=== PATIENT | female | born 1955 | race Hispanic/Latino ===

== ENCOUNTER 2017-03-16 | Observation (INO) | payer MEDICARE, OTHER | END 2017-03-16 19:35 | disposition home or self-care (01) | PROVIDERS: ADMIT Internal Medicine Pulmonary Disease | CPT/HCPCS: 80053; 81001; 82948; 85025; 87086; 96361; 96365; 96367; 96372; 96375; 96376; 97163; 97530; G0378; G8978; G8979; J0696; J1170; J1642; J1650; J2543; J7040 ==

== ENCOUNTER 2017-05-11 13:11 | Inpatient (IN) | payer MEDICARE, OTHER ==
[2017-05-11 13:12] VITALS: BMI 38.1
--- NOTE | 2017-05-11 13:34 | C.PDOC ---
History Of Present Illness 62 year old female, with past medical history of Reflex sympathetic dystrophy syndrome, is brought to the ED via EMS for evaluation of generalized body pain after she sustained a fall earlier today. Patient notes she has a home health aid who normally accompanies her throughout the day. Today, patient suffered a fall while she was left unattended. The health aid returned and noticed patient did not seem well and called EMS for evaluation. Patient reports she is experiencing pain "all over" and mostly in her left leg, but also notes this pain is chronic. Patient also reports redness to her right ankle which began yesterday. Patient's most recent hospital admission was in March 2017, for osteomyelitis to her right second toe. Patient states she has been eating and drinking normally. She denies head injury/LOC, shortness of breath, dizziness or lightheadedness. Additional history is limited because patient is a poor historian. Time Seen by Provider: 05/11/17 13:16 Chief Complaint (Nursing): Pain, Chronic History Per: Patient, EMS, Other (home health aid ) History/Exam Limitations: other (poor historian ) Onset/Duration Of Symptoms: Hrs Current Symptoms Are (Timing): Still Present Additional History Per: Patient Past Medical History Reviewed: Historical Data, Nursing Documentation, Vital Signs Vital Signs: Last Vital Signs Temp 98.2 F 05/11/17 16:04 Pulse 91 H 05/11/17 16:04 Resp 20 05/11/17 16:04 BP 131/84 05/11/17 16:04 Pulse Ox 100 05/11/17 16:04 - Medical History PMH: Anxiety, Arthritis, Asthma, Back Problems, Bronchitis, CAD, CHF, COPD, Depression, Diabetes, Gall Bladder Disease (Gallstone), GERD, Hiatal Hernia, HTN , Hypercholesterolemia, Hypothyroidism, Mitral Valve Prolapse, Peripheral Edema , Pulmonary Embolism Denies: Chronic Kidney Disease Surgical History: No Surg Hx - [facility] Procedures FLUOROSCOPY OF SUP VENA CAVA USING L OSM CONTRAST, GUIDANCE (10/13/15) INCIS W REM OF FORIEGN BODY OR DEV FROM SKIN & SUBCUT TISSUE (10/22/14) INFLUENZA VACCINATION (09/19/14) INSERTION OF INFUSION DEV INTO SUP VENA CAVA, PERC APPROACH (10/13/15) INSERTION OF TOTALLY IMPLANTABLE VASC ACCESS DEVIC (10/22/14) INSERTION OF VAD INTO CHEST SUBCU/FASCIA, OPEN APPROACH (10/13/15) NEBULIZER THERAPY (11/05/13) NON-INVASIVE MECHANICAL VENTILATION (06/04/12) OCCUPATIONAL THERAPY (09/19/14) OTH & OPEN REP OTH HERNIA OF ANTER ABD WALL W GRF OR PROSTH (05/28/13) PHYSICAL THERAPY NEC (09/19/14) REMOVAL OF VAD FROM TRUNK SUBCU/FASCIA, OPEN APPROACH (10/13/15) REPAIR CHEST SKIN, EXTERNAL APPROACH (10/13/15) THORAX SFT TISS XRAY NEC (03/19/13) Family History: States: Unknown Family Hx - Social History Hx Tobacco Use: No Hx Alcohol Use: No Hx Substance Use: No - Immunization History Hx Tetanus Toxoid Vaccination: No Hx Influenza Vaccination: No Hx Pneumococcal Vaccination: No Review Of Systems Respiratory: Negative for: Shortness of Breath Musculoskeletal: Positive for: Leg Pain (left), Other (generalized body pain ) Skin: Positive for: Other (redness around right ankle ) Neurological: Negative for: Dizziness, Other (head injury/LOC, lightheadedness ) Physical Exam - Physical Exam Appears: Non-toxic, No Acute Distress, Other (restless ) Skin: Warm, Dry, Other (circumferential erythema to right ankle. dusky- appearance and erythema to right 2nd toe) Head: Atraumatic, Normacephalic Eye(s): bilateral: Normal Inspection Oral Mucosa: Dry Neck: Supple Chest: Symmetrical, No Deformity, No Tenderness Cardiovascular: Rhythm Regular, No Murmur Respiratory: Normal Breath Sounds, No Rales, No Rhonchi, No Wheezing Extremity: Normal ROM, No Tenderness, Capillary Refill (less than 2 seconds ), No Deformity, No Swelling Pulses: Left Dorsalis Pedis: Normal, Right Dorsalis Pedis: Normal Neurological/Psych: Oriented x3, Normal Speech, Normal Cognition, Normal Motor, Normal Sensation Gait: Unable To Assess ED Course And Treatment - Laboratory Results Result Diagrams: 05/11/17 13:52 05/11/17 13:52 Lab Interpretation: Abnormal (WBC elevated 13.6 with left shift, BUN 12 , Cr0.6 , Ca 11, K+ 3.3) ECG: Interpreted By Or ECG Rhythm: Sinus Rhythm (with LVH) ECG Interpretation: No Acute Changes O2 Sat by Pulse Oximetry: 98 (on RA) Pulse Ox Interpretation: Normal Progress Note: labs, CXR and EKG ordered and reviewed. Patient received Ativan IVP, Dilaudid IVP and IV Fluids. Kdur given for mild hypokalemia. Patient did not provide urine specimen while in ED. Reevaluation Time: 15:04 Reassessment Condition: Improved (Patient comfortable and sleeping quietly.) - Physician Consult Information Time Consulting Physician Contacted: 15:04 Physician Contacted: Artis Weldon Outcome Of Conversation: Patient is well known to him. He will admit for pain management and evaluation of cellulitis of leg and ischemia of the toe. Disposition - Disposition Disposition: HOSPITALIZED Disposition Time: 15:05 Condition: IMPROVED - POA Present On Arrival: None - Clinical Impression Clinical Impression: Intractable pain, RSD (reflex sympathetic dystrophy), Chronic pain, Cellulitis of right lower leg - Scribe Statement The provider has reviewed the documentation as recorded by the Scribe (Mariluz Bill) Provider Attestation: All medical record entries made by the Scribe were at my direction and personally dictated by me. I have reviewed the chart and agree that the record accurately reflects my personal performance of the history, physical exam, medical decision making, and the department course for this patient. I have also personally directed, reviewed, and agree with the discharge instructions and disposition.
--- NOTE | 2017-05-11 13:40 | C.PDOC ---
Time Seen by Provider: 05/11/17 13:16 Chief Complaint (Nursing): Chest Pain Past Medical History - Medical History PMH: Anxiety, Arthritis, Asthma, Back Problems, Bronchitis, CAD, CHF, COPD, Depression, Diabetes, Gall Bladder Disease (Gallstone), GERD, Hiatal Hernia, HTN , Hypercholesterolemia, Hypothyroidism, Mitral Valve Prolapse, Peripheral Edema , Pulmonary Embolism Denies: Chronic Kidney Disease - [facility] Procedures FLUOROSCOPY OF SUP VENA CAVA USING L OSM CONTRAST, GUIDANCE (10/13/15) INCIS W REM OF FORIEGN BODY OR DEV FROM SKIN & SUBCUT TISSUE (10/22/14) INFLUENZA VACCINATION (09/19/14) INSERTION OF INFUSION DEV INTO SUP VENA CAVA, PERC APPROACH (10/13/15) INSERTION OF TOTALLY IMPLANTABLE VASC ACCESS DEVIC (10/22/14) INSERTION OF VAD INTO CHEST SUBCU/FASCIA, OPEN APPROACH (10/13/15) NEBULIZER THERAPY (11/05/13) NON-INVASIVE MECHANICAL VENTILATION (06/04/12) OCCUPATIONAL THERAPY (09/19/14) OTH & OPEN REP OTH HERNIA OF ANTER ABD WALL W GRF OR PROSTH (05/28/13) PHYSICAL THERAPY NEC (09/19/14) REMOVAL OF VAD FROM TRUNK SUBCU/FASCIA, OPEN APPROACH (10/13/15) REPAIR CHEST SKIN, EXTERNAL APPROACH (10/13/15) THORAX SFT TISS XRAY NEC (03/19/13) Family History: States: Unknown Family Hx - Social History Hx Tobacco Use: No Hx Alcohol Use: No Hx Substance Use: No - Immunization History Hx Tetanus Toxoid Vaccination: No Hx Influenza Vaccination: No Hx Pneumococcal Vaccination: No Disposition - Disposition
[2017-05-11] MEDS ORDERED: Sodium Chloride 0.9% 1,000 ML IV ONE (13:44)
[2017-05-11 14:03] LABS: BASO % 0.2 % (0.0-2.0); HEMATOCRIT 34.7 % (34.0-47.0); LYMPH % 7.1 % (20.0-40.0); MEAN CELL VOLUME 72.2 fL (81.0-99.0); MEAN CORPUSCULAR HGB CONC 33.2 g/dL (33.0-37.0); MEAN PLATELET VOLUME 8.6 fL (7.2-11.7); MONO # 0.7 K/uL (0.0-0.8); MONO % 4.9 % (0.0-10.0); PLATELET COUNT 275 K/uL (130-400); RED CELL DISTRIBUTION WIDTH 17.2 % (11.5-14.5); WHITE BLOOD COUNT 13.6 K/uL (4.8-10.8)
[2017-05-11 14:11] LABS: CHLORIDE 97 mmol/L (98-107); POTASSIUM 3.3 mmol/L (3.6-5.2); SODIUM 138 mmol/L (132-148)
[2017-05-11 14:13] LABS: BILIRUBIN,TOTAL 0.5 mg/dL (0.2-1.3); GFR AFRICAN-AMERICAN > 60
[2017-05-11 14:14] LABS: ALB/GLOB RATIO 0.9 (1.0-2.1); ALKALINE PHOSPHATASE 124 U/L (38-126); ALT/SGPT 41 U/L (9-52); AST/SGOT 58 U/L (14-36); BLOOD UREA NITROGEN 12 mg/dL (7-17); CARBON DIOXIDE 26 mmol/L (22-30); GLUCOSE,RANDOM 120 mg/dL (65-105); TOTAL PROTEIN 8.9 g/dL (6.3-8.3)
[2017-05-11 14:30] LABS: NEUTROPHIL 88 % (50-75); TOTAL CELLS COUNTED 100
[2017-05-11] MEDS ORDERED: Potassium Chloride 20 mEq ER Tab PO STA (16:33)
[2017-05-11] MEDS ORDERED: Potassium Chloride 20 mEq ER Tab PO ONE (16:36)
[2017-05-11] MEDS: oxyCODONE 30 mg Immediate Release Tab PO PRN (22:24)
[2017-05-11] MEDS: (Novolin R) Insulin Human Regular 100 units/ml vial SC SCH (22:27)
[2017-05-12] MEDS: Levothyroxine 100 MCG TAB PO SCH (06:12)
[2017-05-12] MEDS: oxyCODONE 30 mg Immediate Release Tab PO PRN ×4 (06:13→19:05)
[2017-05-12] MEDS ORDERED: Tiotropium 18 mcg Cap For Inhalation INH SCH (08:00)
[2017-05-12] MEDS: (Novolin R) Insulin Human Regular 100 units/ml vial SC SCH ×4 (08:13→21:59)
[2017-05-12] MEDS: Enoxaparin 40 mg Syringe SC SCH (09:37)
[2017-05-12] MEDS: Piperacill/Tazo 3.375gm in Dex 3.375 GM/50 ML BAG IVPB SCH ×3 (09:46→21:30)
--- NOTE | 2017-05-12 15:33 | CARD ---
APPROVED REPORT EKG Measurement Heart [id number] NH [id number] [id number] <Conclusion> Normal sinus rhythm Minimal voltage criteria for LVH, may be normal variant Borderline ECG
--- NOTE | 2017-05-12 15:59 | RAD ---
PROCEDURE: Left Foot Radiographs. HISTORY: r/o soft tissue emphysema COMPARISON: None. FINDINGS: BONES: There is a fracture of the distal metaphysis of the 5th metatarsal bone probably reflecting a chronic free healed fracture. Diffuse osteopenia suggests osteoporosis limiting the evaluation the cortex however. An acute fracture is not completely excluded and further clinical correlation is advised. No destructive bony lesion is appreciated grossly. JOINTS: Degenerative cortical sclerosis and joint space narrowing seen throughout the forefoot midfoot and hindfoot joints compatible osteoarthritis on a moderate basis. Severe osteoarthritis is appreciate the subtalar joint with marked pes planus appreciated. SOFT TISSUES: No definite retained radiodense foreign body or emphysema soft tissue changes are identified. OTHER FINDINGS: None. IMPRESSION: Pes planus apparent as well as diffuse degenerative joint disease throughout the left foot. A probable chronic fracture at the distal segment 5th metatarsal bone though due to osteopenia throughout the low left foot is difficult to confirm this is chronic and not acute. Clinically correlate further.
--- NOTE | 2017-05-12 18:24 | CP.PCM.PN ---
Subjective - Date & Time of Evaluation Date of Evaluation: 05/12/17 Time of Evaluation: 10:15 - Subjective Subjective: Dr. Weldon note: Patient seen and examined in room. She is complaing of pain, redness and swelling in both her legs but espeically the right leg. She is worried she has cellulitis but says it used to be "worse in the past". She denies any fever, chills, nausea, vomiting, diarrhea, purluent discharge. She has a history of complex regional pain syndrome, DM, hyperlipidemia, HTN, COPD, depression. Objective - Vital Signs/Intake and Output Vital Signs (last 24 hours): Temp Pulse Resp BP Pulse Ox 98.2 F 78 20 101/66 97 05/12/17 16:00 05/12/17 16:00 05/12/17 16:00 05/12/17 16:00 05/12/17 16:00 Intake and Output: 05/12/17 05/12/17 06:59 18:59 Intake Total 250 Balance 250 - Medications Medications: Current Medications Celecoxib (Celebrex) 200 mg PO BID PRN PRN Reason: Pain, moderate (4-7) Last Admin: 05/12/17 09:36 Dose: 200 mg Docusate Sodium (Colace) 100 mg PO DAILY [facility] Last Admin: 05/12/17 09:36 Dose: 100 mg Enoxaparin Sodium (Lovenox) 40 mg SC DAILY [facility] Last Admin: 05/12/17 09:37 Dose: 40 mg Famotidine (Pepcid) 20 mg PO BID [facility] Last Admin: 05/12/17 17:34 Dose: 20 mg Fluoxetine HCl (Prozac) 20 mg PO BID [facility] Last Admin: 05/12/17 17:35 Dose: 20 mg Fluticasone Propionate (Flonase) 1 spr JOSE RQ12 [facility] Piperacillin Sod/Tazobactam Sod (Zosyn 3.375 Gm Iv Premix) 3.375 gm in 50 mls @ 100 mls/hr IVPB Q6H [facility] Last Admin: 05/12/17 14:34 Dose: 100 mls/hr Insulin Human Regular (Novolin R) 0 unit SC ACHS [facility] PRN Reason: Protocol Last Admin: 05/12/17 16:30 Dose: Not Given Isosorbide Mononitrate (Imdur) 60 mg PO DAILY [facility] Last Admin: 05/12/17 09:36 Dose: 60 mg Levothyroxine Sodium (Synthroid) 100 mcg PO DAILY@0630 [facility] Last Admin: 05/12/17 06:12 Dose: 100 mcg Lorazepam (Ativan) 2 mg PO Q8H PRN PRN Reason: Anxiety Last Admin: 05/12/17 08:30 Dose: 2 mg Metformin HCl (Glucophage) 500 mg PO BIDCC [facility] Last Admin: 05/12/17 17:33 Dose: 500 mg Oxycodone HCl (Oxycodone Immediate Release Tab) 30 mg PO Q4H PRN PRN Reason: Pain, moderate (4-7) Last Admin: 05/12/17 14:13 Dose: 30 mg Pregabalin (Lyrica) 150 mg PO Q8H [facility] Last Admin: 05/12/17 13:07 Dose: 150 mg Rosuvastatin Calcium (Crestor) 10 mg PO HS [facility] Last Admin: 05/11/17 22:26 Dose: 10 mg Tiotropium [place] (Spiriva) 18 mcg INH RQ24 [facility] - Labs Labs: 05/11/17 13:52 05/11/17 13:52 - Constitutional Appears: Non-toxic, No Acute Distress - Eye Exam Eye Exam: Normal appearance. absent: Scleral icterus Pupil Exam: NORMAL ACCOMODATION - Respiratory Exam Respiratory Exam: Clear to Ausculation Bilateral. absent: Rales, Rhonchi, Wheezes - Cardiovascular Exam Cardiovascular Exam: REGULAR RHYTHM, RRR, +S1, +S2. absent: Gallop, Rubs - GI/Abdominal Exam GI & Abdominal Exam: Soft, Normal Bowel Sounds. absent: Tenderness - Extremities Exam Additional comments: redness and thickness of the skin, - Psychiatric Exam Psychiatric exam: Normal Affect, Normal Mood - Skin Additional comments: redness, some increase warmth, ulcers on the toes. Assessment and Plan (1) Cellulitis of right lower leg Assessment & Plan: started Zosyn and also consulted Podiatry, Dr. Rios. Status: Acute (2) Complex regional pain syndrome I Assessment & Plan: continue celebrex 200mg bid as needed, Oxycodone 30mg q4h as needed. Status: Chronic (3) Diabetes Assessment & Plan: accu checks, sliding scale, hypoglycemia protocol, home Metformin 500mg bid Status: Chronic (4) Hyperlipidemia Assessment & Plan: Crestor Status: Chronic (5) COPD (chronic obstructive pulmonary disease) Assessment & Plan: Spirvia 18mcg daily, duonebs q6h prn Status: Chronic (6) Hypothyroidism Assessment & Plan: HOme Synthroid 100mcg Status: Chronic (7) Depression Assessment & Plan: continue home Prozac 10mg Status: Chronic (8) HTN (hypertension) Assessment & Plan: home Imdur 60mg daily Status: Chronic (9) Prophylactic measure Status: Acute
[2017-05-12] MEDS: Fluticasone Nasal 50 mcg/Spray NAS SCH (20:11)
[2017-05-13] MEDS: oxyCODONE 30 mg Immediate Release Tab PO PRN ×4 (00:30→14:25)
[2017-05-13] MEDS: Piperacill/Tazo 3.375gm in Dex 3.375 GM/50 ML BAG IVPB SCH ×3 (04:10→14:36)
[2017-05-13] MEDS: Levothyroxine 100 MCG TAB PO SCH (05:50)
[2017-05-13 07:25] LABS: BASO % 0.7 % (0.0-2.0); EOS # 0.2 K/uL (0.0-0.7); HEMATOCRIT 30.1 % (34.0-47.0); LYMPH % 28.1 % (20.0-40.0); MEAN CELL VOLUME 73.3 fL (81.0-99.0); MEAN CORPUSCULAR HEMOGLOBIN 24.1 pg (27.0-31.0); MEAN CORPUSCULAR HGB CONC 32.9 g/dL (33.0-37.0); MEAN PLATELET VOLUME 8.7 fL (7.2-11.7); MONO # 0.8 K/uL (0.0-0.8); MONO % 10.6 % (0.0-10.0); RED CELL DISTRIBUTION WIDTH 17.8 % (11.5-14.5); WHITE BLOOD COUNT 7.1 K/uL (4.8-10.8)
[2017-05-13 07:34] LABS: CHLORIDE 101 mmol/L (98-107)
[2017-05-13 07:35] LABS: POTASSIUM 3.5 mmol/L (3.6-5.2); SODIUM 137 mmol/L (132-148)
[2017-05-13 07:37] VITALS: BP 100/71; PULSE 73; RESP 18; TEMP 97.6; O2SAT 99
[2017-05-13 07:37] LABS: GFR AFRICAN-AMERICAN > 60
[2017-05-13 07:38] LABS: ALKALINE PHOSPHATASE 79 U/L (38-126); ALT/SGPT 41 U/L (9-52); AST/SGOT 27 U/L (14-36); BILIRUBIN,TOTAL 0.4 mg/dL (0.2-1.3); BLOOD UREA NITROGEN 17 mg/dL (7-17); CARBON DIOXIDE 25 mmol/L (22-30); GLUCOSE,RANDOM 93 mg/dL (65-105); PHOSPHOROUS 3.2 mg/dL (2.5-4.5)
[2017-05-13 07:39] LABS: CALCIUM 9.7 mg/dl (8.6-10.4); MAGNESIUM 1.8 mg/dL (1.6-2.3)
--- NOTE | 2017-05-13 07:51 | CP.PCM.PN ---
Subjective - Date & Time of Evaluation Date of Evaluation: 05/13/17 Time of Evaluation: 07:46 - Subjective Subjective: PGY-[address] Weldon's service: Pt seen and examined at bedside. Nursing reports no acute events overnight. Patients states pain in leg is well controlled. She states she sees Dr. Rios as outpatient, and his office is right by her house. She reports wearing special braces/orthotics for last several years. She denies fever, chills, abd pain, N/V/D/C, or purulent/bloody discharge from the wound. Pt stable for discharge. Will follow up with Dr. Rios in his clinic. Objective - Vital Signs/Intake and Output Vital Signs (last 24 hours): Temp Pulse Resp BP Pulse Ox 97.6 F 73 18 100/71 99 05/13/17 07:36 05/13/17 07:36 05/13/17 07:36 05/13/17 07:36 05/13/17 07:36 Intake and Output: 05/13/17 05/13/17 06:59 18:59 Intake Total 450 Balance 450 - Medications Medications: Current Medications Celecoxib (Celebrex) 200 mg PO BID PRN PRN Reason: Pain, moderate (4-7) Last Admin: 05/12/17 21:29 Dose: 200 mg Docusate Sodium (Colace) 100 mg PO DAILY [facility] Last Admin: 05/12/17 09:36 Dose: 100 mg Enoxaparin Sodium (Lovenox) 40 mg SC DAILY [facility] Last Admin: 05/12/17 09:37 Dose: 40 mg Famotidine (Pepcid) 20 mg PO BID [facility] Last Admin: 05/12/17 17:34 Dose: 20 mg Fluoxetine HCl (Prozac) 20 mg PO BID [facility] Last Admin: 05/12/17 17:35 Dose: 20 mg Fluticasone Propionate (Flonase) 1 spr JOSE RQ12 [facility] Last Admin: 05/12/17 20:11 Dose: 1 appl Piperacillin Sod/Tazobactam Sod (Zosyn 3.375 Gm Iv Premix) 3.375 gm in 50 mls @ 100 mls/hr IVPB Q6H [facility] Last Admin: 05/13/17 04:10 Dose: 100 mls/hr Insulin Human Regular (Novolin R) 0 unit SC ACHS [facility] PRN Reason: Protocol Last Admin: 05/12/17 21:59 Dose: Not Given Isosorbide Mononitrate (Imdur) 60 mg PO DAILY [facility] Last Admin: 05/12/17 09:36 Dose: 60 mg Levothyroxine Sodium (Synthroid) 100 mcg PO DAILY@0630 [facility] Last Admin: 05/13/17 05:50 Dose: 100 mcg Lorazepam (Ativan) 2 mg PO Q8H PRN PRN Reason: Anxiety Last Admin: 05/12/17 08:30 Dose: 2 mg Metformin HCl (Glucophage) 500 mg PO BIDCC [facility] Last Admin: 05/12/17 17:33 Dose: 500 mg Oxycodone HCl (Oxycodone Immediate Release Tab) 30 mg PO Q4H PRN PRN Reason: Pain, moderate (4-7) Last Admin: 05/13/17 05:50 Dose: 30 mg Pregabalin (Lyrica) 150 mg PO Q8H [facility] Last Admin: 05/13/17 04:10 Dose: 150 mg Rosuvastatin Calcium (Crestor) 10 mg PO HS [facility] Last Admin: 05/12/17 21:37 Dose: 10 mg Tiotropium [place] (Spiriva) 18 mcg INH RQ24 [facility] - Labs Labs: 05/13/17 07:04 05/13/17 07:04 - Constitutional Appears: Non-toxic, No Acute Distress - Head Exam Head Exam: ATRAUMATIC, NORMOCEPHALIC - Eye Exam Eye Exam: EOMI, Normal appearance - ENT Exam ENT Exam: Mucous Membranes Moist - Respiratory Exam Respiratory Exam: Clear to Ausculation Bilateral, NORMAL BREATHING PATTERN. absent: Rales, Rhonchi, Wheezes - Cardiovascular Exam Cardiovascular Exam: REGULAR RHYTHM, RRR, +S1, +S2 - GI/Abdominal Exam GI & Abdominal Exam: Soft. absent: Tenderness Additional comments: Large body habitus noted - Extremities Exam Additional comments: Erythema of skin in right lower extremity DP/PT intact but diminished Colder extremity on left - Back Exam Back Exam: absent: CVA tenderness (L), CVA tenderness (R) - Neurological Exam Neurological Exam: Alert, Awake, Oriented x3 - Psychiatric Exam Psychiatric exam: Normal Affect, Normal Mood - Skin Skin Exam: Normal Color, Warm Assessment and Plan - Assessment and Plan (Free Text) Plan: Disposition: Pt for discharge. Will be sent home with antibiotic, Doxycycline. Will follow up with Dr. Rios, electronics mechanic as outpatient. (1) Cellulitis of right lower leg Assessment & Plan: continued Zosyn and also consulted Podiatry, Dr. Rios. Status: Acute (2) Complex regional pain syndrome I Assessment & Plan: continue celebrex 200mg bid as needed, Oxycodone 30mg q4h as needed. Status: Chronic (3) Diabetes Assessment & Plan: accu checks, sliding scale, hypoglycemia protocol, home Metformin 500mg bid Status: Chronic (4) Hyperlipidemia Assessment & Plan: Crestor Status: Chronic (5) COPD (chronic obstructive pulmonary disease) Assessment & Plan: Spirvia 18mcg daily, duonebs q6h prn Status: Chronic (6) Hypothyroidism Assessment & Plan: Home Synthroid 100mcg Status: Chronic (7) Depression Assessment & Plan: continue home Prozac 10mg Status: Chronic (8) HTN (hypertension) Assessment & Plan: home Imdur 60mg daily Status: Chronic (9) Prophylactic measure Status: Acute Shahid Layne PGY-2 All medical management per Dr Weldon.
[2017-05-13] MEDS: (Novolin R) Insulin Human Regular 100 units/ml vial SC SCH ×2 (08:13→12:10)
[2017-05-13] MEDS: Fluticasone Nasal 50 mcg/Spray NAS SCH (08:19)
[2017-05-13] MEDS ORDERED: Potassium Chloride 20 mEq ER Tab PO SCH (09:45)
[2017-05-13] MEDS: Enoxaparin 40 mg Syringe SC SCH (09:50)
--- NOTE | 2017-05-13 10:05 | CP.PCM.CON ---
History of Present Illness - History of Present Illness History of Present Illness: 62 year old female well know to podiatry service and attending Dr. Rios, seen at bedside with attending concerning right leg redness and 2nd digit redness. Pt has medical history of Reflex sympathetic dystrophy syndrome. Pt says she was admitted for generalized body pain after she sustained a yesterday, while she was left unattended. Patient reports she is experiencing pain "all over" and mostly in her left leg, but also notes this pain is chronic. Pt does not recall which side she landed on during incident. She reports no feeling of feverishness, chills, nausea, vomiting, diarrhea. Pt has no other pedal complaints. Past Patient History - Infectious Disease Hx of Infectious Diseases: None - Tetanus Immunizations Tetanus Immunization: Unknown - Past Medical History & Family History Past Medical History?: Yes - Past Social History Smoking Status: Never Smoked - CARDIAC Hx Congestive Heart Failure: Yes Hx Hypercholesterolemia: Yes Hx Hypertension: Yes Hx Mitral Valve Prolapse: Yes Hx Peripheral Edema: Yes - PULMONARY Hx Respiratory Disorders: Yes Hx Asthma: Yes Hx Bronchitis: Yes Hx Chronic Obstructive Pulmonary Disease (COPD): Yes Hx Pulmonary Embolism: Yes - NEUROLOGICAL Hx Neurological Disorder: No Other/Comment: Reflux Sympathetic Dystrophy - HEENT Hx HEENT Problems: Yes Hx Cataracts: Yes - RENAL Hx Chronic Kidney Disease: No Hx Dialysis: No - ENDOCRINE/METABOLIC Hx Endocrine Disorders: Yes Hx Hypothyroidism: Yes - HEMATOLOGICAL/ONCOLOGICAL Hx Blood Disorders: Yes Hx Blood Transfusions: Yes - INTEGUMENTARY Hx Dermatological Problems: Yes Hx Cellulitis: Yes Other/Comment: redness on right lower leg - MUSCULOSKELETAL/RHEUMATOLOGICAL Hx Musculoskeletal Disorders: Yes Hx Falls: Yes Hx Unsteady Gait: Yes - GASTROINTESTINAL Hx Gastrointestinal Disorders: Yes Hx Gall Bladder Disease: Yes (Gallstone) - GENITOURINARY/GYNECOLOGICAL Hx Genitourinary Disorders: No - PSYCHIATRIC Hx Substance Use: No - SURGICAL HISTORY Hx Surgeries: Yes Hx Cardiac Catheterization: Yes (X6) Hx Eye Surgery: Yes (CATARACT SX BOTH W/LENS) Hx Vascular Access Device: Yes (Port A Cath right side of chest) Other/Comment: Hiatus Hernia repair, DIMPLE, Buniectomy R foot, operation L foot ( type unknown). - ANESTHESIA Hx Anesthesia: Yes Hx Anesthesia Reactions: No Hx Malignant Hyperthermia: No Has any member of the family had a problem w/ anesthesia?: No Meds Home Medications: Home Medication List Medication Instructions Recorded Confirmed Type Doxycycline Hyclate 100 mg PO BID #20 capsule 05/13/17 Rx Allergies/Adverse Reactions: Allergies Allergy/AdvReac Type Severity Reaction Status Date / Time Sulfa (Sulfonamide Allergy Intermediate RASH Verified 05/11/17 13:31 Antibiotics) - Medications Medications: Current Medications Celecoxib (Celebrex) 200 mg PO BID PRN PRN Reason: Pain, moderate (4-7) Last Admin: 05/13/17 08:19 Dose: 200 mg Docusate Sodium (Colace) 100 mg PO DAILY [facility] Last Admin: 05/13/17 09:50 Dose: 100 mg Enoxaparin Sodium (Lovenox) 40 mg SC DAILY [facility] Last Admin: 05/13/17 09:50 Dose: 40 mg Famotidine (Pepcid) 20 mg PO BID [facility] Last Admin: 05/13/17 09:50 Dose: 20 mg Fluoxetine HCl (Prozac) 20 mg PO BID [facility] Last Admin: 05/13/17 09:51 Dose: 20 mg Fluticasone Propionate (Flonase) 1 spr JOSE RQ12 [facility] Last Admin: 05/13/17 08:19 Dose: 1 appl Piperacillin Sod/Tazobactam Sod (Zosyn 3.375 Gm Iv Premix) 3.375 gm in 50 mls @ 100 mls/hr IVPB Q6H [facility] Last Admin: 05/13/17 09:57 Dose: 100 mls/hr Insulin Human Regular (Novolin R) 0 unit SC ACHS [facility] PRN Reason: Protocol Last Admin: 05/13/17 08:13 Dose: Not Given Isosorbide Mononitrate (Imdur) 60 mg PO DAILY [facility] Last Admin: 05/13/17 09:50 Dose: 60 mg Levothyroxine Sodium (Synthroid) 100 mcg PO DAILY@0630 [facility] Last Admin: 05/13/17 05:50 Dose: 100 mcg Lorazepam (Ativan) 2 mg PO Q8H PRN PRN Reason: Anxiety Last Admin: 05/13/17 08:19 Dose: 2 mg [facility] Last Admin: 05/13/17 08:19 Dose: 500 mg Oxycodone HCl (Oxycodone Immediate Release Tab) 30 mg PO Q4H PRN PRN Reason: Pain, moderate (4-7) Last Admin: 05/13/17 09:58 Dose: 30 mg Potassium Chloride (K-Dur 20 Meq Er Tab) 40 meq PO ONCE [facility] Pregabalin (Lyrica) 150 mg PO Q8H [facility] Last Admin: 05/13/17 04:10 Dose: 150 mg Rosuvastatin Calcium (Crestor) 10 mg PO HS [facility] Last Admin: 05/12/17 21:37 Dose: 10 mg Tiotropium [place] (Spiriva) 18 mcg INH RQ24 [facility] Last Admin: 05/13/17 09:04 Dose: Not Given Physical Exam - Constitutional Appears: Well, Non-toxic, No Acute Distress, Older Than Stated Age - Extremities Exam Additional comments: Lower Extremity focused. VASC: DP pulses graded 1/4, PT pulses non palpable bilaterally. CRF to level of digits is <3 seconds. Temperature runs warm to cool , proximal to distal within normal limits. Right side minor pitting edema compared to contra lateral limb. Diffuse tortuous varicosities noted bilaterally in lower legs. DERM: Right med leg circumferential erythematous, blanchable patch noted. This site and adjacent skin is absent portal of entry or excoriations. Right 2nd digit mild edematous with non-blanchable erythema of low intensity. 2nd digit nail border shows pre-ulcerative lesion, with scabbing skin. Left foot shows medial forefoot low intensity, localized echhymosis l NERUO: Protective sensation grossly diminished. ORTHO: Pedal muscle strenght in medial and lateral muscle groups graded 4/5, 5/ 5 in anterior and posterior pedal muscle groups. Absent medial arch noted to left foot with shey prominence in navicular mid-foot region. Left 3rd digit noted hammer toe contracture. - Neurological Exam Neurological exam: Alert, Oriented x3 Results - Vital Signs Recent Vital Signs: Last Vital Signs Temp 97.6 F 05/13/17 07:36 Pulse 73 05/13/17 07:36 Resp 18 05/13/17 07:36 BP 100/71 05/13/17 07:36 Pulse Ox 99 05/13/17 07:36 - Labs Result Diagrams: 05/13/17 07:04 05/13/17 07:04 Labs: Laboratory Results - last 24 hr 05/12/17 05/12/17 05/12/17 10:57 16:10 17:04 WBC RBC Hgb Hct MCV MCH MCHC RDW Plt Count MPV Neut % (Auto) Lymph % (Auto) [place] % (Auto) Eos % (Auto) Baso % (Auto) Neut # Lymph # [place] # Eos # Baso # ESR 92 H Sodium Potassium Chloride Carbon Dioxide Anion Gap BUN Creatinine Est GFR ( Amer) Est GFR (Non-Af Amer) POC Glucose (mg/dL) 130 H 107 Random Glucose Calcium Phosphorus Magnesium Total Bilirubin AST ALT Alkaline Phosphatase Total Protein Albumin Globulin Albumin/Globulin Ratio 05/12/17 05/13/17 05/13/17 21:21 02:06 07:04 WBC 7.1 RBC 4.11 Hgb 9.9 L Hct 30.1 L MCV 73.3 L MCH 24.1 L MCHC 32.9 L RDW 17.8 H Plt Count 257 MPV 8.7 Neut % (Auto) 57.6 Lymph % (Auto) 28.1 [place] % (Auto) 10.6 H Eos % (Auto) 3.0 Baso % (Auto) 0.7 Neut # 4.1 Lymph # 2.0 [place] # 0.8 Eos # 0.2 Baso # 0.0 ESR Sodium Potassium Chloride Carbon Dioxide Anion Gap BUN Creatinine Est GFR ( Amer) Est GFR (Non-Af Amer) POC Glucose (mg/dL) 105 129 H Random Glucose Calcium Phosphorus Magnesium Total Bilirubin AST ALT Alkaline Phosphatase Total Protein Albumin Globulin Albumin/Globulin Ratio 05/13/17 05/13/17 07:04 07:10 WBC RBC Hgb Hct MCV MCH MCHC RDW Plt Count MPV Neut % (Auto) Lymph % (Auto) [place] % (Auto) Eos % (Auto) Baso % (Auto) Neut # Lymph # [place] # Eos # Baso # ESR Sodium 137 Potassium 3.5 L Chloride 101 Carbon Dioxide 25 Anion Gap 15 BUN 17 Creatinine 0.8 Est GFR ( Amer) > 60 Est GFR (Non-Af Amer) > 60 POC Glucose (mg/dL) 124 H Random Glucose 93 Calcium 9.7 Phosphorus 3.2 Magnesium 1.8 Total Bilirubin 0.4 AST 27 ALT 41 Alkaline Phosphatase 79 Total Protein 7.0 Albumin 3.5 Globulin 3.5 Albumin/Globulin Ratio 1.0 Assessment & Plan - Assessment and Plan (Free Text) Assessment: 62 year odl female with right foot and leg cellulitis. Plan: Pt evaluated and treated. Chart, labs, and vitals, reviewed. Radiographs reviewed. Discussed in detail with attending Dr. Rios. Continue IV abx. Recommending outpatient oral abx. Pt has history of chronic recurring digital cellulits and OM. Pt is stable from podiatric standpoint for discharge. Follow-up with Dr. Rios in office on outpatient basis. - Date & Time Date: 05/13/17 Time: 09:30
[2017-05-13] MEDS ORDERED: Potassium Chloride 20 mEq ER Tab PO ONE (11:30)
== END 2017-05-13 17:03 | disposition home or self-care (01) | DRG 603 ==
LOC: C.ER 13:11 → C.9E 15:07 → C.3T 15:53
PROVIDERS: ADMIT Internal Medicine Pulmonary Disease; ATTEND Internal Medicine Pulmonary Disease
DX: L03.115 Cellulitis of right lower limb (principal); I11.0 Hypertensive heart disease with heart failure; I50.9 Heart failure, unspecified; G90.50 Complex regional pain syndrome I, unspecified; F32.9 Major depressive disorder, single episode, unspecified; E03.9 Hypothyroidism, unspecified; E11.9 Type 2 diabetes mellitus without complications; E78.5 Hyperlipidemia, unspecified; I25.10 Atherosclerotic heart disease of native coronary artery without angina pectoris; F41.9 Anxiety disorder, unspecified; J44.9 Chronic obstructive pulmonary disease, unspecified; K21.9 Gastro-esophageal reflux disease without esophagitis; Z86.711 Personal history of pulmonary embolism; Z79.4 Long term (current) use of insulin

== ENCOUNTER 2017-07-15 17:10 | Observation (INO) | payer MEDICARE, OTHER ==
[2017-07-15 17:10] VITALS: BMI 40.6
--- NOTE | 2017-07-15 17:34 | C.PDOC ---
History Of Present Illness 62 y/o female presents to ED for potential podiatry surgery by Dr. Rios. Pt states she has been falling frequently, and has unstable gait. Pt complaints of chronic body pain, shortness of breath, and dyspnea on exertion. Records reviewed, shows patient is taking 210mg of oxycodone a day. Denies any other associated symptoms at this time. Time Seen by Provider: 07/15/17 17:30 Chief Complaint (Nursing): Chest Pain History Per: Patient History/Exam Limitations: no limitations Onset/Duration Of Symptoms: Days Current Symptoms Are (Timing): Still Present Quality: "Pain" Past Medical History Reviewed: Historical Data, Nursing Documentation, Vital Signs Vital Signs: Last Vital Signs Temp 98.0 F 07/15/17 17:23 Pulse 62 07/15/17 17:23 Resp 22 07/15/17 17:23 BP 91/58 L 07/15/17 17:23 Pulse Ox 96 07/15/17 18:40 - Medical History PMH: Anxiety, Arthritis, Asthma, Back Problems, Bronchitis, CAD, CHF, COPD, Depression, Diabetes, Gall Bladder Disease (Gallstone), GERD, Hiatal Hernia, HTN , Hypercholesterolemia, Hypothyroidism, Mitral Valve Prolapse, Peripheral Edema , Pulmonary Embolism Denies: Chronic Kidney Disease - [facility] Procedures FLUOROSCOPY OF SUP VENA CAVA USING L OSM CONTRAST, GUIDANCE (10/13/15) INCIS W REM OF FORIEGN BODY OR DEV FROM SKIN & SUBCUT TISSUE (10/22/14) INFLUENZA VACCINATION (09/19/14) INSERTION OF INFUSION DEV INTO SUP VENA CAVA, PERC APPROACH (10/13/15) INSERTION OF TOTALLY IMPLANTABLE VASC ACCESS DEVIC (10/22/14) INSERTION OF VAD INTO CHEST SUBCU/FASCIA, OPEN APPROACH (10/13/15) NEBULIZER THERAPY (11/05/13) NON-INVASIVE MECHANICAL VENTILATION (06/04/12) OCCUPATIONAL THERAPY (09/19/14) OTH & OPEN REP OTH HERNIA OF ANTER ABD WALL W GRF OR PROSTH (05/28/13) PHYSICAL THERAPY NEC (09/19/14) REMOVAL OF VAD FROM TRUNK SUBCU/FASCIA, OPEN APPROACH (10/13/15) REPAIR CHEST SKIN, EXTERNAL APPROACH (10/13/15) THORAX SFT TISS XRAY NEC (03/19/13) Family History: States: Unknown Family Hx - Social History Hx Tobacco Use: No Hx Alcohol Use: No Hx Substance Use: No - Immunization History Hx Tetanus Toxoid Vaccination: No Hx Influenza Vaccination: No Hx Pneumococcal Vaccination: No Review Of Systems Except As Marked, All Systems Reviewed And Found Negative. Constitutional: Positive for: Other (chronic body pain). Negative for: Fever, Chills Respiratory: Positive for: Shortness of Breath, SOB with Excertion. Negative for: Cough, Sputum Musculoskeletal: Positive for: Foot Pain (left) Neurological: Negative for: Weakness, Numbness Physical Exam - Physical Exam Appears: Non-toxic, No Acute Distress (smiling), Other (obese elderly female) Skin: Normal Color, Warm, Dry Head: Atraumatic, Normacephalic Eye(s): bilateral: Abnormal Pupil (pinpoint) Oral Mucosa: Moist Cardiovascular: Rhythm Regular, No Murmur Respiratory: Normal Breath Sounds, No Rales, No Rhonchi, No Wheezing Gastrointestinal/Abdominal: Soft, No Tenderness Extremity: Normal ROM, Other (left foot cast) Neurological/Psych: Oriented x3, Normal Speech ED Course And Treatment - Laboratory Results Result Diagrams: 07/15/17 18:06 07/15/17 18:06 Lab Interpretation: Abnormal (baseline microcytic anemia) ECG: Interpreted By Wi ECG Rhythm: Sinus Rhythm ECG Interpretation: Normal Rate From EC O2 Sat by Pulse Oximetry: 96 Pulse Ox Interpretation: Normal - Radiology CXR: Interpreted by Wi CXR Interpretation: Yes: No Acute Disease (PAT CXR PA/Lat taken earlier today) Reevaluation Time: 18:27 Reassessment Condition: Improved Medical Decision Making Medical Decision Making: Chronic Pain: Many prior evals for pain issues, now on an incredibly high level of oxycodone 210 mg/day. Pt without apparent pain, even lazily banging the affected L lower leg/foot on the bed rail without pain, arguing against significant regional pain syndrome. Pt ROS+ falls and unstable gait may be related to high dose narcotics regimen, particularly considering pt's advanced age (appearance) and obesity. 1800: Called to d/w Dr. Brittany Willoughby- [facility]- pending call-back from covering physician Microcytic anemia: Pt with Cor Pulmonale and Emphysema/COPD usually polycythemia, but pt appears to have iron deficiency anemia. Pt non-compliant with Fe Supplements "I take it when I feel tired and short of breath" with poor insight. Most recent colonoscopy/GI workup unavailable, but follow-up with Dr Landers pending. Consider re-starting iron supplements, repeat GI workup, and/or transfusions for symptomatic anemia with Cor Pulmonale L foot pain: discussed with Dr. Rios No active osteomyelitis now Unclear what sigificant pain issues of L foot Planning L metatarsal head surgery next week for pain relief No hardware implant due to underlying issues. Disposition - Disposition Disposition Time: 19:00 Condition: GOOD Forms: [employer] ([place]an) - Clinical Impression Clinical Impression: Chest discomfort, Shortness of breath, Chronic pain disorder - Scribe Statement The provider has reviewed the documentation as recorded by the Scribe Barbara Bill All medical record entries made by the Scribe were at my direction and personally dictated by me. I have reviewed the chart and agree that the record accurately reflects my personal performance of the history, physical exam, medical decision making, and the department course for this patient. I have also personally directed, reviewed, and agree with the discharge instructions and disposition. Physician Patient Turnover Patient Signed Over To: Bonnie Knowles Handoff Comments: follow-up workup and dispo appropriately.
[2017-07-15 18:15] LABS: BASO % 0.4 % (0.0-2.0); EOS # 0.1 K/uL (0.0-0.7); EOS % 1.6 % (0.0-4.0); HEMATOCRIT 30.9 % (34.0-47.0); LYMPH # 2.3 K/uL (1.0-4.3); LYMPH % 28.3 % (20.0-40.0); MEAN CELL VOLUME 73.5 fL (81.0-99.0); MEAN CORPUSCULAR HEMOGLOBIN 23.7 pg (27.0-31.0); MEAN CORPUSCULAR HGB CONC 32.3 g/dL (33.0-37.0); MONO # 0.6 K/uL (0.0-0.8); MONO % 7.2 % (0.0-10.0); NRBC % 0.1 % (0.0-2.0); RED CELL DISTRIBUTION WIDTH 17.2 % (11.5-14.5); WHITE BLOOD COUNT 8.2 K/uL (4.8-10.8)
[2017-07-15 18:31] LABS: ALB/GLOB RATIO 1.2 (1.0-2.1); ALKALINE PHOSPHATASE 113 U/L (38-126); ALT/SGPT 37 U/L (9-52); AST/SGOT 26 U/L (14-36); BILIRUBIN,TOTAL 0.4 mg/dL (0.2-1.3); BLOOD UREA NITROGEN 12 mg/dL (7-17); CALCIUM 9.6 mg/dl (8.6-10.4); CARBON DIOXIDE 31 mmol/L (22-30); CHLORIDE 100 mmol/L (98-107); GFR AFRICAN-AMERICAN > 60; GLUCOSE,RANDOM 101 mg/dL (65-105); POTASSIUM 4.2 mmol/L (3.6-5.2); SODIUM 139 mmol/L (132-148); TOTAL PROTEIN 7.1 g/dL (6.3-8.3)
[2017-07-16 01:25] VITALS: RESP 20
[2017-07-16] MEDS ORDERED: Levothyroxine 100 MCG TAB PO SCH (06:30)
[2017-07-16] MEDS: Albuterol-Ipratrop 3 mg / 0.5 (3 ml) UD INH SCH ×2 (07:42→12:05)
[2017-07-16] MEDS ORDERED: Tiotropium 18 mcg Cap For Inhalation IH SCH (08:00)
[2017-07-16 08:21] LABS: RBC URINE 1 /hpf (0-3); URINE BACTERIA RARE (<OCC); URINE BILIRUBIN NEGATIVE (NEGATIVE); URINE BLOOD NEGATIVE (NEGATIVE); URINE COLOR Yellow (YELLOW); URINE GLUCOSE (UA) NORMAL (Normal); URINE KETONE NEGATIVE (NEGATIVE); URINE LEUKOCYTE ESTERASE TRACE Leu/uL (Negative); URINE PROTEIN NEGATIVE (NEGATIVE); URINE UROBILINOGEN NORMAL mg/dL (0.2-1.0); WBC URINE 20 /hpf (0-5)
[2017-07-16 08:23] VITALS: BP 144/82; PULSE 75; TEMP 98.3; O2SAT 95
--- NOTE | 2017-07-16 09:34 | CP.PCM.CON ---
History of Present Illness - History of Present Illness History of Present Illness: patient seen/examined. full consult to follow. Patient has a hsitory of mitral valve disease, HTN, "CHF" admitted for chest pain. was scheduled for outpateint testing prior to L foot surgery. cardiac enzymes negative. no current chest pain or dyspnea. will recommend discharge to home today. 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 Past Patient History - Infectious Disease Hx of Infectious Diseases: None - Tetanus Immunizations Tetanus Immunization: Unknown - Past Medical History & Family History Past Medical History?: Yes - Past Social History Smoking Status: Never Smoked - CARDIAC Hx Congestive Heart Failure: Yes Hx Hypercholesterolemia: Yes Hx Hypertension: Yes Hx Mitral Valve Prolapse: Yes Hx Peripheral Edema: Yes - PULMONARY Hx Asthma: Yes Hx Bronchitis: Yes Hx Chronic Obstructive Pulmonary Disease (COPD): Yes Hx Pulmonary Embolism: Yes - NEUROLOGICAL Hx Neurological Disorder: Yes Other/Comment: Reflux Sympathetic Dystrophy - HEENT Hx HEENT Problems: Yes Hx Cataracts: Yes - RENAL Hx Chronic Kidney Disease: No - ENDOCRINE/METABOLIC Hx Hypothyroidism: Yes - HEMATOLOGICAL/ONCOLOGICAL Hx Blood Disorders: Yes Hx Blood Transfusions: Yes - INTEGUMENTARY Hx Dermatological Problems: Yes Hx Cellulitis: Yes - MUSCULOSKELETAL/RHEUMATOLOGICAL Hx Falls: No - GASTROINTESTINAL Hx Gall Bladder Disease: Yes (Gallstone) - GENITOURINARY/GYNECOLOGICAL Hx Genitourinary Disorders: No - PSYCHIATRIC Hx Anxiety: Yes Hx Depression: Yes Hx Substance Use: No - SURGICAL HISTORY Hx Surgeries: Yes Hx Cardiac Catheterization: Yes (X6) Hx Eye Surgery: Yes (CATARACT SX BOTH W/LENS) Hx Vascular Access Device: Yes (Port A Cath) Other/Comment: [place]atus Hernia repair, DIMPLE, Buniectomy R foot, operation L foot ( type unknown). - ANESTHESIA Hx Anesthesia: Yes Hx Anesthesia Reactions: No Hx Malignant Hyperthermia: No Meds Allergies/Adverse Reactions: Allergies Allergy/AdvReac Type Severity Reaction Status Date / Time Sulfa (Sulfonamide Allergy Intermediate RASH Verified 06/16/17 13:55 Antibiotics) - Medications Medications: Current Medications Albuterol/Ipratropium (Duoneb 3 Mg/0.5 Mg (3 Ml) Ud) 3 ml INH RQ4 [facility] Last Admin: 07/16/17 07:42 Dose: Not Given Celecoxib (Celebrex) 200 mg PO BID [facility] Docusate Sodium (Colace) 100 mg PO DAILY [facility] Enoxaparin Sodium (Lovenox) 40 mg SC DAILY [facility] Famotidine (Pepcid) 20 mg PO BID [facility] Fluoxetine HCl (Prozac) 20 mg PO BID [facility] Fluticasone Propionate (Flonase) 1 spr JOSE BID [facility] Isosorbide Mononitrate (Imdur) 60 mg PO DAILY [facility] Levothyroxine Sodium (Synthroid) 100 mcg PO DAILY@0630 [facility] Last Admin: 07/16/17 07:03 Dose: 100 mcg Lorazepam (Ativan) 2 mg PO TID [facility] Metformin HCl (Glucophage) 500 mg PO BID [facility] Pneumococcal Polyvalent Vaccine (Pneumovax 23 Vaccine) 0.5 ml IM .ONCE ONE Stop: 07/17/17 10:01 Pregabalin (Lyrica) 150 mg PO Q8H [facility] Last Admin: 07/16/17 06:58 Dose: 150 mg Rosuvastatin [place] (Crestor) 10 mg PO HS [facility] Last Admin: 07/15/17 22:10 Dose: Not Given Tiotropium [place] (Spiriva) 18 mcg IH RQD [facility] Results - Vital Signs Recent Vital Signs: Last Vital Signs Temp 98.3 F 07/16/17 08:21 Pulse 75 07/16/17 08:21 Resp 20 07/16/17 08:21 BP 144/82 07/16/17 08:21 Pulse Ox 95 07/16/17 08:21 - Labs Result Diagrams: 07/15/17 18:06 07/15/17 18:06 Labs: Laboratory Results - last 24 hr 07/15/17 07/15/17 07/15/17 18:06 18:06 18:06 WBC 8.2 RBC 4.21 Hgb 10.0 L Hct 30.9 L MCV 73.5 L MCH 23.7 L MCHC 32.3 L RDW 17.2 H Plt Count 298 MPV 8.0 Neut % (Auto) 62.5 Lymph % (Auto) 28.3 [place] % (Auto) 7.2 Eos % (Auto) 1.6 Baso % (Auto) 0.4 Neut # 5.1 Lymph # 2.3 [place] # 0.6 Eos # 0.1 Baso # 0.0 D-Dimer, Quantitative 326 H Sodium 139 Potassium 4.2 Chloride 100 Carbon Dioxide 31 H Anion Gap 12 BUN 12 Creatinine 0.6 L Est GFR ( Amer) > 60 Est GFR (Non-Af Amer) > 60 POC Glucose (mg/dL) Random Glucose 101 Calcium 9.6 Total Bilirubin 0.4 AST 26 ALT 37 Alkaline Phosphatase 113 Total Creatine Kinase CK-MB (Mass) Troponin I < 0.0120 NT-Pro-B Natriuret Pep 102 Total Protein 7.1 Albumin 3.9 Globulin 3.3 Albumin/Globulin Ratio 1.2 Urine Color Urine Clarity Urine pH Ur Specific [place] Urine Protein Urine Glucose (UA) Urine Ketones Urine Blood Urine Nitrate Urine Bilirubin Urine Urobilinogen Ur Leukocyte Esterase Urine WBC (Auto) Urine RBC (Auto) Ur Squamous Epith Cells Urine Bacteria Urine Opiates Screen Urine Methadone Screen Ur Barbiturates Screen Ur Phencyclidine Scrn Ur Amphetamines Screen U Benzodiazepines Scrn U Oth Cocaine Metabols U Cannabinoids Screen 07/15/17 07/16/17 07/16/17 21:38 05:08 06:03 WBC RBC Hgb Hct MCV MCH MCHC RDW Plt Count MPV Neut % (Auto) Lymph % (Auto) [place] % (Auto) Eos % (Auto) Baso % (Auto) Neut # Lymph # [place] # Eos # Baso # D-Dimer, Quantitative Sodium Potassium Chloride Carbon Dioxide Anion Gap BUN Creatinine Est GFR ( Amer) Est GFR (Non-Af Amer) POC Glucose (mg/dL) 145 H 85 Random Glucose Calcium Total Bilirubin AST ALT Alkaline Phosphatase Total Creatine Kinase 42 CK-MB (Mass) 0.68 Troponin I < 0.0120 NT-Pro-B Natriuret Pep Total Protein Albumin Globulin Albumin/Globulin Ratio Urine Color Urine Clarity Urine pH Ur Specific [place] Urine Protein Urine Glucose (UA) Urine Ketones Urine Blood Urine Nitrate Urine Bilirubin Urine Urobilinogen Ur Leukocyte Esterase Urine WBC (Auto) Urine RBC (Auto) Ur Squamous Epith Cells Urine Bacteria Urine Opiates Screen Urine Methadone Screen Ur Barbiturates Screen Ur Phencyclidine Scrn Ur Amphetamines Screen U Benzodiazepines Scrn U Oth Cocaine Metabols U Cannabinoids Screen 07/16/17 07/16/17 07:54 07:54 WBC RBC Hgb Hct MCV MCH MCHC RDW Plt Count MPV Neut % (Auto) Lymph % (Auto) [place] % (Auto) Eos % (Auto) Baso % (Auto) Neut # Lymph # [place] # Eos # Baso # D-Dimer, Quantitative Sodium Potassium Chloride Carbon Dioxide Anion Gap BUN Creatinine Est GFR ( Amer) Est GFR (Non-Af Amer) POC Glucose (mg/dL) Random Glucose Calcium Total Bilirubin AST ALT Alkaline Phosphatase Total Creatine Kinase CK-MB (Mass) Troponin I NT-Pro-B Natriuret Pep Total Protein Albumin Globulin Albumin/Globulin Ratio Urine Color Yellow Urine Clarity Clear Urine pH 8.0 Ur Specific [place] 1.016 Urine Protein Negative Urine Glucose (UA) Normal Urine Ketones Negative Urine Blood Negative Urine Nitrate Negative Urine Bilirubin Negative Urine Urobilinogen Normal Ur Leukocyte Esterase Trace Urine WBC (Auto) 20 H Urine RBC (Auto) 1 Ur Squamous Epith Cells 1 Urine Bacteria Rare Urine Opiates Screen Positive H Urine Methadone Screen Negative Ur Barbiturates Screen Negative Ur Phencyclidine Scrn Negative Ur Amphetamines Screen Negative U Benzodiazepines Scrn Negative U Oth Cocaine Metabols Negative U Cannabinoids Screen Negative
--- NOTE | 2017-07-16 09:34 | CP.PCM.CON ---
Past Patient History - Infectious Disease Hx of Infectious Diseases: None - Tetanus Immunizations Tetanus Immunization: Unknown - Past Medical History & Family History Past Medical History?: Yes - Past Social History Smoking Status: Never Smoked - CARDIAC Hx Congestive Heart Failure: Yes Hx Hypercholesterolemia: Yes Hx Hypertension: Yes Hx Mitral Valve Prolapse: Yes Hx Peripheral Edema: Yes - PULMONARY Hx Asthma: Yes Hx Bronchitis: Yes Hx Chronic Obstructive Pulmonary Disease (COPD): Yes Hx Pulmonary Embolism: Yes - NEUROLOGICAL Hx Neurological Disorder: Yes Other/Comment: Reflux Sympathetic Dystrophy - HEENT Hx HEENT Problems: Yes Hx Cataracts: Yes - RENAL Hx Chronic Kidney Disease: No - ENDOCRINE/METABOLIC Hx Hypothyroidism: Yes - HEMATOLOGICAL/ONCOLOGICAL Hx Blood Disorders: Yes Hx Blood Transfusions: Yes - INTEGUMENTARY Hx Dermatological Problems: Yes Hx Cellulitis: Yes - MUSCULOSKELETAL/RHEUMATOLOGICAL Hx Falls: No - GASTROINTESTINAL Hx Gall Bladder Disease: Yes (Gallstone) - GENITOURINARY/GYNECOLOGICAL Hx Genitourinary Disorders: No - PSYCHIATRIC Hx Anxiety: Yes Hx Depression: Yes Hx Substance Use: No - SURGICAL HISTORY Hx Surgeries: Yes Hx Cardiac Catheterization: Yes (X6) Hx Eye Surgery: Yes (CATARACT SX BOTH W/LENS) Hx Vascular Access Device: Yes (Port A Cath) Other/Comment: Hiatus Hernia repair, DIMPLE, Buniectomy R foot, operation L foot ( type unknown). - ANESTHESIA Hx Anesthesia: Yes Hx Anesthesia Reactions: No Hx Malignant Hyperthermia: No Meds Allergies/Adverse Reactions: Allergies Allergy/AdvReac Type Severity Reaction Status Date / Time Sulfa (Sulfonamide Allergy Intermediate RASH Verified 06/16/17 13:55 Antibiotics) - Medications Medications: Current Medications Albuterol/Ipratropium (Duoneb 3 Mg/0.5 Mg (3 Ml) Ud) 3 ml INH RQ4 [facility] Last Admin: 07/16/17 07:42 Dose: Not Given Celecoxib (Celebrex) 200 mg PO BID [facility] Docusate Sodium (Colace) 100 mg PO DAILY [facility] Enoxaparin Sodium (Lovenox) 40 mg SC DAILY [facility] Famotidine (Pepcid) 20 mg PO BID [facility] Fluoxetine HCl (Prozac) 20 mg PO BID [facility] Fluticasone Propionate (Flonase) 1 spr JOSE BID [facility] Isosorbide Mononitrate (Imdur) 60 mg PO DAILY [facility] Levothyroxine Sodium (Synthroid) 100 mcg PO DAILY@0630 [facility] Last Admin: 07/16/17 07:03 Dose: 100 mcg Lorazepam (Ativan) 2 mg PO TID [facility] Metformin HCl (Glucophage) 500 mg PO BID [facility] Pneumococcal Polyvalent Vaccine (Pneumovax 23 Vaccine) 0.5 ml IM .ONCE ONE Stop: 07/17/17 10:01 Pregabalin (Lyrica) 150 mg PO Q8H [facility] Last Admin: 07/16/17 06:58 Dose: 150 mg Rosuvastatin Calcium (Crestor) 10 mg PO HS [facility] Last Admin: 07/15/17 22:10 Dose: Not Given Tiotropium [place] (Spiriva) 18 mcg IH RQD [facility] Results - Vital Signs Recent Vital Signs: Last Vital Signs Temp 98.3 F 07/16/17 08:21 Pulse 75 07/16/17 08:21 Resp 20 07/16/17 08:21 BP 144/82 07/16/17 08:21 Pulse Ox 95 07/16/17 08:21 - Labs Result Diagrams: 07/15/17 18:06 07/15/17 18:06 Labs: Laboratory Results - last 24 hr 07/15/17 07/15/17 07/15/17 18:06 18:06 18:06 WBC 8.2 RBC 4.21 Hgb 10.0 L Hct 30.9 L MCV 73.5 L MCH 23.7 L MCHC 32.3 L RDW 17.2 H Plt Count 298 MPV 8.0 Neut % (Auto) 62.5 Lymph % (Auto) 28.3 [place] % (Auto) 7.2 Eos % (Auto) 1.6 Baso % (Auto) 0.4 Neut # 5.1 Lymph # 2.3 [place] # 0.6 Eos # 0.1 Baso # 0.0 D-Dimer, Quantitative 326 H Sodium 139 Potassium 4.2 Chloride 100 Carbon Dioxide 31 H Anion Gap 12 BUN 12 Creatinine 0.6 L Est GFR ( Amer) > 60 Est GFR (Non-Af Amer) > 60 POC Glucose (mg/dL) Random Glucose 101 Calcium 9.6 Total Bilirubin 0.4 AST 26 ALT 37 Alkaline Phosphatase 113 Total Creatine Kinase CK-MB (Mass) Troponin I < 0.0120 NT-Pro-B Natriuret Pep 102 Total Protein 7.1 Albumin 3.9 Globulin 3.3 Albumin/Globulin Ratio 1.2 Urine Color Urine Clarity Urine pH Ur Specific [place] Urine Protein Urine Glucose (UA) Urine Ketones Urine Blood Urine Nitrate Urine Bilirubin Urine Urobilinogen Ur Leukocyte Esterase Urine WBC (Auto) Urine RBC (Auto) Ur Squamous Epith Cells Urine Bacteria Urine Opiates Screen Urine Methadone Screen Ur Barbiturates Screen Ur Phencyclidine Scrn Ur Amphetamines Screen U Benzodiazepines Scrn U Oth Cocaine Metabols U Cannabinoids Screen 07/15/17 07/16/17 07/16/17 21:38 05:08 06:03 WBC RBC Hgb Hct MCV MCH MCHC RDW Plt Count MPV Neut % (Auto) Lymph % (Auto) [place] % (Auto) Eos % (Auto) Baso % (Auto) Neut # Lymph # [place] # Eos # Baso # D-Dimer, Quantitative Sodium Potassium Chloride Carbon Dioxide Anion Gap BUN Creatinine Est GFR ( Amer) Est GFR (Non-Af Amer) POC Glucose (mg/dL) 145 H 85 Random Glucose Calcium Total Bilirubin AST ALT Alkaline Phosphatase Total Creatine Kinase 42 CK-MB (Mass) 0.68 Troponin I < 0.0120 NT-Pro-B Natriuret Pep Total Protein Albumin Globulin Albumin/Globulin Ratio Urine Color Urine Clarity Urine pH Ur Specific [place] Urine Protein Urine Glucose (UA) Urine Ketones Urine Blood Urine Nitrate Urine Bilirubin Urine Urobilinogen Ur Leukocyte Esterase Urine WBC (Auto) Urine RBC (Auto) Ur Squamous Epith Cells Urine Bacteria Urine Opiates Screen Urine Methadone Screen Ur Barbiturates Screen Ur Phencyclidine Scrn Ur Amphetamines Screen U Benzodiazepines Scrn U Oth Cocaine Metabols U Cannabinoids Screen 07/16/17 07/16/17 07:54 07:54 WBC RBC Hgb Hct MCV MCH MCHC RDW Plt Count MPV Neut % (Auto) Lymph % (Auto) [place] % (Auto) Eos % (Auto) Baso % (Auto) Neut # Lymph # [place] # Eos # Baso # D-Dimer, Quantitative Sodium Potassium Chloride Carbon Dioxide Anion Gap BUN Creatinine Est GFR ( Amer) Est GFR (Non-Af Amer) POC Glucose (mg/dL) Random Glucose Calcium Total Bilirubin AST ALT Alkaline Phosphatase Total Creatine Kinase CK-MB (Mass) Troponin I NT-Pro-B Natriuret Pep Total Protein Albumin Globulin Albumin/Globulin Ratio Urine Color Yellow Urine Clarity Clear Urine pH 8.0 Ur Specific [place] 1.016 Urine Protein Negative Urine Glucose (UA) Normal Urine Ketones Negative Urine Blood Negative Urine Nitrate Negative Urine Bilirubin Negative Urine Urobilinogen Normal Ur Leukocyte Esterase Trace Urine WBC (Auto) 20 H Urine RBC (Auto) 1 Ur Squamous Epith Cells 1 Urine Bacteria Rare Urine Opiates Screen Positive H Urine Methadone Screen Negative Ur Barbiturates Screen Negative Ur Phencyclidine Scrn Negative Ur Amphetamines Screen Negative U Benzodiazepines Scrn Negative U Oth Cocaine Metabols Negative U Cannabinoids Screen Negative
[2017-07-16] MEDS ORDERED: Enoxaparin 40 mg Syringe SC SCH (10:00)
[2017-07-16] MEDS ORDERED: Fluticasone Nasal 50 mcg/Spray NAS SCH (10:00)
--- NOTE | 2017-07-16 10:34 | CP.PCM.PN ---
Subjective - Date & Time of Evaluation Date of Evaluation: 07/16/17 Time of Evaluation: 10:33 - Subjective Subjective: alert, awake, no distress. Objective - Vital Signs/Intake and Output Vital Signs (last 24 hours): Temp Pulse Resp BP Pulse Ox 98.3 F 75 20 144/82 95 07/16/17 08:21 07/16/17 08:21 07/16/17 08:21 07/16/17 08:21 07/16/17 08:21 Intake and Output: 07/16/17 07/16/17 06:59 18:59 Intake Total 120 Balance 120 - Medications Medications: Current Medications Albuterol/Ipratropium (Duoneb 3 Mg/0.5 Mg (3 Ml) Ud) 3 ml INH RQ4 [facility] Last Admin: 07/16/17 07:42 Dose: Not Given Celecoxib (Celebrex) 200 mg PO BID [facility] Last Admin: 07/16/17 10:30 Dose: 200 mg Docusate Sodium (Colace) 100 mg PO DAILY [facility] Last Admin: 07/16/17 10:18 Dose: 100 mg Enoxaparin Sodium (Lovenox) 40 mg SC DAILY [facility] Last Admin: 07/16/17 10:19 Dose: 40 mg Famotidine (Pepcid) 20 mg PO BID [facility] Last Admin: 07/16/17 10:20 Dose: 20 mg Fluoxetine HCl (Prozac) 20 mg PO BID [facility] Last Admin: 07/16/17 10:29 Dose: 20 mg Fluticasone Propionate (Flonase) 1 spr JOSE BID [facility] Heparin Sodium (Porcine) (Heparin Lock Flush) 300 units IVF ONCE ONE Stop: 07/16/17 10:32 Isosorbide Mononitrate (Imdur) 60 mg PO DAILY [facility] Last Admin: 07/16/17 10:22 Dose: 60 mg Levothyroxine Sodium (Synthroid) 100 mcg PO DAILY@0630 [facility] Last Admin: 07/16/17 07:03 Dose: 100 mcg Lorazepam (Ativan) 2 mg PO TID [facility] Last Admin: 07/16/17 10:23 Dose: 2 mg Metformin HCl (Glucophage) 500 mg PO BID [facility] Last Admin: 07/16/17 10:21 Dose: 500 mg Pneumococcal Polyvalent Vaccine (Pneumovax 23 Vaccine) 0.5 ml IM .ONCE ONE Stop: 07/17/17 10:01 Pregabalin (Lyrica) 150 mg PO Q8H [facility] Last Admin: 07/16/17 06:58 Dose: 150 mg Rosuvastatin Calcium (Crestor) 10 mg PO HS [facility] Last Admin: 07/15/17 22:10 Dose: Not Given Tiotropium [place] (Spiriva) 18 mcg IH RQD [facility] - Labs Labs: 07/15/17 18:06 07/15/17 18:06 Assessment and Plan - Assessment and Plan (Free Text) Assessment: Patient is seen and examined. Alert and orientedx3, denies sob or chest pains. D /W DR Weldon , plan to send home today and follow up with podiatry as advised.
[2017-07-16] MEDS ORDERED: Pneumococcal 23-Valent Vaccine IM ONE ×2 (10:41→12:15)
[2017-07-16] MEDS ORDERED: Influenza Vaccine 60 mcg/0.5 mL SYR (4YR UP) IM ONE (12:15)
[2017-07-17] MEDS ORDERED: Tiotropium 18 mcg Cap For Inhalation IH SCH (08:00)
[2017-07-17] MEDS ORDERED: Pneumococcal 23-Valent Vaccine IM ONE (10:00)
[2017-07-17] MEDS ORDERED: Influenza Vaccine 60 mcg/0.5 mL SYR (4YR UP) IM ONE (10:00)
--- NOTE | 2017-07-18 07:45 | HP ---
SUBJECTIVE: The patient is a 62-year-old female admitted to the hospital complaining of chest pain but negative sleep apnea and COPD. PHYSICAL EXAMINATION GENERAL: Patient is awake, alert, oriented. VITAL SIGNS: Temperature 98, pulse 90. HEENT: Within normal limits. NECK: Supple. CHEST: Symmetrical HEART: Regular. ABDOMEN: Soft EXTREMITIES: No edema. IMPRESSION: Chest pain. The patient gets bedrest, supportive care, and cardiac enzymes. Artis Weldon MD
== END 2017-07-16 15:37 | disposition home or self-care (01) ==
LOC: C.ER 17:10 → C.9E 19:42 → C.6T 20:42
PROVIDERS: ADMIT Internal Medicine Pulmonary Disease; ATTEND Internal Medicine Pulmonary Disease
DX: R07.9 Chest pain, unspecified (principal); F41.9 Anxiety disorder, unspecified; I25.10 Atherosclerotic heart disease of native coronary artery without angina pectoris; E11.9 Type 2 diabetes mellitus without complications; J44.9 Chronic obstructive pulmonary disease, unspecified; E03.9 Hypothyroidism, unspecified; E78.00 Pure hypercholesterolemia, unspecified
CPT/HCPCS: 36415; 80053; 81001; 82948; 83880; 84484; 85025; 85378; 90674; 90732; 99285; G0008; G0009; G0378; G0480; J1642; J1650

== ENCOUNTER 2017-07-20 09:36 | Inpatient (IN) | payer MEDICARE, OTHER ==
[2017-07-20 09:37] VITALS: BMI 40.6
--- NOTE | 2017-07-20 11:05 | C.PDOC ---
History Of Present Illness 62 y/o female with PMHx of COPD, CHF and DM brought to ED by [facility] for increased pain to left foot secondary to multiple falls. Patient state she has a schedule foot surgery tomorrow with Dr. Rios and came for evaluation of left foot. At ED patient complaints of spine pain secondary to falling. No other complaints at this time. Time Seen by Provider: 07/20/17 10:53 Chief Complaint (Nursing): Lower Extremity Problem/Injury History Per: Patient History/Exam Limitations: no limitations Onset/Duration Of Symptoms: Days Past Medical History Reviewed: Historical Data, Nursing Documentation, Vital Signs Vital Signs: Last Vital Signs Temp 98.4 F 07/20/17 09:56 Pulse 69 07/20/17 09:56 Resp 18 07/20/17 09:56 BP 107/71 07/20/17 09:56 Pulse Ox 100 07/20/17 09:56 - Medical History PMH: Anxiety, Arthritis, Asthma, Back Problems, Bronchitis, CAD, CHF, COPD, Depression, Diabetes, Fractures (DISPLACED METATRASAL FRACTURE 2ND LEFT), Gall Bladder Disease (Gallstone), GERD, Hiatal Hernia, HTN, Hypercholesterolemia, Hypothyroidism, Mitral Valve Prolapse, Peripheral Edema, Pulmonary Embolism Surgical History: No Surg Hx - [facility] Procedures FLUOROSCOPY OF SUP VENA CAVA USING L OSM CONTRAST, GUIDANCE (10/13/15) INCIS W REM OF FORIEGN BODY OR DEV FROM SKIN & SUBCUT TISSUE (10/22/14) INFLUENZA VACCINATION (09/19/14) INSERTION OF INFUSION DEV INTO SUP VENA CAVA, PERC APPROACH (10/13/15) INSERTION OF TOTALLY IMPLANTABLE VASC ACCESS DEVIC (10/22/14) INSERTION OF VAD INTO CHEST SUBCU/FASCIA, OPEN APPROACH (10/13/15) NEBULIZER THERAPY (11/05/13) NON-INVASIVE MECHANICAL VENTILATION (06/04/12) OCCUPATIONAL THERAPY (09/19/14) OTH & OPEN REP OTH HERNIA OF ANTER ABD WALL W GRF OR PROSTH (05/28/13) PHYSICAL THERAPY NEC (09/19/14) REMOVAL OF VAD FROM TRUNK SUBCU/FASCIA, OPEN APPROACH (10/13/15) REPAIR CHEST SKIN, EXTERNAL APPROACH (10/13/15) THORAX SFT TISS XRAY NEC (03/19/13) Family History: States: No Known Family Hx - Social History Hx Tobacco Use: No Hx Alcohol Use: No Hx Substance Use: No - Immunization History Hx Tetanus Toxoid Vaccination: No Hx Influenza Vaccination: Yes Hx Pneumococcal Vaccination: Yes Review Of Systems Constitutional: Negative for: Fever, Chills Gastrointestinal: Negative for: Nausea, Vomiting Musculoskeletal: Positive for: Foot Pain Skin: Negative for: Rash Neurological: Negative for: Weakness, Numbness Physical Exam - Physical Exam Appears: Non-toxic, No Acute Distress Skin: Normal Color, Warm, Dry, No Rash Head: Atraumatic, Normacephalic Oral Mucosa: Moist Throat: Normal, No Erythema, No Exudate Chest: Symmetrical Cardiovascular: Rhythm Regular Respiratory: Normal Breath Sounds, No Rales, No Rhonchi, No Wheezing Gastrointestinal/Abdominal: Soft, No Tenderness, No Guarding, No Rebound Back: Other (Right lumbar tender to palpation ) Extremity: Tenderness (to left lower extremity ), Other (decreased sensation bilateral to lower extremities secondary to neuropathy ) Pulses: Left Dorsalis Pedis: Normal, Right Dorsalis Pedis: Normal Neurological/Psych: Oriented x3, No Normal Sensation ED Course And Treatment O2 Sat by Pulse Oximetry: 100 (RA) Medical Decision Making Medical Decision Making: Plan: Toradol ordered, CXR, Left foot Xray, Blood work Disposition - Disposition - Scribe Statement The provider has reviewed the documentation as recorded by the Ancelmoibanup Boland All medical record entries made by the Ancelmoibanup were at my direction and personally dictated by me. I have reviewed the chart and agree that the record accurately reflects my personal performance of the history, physical exam, medical decision making, and the department course for this patient. I have also personally directed, reviewed, and agree with the discharge instructions and disposition.
[2017-07-20] MEDS ORDERED: Oxycodone/Acetaminophen 5/325 mg Tab PO STA (11:25)
[2017-07-20] MEDS ORDERED: Oxycodone/Acetaminophen 5/325 mg Tab ONE (11:32)
[2017-07-20 11:33] LABS: BASO % 0.6 % (0.0-2.0); EOS # 0.2 K/uL (0.0-0.7); EOS % 2.3 % (0.0-4.0); HEMATOCRIT 29.8 % (34.0-47.0); LYMPH % 27.3 % (20.0-40.0); MEAN CELL VOLUME 73.7 fL (81.0-99.0); MEAN CORPUSCULAR HEMOGLOBIN 23.8 pg (27.0-31.0); MEAN CORPUSCULAR HGB CONC 32.3 g/dL (33.0-37.0); MEAN PLATELET VOLUME 8.2 fL (7.2-11.7); MONO # 0.6 K/uL (0.0-0.8); RED CELL DISTRIBUTION WIDTH 17.1 % (11.5-14.5); WHITE BLOOD COUNT 7.3 K/uL (4.8-10.8)
[2017-07-20 11:36] LABS: INR 1.1
--- NOTE | 2017-07-20 11:50 | RAD ---
HISTORY: pain COMPARISON: Chest x-ray performed 07/15/17 TECHNIQUE: Chest, one view. FINDINGS: Examination limited by habitus. Right-sided central venous catheter extends to the distal SVC. LUNGS: Mild bibasilar atelectasis. Please note that chest x-ray has limited sensitivity for the detection of pulmonary masses. PLEURA: No significant pleural effusion identified. No definite pneumothorax . CARDIOVASCULAR: Cardiomegaly. Ectatic aorta. OSSEOUS STRUCTURES: Degenerative changes. Chronic appearing deformities involving bilateral shoulders. VISUALIZED UPPER ABDOMEN: Unremarkable. OTHER FINDINGS: None. IMPRESSION: Right-sided central venous catheter extends to the distal SVC. Cardiomegaly. Ectatic aorta. Mild bibasilar atelectasis.
--- NOTE | 2017-07-20 13:34 | RAD ---
PROCEDURE: Left Foot Radiographs. HISTORY: trauma COMPARISON: None. FINDINGS: BONES: There is a subacute healing fracture in the distal 2nd metatarsal with exuberant callus formation. There is an age indeterminate deformity in the distal 5th metatarsal. There is diffuse bone demineralization. There is a prominent plantar calcaneal spur. JOINTS: Normal. SOFT TISSUES: Normal. OTHER FINDINGS: None. IMPRESSION: 1. Subacute healing fracture in the distal 2nd metatarsal. 2. Age-indeterminate fracture deformity in the distal 5th metatarsal.
[2017-07-20 13:52] LABS: ALB/GLOB RATIO 0.9 (1.0-2.1); ALKALINE PHOSPHATASE 104 U/L (38-126); ALT/SGPT 39 U/L (9-52); AST/SGOT 24 U/L (14-36); BILIRUBIN,TOTAL 0.3 mg/dL (0.2-1.3); BLOOD UREA NITROGEN 12 mg/dL (7-17); CALCIUM 9.6 mg/dl (8.6-10.4); CARBON DIOXIDE 28 mmol/L (22-30); CHLORIDE 105 mmol/L (98-107); GFR AFRICAN-AMERICAN > 60; GLUCOSE,RANDOM 103 mg/dL (65-105); POTASSIUM 4.3 mmol/L (3.6-5.2); SODIUM 138 mmol/L (132-148); TOTAL PROTEIN 8.3 g/dL (6.3-8.3)
--- NOTE | 2017-07-20 14:32 | CP.PCM.CON ---
History of Present Illness - History of Present Illness History of Present Illness: Podiatry Consult note for Dr. Rios 62 year old female with PMHx including RSD, DM well know to podiatry service and attending Dr. Rios, was seen in the ED for left foot pain. She fell and had a fracture of her left 2nd metatarsal a month ago and is supposed to have surgery tomorrow. She admits that she has been falling a lot in her house because she has new floors and they are slippery when they are wet. Denies any n/v/f/c/sob/cp. Past Patient History - Infectious Disease Hx of Infectious Diseases: None - Tetanus Immunizations Tetanus Immunization: Unknown - Past Medical History & Family History Past Medical History?: Yes - Past Social History Smoking Status: Never Smoked - CARDIAC Hx Congestive Heart Failure: Yes Hx Hypercholesterolemia: Yes Hx Hypertension: Yes Hx Mitral Valve Prolapse: Yes Hx Peripheral Edema: Yes - PULMONARY Hx Asthma: Yes Hx Bronchitis: Yes Hx Chronic Obstructive Pulmonary Disease (COPD): Yes Hx Pulmonary Embolism: Yes - NEUROLOGICAL Hx Neurological Disorder: Yes Other/Comment: Reflux Sympathetic Dystrophy - HEENT Hx HEENT Problems: Yes Hx Cataracts: Yes - RENAL Hx Chronic Kidney Disease: No - ENDOCRINE/METABOLIC Hx Hypothyroidism: Yes - HEMATOLOGICAL/ONCOLOGICAL Hx Blood Disorders: Yes Hx Blood Transfusions: Yes Hx Blood Transfusion Reaction: No - INTEGUMENTARY Hx Dermatological Problems: Yes Hx Cellulitis: Yes - MUSCULOSKELETAL/RHEUMATOLOGICAL Hx Arthritis: Yes Hx Fractures: Yes (DISPLACED METATRASAL FRACTURE 2ND LEFT) - GASTROINTESTINAL Hx Gall Bladder Disease: Yes (Gallstone) - GENITOURINARY/GYNECOLOGICAL Hx Genitourinary Disorders: No - PSYCHIATRIC Hx Anxiety: Yes Hx Depression: Yes Hx Substance Use: No - SURGICAL HISTORY Hx Surgeries: Yes Hx Cardiac Catheterization: Yes (X6) Hx Eye Surgery: Yes (CATARACT SX BOTH W/LENS) Hx Herniorrhaphy: Yes (Umbilical Hernia repair) Hx Hysterectomy: Yes Hx Musculoskeletal Surgery: Yes (rt. fot surgery) Hx Vascular Access Device: Yes (Port A Cath) Other/Comment: Hiatus Hernia repair, DIMPLE, Buniectomy R foot, operation L foot ( type unknown). - ANESTHESIA Hx Anesthesia: Yes Hx Anesthesia Reactions: No Hx Malignant Hyperthermia: No Meds Allergies/Adverse Reactions: Allergies Allergy/AdvReac Type Severity Reaction Status Date / Time Sulfa (Sulfonamide Allergy Intermediate RASH Verified 12/13/17 09:55 Antibiotics) Physical Exam - Constitutional Appears: Well, Non-toxic, No Acute Distress - Extremities Exam Additional comments: Left Lower Extremity focused exam: VASC: DP pulses graded 2/4, PT pulses non-palpable on the left CRF to level of digits is <3 seconds. Temperature runs warm to warm from proximal to distal within normal limits. Diffuse tortuous varicosities noted in lower legs. DERM: No open lesions noted. No erythema, no edema noted NERUO: Protective sensation grossly diminished. ORTHO: Tenderness on palpation to left foot diffusely - Neurological Exam Neurological exam: Alert, Oriented x3 - Psychiatric Exam Psychiatric exam: Normal Affect, Normal Mood Results - Vital Signs Recent Vital Signs: Last Vital Signs Temp 98.4 F 07/20/17 09:56 Pulse 69 07/20/17 09:56 Resp 18 07/20/17 09:56 BP 107/71 07/20/17 09:56 Pulse Ox 100 07/20/17 11:08 - Labs Result Diagrams: 07/20/17 11:27 07/20/17 11:27 Labs: Laboratory Results - last 24 hr 07/20/17 07/20/17 07/20/17 11:27 11:27 11:27 WBC 7.3 RBC 4.05 Hgb 9.6 L Hct 29.8 L MCV 73.7 L MCH 23.8 L MCHC 32.3 L RDW 17.1 H Plt Count 270 MPV 8.2 Neut % (Auto) 61.8 Lymph % (Auto) 27.3 [place] % (Auto) 8.0 Eos % (Auto) 2.3 Baso % (Auto) 0.6 Neut # 4.5 Lymph # 2.0 [place] # 0.6 Eos # 0.2 Baso # 0.0 PT 12.2 INR 1.1 Sodium 138 Potassium 4.3 Chloride 105 Carbon Dioxide 28 Anion Gap 10 BUN 12 Creatinine 0.6 L Est GFR ( Amer) > 60 Est GFR (Non-Af Amer) > 60 Random Glucose 103 Calcium 9.6 Total Bilirubin 0.3 AST 24 ALT 39 Alkaline Phosphatase 104 Total Protein 8.3 Albumin 3.9 Globulin 4.3 H Albumin/Globulin Ratio 0.9 L Assessment & Plan - Assessment and Plan (Free Text) Assessment: 62 year old female with left 2nd metatarsal fracture-healing Plan: patient examined and evaluated discussed in detail with attending, Dr. Rios radiographs reviewed- subacute healing fracture in the distal 2nd metatarsal, age-indeterminate fracture deformity in the distal 5th metatarsal patient to go to OR later this weekend pending cardiac and medical optimization Lower extremity arterial duplex ordered b/l podiatry will cont to follow patient in house
--- NOTE | 2017-07-20 14:47 | RAD ---
HISTORY: cough COMPARISON: Comparison made with chest radiograph dated 07/20/2017 FINDINGS: Right IJ MediPort with tip in the SVC unchanged. Tubing is seen overlying the right medial landon thorax questionably related to oxygen mask. LUNGS: Low lung volumes with crowded bronchovascular markings and suspected minor bibasilar atelectasis. There is a curvilinear radiopaque density left lung base that may represent linear type atelectasis. PLEURA: No significant pleural effusion identified, no pneumothorax apparent. CARDIOVASCULAR: Cardiomegaly. OSSEOUS STRUCTURES: Re- demonstrated is chronic on deformity of the left humeral head glenohumeral and acromioclavicular joints with secondary DJD. Findings may represent sequela of old trauma. Moderate degenerative osteoarthritis right shoulder girdle. VISUALIZED UPPER ABDOMEN: Normal. OTHER FINDINGS: None. IMPRESSION: Low lung volumes with crowded bronchovascular markings and suspected minor bibasilar atelectasis. There is a curvilinear radiopaque density left lung base that may represent linear type atelectasis. Cardiomegaly.
--- NOTE | 2017-07-20 15:25 | CP.PCM.PN ---
Subjective - Date & Time of Evaluation Date of Evaluation: 07/20/17 Time of Evaluation: 15:19 - Subjective Subjective: PGY-[address] Weldon's Service: Patient is a 62 year old female, with PMHx of Complex regional pain syndrome, Type two DM, hyperlipidemia, COPD, hypothyroidism, depression , and HTN, who presents to [facility] ED for increased pain in left foot secondary to multiple falls. Patient states she initially fell at [facility] "over the summer" and has recurrent mechanical falls since. She states latest was last night, when she slipped on her newly installed hardwood floors and "fell into her couch and rolling over her foot." Patient states the floors are slippery and the landlord refuses to put in rugs. She denies hitting her head, or losing consciousness, and remembers the whole incident. Patient reports she was previously scheduled to have surgery with Dr. Rios on 07/21/17 at [facility] and already had pre-op workup. She denies chest pain, palpitations, SOB, abdominal pain, N/V/D/C. PMD: Dr. Weldon Cardio: Dr. Zacarias Lira Allergies: Sulfur PMHx: COPD, DM, HTN, Hiatal hernia, Mitral valve prolapse (after Rheumatic fever at 9 y.o.), and Regional Complex Pain Syndrome type I PSHx: Portacath replacement (2014), Bilateral cataracts (2009), GI surgery (2002 ), Right food neuroma removal (20 years ago) FamHx: Mother (TX at 30; still alive at 80 y.o.). Father (Lung CA; passed at 70 y.o.) Social: Denies smoking, alcohol, drugs. Lives with and daughter ( diagnosed with epilepsy). Son with Down syndrome at 35 y.o. Objective - Vital Signs/Intake and Output Vital Signs (last 24 hours): Temp Pulse Resp BP Pulse Ox 98.4 F 69 18 107/71 100 07/20/17 09:56 07/20/17 09:56 07/20/17 09:56 07/20/17 09:56 07/20/17 11:08 - Labs Labs: 07/20/17 11:27 07/20/17 11:27 PT 12.2 SECONDS (9.7-12.2) 07/20/17 11:27 INR 1.1 07/20/17 11:27 - Constitutional Appears: Non-toxic, No Acute Distress - Head Exam Head Exam: ATRAUMATIC, NORMOCEPHALIC - Eye Exam Eye Exam: EOMI, Normal appearance. absent: Scleral icterus Pupil Exam: PERRL - ENT Exam ENT Exam: Mucous Membranes Moist - Neck Exam Neck Exam: Full ROM - Respiratory Exam Respiratory Exam: Clear to Ausculation Bilateral, NORMAL BREATHING PATTERN. absent: Wheezes - Cardiovascular Exam Cardiovascular Exam: REGULAR RHYTHM, +S1, +S2, Murmur (holosystolic) - GI/Abdominal Exam GI & Abdominal Exam: Soft, Normal Bowel Sounds. absent: Tenderness - Extremities Exam Extremities Exam: Tenderness (2nd metatarsal left foot). absent: Normal Inspection, Pedal Edema Additional comments: Pt in surgical shoe; extremity warm to touch, palpable pulses - Back Exam Back Exam: absent: CVA tenderness (L), CVA tenderness (R) - Neurological Exam Neurological Exam: Alert, Awake, Oriented x3 - Psychiatric Exam Psychiatric exam: Normal Affect, Normal Mood - Skin Skin Exam: Normal Color, Warm Assessment and Plan - Assessment and Plan (Free Text) Plan: Left foot fracture Admit to med/surg Patient sees Dr. Rios as outpatient History of mechanical fall onto foot "over the summer" Xray (left foot) (07/20/17): subacute healing fracture in distal 2nd metatarsal. Age indeterminate fracture deformity in distal 5th metatarsal (see full report) Dr. Rios, podiatry consult, - metatarsal repair postponed until 07/22/17 pending cardiac clearance - f/u arterial dopplers Due to pts cardiac history will request cardiac clearance prior to surgery Dr. Viera, cardiology - f/u ECHO Pre-op workup CXR (07/20/17): Low lung volumes w crowded bronchvascular markings and minor bibasilar atelectasis. Curvilinear radiopaque density in left lung base that may represent linear atelectasis (see full report) EKG: (07/15/17): NSR at 64 bpm, No ST/T wave changes, Minimal votage criteria for LVH - may be normal variant - f/u repeat - f/u PT/INR, PTT - f/u ECHO requested by Dr. Viera Complex regional pain syndrome I Per [facility]: Continue pts home regimen: Oxycontin 40mg PO Q8H, Oxycodone 15 mg q4h PRN Colace 100mg PO BID Diabetes Mellitus, Type Two accu checks MISS hypoglycemia protocol continue home Metformin 500mg bid f/u A1c, lipid panel DM neuropathy Continue home Lyrica 75mg PO BID Hyperlipidemia Crestor 10mg PO HS - f/u lipid panel COPD (chronic obstructive pulmonary disease) Duonebs q6h prn Patient was on home spiriva but no longer takes Hypothyroidism Pt states taking 100mcg daily of synthroid but [facility]/Dr. Weldon do not have records of prescribing it - f/u TSH/ Free T4 HTN (hypertension) Well controlled continue home Imdur 60mg daily Depression Continue home Prozac 20mg PO Daily Hx of MVP Rheumatic Fever as child f/u ECHO Prophylaxis Pepcid 20mg PO BID Heparin 5000u Q8H SCDs C/I due to LE injury Heart healthy diet Disposition: Pt for podiatry surgery pending cardiac clearance Shahid Layne PGY-2 Discussed case with attending Dr. Weldon
[2017-07-20] MEDS ORDERED: Dextrose 50% SYRINGE Inj (50 ml) IV PRN (15:38)
[2017-07-20] MEDS ORDERED: Glucagon Recombinant 1 mg Inj IM PRN (15:38)
[2017-07-20] MEDS ORDERED: Albuterol-Ipratrop 3 mg / 0.5 (3 ml) UD INH PRN (16:27)
[2017-07-20] MEDS: oxyCODONE 10 mg Immediate Release Tab PO PRN (19:29)
[2017-07-20] MEDS: oxyCODONE 40 mg ER Tab (oxyCONTIN) PO PRN (22:08)
[2017-07-20] MEDS: (Novolin R) Insulin Human Regular 100 units/ml vial SC SCH (22:09)
[2017-07-21] MEDS: oxyCODONE 10 mg Immediate Release Tab PO PRN ×3 (00:14→09:53)
[2017-07-21] MEDS: oxyCODONE 40 mg ER Tab (oxyCONTIN) PO PRN ×3 (06:25→23:00)
[2017-07-21 07:41] LABS: INR 0.9
[2017-07-21 07:53] LABS: BASO # 0.1 K/uL (0.0-0.2); LYMPH % 30.9 % (20.0-40.0)
[2017-07-21 08:07] LABS: ALB/GLOB RATIO 1.2 (1.0-2.1); ALKALINE PHOSPHATASE 101 U/L (38-126); ALT/SGPT 36 U/L (9-52); AST/SGOT 29 U/L (14-36); BILIRUBIN,TOTAL 0.3 mg/dL (0.2-1.3); BLOOD UREA NITROGEN 12 mg/dL (7-17); CALCIUM 9.4 mg/dl (8.6-10.4); CARBON DIOXIDE 29 mmol/L (22-30); CHLORIDE 105 mmol/L (98-107); CHOLESTEROL 191 mg/dL (0-199); GFR AFRICAN-AMERICAN > 60; GLUCOSE,RANDOM 82 mg/dL (65-105); MAGNESIUM 1.7 mg/dL (1.6-2.3); PHOSPHOROUS 3.1 mg/dL (2.5-4.5); POTASSIUM 4.1 mmol/L (3.6-5.2); SODIUM 141 mmol/L (132-148); TOTAL PROTEIN 7.3 g/dL (6.3-8.3)
[2017-07-21] MEDS: (Novolin R) Insulin Human Regular 100 units/ml vial SC SCH ×4 (08:13→22:16)
[2017-07-21 09:11] LABS: BASO % 0.7 % (0.0-2.0); EOS # 0.3 K/uL (0.0-0.7); EOS % 2.1 % (0.0-4.0); LYMPH # 3.9 K/uL (1.0-4.3); MEAN CORPUSCULAR HGB CONC 31.1 g/dL (33.0-37.0); MEAN PLATELET VOLUME 9.1 fL (7.2-11.7); MONO % 7.9 % (0.0-10.0); RED CELL DISTRIBUTION WIDTH 17.4 % (11.5-14.5)
[2017-07-21 09:12] LABS: WHITE BLOOD COUNT 12.6 K/uL (4.8-10.8)
--- NOTE | 2017-07-21 09:29 | HP ---
HISTORY OF PRESENT ILLNESS: Admitted to the hospital with chief complaint of metatarsal fracture, non-healing; COPD; neuropathy. Patient came to the hospital for admission. PHYSICAL EXAMINATION: GENERAL: The patient is awake, alert, oriented. VITAL SIGNS: Temperature is 98, pulse is 92, blood pressure of 130/80. HEENT: Within normal limits. NECK: Supple. CHEST: Symmetrical. HEART: Regular. ABDOMEN: Soft. EXTREMITIES: Left foot bandage. IMPRESSION: Patient with metatarsal fracture, non-healing, chronic obstructive pulmonary disease, sleep apnea, . The patient needs bedrest, Cardiology evaluation. Continue home medication. Artis Weldon MD
--- NOTE | 2017-07-21 09:43 | CP.PCM.PN ---
Subjective - Date & Time of Evaluation Date of Evaluation: 07/21/17 Time of Evaluation: 09:43 - Subjective Subjective: Podiatry Progress note for Dr. Rios 62 year old female was seen at bedside with attending Dr. Rios regarding left 2nd metatarsal fracture. She is AAOx3, NAD. Currently denies any pain to her left foot. Denies any n/v/f/c/sob/cp. Objective - Vital Signs/Intake and Output Vital Signs (last 24 hours): Temp Pulse Resp BP Pulse Ox 98.2 F 72 20 132/77 99 07/21/17 07:20 07/21/17 07:20 07/21/17 07:20 07/21/17 07:20 07/21/17 07:20 Intake and Output: 07/21/17 07/21/17 06:59 18:59 Intake Total 118 Balance 118 - Medications Medications: Current Medications Albuterol/Ipratropium (Duoneb 3 Mg/0.5 Mg (3 Ml) Ud) 3 ml INH RQ6 PRN PRN Reason: Shortness of Breath Cyclobenzaprine HCl (Flexeril) 5 mg PO TID [facility] Last Admin: 07/20/17 22:51 Dose: 5 mg Dextrose (Dextrose 50% Inj) 0 ml IV STAT PRN; Protocol PRN Reason: Hypoglycemia Protocol Dextrose (Glutose 15) 0 gm PO ONCE PRN; Protocol PRN Reason: Hypoglycemia Protocol Docusate Sodium (Colace) 100 mg PO BID [facility] Last Admin: 07/20/17 19:05 Dose: 100 mg Famotidine (Pepcid) 20 mg PO BID [facility] Last Admin: 07/20/17 19:06 Dose: 20 mg Fluoxetine HCl (Prozac) 20 mg PO HS [facility] Last Admin: 07/20/17 22:52 Dose: 20 mg Glucagon (Glucagen Diagnostic Kit) 0 mg IM STAT PRN; Protocol PRN Reason: Hypoglycemia Protocol Heparin Sodium (Porcine) (Heparin) 5,000 units SC Q8 [facility] Last Admin: 07/21/17 06:25 Dose: 5,000 units Dextrose (Dextrose 5% In Water 1000 Ml) 1,000 mls @ 0 mls/hr IV .Q0M PRN; Protocol; Per Protocol PRN Reason: Hypoglycemia Protocol Insulin Human Regular (Novolin R) 0 unit SC ACHS [facility] PRN Reason: Protocol Last Admin: 07/21/17 08:13 Dose: Not Given Isosorbide Mononitrate (Imdur) 60 mg PO DAILY [facility] Lorazepam (Ativan) 2 mg PO TID [facility] Last Admin: 07/20/17 22:51 Dose: 2 mg Oxycodone HCl (Oxycontin Extended Release Tab) 40 mg PO Q8H PRN PRN Reason: Pain, severe (8-10) Last Admin: 07/21/17 06:25 Dose: 40 mg Oxycodone HCl (Oxycodone Immediate Release Tab) 10 mg PO Q4H PRN PRN Reason: Pain, moderate (4-7) Last Admin: 07/21/17 04:29 Dose: 10 mg Pregabalin (Lyrica) 75 mg PO BID [facility] Last Admin: 07/20/17 19:06 Dose: 75 mg Rosuvastatin Calcium (Crestor) 10 mg PO HS [facility] Last Admin: 07/20/17 22:08 Dose: 10 mg - Labs Labs: 07/21/17 07:20 07/21/17 07:20 PT 10.4 SECONDS (9.7-12.2) 07/21/17 07:20 INR 0.9 07/21/17 07:20 APTT 19 SECONDS (21-34) L 07/21/17 07:20 - Constitutional Appears: Non-toxic, No Acute Distress - Extremities Exam Additional comments: Left Lower Extremity focused exam: VASC: DP pulses graded 2/4, PT pulses non-palpable on the left CRF to level of digits is <3 seconds. Temperature runs warm to warm from proximal to distal within normal limits. Diffuse tortuous varicosities noted in lower legs. DERM: No open lesions noted. No erythema, no edema noted NERUO: Protective sensation grossly diminished. ORTHO: Tenderness on palpation to left foot diffusely, pes planus deformity noted - Neurological Exam Neurological Exam: Alert, Awake, Oriented x3 - Psychiatric Exam Psychiatric exam: Normal Affect, Normal Mood Assessment and Plan - Assessment and Plan (Free Text) Assessment: 62 year old female with left 2nd metatarsal fracture-healing Plan: patient examined and evaluated with attending, Dr. Rios chart, labs, vitals reviewed radiographs reviewed- subacute healing fracture in the distal 2nd metatarsal, age-indeterminate fracture deformity in the distal 5th metatarsal patient to go to OR tomorrow pending cardiac and medical optimization Lower extremity arterial duplex ordered b/l podiatry will cont to follow patient in house
--- NOTE | 2017-07-21 12:57 | CP.PCM.CON ---
History of Present Illness - History of Present Illness History of Present Illness: I was asked to evalaute patient by Dr Weldon. Patient is a 62 year old female with PMH HTN, hyperhcolesterolemia, diastolc dysfunction who presents for metatarsal surgery. The patient sustained a foot injury and was noted to have a fracture. She requires usrgery with general anesthesia. She denies chest pain or dyspnea. Review of Systems - Constitutional Constitutional: absent: As Per HPI, Anorexia, Chills, Daytime Sleepiness, Excessive Sweating, Fatigue, Fever, Frequent Falls, Headache, Increased Appetite , Lethargy, Malaise, Night Sweats, Snoring, Sleep Apnea, Weight Gain, Weight Loss, Weakness, Other - EENT Eyes: absent: As Per HPI, Blind Spots, Blurred Vision, Change in Vision, Decreased Night Vision, Diplopia, Discharge, Dry Eye, Exophthalmos, Floaters, Irritation, Itchy Eyes, Loss of Peripheral Vision, Pain, Photophobia, Requires Corrective Lenses, Sees Flashes, Spots in Vision, Tunnel Vision, Other Visual Disturbances, Loss of Vision, Other Ears: absent: As Per HPI, Decreased Hearing, Ear Discharge, Ear Pain, Tinnitus, Abnormal Hearing, Disequilibrium, Dizziness, Other Nose/Mouth/Throat: absent: As Per HPI, Epistaxis, Nasal Congestion, Nasal Discharge, Nasal Obstruction, Nasal Trauma, Nose Pain, Post Nasal Drip, Sinus Pain, Sinus Pressure, Bleeding Gums, Change in Voice, Dental Pain, Dry Mouth, Dysphagia, Halitosis, Hoarsness, Lip Swelling, Mouth Lesions, Mouth Pain, Odynophagia, Sore Throat, Throat Swelling, Tongue Swelling, Facial Pain, Neck Pain, Neck Mass, Other - Breasts Breasts: absent: As Per HPI, Change in Shape, Mass, Pain, Nipple Discharge, Nipple Inversion, Skin Changes, Swelling, Other - Cardiovascular Cardiovascular: absent: As Per HPI, Acrocyanosis, Chest Pain, Chest Pain at Rest , Chest Pain with Activity, Claudication, Diaphoresis, Dyspnea, Dyspnea on Exertion, Edema, Irregular Heart Rhythm, Pain Radiating to Arm/Neck/Jaw, Leg Edema, Leg Ulcers, Lightheadedness, Orthopnea, Palpitations, Paroxysmal Nocturnal Dyspnea, Pedal Edema, Radiating Pain, Rapid Heart Rate, Slow Heart Rate, Syncope, Other - Respiratory Respiratory: absent: As Per HPI, Cough, Dyspnea, Hemoptysis, Dyspnea on Exertion , Wheezing, Snoring, Stridor, Pain on Inspiration, Chest Congestion, Excessive Mucous Production, Change in Mucous Color, Pain with Coughing, Other - Gastrointestinal Gastrointestinal: absent: As Per HPI, Abdominal Pain, Belching, Bloating, Change in Bowel Habits, Change in Stool Character, Coffee Ground Emesis, Constipation, Cramping, Diarrhea, Dyspepsia, Dysphagia, Early Satiety, Excessive Flatus, Fecal Incontinence, Heartburn, Hematemesis, Hematochezia, Loose Stools, Melena, Nausea, Odynophagia, Temesmus, Vomiting, Other - Musculoskeletal Musculoskeletal: Radiating Pain into Limb - Integumentary Integumentary: absent: As Per HPI, Acne, Alopecia, Bleeding Lesions, Change in Hair, Change in Nails, Change in Pigmentation, Changing Lesions, Dry Skin, Erythema, Furuncle, Hirsutism, Lesions, New Lesions, Non-Healing Lesions, Photosensitivity, Pruritus, Rash, Skin Pain, Skin Ulcer, Sores, Striae, Swelling , Unusual Bruising, Wounds, Jaundice, Other - Neurological Neurological: absent: As Per HPI, Abnormal Gait, Abnormal Hearing, Abnormal Movements, Abnormal Speech, Behavioral Changes, Burning Sensations, Confusion, Convulsions, Disequilibrium, Dizziness, Numbness, Focal Weakness, Frequent Falls , Headaches, Lack of Coordination, Loss of Vision, Memory Loss, Paresthesias, Radicular Pain, Restless Legs, Sensory Deficit, Syncope, Tingling, Tremor, Vertigo, Weakness, Other Visual Disturbances, Other - Psychiatric Psychiatric: absent: As Per HPI, Abnormal Sleep Pattern, Anhedonia, Anxiety, Auditory Hallucinations, Behavioral Changes, Change in Appetite, Change in Libido, Confusion, Depression, Difficulty Concentrating, Hallucinations, Homicidal Ideation, Hopelessness, Irritability, Memory Loss, Mood Swings, Panic Attacks, Paranoia, Suicidal Ideation, Visual Hallucinations, Tactile Hallucinations, Other - Endocrine Endocrine: absent: As Per HPI, Change in Body Appearance, Change in Libido, Cold Intolorance, Deepening of Voice, Excessive Sweating, Fatigue, Flushing, Heat Intolorance, Increase in Ring/Shoe/Hat Size, Palpitations, Polydipsia, Polyphagia, Polyuria, Other - Hematologic/Lymphatic Hematologic: absent: As Per HPI, Easy Bleeding, Easy Bruising, Lymphadenopathy, Other Past Patient History - Infectious Disease Hx of Infectious Diseases: None - Tetanus Immunizations Tetanus Immunization: Unknown - Past Medical History & Family History Past Medical History?: Yes - Past Social History Smoking Status: Never Smoked - CARDIAC Hx Congestive Heart Failure: Yes Hx Hypercholesterolemia: Yes Hx Hypertension: Yes Hx Mitral Valve Prolapse: Yes Hx Peripheral Edema: Yes - PULMONARY Hx Asthma: Yes Hx Bronchitis: Yes Hx Chronic Obstructive Pulmonary Disease (COPD): Yes Hx Pulmonary Embolism: Yes - NEUROLOGICAL Hx Neurological Disorder: Yes Other/Comment: Reflux Sympathetic Dystrophy - HEENT Hx HEENT Problems: Yes Hx Cataracts: Yes - RENAL Hx Chronic Kidney Disease: No - ENDOCRINE/METABOLIC Hx Hypothyroidism: Yes - HEMATOLOGICAL/ONCOLOGICAL Hx Blood Disorders: Yes Hx Blood Transfusions: Yes Hx Blood Transfusion Reaction: No - INTEGUMENTARY Hx Dermatological Problems: Yes Hx Cellulitis: Yes - MUSCULOSKELETAL/RHEUMATOLOGICAL Hx Arthritis: Yes Hx Fractures: Yes (DISPLACED METATRASAL FRACTURE 2ND LEFT) - GASTROINTESTINAL Hx Gall Bladder Disease: Yes (Gallstone) - GENITOURINARY/GYNECOLOGICAL Hx Genitourinary Disorders: No - PSYCHIATRIC Hx Anxiety: Yes Hx Depression: Yes Hx Substance Use: No - SURGICAL HISTORY Hx Surgeries: Yes Hx Cardiac Catheterization: Yes (X6) Hx Eye Surgery: Yes (CATARACT SX BOTH W/LENS) Hx Herniorrhaphy: Yes (Umbilical Hernia repair) Hx Hysterectomy: Yes Hx Musculoskeletal Surgery: Yes (rt. fot surgery) Hx Vascular Access Device: Yes (Port A Cath) Other/Comment: Hiatus Hernia repair, DIMPLE, Buniectomy R foot, operation L foot ( type unknown). - ANESTHESIA Hx Anesthesia: Yes Hx Anesthesia Reactions: No Hx Malignant Hyperthermia: No Meds Allergies/Adverse Reactions: Allergies Allergy/AdvReac Type Severity Reaction Status Date / Time Sulfa (Sulfonamide Allergy Intermediate RASH Verified 07/20/17 09:55 Antibiotics) - Medications Medications: Current Medications Albuterol/Ipratropium (Duoneb 3 Mg/0.5 Mg (3 Ml) Ud) 3 ml INH RQ6 PRN PRN Reason: Shortness of Breath Cyclobenzaprine HCl (Flexeril) 5 mg PO TID [facility] Last Admin: 07/21/17 11:20 Dose: 5 mg Dextrose (Dextrose 50% Inj) 0 ml IV STAT PRN; Protocol PRN Reason: Hypoglycemia Protocol Dextrose (Glutose 15) 0 gm PO ONCE PRN; Protocol PRN Reason: Hypoglycemia Protocol Docusate Sodium (Colace) 100 mg PO BID [facility] Last Admin: 07/21/17 09:47 Dose: 100 mg Famotidine (Pepcid) 20 mg PO BID [facility] Last Admin: 07/21/17 09:47 Dose: 20 mg Fluoxetine HCl (Prozac) 20 mg PO HS [facility] Last Admin: 07/20/17 22:52 Dose: 20 mg Glucagon (Glucagen Diagnostic Kit) 0 mg IM STAT PRN; Protocol PRN Reason: Hypoglycemia Protocol Heparin Sodium (Porcine) (Heparin) 5,000 units SC Q8 [facility] Last Admin: 07/21/17 06:25 Dose: 5,000 units Dextrose (Dextrose 5% In Water 1000 Ml) 1,000 mls @ 0 mls/hr IV .Q0M PRN; Protocol; Per Protocol PRN Reason: Hypoglycemia Protocol Insulin Human Regular (Novolin R) 0 unit SC ACHS [facility] PRN Reason: Protocol Last Admin: 07/21/17 12:07 Dose: Not Given Isosorbide Mononitrate (Imdur) 60 mg PO DAILY [facility] Last Admin: 07/21/17 09:47 Dose: 60 mg Lorazepam (Ativan) 2 mg PO TID [facility] Last Admin: 07/21/17 11:20 Dose: 2 mg Oxycodone HCl (Oxycontin Extended Release Tab) 40 mg PO Q8H PRN PRN Reason: Pain, severe (8-10) Last Admin: 07/21/17 06:25 Dose: 40 mg Oxycodone HCl (Oxycodone Immediate Release Tab) 10 mg PO Q4H PRN PRN Reason: Pain, moderate (4-7) Last Admin: 07/21/17 09:53 Dose: 10 mg Pregabalin (Lyrica) 75 mg PO BID [facility] Last Admin: 07/21/17 09:47 Dose: 75 mg Rosuvastatin Calcium (Crestor) 10 mg PO HS [facility] Last Admin: 07/20/17 22:08 Dose: 10 mg Physical Exam - Constitutional Appears: Non-toxic - Head Exam Head Exam: NORMAL INSPECTION - Eye Exam Eye Exam: Normal appearance - ENT Exam ENT Exam: Mucous Membranes Moist - Neck Exam Neck exam: Positive for: Full Rom - Respiratory Exam Respiratory Exam: NORMAL BREATHING PATTERN - Cardiovascular Exam Cardiovascular Exam: REGULAR RHYTHM - GI/Abdominal Exam GI & Abdominal Exam: Normal Bowel Sounds - Rectal Exam Rectal Exam: Deferred - Extremities Exam Extremities exam: Negative for: pedal edema - Back Exam Back exam: NORMAL INSPECTION - Neurological Exam Neurological exam: Alert, Oriented x3 - Psychiatric Exam Psychiatric exam: Normal Affect - Skin Skin Exam: Normal Color Results - Vital Signs Recent Vital Signs: Last Vital Signs Temp 98.2 F 07/21/17 07:20 Pulse 81 07/21/17 11:19 Resp 20 07/21/17 07:20 BP 137/72 07/21/17 11:19 Pulse Ox 99 07/21/17 07:20 - Labs Result Diagrams: 07/21/17 07:20 07/21/17 07:20 Labs: Laboratory Results - last 24 hr 07/20/17 07/20/17 07/20/17 11:27 16:43 22:03 WBC RBC Hgb Hct MCV MCH MCHC RDW Plt Count MPV Neut % (Auto) Lymph % (Auto) Marin % (Auto) Eos % (Auto) Baso % (Auto) Neut # Lymph # Marin # Eos # Baso # PT INR APTT Sodium 138 Potassium 4.3 Chloride 105 Carbon Dioxide 28 Anion Gap 10 BUN 12 Creatinine 0.6 L Est GFR ( Amer) > 60 Est GFR (Non-Af Amer) > 60 POC Glucose (mg/dL) 103 139 H Random Glucose 103 Hemoglobin A1c Calcium 9.6 Phosphorus Magnesium Total Bilirubin 0.3 AST 24 ALT 39 Alkaline Phosphatase 104 Total Protein 8.3 Albumin 3.9 Globulin 4.3 H Albumin/Globulin Ratio 0.9 L Triglycerides Cholesterol LDL Cholesterol Direct HDL Cholesterol 07/21/17 07/21/17 07/21/17 06:21 07:20 07:20 WBC 12.6 H D RBC 4.47 Hgb 10.3 L Hct 33.0 L MCV 74.0 L MCH 23.0 L MCHC 31.1 L RDW 17.4 H Plt Count 288 MPV 9.1 Neut % (Auto) 58.4 Lymph % (Auto) 30.9 Marin % (Auto) 7.9 Eos % (Auto) 2.1 Baso % (Auto) 0.7 Neut # 7.4 H Lymph # 3.9 Marin # 1.0 H Eos # 0.3 Baso # 0.1 PT INR APTT Sodium 141 Potassium 4.1 Chloride 105 Carbon Dioxide 29 Anion Gap 11 BUN 12 Creatinine 0.7 Est GFR ( Amer) > 60 Est GFR (Non-Af Amer) > 60 POC Glucose (mg/dL) 84 Random Glucose 82 Hemoglobin A1c Calcium 9.4 Phosphorus 3.1 Magnesium 1.7 Total Bilirubin 0.3 AST 29 ALT 36 Alkaline Phosphatase 101 Total Protein 7.3 Albumin 4.0 Globulin 3.3 Albumin/Globulin Ratio 1.2 Triglycerides 112 Cholesterol 191 LDL Cholesterol Direct 110 HDL Cholesterol 54 07/21/17 07/21/17 07/21/17 07:20 07:20 11:28 WBC RBC Hgb Hct MCV MCH MCHC RDW Plt Count MPV Neut % (Auto) Lymph % (Auto) Marin % (Auto) Eos % (Auto) Baso % (Auto) Neut # Lymph # Marin # Eos # Baso # PT 10.4 INR 0.9 APTT 19 L Sodium Potassium Chloride Carbon Dioxide Anion Gap BUN Creatinine Est GFR ( Amer) Est GFR (Non-Af Amer) POC Glucose (mg/dL) 124 H Random Glucose Hemoglobin A1c 6.0 Calcium Phosphorus Magnesium Total Bilirubin AST ALT Alkaline Phosphatase Total Protein Albumin Globulin Albumin/Globulin Ratio Triglycerides Cholesterol LDL Cholesterol Direct HDL Cholesterol - EKG Data EKG Interpreted by: Myself EKG shows normal: Sinus rhythm Assessment & Plan (1) Fracture of second metatarsal bone of left foot Assessment and Plan: I reviewed the echocardiogram. Left ventricular function is normal. There are no regional wall mtion abnormalities. diastolic dysfunction is noted. I discussed medical therapy. There is no cardiovascular contraindication to the planned surgery. Status: Acute (2) CAD (coronary artery disease) Assessment and Plan: no current symptoms Status: Chronic Priority: Medium (3) Diabetes Status: Chronic (4) HTN (hypertension) Status: Chronic
--- NOTE | 2017-07-21 13:30 | CP.PCM.PN ---
Subjective - Date & Time of Evaluation Date of Evaluation: 07/21/17 Time of Evaluation: 11:00 - Subjective Subjective: Medicine Progress Note Patient seen and examined. Patient complains of pain in her left foot that is intermittent. She is scheduled to go to the OR with Dr Rios tomorrow afternoon. Patient went for ECHO today, will follow up report. Patient currently denies fever, chills, nausea, vomiting, chest pain, shortness of breath. Objective - Vital Signs/Intake and Output Vital Signs (last 24 hours): Temp Pulse Resp BP Pulse Ox 98.2 F 81 20 137/72 99 07/21/17 07:20 07/21/17 11:19 07/21/17 07:20 07/21/17 11:19 07/21/17 07:20 Intake and Output: 07/21/17 07/21/17 06:59 18:59 Intake Total 118 Balance 118 - Medications Medications: Current Medications Albuterol/Ipratropium (Duoneb 3 Mg/0.5 Mg (3 Ml) Ud) 3 ml INH RQ6 PRN PRN Reason: Shortness of Breath Cyclobenzaprine HCl (Flexeril) 5 mg PO TID [facility] Last Admin: 07/21/17 11:20 Dose: 5 mg Dextrose (Dextrose 50% Inj) 0 ml IV STAT PRN; Protocol PRN Reason: Hypoglycemia Protocol Dextrose (Glutose 15) 0 gm PO ONCE PRN; Protocol PRN Reason: Hypoglycemia Protocol Docusate Sodium (Colace) 100 mg PO BID [facility] Last Admin: 07/21/17 09:47 Dose: 100 mg Famotidine (Pepcid) 20 mg PO BID [facility] Last Admin: 07/21/17 09:47 Dose: 20 mg Fluoxetine HCl (Prozac) 20 mg PO HS [facility] Last Admin: 07/20/17 22:52 Dose: 20 mg Glucagon (Glucagen Diagnostic Kit) 0 mg IM STAT PRN; Protocol PRN Reason: Hypoglycemia Protocol Heparin Sodium (Porcine) (Heparin) 5,000 units SC Q8 [facility] Last Admin: 07/21/17 06:25 Dose: 5,000 units Dextrose (Dextrose 5% In Water 1000 Ml) 1,000 mls @ 0 mls/hr IV .Q0M PRN; Protocol; Per Protocol PRN Reason: Hypoglycemia Protocol Insulin Human Regular (Novolin R) 0 unit SC ACHS [facility] PRN Reason: Protocol Last Admin: 07/21/17 12:07 Dose: Not Given Isosorbide Mononitrate (Imdur) 60 mg PO DAILY [facility] Last Admin: 07/21/17 09:47 Dose: 60 mg Lorazepam (Ativan) 2 mg PO TID [facility] Last Admin: 07/21/17 11:20 Dose: 2 mg Oxycodone HCl (Oxycontin Extended Release Tab) 40 mg PO Q8H PRN PRN Reason: Pain, severe (8-10) Last Admin: 07/21/17 06:25 Dose: 40 mg Oxycodone HCl (Oxycodone Immediate Release Tab) 10 mg PO Q4H PRN PRN Reason: Pain, moderate (4-7) Last Admin: 07/21/17 09:53 Dose: 10 mg Pregabalin (Lyrica) 75 mg PO BID [facility] Last Admin: 07/21/17 09:47 Dose: 75 mg Rosuvastatin Calcium (Crestor) 10 mg PO HS [facility] Last Admin: 07/20/17 22:08 Dose: 10 mg - Labs Labs: 07/21/17 07:20 07/21/17 07:20 PT 10.4 SECONDS (9.7-12.2) 07/21/17 07:20 INR 0.9 07/21/17 07:20 APTT 19 SECONDS (21-34) L 07/21/17 07:20 - Constitutional Appears: Non-toxic, No Acute Distress - Head Exam Head Exam: ATRAUMATIC, NORMOCEPHALIC - Eye Exam Eye Exam: EOMI, Normal appearance. absent: Scleral icterus Pupil Exam: PERRL - ENT Exam ENT Exam: Mucous Membranes Moist - Neck Exam Neck Exam: Full ROM - Respiratory Exam Respiratory Exam: Clear to Ausculation Bilateral, NORMAL BREATHING PATTERN. absent: Wheezes - Cardiovascular Exam Cardiovascular Exam: REGULAR RHYTHM, +S1, +S2, Murmur (holosystolic) - GI/Abdominal Exam GI & Abdominal Exam: Soft, Normal Bowel Sounds. absent: Tenderness - Extremities Exam Extremities Exam: Tenderness (2nd metatarsal left foot). absent: Normal Inspection, Pedal Edema Additional comments: Pt in surgical shoe; extremity warm to touch, palpable pulses - Back Exam Back Exam: absent: CVA tenderness (L), CVA tenderness (R) - Neurological Exam Neurological Exam: Alert, Awake, Oriented x3 - Psychiatric Exam Psychiatric exam: Normal Affect, Normal Mood - Skin Skin Exam: Normal Color, Warm Assessment and Plan - Assessment and Plan (Free Text) Assessment: Left foot fracture Patient's blood work, EKG, Chest Xray and EKG were reviewed. According to Revised Cardiac Risk Index, the patient has a low risk (Class II) of cardiac event during this non-cardiac procedure. The risks and benefits of procedure should be discussed with the patient by the surgeon and anesthesiologist prior to operation. Patient sees Dr. Rios as outpatient- consult placed, help appreciated. Operation scheduled for 07/22/17. f/u arterial dopplers Pre-op workup: Xray (left foot) (07/20/17): subacute healing fracture in distal 2nd metatarsal. Age indeterminate fracture deformity in distal 5th metatarsal (see full report) CXR (07/20/17)- Low lung volumes w crowded bronchvascular markings and minor bibasilar atelectasis. Curvilinear radiopaque density in left lung base that may represent linear atelectasis (see full report) EKG: (07/15/17)- NSR at 64 bpm, No ST/T wave changes, Minimal votage criteria for LVH - may be normal variant ECHO (07/21/17)- normal LV EF with diastolic dysfunction (f/u official report) Diastolic CHF ECHO shows normal LV EF with diastolic dysfunction per unofficial read Resource Analyst Dr Viera evaluated patient and cleared patient for surgery from cardiac standpoint- help appreciated Complex regional pain syndrome I Per [facility]: Continue pts home regimen Oxycontin 40mg PO Q8H Oxycodone 15 mg q4h PRN Colace 100mg PO BID Controlled Diabetes Mellitus, Type II Accu checks MISS hypoglycemia protocol continue home Metformin 500mg bid HgA1C 6.0, well controlled diabetes, no change in medications DM neuropathy Continue home Lyrica 75mg PO BID Hyperlipidemia Crestor 10mg PO HS LDL 110 HDL 54 Cholesterol 191 Triglycerides 112 COPD (chronic obstructive pulmonary disease) Controlled Duonebs q6h prn SOB Patient was on home spiriva but no longer takes it Hypothyroidism Pt states taking Synthroid 100mcg daily of synthroid but [facility]/Dr. Weldon do not have records of prescribing it f/u TSH/ Free T4 HTN (hypertension) Well controlled Continue home Imdur 60mg daily Depression Continue home Prozac 20mg PO Daily Hx of MVP Rheumatic Fever as child Will f/u official ECHO report Prophylaxis Pepcid 20mg PO BID Heparin 5000u Q8H (hold until after surgery, resume on 07/23) SCDs C/I due to LE injury Heart healthy diet Management per Dr Weldon
[2017-07-21] MEDS: oxyCODONE 5 mg Immediate Release Tab PO PRN (17:09)
[2017-07-22] MEDS: oxyCODONE 5 mg Immediate Release Tab PO PRN ×3 (05:57→20:58)
[2017-07-22 06:27] LABS: BASO # 0.1 K/uL (0.0-0.2); BASO % 0.7 % (0.0-2.0); EOS # 0.1 K/uL (0.0-0.7); EOS % 1.7 % (0.0-4.0); HEMATOCRIT 32.9 % (34.0-47.0); LYMPH # 3.1 K/uL (1.0-4.3); LYMPH % 37.9 % (20.0-40.0); MEAN CELL VOLUME 73.5 fL (81.0-99.0); MEAN CORPUSCULAR HEMOGLOBIN 23.3 pg (27.0-31.0); MEAN CORPUSCULAR HGB CONC 31.7 g/dL (33.0-37.0); MEAN PLATELET VOLUME 8.3 fL (7.2-11.7); MONO # 0.7 K/uL (0.0-0.8); MONO % 8.1 % (0.0-10.0); NRBC % 0.1 % (0.0-2.0); WHITE BLOOD COUNT 8.3 K/uL (4.8-10.8)
[2017-07-22 07:33] LABS: ALB/GLOB RATIO 1.2 (1.0-2.1); ALKALINE PHOSPHATASE 103 U/L (38-126); ALT/SGPT 47 U/L (9-52); AST/SGOT 20 U/L (14-36); BILIRUBIN,TOTAL 0.4 mg/dL (0.2-1.3); BLOOD UREA NITROGEN 12 mg/dL (7-17); CALCIUM 9.3 mg/dl (8.6-10.4); CARBON DIOXIDE 29 mmol/L (22-30); CHLORIDE 102 mmol/L (98-107); CHOLESTEROL 184 mg/dL (0-199); GFR AFRICAN-AMERICAN > 60; GLUCOSE,RANDOM 94 mg/dL (65-105); MAGNESIUM 1.6 mg/dL (1.6-2.3); POTASSIUM 3.8 mmol/L (3.6-5.2); SODIUM 138 mmol/L (132-148); TOTAL PROTEIN 7.2 g/dL (6.3-8.3)
[2017-07-22] MEDS: (Novolin R) Insulin Human Regular 100 units/ml vial SC SCH ×4 (08:05→21:51)
[2017-07-22] MEDS: oxyCODONE 40 mg ER Tab (oxyCONTIN) PO PRN ×2 (09:38→23:03)
--- NOTE | 2017-07-22 10:02 | CP.PCM.PN ---
Subjective - Date & Time of Evaluation Date of Evaluation: 07/22/17 Time of Evaluation: 08:00 - Subjective Subjective: Medicine Progress Note Patient seen and examined. Patient is complaining of pain in her left leg and low back. Patient ate breakfast this morning and is aware that she should remain NPO until her procedure this afternoon. Denies fever, chills, nausea, vomiting, diarrhea, abdominal pain, and headache. Objective - Vital Signs/Intake and Output Vital Signs (last 24 hours): Temp Pulse Resp BP Pulse Ox 98.5 F 76 20 114/66 97 07/22/17 07:25 07/22/17 07:25 07/22/17 07:25 07/22/17 07:25 07/22/17 07:25 Intake and Output: 07/22/17 07/22/17 06:59 18:59 Intake Total 560 Balance 560 - Medications Medications: Current Medications Albuterol/Ipratropium (Duoneb 3 Mg/0.5 Mg (3 Ml) Ud) 3 ml INH RQ6 PRN PRN Reason: Shortness of Breath Cyclobenzaprine HCl (Flexeril) 5 mg PO TID [facility] Last Admin: 07/22/17 09:31 Dose: 5 mg Dextrose (Dextrose 50% Inj) 0 ml IV STAT PRN; Protocol PRN Reason: Hypoglycemia Protocol Dextrose (Glutose 15) 0 gm PO ONCE PRN; Protocol PRN Reason: Hypoglycemia Protocol Docusate Sodium (Colace) 100 mg PO BID [facility] Last Admin: 07/22/17 09:29 Dose: 100 mg Famotidine (Pepcid) 20 mg PO BID [facility] Last Admin: 07/22/17 09:30 Dose: 20 mg Fluoxetine HCl (Prozac) 20 mg PO HS [facility] Last Admin: 07/21/17 21:51 Dose: 20 mg Glucagon (Glucagen Diagnostic Kit) 0 mg IM STAT PRN; Protocol PRN Reason: Hypoglycemia Protocol Heparin Sodium (Porcine) (Heparin) 5,000 units SC Q8 [facility] Last Admin: 07/21/17 06:25 Dose: 5,000 units Dextrose (Dextrose 5% In Water 1000 Ml) 1,000 mls @ 0 mls/hr IV .Q0M PRN; Protocol; Per Protocol PRN Reason: Hypoglycemia Protocol Insulin Human Regular (Novolin R) 0 unit SC ACHS [facility] PRN Reason: Protocol Last Admin: 07/22/17 08:05 Dose: Not Given Isosorbide Mononitrate (Imdur) 60 mg PO DAILY [facility] Last Admin: 07/22/17 09:29 Dose: 60 mg Lorazepam (Ativan) 2 mg PO TID [facility] Last Admin: 07/22/17 09:30 Dose: 2 mg Oxycodone HCl (Oxycontin Extended Release Tab) 40 mg PO Q8H PRN PRN Reason: Pain, severe (8-10) Last Admin: 07/22/17 09:38 Dose: 40 mg Oxycodone HCl (Oxycodone Immediate Release Tab) 15 mg PO Q4H PRN PRN Reason: Pain, moderate (4-7) Last Admin: 07/22/17 05:57 Dose: 15 mg Pregabalin (Lyrica) 150 mg PO QID [facility] Last Admin: 07/22/17 09:29 Dose: 150 mg Rosuvastatin Calcium (Crestor) 10 mg PO HS [facility] Last Admin: 07/21/17 21:49 Dose: 10 mg Spironolactone (Aldactone) 25 mg PO DAILY [facility] Last Admin: 07/22/17 09:30 Dose: 25 mg - Labs Labs: 07/22/17 06:19 07/22/17 06:19 PT 10.4 SECONDS (9.7-12.2) 07/21/17 07:20 INR 0.9 07/21/17 07:20 APTT 19 SECONDS (21-34) L 07/21/17 07:20 - Additional Findings Additional findings: - Constitutional Appears: Non-toxic, No Acute Distress - Head Exam Head Exam: ATRAUMATIC, NORMOCEPHALIC - Eye Exam Eye Exam: EOMI, Normal appearance. absent: Scleral icterus Pupil Exam: PERRL - ENT Exam ENT Exam: Mucous Membranes Moist - Neck Exam Neck Exam: Full ROM - Respiratory Exam Respiratory Exam: Clear to Ausculation Bilateral, NORMAL BREATHING PATTERN. absent: Wheezes - Cardiovascular Exam Cardiovascular Exam: REGULAR RHYTHM, +S1, +S2, Murmur (holosystolic) - GI/Abdominal Exam GI & Abdominal Exam: Soft, Normal Bowel Sounds. absent: Tenderness - Extremities Exam Extremities Exam: Tenderness (2nd metatarsal left foot). absent: Normal Inspection, Pedal Edema Additional comments: surgical shoe on, extremity warm to touch, palpable pulses - Back Exam Back Exam: absent: CVA tenderness (L), CVA tenderness (R) - Neurological Exam Neurological Exam: Alert, Awake, Oriented x3 - Psychiatric Exam Psychiatric exam: Normal Affect, Normal Mood - Skin Skin Exam: Normal Color, Warm Assessment and Plan - Assessment and Plan (Free Text) Assessment: Left foot fracture 07/22: Patient scheduled for OR today with Dr Rios Patient's blood work, EKG, Chest Xray and EKG were reviewed. According to Revised Cardiac Risk Index, the patient has a low risk (Class II) of cardiac event during this non-cardiac procedure. The risks and benefits of procedure should be discussed with the patient by the surgeon and anesthesiologist prior to operation. Patient sees Dr. Rios as outpatient- consult placed, help appreciated. f/u arterial dopplers Pre-op workup: Xray (left foot) (07/20/17): subacute healing fracture in distal 2nd metatarsal. Age indeterminate fracture deformity in distal 5th metatarsal (see full report) CXR (07/20/17)- Low lung volumes w crowded bronchvascular markings and minor bibasilar atelectasis. Curvilinear radiopaque density in left lung base that may represent linear atelectasis (see full report) EKG: (07/15/17)- NSR at 64 bpm, No ST/T wave changes, Minimal votage criteria for LVH - may be normal variant ECHO (07/21/17)- normal LV EF with diastolic dysfunction (f/u official report) Diastolic CHF ECHO shows normal LV EF with diastolic dysfunction per unofficial read Senior Tax Accountant Dr Viera evaluated patient and cleared patient for surgery from cardiac standpoint- help appreciated Complex regional pain syndrome I Per [facility]: Continue pts home regimen. MERCHANDISING COORDINATOR checked by pharmacist and medications confirmed. Oxycontin 40mg PO Q8H Oxycodone 15 mg q4h PRN Colace 100mg PO BID Controlled Diabetes Mellitus, Type II Accu checks MISS hypoglycemia protocol continue home Metformin 500mg bid HgA1C 6.0, well controlled diabetes, no change in medications DM neuropathy Continue home Lyrica 75mg PO BID Hyperlipidemia Crestor 10mg PO HS LDL 110 HDL 54 Cholesterol 191 Triglycerides 112 COPD (chronic obstructive pulmonary disease) Controlled Duonebs q6h prn SOB Patient was on home spiriva but no longer takes it Hypothyroidism Pt states taking Synthroid 100mcg daily of synthroid but [facility]/Dr. Weldon do not have records of prescribing it f/u TSH/ Free T4 HTN (hypertension) Well controlled Continue home Imdur 60mg daily Depression Continue home Prozac 20mg PO Daily Hx of MVP Rheumatic Fever as child Will f/u official ECHO report Prophylaxis Pepcid 20mg PO BID Heparin 5000u Q8H (hold until after surgery, resume on 07/23) SCDs C/I due to LE injury Heart healthy diet Management per Dr Weldon
--- NOTE | 2017-07-22 10:18 | VASCLAB ---
STUDY DESCRIPTION: HISTORY: Leg pain PRIORS: None. TECHNIQUE: Pulse volume recording waveforms and segmental pressures of bilateral lower extremities at multiple levels were obtained. Ankle Brachial Indices (ABIs) were calculated. Report prepared by EJ Gamble, RVT RIGHT LOWER EXTREMITY: * Brachial artery: Pressure - 119 mmHg. * High thigh: Pressure - mmHg: Ratio - : PVR waveform - Pulsatile * Low thigh: Pressure - mmHg: Ratio - PVR waveform: Pulsatile * Calf: Pressure - mmHg: Ratio - PVR waveform: Pulsatile * Posterior tibial Artery: Pressure - 180 mmHg: Ratio - 1.21 PVR waveform: Pulsatile * Dorsalis pedis Artery: Pressure - 175 mmHg: Ratio - 1.17 PVR waveform: Pulsatile * Great toe: Pressure - mmHg: Ratio - PVR waveform: Ankle brachial index (MEGAN): 1.21 LEFT LOWER EXTREMITY: * Brachial artery: Pressure - 149 mmHg. * High thigh: Pressure - mmHg: Ratio - : PVR waveform - Pulsatile * Low thigh: Pressure - mmHg: Ratio - PVR waveform: Pulsatile * Calf: Pressure - mmHg: Ratio - PVR waveform: Pulsatile * Posterior tibial Artery: Pressure - 178 mmHg: Ratio - 1.19 PVR waveform: Pulsatile * Dorsalis pedis Artery: Pressure - 164 mmHg: Ratio - 1.10 PVR waveform: Pulsatile * Great toe: Pressure - mmHg: Ratio - PVR waveform: Ankle brachial index (MEGAN): 1.19 OTHER FINDINGS: Right: Left: IMPRESSION: Right: There was no evidence of hemodynamically significant arterial insufficiency in the right lower extremity. Left: There was no evidence of hemodynamically significant arterial insufficiency in the left lower extremity.
--- NOTE | 2017-07-22 14:05 | CP.PCM.PN ---
Subjective - Date & Time of Evaluation Date of Evaluation: 07/22/17 Time of Evaluation: 14:03 - Subjective Subjective: Podiatry Progress note for Dr. Rios 62 year old female was seen at bedside resting comfortably for left foot pain. She is aware she is going to the OR this afternoon. NPO status confirmed. Denies any n/v/f/c/sob/cp. Objective - Vital Signs/Intake and Output Vital Signs (last 24 hours): Temp Pulse Resp BP Pulse Ox 98.5 F 76 20 114/66 97 07/22/17 07:25 07/22/17 07:25 07/22/17 07:25 07/22/17 07:25 07/22/17 07:25 Intake and Output: 07/22/17 07/22/17 06:59 18:59 Intake Total 560 Balance 560 - Medications Medications: Current Medications Albuterol/Ipratropium (Duoneb 3 Mg/0.5 Mg (3 Ml) Ud) 3 ml INH RQ6 PRN PRN Reason: Shortness of Breath Cyclobenzaprine HCl (Flexeril) 5 mg PO TID [facility] Last Admin: 07/22/17 13:43 Dose: Not Given Dextrose (Dextrose 50% Inj) 0 ml IV STAT PRN; Protocol PRN Reason: Hypoglycemia Protocol Dextrose (Glutose 15) 0 gm PO ONCE PRN; Protocol PRN Reason: Hypoglycemia Protocol Docusate Sodium (Colace) 100 mg PO BID [facility] Last Admin: 07/22/17 09:29 Dose: 100 mg Famotidine (Pepcid) 20 mg PO BID [facility] Last Admin: 07/22/17 09:30 Dose: 20 mg Fluoxetine HCl (Prozac) 20 mg PO HS [facility] Last Admin: 07/21/17 21:51 Dose: 20 mg Glucagon (Glucagen Diagnostic Kit) 0 mg IM STAT PRN; Protocol PRN Reason: Hypoglycemia Protocol Heparin Sodium (Porcine) (Heparin) 5,000 units SC Q8 [facility] Last Admin: 07/21/17 06:25 Dose: 5,000 units Dextrose (Dextrose 5% In Water 1000 Ml) 1,000 mls @ 0 mls/hr IV .Q0M PRN; Protocol; Per Protocol PRN Reason: Hypoglycemia Protocol Insulin Human Regular (Novolin R) 0 unit SC ACHS [facility] PRN Reason: Protocol Last Admin: 07/22/17 11:11 Dose: Not Given Isosorbide Mononitrate (Imdur) 60 mg PO DAILY [facility] Last Admin: 07/22/17 09:29 Dose: 60 mg Lorazepam (Ativan) 2 mg PO TID [facility] Last Admin: 07/22/17 13:43 Dose: Not Given Oxycodone HCl (Oxycontin Extended Release Tab) 40 mg PO Q8H PRN PRN Reason: Pain, severe (8-10) Last Admin: 07/22/17 09:38 Dose: 40 mg Oxycodone HCl (Oxycodone Immediate Release Tab) 15 mg PO Q4H PRN PRN Reason: Pain, moderate (4-7) Last Admin: 07/22/17 11:08 Dose: 15 mg Pregabalin (Lyrica) 150 mg PO QID [facility] Last Admin: 07/22/17 13:44 Dose: 150 mg Rosuvastatin Calcium (Crestor) 10 mg PO HS [facility] Last Admin: 07/21/17 21:49 Dose: 10 mg Spironolactone (Aldactone) 25 mg PO DAILY [facility] Last Admin: 07/22/17 09:30 Dose: 25 mg - Labs Labs: 07/22/17 06:19 07/22/17 06:19 PT 10.4 SECONDS (9.7-12.2) 07/21/17 07:20 INR 0.9 07/21/17 07:20 APTT 19 SECONDS (21-34) L 07/21/17 07:20 - Constitutional Appears: Well, Non-toxic, No Acute Distress - Extremities Exam Additional comments: Left Lower Extremity focused exam: VASC: DP pulses graded 2/4, PT pulses non-palpable on the left CRF to level of digits is <3 seconds. Temperature runs warm to warm from proximal to distal within normal limits. Diffuse tortuous varicosities noted in lower legs. DERM: No open lesions noted. No erythema, no edema noted NERUO: Protective sensation grossly diminished. ORTHO: Tenderness on palpation to left foot diffusely, pes planus deformity noted - Neurological Exam Neurological Exam: Alert, Awake, Oriented x3 - Psychiatric Exam Psychiatric exam: Normal Affect, Normal Mood Assessment and Plan - Assessment and Plan (Free Text) Assessment: 62 year old female with left 2nd metatarsal fracture Plan: Pt was seen and examined Discussed with attending, Dr. Rios Pt NPO status was confirmed All Pre-op testing and clearance was in the chart Pt has exhausted all conservative treatment at this time and is opting for surgical intervention Pt was explained procedure and post-operative course All pt's questions were answered to satisfaction No guarantees were made Pt understands all risks, benefits and complications of procedure Pt will follow-up with Dr. Rios
[2017-07-22] MEDS ORDERED: Etomidate 20 mg/10ml Inj IV ONE (15:43)
[2017-07-22] MEDS ORDERED: Midazolam 2 MG/2 ML VIAL ONE (15:43)
[2017-07-22] MEDS ORDERED: Propofol 10 mg/ml Inj (20 ML) ONE (15:44)
[2017-07-22] MEDS ORDERED: Phenylephrine 10 mg/ml Inj ONE (16:03)
[2017-07-22] MEDS ORDERED: Lidocaine 2% Inj (20ml) ONE (16:08)
[2017-07-22] MEDS ORDERED: Bupivacaine HCl 0.5% PF (10 ml) Inj ONE ×2 (16:08)
[2017-07-22] MEDS ORDERED: ceFAZolin IV 1 gm in Dextrose 1 GM/50 ML BAG IVPB ONE ×2 (16:09→17:09)
[2017-07-22] MEDS ORDERED: Bupivacaine HCl 0.25% PF (10 ml) Inj ONE ×2 (16:22→17:42)
[2017-07-22] MEDS ORDERED: Lidocaine 1% Inj (20ml) ONE ×2 (16:22→17:39)
[2017-07-22] MEDS ORDERED: HYDROmorphone 0.5 mg/0.5 ml ISec IVP PRN (18:52)
--- NOTE | 2017-07-22 18:52 | PCM.SURG1 ---
Surgeon's Initial Post Op Note - Surgeon's Notes Surgeon: Dr. Teo Rios DPM Paper Baling Machine Operator: Dr. Laurie Green DPM PGY-2, Dr. Miguel Perkins DPM PGY-1 Type of Anesthesia: General LMA, Local Anesthesia Administered By: Dr. Feng Pre-Operative Diagnosis: Left foot severe uncontrolled pain with displaced fracture, chronic metatarsalgia and. Right foot 2nd digit hammertoe Operative Findings: see dicatations. injectables: 30 cc of 1:1 1% lidocaine plain and .25% marcaine plain, intraop injection 10 cc of 1:1 1% lidocaine plain and .25% marcaine plain, Willow 2 amp to L foot. materials: 3-0 vicryl, 4-0 vicryl, 3-0 nylon Post-Operative Diagnosis: same Operation Performed: metatarsal head resection 2, 3, 4, 5 of left foot. 2nd digit PIPJ arthorplasty of right foot Specimen/Specimens Removed: L metatarsal heads 2-5 and R bone Estimated Blood Loss: EBL {In ML}: 10 Blood Products Given: N/A Drains Used: No Drains Post-Op Condition: Good Date of Surgery/Procedure: 07/22/17 Time of Surgery/Procedure: 04:00
--- NOTE | 2017-07-22 19:10 | CARD ---
APPROVED REPORT EXAM: Two-dimensional and M-mode echocardiogram with Doppler and color Doppler. Other Information Quality : GoodRhythm : INDICATION Dyspnea Pre-Op Chest Pain Mitral Valve Prolapse COPD RISK FACTORS Hypertension Diabetes 2D DIMENSIONS IVSd1.1 (0.7-1.1cm)LVDd3.7 (3.9-5.9cm) PWd1.1 (0.7-1.1cm)LVDs2.2 (2.5-4.0cm) FS (%) 40.7 %LVEF (%)72.2 (>50%) M-Mode DIMENSIONS Left Atrium (MM)3.12 (2.5-4.0cm)Aortic Root3.67 (2.2-3.7cm) Aortic Cusp Exc.2.19 (1.5-2.0cm) Mitral Valve MV E Yhmaqspt16.0cm/sMV A Wuwxofpo289.4cm/sE/A ratio0.8 TDI E/Lateral E'0.0E/Medial E'0.0 <Conclusion> poor window. la,lv & ra rv size appears normal. normal lv wall motion,thickness & systolic function with lvef of 65-70%. sclerotic trileaflet aortic valve. mac. tv & pv appears normal. trace mr,pi. lv diastolic dysfunction grade one. no pericardial effusion. normal size ivc & aortic root.
[2017-07-23] MEDS: oxyCODONE 5 mg Immediate Release Tab PO PRN ×5 (01:00→22:00)
[2017-07-23 06:29] LABS: BASO % 0.5 % (0.0-2.0); EOS # 0.1 K/uL (0.0-0.7); EOS % 1.3 % (0.0-4.0); HEMATOCRIT 29.9 % (34.0-47.0); LYMPH # 2.8 K/uL (1.0-4.3); LYMPH % 28.7 % (20.0-40.0); MEAN CELL VOLUME 73.4 fL (81.0-99.0); MEAN CORPUSCULAR HEMOGLOBIN 24.1 pg (27.0-31.0); MEAN CORPUSCULAR HGB CONC 32.8 g/dL (33.0-37.0); MEAN PLATELET VOLUME 8.5 fL (7.2-11.7); MONO # 0.9 K/uL (0.0-0.8); MONO % 8.9 % (0.0-10.0); RED CELL DISTRIBUTION WIDTH 17.1 % (11.5-14.5); WHITE BLOOD COUNT 9.6 K/uL (4.8-10.8)
[2017-07-23 06:47] LABS: ALB/GLOB RATIO 1.3 (1.0-2.1); ALKALINE PHOSPHATASE 95 U/L (38-126); ALT/SGPT 35 U/L (9-52); AST/SGOT 18 U/L (14-36); BILIRUBIN,TOTAL 0.4 mg/dL (0.2-1.3); BLOOD UREA NITROGEN 12 mg/dL (7-17); CALCIUM 9.1 mg/dl (8.6-10.4); CARBON DIOXIDE 31 mmol/L (22-30); CHLORIDE 103 mmol/L (98-107); CHOLESTEROL 173 mg/dL (0-199); GFR AFRICAN-AMERICAN > 60; GLUCOSE,RANDOM 94 mg/dL (65-105); MAGNESIUM 1.6 mg/dL (1.6-2.3); PHOSPHOROUS 3.3 mg/dL (2.5-4.5); POTASSIUM 3.8 mmol/L (3.6-5.2); SODIUM 140 mmol/L (132-148); TOTAL PROTEIN 6.7 g/dL (6.3-8.3)
[2017-07-23] MEDS: (Novolin R) Insulin Human Regular 100 units/ml vial SC SCH ×4 (08:05→22:00)
--- NOTE | 2017-07-23 08:25 | CP.PCM.PN ---
Subjective - Date & Time of Evaluation Date of Evaluation: 07/23/17 Time of Evaluation: 08:25 - Subjective Subjective: Progress Note for Dr. Rios 62 y.o female seen at bedside with attending Dr. Rios 1 day s/p left metatarsal head resection 2, 3, 4, 5 and R 2nd digit PIPJ arthorplasty. Patient is seen resting comfortably in bed, NAD, and AA0x3. Patient reports that she is in pain but is better today compared to yesterday. She denies nausea, fever, shortness of breathe, chest pains, chills, vomiting or diarrhea. Objective - Vital Signs/Intake and Output Vital Signs (last 24 hours): Temp Pulse Resp BP Pulse Ox 98.0 F 79 20 143/77 99 07/22/17 23:55 07/22/17 23:55 07/22/17 23:55 07/22/17 23:55 07/22/17 23:55 Intake and Output: 07/23/17 07/23/17 06:59 18:59 Intake Total 320 Balance 320 - Medications Medications: Current Medications Albuterol/Ipratropium (Duoneb 3 Mg/0.5 Mg (3 Ml) Ud) 3 ml INH RQ6 PRN PRN Reason: Shortness of Breath Last Admin: 07/23/17 07:47 Dose: 3 ml Cyclobenzaprine HCl (Flexeril) 5 mg PO TID [facility] Last Admin: 07/22/17 20:13 Dose: Not Given Dextrose (Dextrose 50% Inj) 0 ml IV STAT PRN; Protocol PRN Reason: Hypoglycemia Protocol Dextrose (Glutose 15) 0 gm PO ONCE PRN; Protocol PRN Reason: Hypoglycemia Protocol Docusate Sodium (Colace) 100 mg PO BID [facility] Last Admin: 07/22/17 20:13 Dose: Not Given Famotidine (Pepcid) 20 mg PO BID [facility] Last Admin: 07/22/17 21:00 Dose: 20 mg Fluoxetine HCl (Prozac) 20 mg PO HS [facility] Last Admin: 07/22/17 23:10 Dose: 20 mg Glucagon (Glucagen Diagnostic Kit) 0 mg IM STAT PRN; Protocol PRN Reason: Hypoglycemia Protocol Heparin Sodium (Porcine) (Heparin) 5,000 units SC Q8 [facility] Last Admin: 07/21/17 06:25 Dose: 5,000 units Dextrose (Dextrose 5% In Water 1000 Ml) 1,000 mls @ 0 mls/hr IV .Q0M PRN; Protocol; Per Protocol PRN Reason: Hypoglycemia Protocol Insulin Human Regular (Novolin R) 0 unit SC ACHS [facility] PRN Reason: Protocol Last Admin: 07/23/17 08:05 Dose: Not Given Isosorbide Mononitrate (Imdur) 60 mg PO DAILY [facility] Last Admin: 07/22/17 09:29 Dose: 60 mg Lorazepam (Ativan) 2 mg PO TID [facility] Last Admin: 07/22/17 20:13 Dose: Not Given Oxycodone HCl (Oxycontin Extended Release Tab) 40 mg PO Q8H PRN PRN Reason: Pain, severe (8-10) Last Admin: 07/22/17 23:03 Dose: 40 mg Oxycodone HCl (Oxycodone Immediate Release Tab) 15 mg PO Q4H PRN PRN Reason: Pain, moderate (4-7) Last Admin: 07/23/17 08:04 Dose: 15 mg Pregabalin (Lyrica) 150 mg PO QID [facility] Last Admin: 07/22/17 21:00 Dose: 150 mg Rosuvastatin Calcium (Crestor) 10 mg PO HS [facility] Last Admin: 07/22/17 21:00 Dose: 10 mg Spironolactone (Aldactone) 25 mg PO DAILY [facility] Last Admin: 07/22/17 09:30 Dose: 25 mg - Labs Labs: 07/23/17 06:21 07/23/17 06:21 PT 10.4 SECONDS (9.7-12.2) 07/21/17 07:20 INR 0.9 07/21/17 07:20 APTT 19 SECONDS (21-34) L 07/21/17 07:20 - Constitutional Appears: Well, Non-toxic, No Acute Distress - Extremities Exam Additional comments: Right dressing c/d/i with no strikethrough noted Left LE focused examination: Vasc: DP and PT 2/4 pulses, CFT < 3 seconds x 5 digits, non pitting localized edema to the foot, temperature gradient warm to warm Ortho: pain with palpation to the L foot Neuro: gross and protective sensation diminished Derm: surgical incisions with suture intact and well-coapted, generalized erythema noted, no cellulitis, no streaking, no drainage, no purulence, no odor , no clinical signs of infection - Neurological Exam Neurological Exam: Alert, Awake, Oriented x3 - Psychiatric Exam Psychiatric exam: Normal Affect, Normal Mood Assessment and Plan - Assessment and Plan (Free Text) Assessment: 62 y.o female 1 day s/p left metatarsal head resection 2, 3, 4, 5 and R 2nd digit PIPJ arthorplasty. Plan: Patient examined and evaluated with attending Dr. Rios Charts, labs, vitals examined (WBC=9.6, afebrile) X-rays reviewed- post operative x-rays WNL Right foot dressing kept c/d/i Left foot cleansed incision sites with betadine, dressed with xeroform, dsd, abd , kerlix, and coban Dressings to be kept intact until Tuesday Patient to be NWB bilaterally SCDs ordered- to be worn at all times while in bed Given patient's history, recommends subacute Ordered postop shoes bilaterally Will speak to patient about subacute. Will continue to follow while in house
--- NOTE | 2017-07-23 08:39 | RAD ---
Bilateral feet 6 views History: Bilateral foot surgery. Comparison: X-ray dated 07/20/2017 Findings: Left foot: Status post resection of the 2nd through 5th metatarsal shafts from the level of the midshaft to the distal shafts. Prominent overlying soft tissue swelling. Prominent degenerative changes at the 1st MTP joint space with hallux valgus deformity as well as some mild bony fragmentation at the medial inferior base of the 1st proximal phalanx. Overlying soft tissue swelling and edema with bandaging. Pes planus deformity. Prominent plantar calcaneal spurring. Small bony/ossific density seen within the volar soft tissues at the level of the surgical site. Right foot: Degenerative changes at the 1st MTP joint space with some subchondral sclerosis. Suggestion of prior bunionectomy at the 1st metatarsal head medially. Overlying bandage somewhat obscures osseous detail. Plantar calcaneal spurring. Impression: Postsurgical and degenerative changes as described above.
[2017-07-23] MEDS: oxyCODONE 40 mg ER Tab (oxyCONTIN) PO PRN ×2 (09:50→20:00)
[2017-07-24] MEDS: oxyCODONE 5 mg Immediate Release Tab PO PRN ×3 (05:05→17:19)
[2017-07-24] MEDS: (Novolin R) Insulin Human Regular 100 units/ml vial SC SCH ×4 (06:30→22:03)
[2017-07-24] MEDS: oxyCODONE 40 mg ER Tab (oxyCONTIN) PO PRN ×2 (09:04→21:44)
--- NOTE | 2017-07-24 11:04 | CP.PCM.PN ---
Subjective - Date & Time of Evaluation Date of Evaluation: 07/24/17 Time of Evaluation: 10:00 - Subjective Subjective: Progress Note for Dr. Rios 62 y.o female seen at bedside 2 day s/p left metatarsal head resection 2, 3, 4, 5 and R 2nd digit PIPJ arthroplasty. Patient is seen resting comfortably in bed , NAD, and AA0x3. Patient denies overnight acute events. She denies nausea, fever, shortness of breathe, chest pains, chills, vomiting or diarrhea. Objective - Vital Signs/Intake and Output Vital Signs (last 24 hours): Temp Pulse Resp BP Pulse Ox 98.3 F 79 18 123/85 98 07/24/17 08:14 07/24/17 08:14 07/24/17 08:14 07/24/17 08:14 07/24/17 08:14 Intake and Output: 07/24/17 07/24/17 06:59 18:59 Intake Total 430 Output Total 400 Balance 30 - Medications Medications: Current Medications Albuterol/Ipratropium (Duoneb 3 Mg/0.5 Mg (3 Ml) Ud) 3 ml INH RQ6 PRN PRN Reason: Shortness of Breath Last Admin: 07/23/17 07:47 Dose: 3 ml Cyclobenzaprine HCl (Flexeril) 5 mg PO TID [facility] Last Admin: 07/24/17 10:12 Dose: 5 mg Dextrose (Dextrose 50% Inj) 0 ml IV STAT PRN; Protocol PRN Reason: Hypoglycemia Protocol Dextrose (Glutose 15) 0 gm PO ONCE PRN; Protocol PRN Reason: Hypoglycemia Protocol Docusate Sodium (Colace) 100 mg PO BID [facility] Last Admin: 07/24/17 09:32 Dose: 100 mg Famotidine (Pepcid) 20 mg PO BID [facility] Last Admin: 07/24/17 09:31 Dose: 20 mg Fluoxetine HCl (Prozac) 20 mg PO HS [facility] Last Admin: 07/23/17 22:00 Dose: 20 mg Glucagon (Glucagen Diagnostic Kit) 0 mg IM STAT PRN; Protocol PRN Reason: Hypoglycemia Protocol Heparin Sodium (Porcine) (Heparin) 5,000 units SC Q8 [facility] Last Admin: 07/21/17 06:25 Dose: 5,000 units Insulin Human Regular (Novolin R) 0 unit SC ACHS [facility] PRN Reason: Protocol Last Admin: 07/24/17 06:30 Dose: Not Given Isosorbide Mononitrate (Imdur) 60 mg PO DAILY [facility] Last Admin: 07/24/17 09:32 Dose: 60 mg Lorazepam (Ativan) 2 mg PO TID [facility] Last Admin: 07/24/17 09:32 Dose: 2 mg Oxycodone HCl (Oxycontin Extended Release Tab) 40 mg PO Q8H PRN PRN Reason: Pain, severe (8-10) Last Admin: 07/24/17 09:04 Dose: 40 mg Oxycodone HCl (Oxycodone Immediate Release Tab) 15 mg PO Q4H PRN PRN Reason: Pain, moderate (4-7) Last Admin: 07/24/17 05:05 Dose: 15 mg Pregabalin (Lyrica) 150 mg PO QID [facility] Last Admin: 07/24/17 09:32 Dose: 150 mg Rosuvastatin Calcium (Crestor) 10 mg PO HS [facility] Last Admin: 07/23/17 21:59 Dose: 10 mg Spironolactone (Aldactone) 25 mg PO DAILY [facility] Last Admin: 07/24/17 09:32 Dose: 25 mg - Labs Labs: 07/23/17 06:21 07/23/17 06:21 PT 10.4 SECONDS (9.7-12.2) 07/21/17 07:20 INR 0.9 07/21/17 07:20 APTT 19 SECONDS (21-34) L 07/21/17 07:20 - Constitutional Appears: Well, Non-toxic, No Acute Distress - Extremities Exam Additional comments: Dressing is c/d/i with no strikethrough noted to LE - Neurological Exam Neurological Exam: Alert, Awake, Oriented x3 - Psychiatric Exam Psychiatric exam: Normal Affect, Normal Mood Assessment and Plan - Assessment and Plan (Free Text) Assessment: 62 y.o female 2 day s/p left metatarsal head resection 2, 3, 4, 5 and R 2nd digit PIPJ arthroplasty. Plan: Patient examined and evaluated with attending Dr. Rios Charts, labs, vitals examined (WBC=9.6 on 07/23/17, afebrile) X-rays reviewed- post operative x-rays WNL Dressing c/d/i. Keep intact. Will change dressings Justice Patient to be NWB bilaterally SCDs ordered- to be worn at all times while in bed Given patient's history, recommends subacute Ordered postop shoes bilaterally Will continue to follow while in house
[2017-07-25] MEDS: oxyCODONE 5 mg Immediate Release Tab PO PRN ×3 (00:24→09:11)
--- NOTE | 2017-07-25 04:23 | OP ---
PROCEDURE DATE: 07/22/2017 SURGEON: Teo Rios DPM INSURANCE LEGAL ASSISTANT: Laurie Green DPM, PGY2,Miguelhai Perkins DPM, PGY1. ANESTHESIOLOGIST: Dr. Feng. ANESTHESIA: IV sedation with local. PREOPERATIVE DIAGNOSES: 1. Left foot severe uncontrolled pain with displaced fractures. 2. Left foot chronic metatarsalgia. 3. Right foot second digit hammertoe deformity with ulcer of the distal tuft. POSTOPERATIVE DIAGNOSES: 1. Left foot severe uncontrolled pain with displaced fractures. 2. Left foot chronic metatarsalgia. 3. Right foot second digit hammertoe deformity with ulcer of the distal tuft. NAME OF PROCEDURES: 1. Panmetatarsal head resection, metatarsal heads 2,3, 4 and 5. 2. Injection of RHEO. 3. Right foot second digit PIP joint arthroplasty. INDICATIONS: The patient is a 62-year-old female with the above mentioned diagnoses. The patient has exhausted all conservative treatment at this time and now required surgical intervention. The patient signed the consent after careful explanation of risks, benefits, complications and alternatives for surgical procedure. No guarantees were given nor implied. PREPARATION: The patient was brought into the operating room and placed on the operating room table in a supine position. A well-padded pneumatic ankle tourniquet was applied to the patient's right and left ankle in a supramalleolar position. A time-out was performed for correct identification of patient and procedure. The patient received a total of 30 mL of 1:1 mixture of 1% lidocaine plain and 0.25% Marcaine plain in a local block fashion to the right and left foot. Once local anesthesia was achieved, the right foot and left foot were then prepped and draped in the usual sterile manner. The left foot was then exsanguinated, and the pneumatic ankle tourniquet was inflated to 250 mmHg and the procedure began. DESCRIPTION OF PROCEDURES: PROCEDURE #1: Attention was directed to the patient's left foot in which with the use of an #15 blade, a linear incision was made just lateral to the second metatarsal head straight down to the bone. Next, utilizing a #15 blade, a Mora elevator and a Westmorland elevator, all periosteal tissue was carefully retracted off the second metatarsal head. At this time, utilizing a sagittal saw, the second metatarsal head was resected. All devitalized tissue and bone were then passed from the operative site and sent for pathology. The surgical site was then irrigated with copious amounts of normal sterile saline. All bony prominences were then smoothed down with a bone rasp. Next, a linear incision was made slightly lateral to the third metatarsal head using #15 blade straight down to bone. Care was taken to avoid any neurovascular structure. Next, utilizing a Westmorland elevator, a 15 blade and a Mora elevator, all periosteal tissue was carefully retracted off of the metatarsal head. Next, utilizing a sagittal saw, the third metatarsal head was resected. All devitalized tissue and bone was then passed from the operative site and sent for pathology. The surgical site was then irrigated with copious amounts of normal sterile saline, and utilizing a bone rasp, all bony prominences were smoothed down. Next, attention was directed to the fourth metatarsal head via the same incision. Utilizing a #15 blade, Mora elevator and a Westmorland elevator, all periosteal tissues were carefully resected off the fourth metatarsal head. At this time, utilizing a sagittal saw, the fourth metatarsal head was resected. All devitalized tissue and bone were then passed from the operative site and sent for pathology. The surgical site was then irrigated with copious amounts of normal sterile saline. All bony prominences were then smoothed down with a rasp. Attention was then directed to the fifth metatarsal where a linear incision was made over the fifth metatarsal head with a #15 blade down to bone. Care was taken to avoid any neurovascular structures. Next, utilizing a #15 blade, a Mora elevator and a Westmorland elevator, all periosteal tissues were carefully retracted off the fifth metatarsal head. At this time, using a sagittal saw, the fifth metatarsal head was resected. All devitalized tissue and bone was then passed from the operative site and sent for pathology. The surgical site was then irrigated with copious amounts of normal sterile saline. All bony prominences were then smoothed down with a bone rasp, but at this time proper alignment was noted. The periosteal and capsular tissue was reapproximated with #3-0 Vicryl. The subcutaneous was then reapproximated with #4-0 Vicryl. Next, utilizing #3-0 nylon, the skin was reapproximated with simple suture pattern technique. PROCEDURE #2: Attention was then directed to the left foot, specifically the areas over the second and fifth metatarsal where the previous distal fractures were noted. Two ampules of Regen Clarisa RHEO was injected into the site. At this time, 10 mL of a mixture of 1% lidocaine and 0.25% Marcaine was given in a local block fashion to the left foot. The tourniquet was deflated at the end of the procedure. The surgical site was then dressed with Xeroform, 4x4s, Luzmaria, Kerlix, and Coban. PROCEDURE #3: The right foot was then exsanguinated, and the pneumatic ankle tourniquet was inflated to 250 mmHg and the procedure began.Attention was then directed to the second digit of the patient's right foot, which was noted to be contracted with an open ulceration noted to the distal tuft. An approximately 3 cm linear longitudinal incision was made on the dorsal aspect of the proximal interphalangeal joint of the second digit. Sharp dissection was judiciously carried down to the deep tissue being careful to identify and retract all vital neurovascular structures. All bleeders were cauterized and ligated as necessary. At this time, a transverse tenotomy and capsulotomy was performed to the proximal interphalangeal joint, and the head of the proximal phalanx was freed of its capsular and ligamentous attachments. Next, utilizing a sagittal bone saw, the head of the proximal phalanx was resected and passed from the operative site. The surgical site was then irrigated with copious amounts of normal sterile saline. The tendon was then re-approximated with #4-0 Vicryl, and the skin was approximated with #3-0 nylon. The surgical site was then dressed with Xeroform, Betadine, 4 x 4s, Kerlix, and wrapped with Juan. The tourniquet was deflated at the end of the procedure. POSTOPERATIVE CONDITION: The patient tolerated the procedures and anesthesia well and was escorted from operating room to the recovery room with vital signs stable and neurovascular status intact to the right and left foot. The patient is to remain non-weightbearing to both feet. Podiatry will continue to follow up the patient while in-house, and the patient will follow up with Dr. Rios upon discharge. Laurie Green DPM Teo Rios DPM [facility] # [id number] [facility]ITALNikolas
[2017-07-25] MEDS: oxyCODONE 40 mg ER Tab (oxyCONTIN) PO PRN ×2 (05:30→15:08)
[2017-07-25 08:09] VITALS: RESP 18
[2017-07-25] MEDS: (Novolin R) Insulin Human Regular 100 units/ml vial SC SCH ×2 (08:14→11:29)
[2017-07-25] MEDS ORDERED: POLYETHYLENE GLYCOL 3350 17 GM/Dose PACKET PO PRN (09:22)
[2017-07-25] MEDS ORDERED: Bisacodyl 5mg EC Tab PO ONE (09:22)
--- NOTE | 2017-07-25 09:29 | CP.PCM.PN ---
Subjective - Date & Time of Evaluation Date of Evaluation: 07/25/17 Time of Evaluation: 09:28 - Subjective Subjective: Podiatry Progress Note for Dr. Rios 62 year old female seen at bedside with attending Dr. Rios 3 day s/p left metatarsal head resection 2, 3, 4, 5 and right 2nd digit PIPJ arthorplasty. Patient is seen resting comfortably in bed, NAD, and AA0x3. Patient denies any n /v/f/c/sob/cp. Objective - Vital Signs/Intake and Output Vital Signs (last 24 hours): Temp Pulse Resp BP Pulse Ox 98.1 F 76 18 113/71 98 07/25/17 07:40 07/25/17 07:40 07/25/17 07:40 07/25/17 07:40 07/25/17 07:40 Intake and Output: 07/25/17 07/25/17 06:59 18:59 Intake Total 10 Balance 10 - Medications Medications: Current Medications Albuterol/Ipratropium (Duoneb 3 Mg/0.5 Mg (3 Ml) Ud) 3 ml INH RQ6 PRN PRN Reason: Shortness of Breath Last Admin: 07/23/17 07:47 Dose: 3 ml Bisacodyl (Dulcolax) 5 mg PO ONCE ONE Stop: 07/25/17 09:23 Cyclobenzaprine HCl (Flexeril) 5 mg PO TID [facility] Last Admin: 07/25/17 09:18 Dose: 5 mg Dextrose (Dextrose 50% Inj) 0 ml IV STAT PRN; Protocol PRN Reason: Hypoglycemia Protocol Dextrose (Glutose 15) 0 gm PO ONCE PRN; Protocol PRN Reason: Hypoglycemia Protocol Docusate Sodium (Colace) 100 mg PO BID [facility] Last Admin: 07/25/17 09:07 Dose: 100 mg Famotidine (Pepcid) 20 mg PO BID [facility] Last Admin: 07/25/17 09:08 Dose: 20 mg Fluoxetine HCl (Prozac) 20 mg PO HS [facility] Last Admin: 07/24/17 21:44 Dose: 20 mg Glucagon (Glucagen Diagnostic Kit) 0 mg IM STAT PRN; Protocol PRN Reason: Hypoglycemia Protocol Heparin Sodium (Porcine) (Heparin) 5,000 units SC Q8 [facility] Last Admin: 07/25/17 05:28 Dose: 5,000 units Insulin Human Regular (Novolin R) 0 unit SC ACHS [facility] PRN Reason: Protocol Last Admin: 07/25/17 08:14 Dose: Not Given Isosorbide Mononitrate (Imdur) 60 mg PO DAILY [facility] Last Admin: 07/25/17 09:08 Dose: 60 mg Lorazepam (Ativan) 2 mg PO TID [facility] Last Admin: 07/25/17 09:08 Dose: 2 mg Oxycodone HCl (Oxycontin Extended Release Tab) 40 mg PO Q8H PRN PRN Reason: Pain, severe (8-10) Last Admin: 07/25/17 05:30 Dose: 40 mg Oxycodone HCl (Oxycodone Immediate Release Tab) 15 mg PO Q4H PRN PRN Reason: Pain, moderate (4-7) Last Admin: 07/25/17 09:11 Dose: 15 mg Polyethylene Glycol (Miralax) 17 gm PO BID PRN PRN Reason: Constipation Pregabalin (Lyrica) 150 mg PO QID [facility] Last Admin: 07/25/17 09:09 Dose: 150 mg Rosuvastatin Calcium (Crestor) 10 mg PO HS [facility] Last Admin: 07/24/17 21:44 Dose: 10 mg Spironolactone (Aldactone) 25 mg PO DAILY [facility] Last Admin: 07/25/17 09:08 Dose: 25 mg - Labs Labs: 07/23/17 06:21 07/23/17 06:21 PT 10.4 SECONDS (9.7-12.2) 07/21/17 07:20 INR 0.9 07/21/17 07:20 APTT 19 SECONDS (21-34) L 07/21/17 07:20 - Constitutional Appears: Well, Non-toxic, No Acute Distress - Extremities Exam Additional comments: Lower extremity focused exam: Right dressing c/d/i with no strikethrough noted Left Vasc: DP and PT pulses palpable 2/4, CFT < 3 seconds x 5 digits, non pitting localized edema to the foot, temperature gradient warm to warm Ortho: pain with palpation to the L foot Neuro: gross and protective sensation diminished Derm: surgical incisions with suture intact and well-coapted, generalized erythema noted, no cellulitis, no streaking, no drainage, no purulence, no odor , no clinical signs of infection - Neurological Exam Neurological Exam: Alert, Awake, Oriented x3 - Psychiatric Exam Psychiatric exam: Normal Affect, Normal Mood Assessment and Plan - Assessment and Plan (Free Text) Assessment: 62 year old female 3 day s/p left metatarsal head resection 2, 3, 4, 5 and R 2nd digit PIPJ arthorplasty. Plan: Patient examined and evaluated with attending Dr. Rios Charts, labs, vitals examined;afebrile X-rays reviewed- post operative x-rays WNL Right foot cleaned with betadine, dressed with xeroform, dsd Left foot cleansed incision sites with betadine, dressed with xeroform, dsd, abd , kerlix, and coban Patient to be WBAT Patient to cont to wear post op shoes Patient to be c/d to [facility] Patient will follow up with Dr. Rios upon d/c
--- NOTE | 2017-07-25 09:38 | CP.PCM.PN ---
Subjective - Date & Time of Evaluation Date of Evaluation: 07/25/17 Time of Evaluation: 08:00 - Subjective Subjective: Medicine Progress Note Patient seen and examined. Patient is complaining of pain in her left leg and low back. Patient ate breakfast this morning. She states she feels constipated and would like MIralax as this help her at home. Denies fever, chills, nausea, vomiting, diarrhea, abdominal pain, and headache. She stated she was willing to go to rehab if ok with Dr. Rios. Objective - Vital Signs/Intake and Output Vital Signs (last 24 hours): Temp Pulse Resp BP Pulse Ox 98.1 F 76 18 113/71 98 07/25/17 07:40 07/25/17 07:40 07/25/17 07:40 07/25/17 07:40 07/25/17 07:40 Intake and Output: 07/25/17 07/25/17 06:59 18:59 Intake Total 10 Balance 10 - Medications Medications: Current Medications Albuterol/Ipratropium (Duoneb 3 Mg/0.5 Mg (3 Ml) Ud) 3 ml INH RQ6 PRN PRN Reason: Shortness of Breath Last Admin: 07/23/17 07:47 Dose: 3 ml Cyclobenzaprine HCl (Flexeril) 5 mg PO TID [facility] Last Admin: 07/25/17 09:18 Dose: 5 mg Dextrose (Dextrose 50% Inj) 0 ml IV STAT PRN; Protocol PRN Reason: Hypoglycemia Protocol Dextrose (Glutose 15) 0 gm PO ONCE PRN; Protocol PRN Reason: Hypoglycemia Protocol Docusate Sodium (Colace) 100 mg PO BID [facility] Last Admin: 07/25/17 09:07 Dose: 100 mg Famotidine (Pepcid) 20 mg PO BID [facility] Last Admin: 07/25/17 09:08 Dose: 20 mg Fluoxetine HCl (Prozac) 20 mg PO HS [facility] Last Admin: 07/24/17 21:44 Dose: 20 mg Glucagon (Glucagen Diagnostic Kit) 0 mg IM STAT PRN; Protocol PRN Reason: Hypoglycemia Protocol Heparin Sodium (Porcine) (Heparin) 5,000 units SC Q8 [facility] Last Admin: 07/25/17 05:28 Dose: 5,000 units Insulin Human Regular (Novolin R) 0 unit SC ACHS ZAY PRN Reason: Protocol Last Admin: 07/25/17 08:14 Dose: Not Given Isosorbide Mononitrate (Imdur) 60 mg PO DAILY [facility] Last Admin: 07/25/17 09:08 Dose: 60 mg Lorazepam (Ativan) 2 mg PO TID [facility] Last Admin: 07/25/17 09:08 Dose: 2 mg Oxycodone HCl (Oxycontin Extended Release Tab) 40 mg PO Q8H PRN PRN Reason: Pain, severe (8-10) Last Admin: 07/25/17 05:30 Dose: 40 mg Oxycodone HCl (Oxycodone Immediate Release Tab) 15 mg PO Q4H PRN PRN Reason: Pain, moderate (4-7) Last Admin: 07/25/17 09:11 Dose: 15 mg Polyethylene Glycol (Miralax) 17 gm PO BID PRN PRN Reason: Constipation Pregabalin (Lyrica) 150 mg PO QID [facility] Last Admin: 07/25/17 09:09 Dose: 150 mg Rosuvastatin Calcium (Crestor) [address] [facility] Last Admin: 07/24/17 21:44 Dose: 10 mg Spironolactone (Aldactone) 25 mg PO DAILY [facility] Last Admin: 07/25/17 09:08 Dose: 25 mg - Labs Labs: 07/23/17 06:21 07/23/17 06:21 PT 10.4 SECONDS (9.7-12.2) 07/21/17 07:20 INR 0.9 07/21/17 07:20 APTT 19 SECONDS (21-34) L 07/21/17 07:20 - Constitutional Appears: Non-toxic, No Acute Distress, Chronically Ill - Head Exam Head Exam: ATRAUMATIC, NORMAL INSPECTION - Eye Exam Eye Exam: EOMI - ENT Exam ENT Exam: Mucous Membranes Moist - Respiratory Exam Respiratory Exam: NORMAL BREATHING PATTERN - Cardiovascular Exam Cardiovascular Exam: REGULAR RHYTHM, +S1, +S2 - GI/Abdominal Exam GI & Abdominal Exam: Soft, Normal Bowel Sounds. absent: Distended, Firm, Guarding, Tenderness - Extremities Exam Extremities Exam: absent: Calf Tenderness Additional comments: surgical shoe on, extremity warm to touch, palpable pulses - Neurological Exam Neurological Exam: Alert, Awake - Psychiatric Exam Psychiatric exam: Normal Affect, Normal Mood - Skin Skin Exam: Intact, Normal Color, Warm Assessment and Plan - Assessment and Plan (Free Text) Assessment: Left foot fracture 07/22 s/p metatarsal head resection done by DR. Rios For rehab today if ok per podiatry - patient agreeing Patient sees Dr. Rios as outpatient arterial dopplers - no evidence of disease Pre-op workup: Xray (left foot) (07/20/17): subacute healing fracture in distal 2nd metatarsal. Age indeterminate fracture deformity in distal 5th metatarsal (see full report) CXR (07/20/17)- Low lung volumes w crowded bronchvascular markings and minor bibasilar atelectasis. Curvilinear radiopaque density in left lung base that may represent linear atelectasis (see full report) EKG: (07/15/17)- NSR at 64 bpm, No ST/T wave changes, Minimal votage criteria for LVH - may be normal variant ECHO (07/21/17)- normal LV EF with diastolic dysfunction (f/u official report) Diastolic CHF ECHO shows normal LV EF with diastolic dysfunction per unofficial read Dr Viera - cardio clearance for surgery, ok to precede Complex regional pain syndrome I Per [facility]: Continue pts home regimen. ACTING INSTRUCTOR checked by pharmacist and medications confirmed. Oxycontin 40mg PO Q8H Oxycodone 15 mg q4h PRN Colace 100mg PO BID Controlled Diabetes Mellitus, Type II Accu checks MISS hypoglycemia protocol continue home Metformin 500mg bid HgA1C 6.0, well controlled diabetes, no change in medications DM neuropathy Continue home Lyrica 75mg PO BID Hyperlipidemia Crestor 10mg PO HS LDL 110 HDL 54 Cholesterol 191 Triglycerides 112 COPD (chronic obstructive pulmonary disease) Controlled Duonebs q6h prn SOB Patient was on home spiriva but no longer takes it On home O2 per patient at 4L Hypothyroidism Pt states taking Synthroid 100mcg daily of synthroid but [facility]/Dr. Weldon do not have records of prescribing it f/u TSH/ Free T4 HTN (hypertension) Well controlled Continue home Imdur 60mg daily Depression Continue home Prozac 20mg PO Daily Constipation Colace 100mg PO BID Miralax BID Ducolax x 1 dose Hx of MVP Rheumatic Fever as child Prophylaxis Pepcid 20mg PO BID Heparin 5000u Q8H - was held for surgery SCDs C/I due to LE injury Heart healthy diet Management per Dr Weldon
[2017-07-25 12:05] LABS: BASO # 0.1 K/uL (0.0-0.2); BASO % 0.8 % (0.0-2.0); EOS # 0.2 K/uL (0.0-0.7); EOS % 2.2 % (0.0-4.0); HEMATOCRIT 29.7 % (34.0-47.0); LYMPH # 2.7 K/uL (1.0-4.3); LYMPH % 35.4 % (20.0-40.0); MEAN CELL VOLUME 73.6 fL (81.0-99.0); MEAN CORPUSCULAR HGB CONC 32.6 g/dL (33.0-37.0); MEAN PLATELET VOLUME 9.1 fL (7.2-11.7); MONO # 0.8 K/uL (0.0-0.8); WHITE BLOOD COUNT 7.5 K/uL (4.8-10.8)
[2017-07-25 12:36] LABS: ALB/GLOB RATIO 1.3 (1.0-2.1); ALKALINE PHOSPHATASE 92 U/L (38-126); ALT/SGPT 30 U/L (9-52); AST/SGOT 28 U/L (14-36); BILIRUBIN,TOTAL 0.3 mg/dL (0.2-1.3); BLOOD UREA NITROGEN 14 mg/dL (7-17); CALCIUM 9.7 mg/dl (8.6-10.4); CARBON DIOXIDE 31 mmol/L (22-30); CHLORIDE 101 mmol/L (98-107); GFR AFRICAN-AMERICAN > 60; GLUCOSE,RANDOM 108 mg/dL (65-105); MAGNESIUM 1.6 mg/dL (1.6-2.3); PHOSPHOROUS 3.4 mg/dL (2.5-4.5); POTASSIUM 3.8 mmol/L (3.6-5.2); SODIUM 138 mmol/L (132-148); TOTAL PROTEIN 6.8 g/dL (6.3-8.3)
[2017-07-25 12:41] LABS: THYROID STIMULATING HORMONE 4.04 mIU/L (0.46-4.68)
--- NOTE | 2017-07-25 12:54 | PCM.HF ---
Heart Failure Core Measure - Heart Failure Ejection Fraction: 40 % or Greater CRISTO Inhibitor Prescribed: No Contraindication/Reason for not providing: EF > 40 Beta-Raquel Prescribed: None Contraindication/Reason for not providing: EF > 40 Angiotensin II Receptor Raquel Prescribed: No Contraindication/Reason for not providing: EF > 40 AnticoagulationTherapy for Atrial Fibrillation/Atrialflutter: No Contraindication/Reason for not providing: NO AFIB Aldosterone Antagonist Prescribed: No Contraindication/Reason for not providing: EF > 40 Hydralazine Nitrate Prescribed: No Contraindication/Reason for not providing: EF > 40 Implantable Cardioverter Defibrillator Therapy: No Contraindication/Reason for not providing: EF > 40 Cardiac Resynchronization Therapy Prescribed: No Contraindication/Reason for not providing: EF > 40 - Follow up [place] be [place] [place] Up Date (must be within 7 days from discharge): 07/27/17 Follow Up Time: 09:00
[2017-07-25 16:19] VITALS: BP 106/70; PULSE 94; TEMP 98.2; O2SAT 95
== END 2017-07-25 16:43 | DRG 504 ==
LOC: C.ER 09:36 → C.9E 14:01 → C.6T 18:18
PROVIDERS: ADMIT Internal Medicine Pulmonary Disease; ATTEND Internal Medicine Pulmonary Disease
PROC: 0QBP0ZZ Excision of Left Metatarsal, Open Approach (ICD-10-PCS; principal; 2017-07-22 15:00)
PROC: 0SRP0JZ Replacement of Right Toe Phalangeal Joint with Synthetic Substitute, Open Approach (ICD-10-PCS; 2017-07-22 15:00)
DX: M84.475G Pathological fracture, left foot, subsequent encounter for fracture with delayed healing (principal); Z68.42 Body mass index [BMI] 45.0-49.9, adult; E11.40 Type 2 diabetes mellitus with diabetic neuropathy, unspecified; E11.621 Type 2 diabetes mellitus with foot ulcer; Z99.81 Dependence on supplemental oxygen; L97.519 Non-pressure chronic ulcer of other part of right foot with unspecified severity; M20.41 Other hammer toe(s) (acquired), right foot; M77.40 Metatarsalgia, unspecified foot; Z91.81 History of falling; Z86.711 Personal history of pulmonary embolism; Z79.4 Long term (current) use of insulin; R29.6 Repeated falls; J44.9 Chronic obstructive pulmonary disease, unspecified; I34.1 Nonrheumatic mitral (valve) prolapse; I25.10 Atherosclerotic heart disease of native coronary artery without angina pectoris; G47.30 Sleep apnea, unspecified; F32.9 Major depressive disorder, single episode, unspecified; E78.5 Hyperlipidemia, unspecified; E03.9 Hypothyroidism, unspecified; K59.00 Constipation, unspecified

== ENCOUNTER 2017-09-13 11:33 | Emergency (ER) | payer MEDICARE, OTHER ==
[2017-09-13 11:33] VITALS: BMI 40.6
[2017-09-13 11:38] VITALS: RESP 16; TEMP 98.8
--- NOTE | 2017-09-13 11:50 | C.PDOC ---
History Of Present Illness 62 year old female w/PMHx of COPD, CHF, DM BIBA request pain medication. Pt reports, ran out of medication- Lyrica, Oxycodone " cant leave without my medication." Pt admits, chronic lower back and B/L legs pain. Pt had recent surgery by Dr. Rios on 07/25/17 s/p left metatarsal head resection 2, 3, 4, 5 and right 2nd digit PIPJ arthorplasty. Otherwise, pt denies fever, chills, recent trauma or injury, CP, SOB, dyspnea, diaphoresis, palpitation, denies wounds redness, denies new weakness, sensory or vascular deficits to B/L LEs. Ambulatory in ED, not SOB noted. [facility] review, multiple rx on monthly basis for Lyrica, Roxicodone, Oxycodone, Lorazepam. Last one was given on 09/04/17. Time Seen by Provider: 09/13/17 11:41 Chief Complaint (Nursing): Lower Extremity Problem/Injury History Per: Patient History/Exam Limitations: no limitations Onset/Duration Of Symptoms: Days Current Symptoms Are (Timing): Still Present Additional History Per: Patient Past Medical History Reviewed: Historical Data, Nursing Documentation, Vital Signs Vital Signs: Last Vital Signs Temp 98.8 F 09/13/17 11:35 Pulse 70 09/13/17 13:06 Resp 16 09/13/17 13:06 BP 146/75 09/13/17 13:06 Pulse Ox 100 09/13/17 13:57 - Medical History PMH: Anxiety, Arthritis, Asthma, Back Problems, Bronchitis, CAD, CHF, COPD, Depression, Diabetes, Fractures (DISPLACED METATRASAL FRACTURE 2ND LEFT), Gall Bladder Disease (Gallstone), GERD, Hiatal Hernia, HTN, Hypercholesterolemia, Hypothyroidism, Mitral Valve Prolapse, Peripheral Edema, Pulmonary Embolism Denies: Chronic Kidney Disease Surgical History: No Surg Hx - [facility] Procedures EXCISION OF LEFT METATARSAL, OPEN APPROACH (07/20/17) FLUOROSCOPY OF SUP VENA CAVA USING L OSM CONTRAST, GUIDANCE (10/13/15) INCIS W REM OF FORIEGN BODY OR DEV FROM SKIN & SUBCUT TISSUE (10/22/14) INFLUENZA VACCINATION (09/19/14) INSERTION OF INFUSION DEV INTO SUP VENA CAVA, PERC APPROACH (10/13/15) INSERTION OF TOTALLY IMPLANTABLE VASC ACCESS DEVIC (10/22/14) INSERTION OF VAD INTO CHEST SUBCU/FASCIA, OPEN APPROACH (10/13/15) NEBULIZER THERAPY (11/05/13) NON-INVASIVE MECHANICAL VENTILATION (06/04/12) OCCUPATIONAL THERAPY (09/19/14) OTH & OPEN REP OTH HERNIA OF ANTER ABD WALL W GRF OR PROSTH (05/28/13) PHYSICAL THERAPY NEC (09/19/14) REMOVAL OF VAD FROM TRUNK SUBCU/FASCIA, OPEN APPROACH (10/13/15) REPAIR CHEST SKIN, EXTERNAL APPROACH (10/13/15) REPLACE OF R TOE PHALANX JT WITH SYNTH SUB, OPEN APPROACH (07/20/17) THORAX SFT TISS XRAY NEC (03/19/13) Family History: States: Unknown Family Hx - Social History Hx Tobacco Use: No Hx Alcohol Use: No Hx Substance Use: No - Immunization History Hx Tetanus Toxoid Vaccination: No Hx Influenza Vaccination: Yes Hx Pneumococcal Vaccination: Yes Review Of Systems Constitutional: Negative for: Fever, Chills Cardiovascular: Negative for: Chest Pain, Palpitations Respiratory: Negative for: Shortness of Breath Musculoskeletal: Positive for: Back Pain (lower), Leg Pain (bilateral ) Neurological: Negative for: Weakness, Numbness Physical Exam - Physical Exam Appears: Well, Non-toxic, No Acute Distress Skin: Normal Color, Warm, Dry, No Rash Head: Normacephalic Eye(s): bilateral: PERRL Nose: No Discharge Oral Mucosa: Moist, No Drooling Neck: Trachea Midline, Supple Cardiovascular: Rhythm Regular Respiratory: No Decreased Breath Sounds, No Accessory Muscle Use, No Stridor, No Wheezing Gastrointestinal/Abdominal: Soft, No Tenderness Extremity: Normal ROM, No Swelling ED Course And Treatment O2 Sat by Pulse Oximetry: 100 (on RA) Pulse Ox Interpretation: Normal Progress Note: Lyrica PO and Oxycontin PO administered. On re-evaluation, pt is afebrile, hemodynamicaly stable. Non-toxic. Ambulatory in ED, no dyspnea on ambulation noted. PulsEOx 100% RA. Lungs: CTA B/L, BS equal B/L>. CVS: (+) S1S2, reg. Neuorlogicaly intact. [facility] review, pt on multiple substances. Pt advised and ref. to f/u with PMD, PM in 2-3 days for further eval and meds refill. return if any new changes. Disposition Counseled Patient/Family Regarding: Diagnosis, Need For Followup, Rx Given - Disposition Referrals: [facility] [Outside] [facility] [Provider Group] [facility] [Provider Group] Disposition: HOME/ ROUTINE Disposition Time: 12:56 Condition: STABLE Additional Instructions: FOLLOW UP WITH PMD AND PAIN MANAGEMENT IN 2-3 DAYS FOR RE-EVALUATION. RETURN TO ED IF ANY WORSENING OR NEW CHANGES. Prescriptions: Pregabalin [Lyrica] 150 mg PO Q6 #20 capsule Instructions: Chronic Back Pain (ED) Forms: [facility] (Mauritian) - Clinical Impression Clinical Impression: Chronic pain, Back pain - PA / PHOTOENGRAVING RETOUCHER / Resident Statement MD/DO has reviewed & agrees with the documentation as recorded. - Scribe Statement The provider has reviewed the documentation as recorded by the Scribe (Mariluz Bill) All medical record entries made by the Scribe were at my direction and personally dictated by me. I have reviewed the chart and agree that the record accurately reflects my personal performance of the history, physical exam, medical decision making, and the department course for this patient. I have also personally directed, reviewed, and agree with the discharge instructions and disposition.
[2017-09-13] MEDS ORDERED: oxyCODONE 10 mg ER Tab (oxyCONTIN) PO STA (12:44)
[2017-09-13] MEDS ORDERED: oxyCODONE 10 mg ER Tab (oxyCONTIN) PO ONE (12:50)
[2017-09-13 13:06] VITALS: BP 146/75; PULSE 70
[2017-09-13 13:07] VITALS: O2SAT 100
== END 2017-09-13 13:39 | disposition home or self-care (01) ==
LOC: C.ER 11:33
DX: G89.29 Other chronic pain (principal); M54.9 Dorsalgia, unspecified

== ENCOUNTER 2018-02-07 18:20 | Emergency (ER) | payer MEDICARE, OTHER ==
[2018-02-07 18:21] VITALS: BMI 40.6
--- NOTE | 2018-02-07 20:21 | C.PDOC ---
History Of Present Illness 62 year old female, who is wheelchair bound due to bilateral hip problems, presents to the ED for evaluation after she sustained an injury to her toes earlier today. Patient was being wheeled over a set of stairs when she accidentally struck her toes against the steps. Patient states her soaker is Dr. Rios. She denies any other injuries or extremity numbness/weakness at this time. Time Seen by Provider: 02/07/18 19:03 Chief Complaint (Nursing): Lower Extremity Problem/Injury History Per: Patient History/Exam Limitations: no limitations Onset/Duration Of Symptoms: Hrs Current Symptoms Are (Timing): Still Present Additional History Per: Patient - Ankle/Foot Description Of Injury: Struck Against Object Past Medical History Reviewed: Historical Data, Nursing Documentation, Vital Signs Vital Signs: Last Vital Signs Temp 98 F 02/07/18 22:04 Pulse 61 02/07/18 22:04 Resp 18 02/07/18 22:04 BP 120/70 02/07/18 22:04 Pulse Ox 99 02/07/18 22:04 - Medical History PMH: Anxiety, Arthritis, Asthma, Back Problems, Bronchitis, CAD, CHF, COPD, Depression, Diabetes, Fractures (DISPLACED METATarSAL FRACTURE 2ND LEFT), Gall Bladder Disease (Gallstone), GERD, Hiatal Hernia, HTN, Hypercholesterolemia, Hypothyroidism, Mitral Valve Prolapse, Peripheral Edema, Pulmonary Embolism Denies: Chronic Kidney Disease Surgical History: No Surg Hx - [facility] Procedures EXCISION OF LEFT METATARSAL, OPEN APPROACH (07/20/17) FLUOROSCOPY OF SUP VENA CAVA USING L OSM CONTRAST, GUIDANCE (10/13/15) INCIS W REM OF FORIEGN BODY OR DEV FROM SKIN & SUBCUT TISSUE (10/22/14) INFLUENZA VACCINATION (09/19/14) INSERTION OF INFUSION DEV INTO SUP VENA CAVA, PERC APPROACH (10/13/15) INSERTION OF TOTALLY IMPLANTABLE VASC ACCESS DEVIC (10/22/14) INSERTION OF VAD INTO CHEST SUBCU/FASCIA, OPEN APPROACH (10/13/15) NEBULIZER THERAPY (11/05/13) NON-INVASIVE MECHANICAL VENTILATION (06/04/12) OCCUPATIONAL THERAPY (09/19/14) OTH & OPEN REP OTH HERNIA OF ANTER ABD WALL W GRF OR PROSTH (05/28/13) PHYSICAL THERAPY NEC (09/19/14) REMOVAL OF VAD FROM TRUNK SUBCU/FASCIA, OPEN APPROACH (10/13/15) REPAIR CHEST SKIN, EXTERNAL APPROACH (10/13/15) REPLACE OF R TOE PHALANX JT WITH SYNTH SUB, OPEN APPROACH (07/20/17) THORAX SFT TISS XRAY NEC (03/19/13) Family History: States: Unknown Family Hx - Social History Hx Tobacco Use: No Hx Alcohol Use: No Hx Substance Use: No - Immunization History Hx Tetanus Toxoid Vaccination: No Hx Influenza Vaccination: Yes Hx Pneumococcal Vaccination: Yes Review Of Systems Musculoskeletal: Positive for: Other (toe pain ) Neurological: Negative for: Weakness, Numbness Physical Exam - Physical Exam Appears: Non-toxic, No Acute Distress Skin: Normal Color, Warm, Dry, No Ecchymosis Head: Atraumatic, Normacephalic Eye(s): bilateral: Normal Inspection Neck: Supple Chest: Symmetrical, No Deformity Extremity: Normal ROM, No Tenderness, Capillary Refill (less than 2 seconds ), No Deformity, No Swelling, Other (feet dressed by Dr. Rios. no obvious injuries noted to toes ) Pulses: Left Dorsalis Pedis: Normal, Right Dorsalis Pedis: Normal Neurological/Psych: Oriented x3, Normal Speech, Normal Cognition, Normal Sensation ED Course And Treatment O2 Sat by Pulse Oximetry: 97 (on RA) Pulse Ox Interpretation: Normal - Other Rad b/l foot xray X-Ray: Interpreted by Me Interpretation: No acute fractures seen Progress Note: Foot XR ordered and reviewed. On re-examination, patient is resting comfortably, showing no signs of distress and is stable for discharge. Patient will be discharged and is advised to f/u with her PMD and Dr. Rios within 1-2 days for further evaluation and/or return ot the ED if symptoms persist or worsen. Disposition - Disposition Disposition: HOME/ ROUTINE Disposition Time: 20:32 Condition: STABLE Additional Instructions: Follow up with your PMD and Broaching Machine Set Up Operator within 1-2 days. Return to ED if feel worse. Instructions: Contusion (DC) Forms: [facility] (Filipino) - Clinical Impression Clinical Impression: Foot contusion - PA / SENIOR BUDGET ANALYST / Resident Statement MD/DO has reviewed & agrees with the documentation as recorded. - Scribe Statement The provider has reviewed the documentation as recorded by the Scribe (Mariluz Bill) All medical record entries made by the Scribe were at my direction and personally dictated by me. I have reviewed the chart and agree that the record accurately reflects my personal performance of the history, physical exam, medical decision making, and the department course for this patient. I have also personally directed, reviewed, and agree with the discharge instructions and disposition.
[2018-02-07 22:04] VITALS: BP 120/70; PULSE 61; RESP 18; TEMP 98
[2018-02-07 22:50] VITALS: O2SAT 97
--- NOTE | 2018-02-08 09:13 | RAD ---
PROCEDURE: Bilateral Feet Radiographs. HISTORY: injury COMPARISON: Bilateral foot radiographs dated 09/01/2017. . FINDINGS: BONES: Right Foot: No acute fracture. Hallux valgus deformity. Left Foot: No acute fracture. Hallux valgus deformity. 2nd-5th mid/distal metatarsal resections. Pes planus. JOINTS: Right Foot: Diffuse joint space narrowing, worst at the 1st metatarsophalangeal joint. Left Foot: Diffuse joint space narrowing, worst 1st metatarsophalangeal joint. SOFT TISSUES: Right Foot: Normal. Left Foot: Forefoot soft tissue swelling. OTHER FINDINGS: Bilateral heel spurs. IMPRESSION: Postsurgical and degenerative changes as described above.
== END 2018-02-07 23:05 | disposition home or self-care (01) ==
LOC: C.ER 18:20
DX: S90.30XA Contusion of unspecified foot, initial encounter (principal); W22.8XXA Striking against or struck by other objects, initial encounter; Z99.3 Dependence on wheelchair
CPT/HCPCS: 73630; 96372; 99284; J1885

== ENCOUNTER 2018-02-16 14:12 | Observation (INO) | payer MEDICARE, OTHER ==
[2018-02-16 14:13] VITALS: BMI 40.6
[2018-02-16] MEDS ORDERED: Aspirin 325 mg EC Tablets PO STA (14:53)
[2018-02-16 15:40] LABS: BASO # 0.1 K/uL (0.0-0.2); BASO % 0.7 % (0.0-2.0); EOS # 0.1 K/uL (0.0-0.7); EOS % 1.2 % (0.0-4.0); HEMOGLOBIN 11.1 g/dL (11.0-16.0); MEAN CORPUSCULAR HEMOGLOBIN 25.9 pg (27.0-31.0); MEAN CORPUSCULAR HGB CONC 33.4 g/dL (33.0-37.0); MEAN PLATELET VOLUME 8.7 fL (7.2-11.7); MONO # 0.5 K/uL (0.0-0.8); NEUT % 69.1 % (50.0-75.0); RBC 4.31 Mil/uL (3.80-5.20); RED CELL DISTRIBUTION WIDTH 17.6 % (11.5-14.5); WHITE BLOOD COUNT 8.7 K/uL (4.8-10.8)
[2018-02-16 15:47] LABS: MEAN CELL VOLUME 77.4 fL (81.0-99.0)
[2018-02-16 15:51] LABS: ALB/GLOB RATIO 1.2 (1.0-2.1); ALBUMIN 3.9 g/dL (3.5-5.0); ALT/SGPT 24 U/L (9-52); AST/SGOT 22 U/L (14-36); BLOOD UREA NITROGEN 9 mg/dL (7-17); GFR AFRICAN-AMERICAN > 60; GFR NON-AFRICAN AMERICAN > 60; LIPASE 77 U/L (23-300)
[2018-02-16 16:02] LABS: B-TYPE NATRIURETIC PEPTIDE 86.3 pg/mL (0-900)
[2018-02-16 16:03] LABS: INR 1.1; PROTHROMBIN TIME 11.6 SECONDS (9.7-12.2)
--- NOTE | 2018-02-16 16:26 | RAD ---
Date of service: 02/16/2018 PROCEDURE: CHEST RADIOGRAPH, 1 VIEW HISTORY: chest pain COMPARISON: Chest x-ray with left rib series 12/27/2017 FINDINGS: LUNGS: Techniques are different impeding optimal evaluation. Nevertheless there is asymmetrical opacity bandlike and triangular like at the right lung base subsegmental atelectasis with or without infiltrate is compatible with this. This finding is not appreciated such on the prior study. Current inspiration is less. PLEURA: No pneumothorax or pleural fluid seen. CARDIOVASCULAR: Cardiomegaly-similar. Mild central pulmonary venous congestion suspect probably accentuated due to technique and large body habitus. Right [employer] subclavian central line tip superior vena cava-similar in appearance OSSEOUS STRUCTURES: The previously referenced probable nondisplaced anterior left 7th rib fracture is not visually included on this exam to reassess for comparison. More over the large body habitus impedes optimal evaluation. Deformity/advanced arthrosis left shoulder lesser degrees of arthrosis right shoulder. VISUALIZED UPPER ABDOMEN: Normal. OTHER FINDINGS: None. IMPRESSION: Right basal subsegmental atelectasis. Concomitant small patchy infiltrates here not excluded. Clinical correlation and follow-up recommended. Mild cardiomegaly and mild pulmonary venous congestion- the latter increased since the prior exam
[2018-02-16] MEDS ORDERED: Iodixanol 320 MG/ML 100 ML BOTTLE IV ONE (17:00)
--- NOTE | 2018-02-16 17:48 | CT ---
Date of service: 02/16/2018 PROCEDURE: CT Chest with contrast (Pulmonary Angiogram) HISTORY: Chest pain, SOB, r/o PE COMPARISON: None available. TECHNIQUE: Axial computed tomography images were obtained of the chest in the pulmonary arterial phase of enhancement. Coronal and sagittal reformatted images were created and reviewed. Intravenous contrast dose: 100 mL Visipaque 320 Radiation dose: Total exam DLP = 440.3 mGy-cm. This CT exam was performed using one or more of the following dose reduction techniques: Automated exposure control, adjustment of the mA and/or kV according to patient size, and/or use of iterative reconstruction technique. FINDINGS: PULMONARY ARTERIES: Unremarkable. No pulmonary embolism. AORTA: No acute findings. No thoracic aortic aneurysm. LUNGS: Bilateral lower lobe atelectasis/scarring. No nodule, mass or pulmonary consolidation. PLEURAL SPACES: Unremarkable. No effusion or pneumothorax. HEART: Cardiomegaly. No significant pericardial effusion. LYMPH NODES: No lymphadenopathy. BONES, CHEST WALL: Unremarkable. No fracture or destructive lesion OTHER FINDINGS: Right chest wall internal jugular access chest port. IMPRESSION: Unremarkable CT pulmonary angiogram. No pulmonary embolus. Bilateral lower lobe atelectasis/scarring.
--- NOTE | 2018-02-16 17:59 | C.PDOC ---
Time Seen by Provider: 02/16/18 14:34 Chief Complaint (Nursing): Chest Pain History Per: Patient, EMS Onset/Duration Of Symptoms: Days (few), Intermittent Episodes Current Symptoms Are (Timing): Still Present Severity: Moderate Quality: Pressure Associated Symptoms: Nausea, Dyspnea Modifying Factors: Other Indicated Below Alleviating Factors: None Additional History Per: Prior Records Past Medical History Reviewed: Historical Data, Nursing Documentation, Vital Signs Vital Signs: Last Vital Signs Temp 98.6 F 02/16/18 14:23 Pulse 63 02/16/18 20:23 Resp 18 02/16/18 20:23 BP 114/70 02/16/18 20:23 Pulse Ox 99 02/16/18 20:23 - Medical History PMH: Anxiety, Arthritis, Asthma, Back Problems, Bronchitis, CAD, CHF, COPD, Depression, Diabetes, Fractures (DISPLACED METATarSAL FRACTURE 2ND LEFT), Gall Bladder Disease (Gallstone), GERD, Hiatal Hernia, HTN, Hypercholesterolemia, Hypothyroidism, Mitral Valve Prolapse, Peripheral Edema, Pulmonary Embolism - [facility] Procedures EXCISION OF LEFT METATARSAL, OPEN APPROACH (07/20/17) FLUOROSCOPY OF SUP VENA CAVA USING L OSM CONTRAST, GUIDANCE (10/13/15) INCIS W REM OF FORIEGN BODY OR DEV FROM SKIN & SUBCUT TISSUE (10/22/14) INFLUENZA VACCINATION (09/19/14) INSERTION OF INFUSION DEV INTO SUP VENA CAVA, PERC APPROACH (10/13/15) INSERTION OF TOTALLY IMPLANTABLE VASC ACCESS DEVIC (10/22/14) INSERTION OF VAD INTO CHEST SUBCU/FASCIA, OPEN APPROACH (10/13/15) NEBULIZER THERAPY (11/05/13) NON-INVASIVE MECHANICAL VENTILATION (06/04/12) OCCUPATIONAL THERAPY (09/19/14) OTH & OPEN REP OTH HERNIA OF ANTER ABD WALL W GRF OR PROSTH (05/28/13) PHYSICAL THERAPY NEC (09/19/14) REMOVAL OF VAD FROM TRUNK SUBCU/FASCIA, OPEN APPROACH (10/13/15) REPAIR CHEST SKIN, EXTERNAL APPROACH (10/13/15) REPLACE OF R TOE PHALANX JT WITH SYNTH SUB, OPEN APPROACH (07/20/17) THORAX SFT TISS XRAY NEC (03/19/13) Family History: States: Unknown Family Hx - Social History Hx Tobacco Use: No Hx Alcohol Use: No Hx Substance Use: No - Immunization History Hx Tetanus Toxoid Vaccination: No Hx Influenza Vaccination: Yes Hx Pneumococcal Vaccination: Yes Review Of Systems Except As Marked, All Systems Reviewed And Found Negative. Constitutional: Negative for: Fever Cardiovascular: Positive for: Chest Pain, Light Headedness Respiratory: Positive for: Shortness of Breath. Negative for: Cough, Hemoptysis Gastrointestinal: Positive for: Nausea. Negative for: Vomiting, Diarrhea Genitourinary: Negative for: Dysuria Musculoskeletal: Positive for: Back Pain, Leg Pain. Negative for: Neck Pain Skin: Negative for: Rash Neurological: Negative for: Weakness, Numbness Physical Exam - Physical Exam Appears: No Acute Distress, Chronically Ill Skin: Normal Color, Warm, Dry Head: Atraumatic, Normacephalic Eye(s): bilateral: PERRL, EOMI Neck: Normal ROM, Supple Chest: No Tenderness, Other (Port in right chest) Cardiovascular: Rhythm Regular (bradycardia) Respiratory: Normal Breath Sounds, No Accessory Muscle Use Gastrointestinal/Abdominal: Soft, No Tenderness Extremity: Normal ROM ED Course And Treatment - Laboratory Results Result Diagrams: 02/16/18 15:36 02/16/18 15:36 ECG: Interpreted By Me, Viewed By Me ECG Rhythm: Sinus Bradycardia, Nonspecific Changes ECG Interpretation: Abnormal Rate From EC O2 Sat by Pulse Oximetry: 94 Pulse Ox Interpretation: Other Interpretation Of Abnormal: borderline - CT Scan/US CTA of chest Other Rad Studies (CT/US): Read By Radiologist, Radiology Report Reviewed CT/US Interpretation: IMPRESSION: Unremarkable CT pulmonary angiogram. No pulmonary embolus. Bilateral lower lobe atelectasis/scarring. Progress - Interventions Interventions:: Observation, Oxygen - Medications Administered Oral: Aspirin - Data Reviewed Data Reviewed: Lab, Diagnostic imaging, EKG, Old records - Continuity of Care Discussed patient case with:: Patient, ED Nurse, PMD Disposition Discussed With : Artis Weldon Comment: He accepted pt on his service. Doctor Will See Patient In The: Hospital Counseled Patient/Family Regarding: Studies Performed, Diagnosis - Disposition Disposition: HOSPITALIZED Disposition Time: 20:28 Condition: FAIR - Clinical Impression Clinical Impression: Chest pain, Sinus bradycardia
[2018-02-16] MEDS ORDERED: oxyCODONE 40 mg ER Tab (oxyCONTIN) PO STA (18:07)
[2018-02-16] MEDS ORDERED: oxyCODONE 40 mg ER Tab (oxyCONTIN) PO ONE (18:24)
[2018-02-16 22:10] VITALS: RESP 20
[2018-02-16] MEDS ORDERED: Albuterol-Ipratrop 3 mg / 0.5 (3 ml) UD INH PRN (22:54)
[2018-02-16] MEDS: Enoxaparin 40 mg Syringe SC SCH (23:23)
[2018-02-16] MEDS: Pantoprazole 40 mg EC Tab PO SCH (23:26)
[2018-02-17] MEDS: oxyCODONE 5 mg Immediate Release Tab PO PRN ×3 (00:44→10:48)
[2018-02-17 07:19] LABS: CK-MB 0.56 ng/mL (0.0-3.38)
--- NOTE | 2018-02-17 07:21 | CP.PCM.PN ---
Subjective - Date & Time of Evaluation Date of Evaluation: 02/17/18 Time of Evaluation: 07:21 - Subjective Subjective: Internal Medicine Progress Note - Dr Weldno Service Patient seen and examined at bedside. Per nursing no acute events overnight. Patient was admitted with chest pain, found to have sinus bradycardia. States that chest pain has improved. Offers no complaints at this time. Denies headaches, dizziness, cp, palpitations, sob, abdominal pain, urinary symptoms, changes in bowel habits. Objective - Vital Signs/Intake and Output Vital Signs (last 24 hours): Temp Pulse Resp BP Pulse Ox 98 F 51 L 20 140/68 98 02/16/18 23:10 02/16/18 23:10 02/16/18 23:10 02/16/18 23:23 02/16/18 23:10 Intake and Output: 02/17/18 02/17/18 06:59 18:59 Intake Total 150 Balance 150 - Medications Medications: Current Medications Albuterol/Ipratropium (Duoneb 3 Mg/0.5 Mg (3 Ml) Ud) 3 ml INH RQ6 PRN PRN Reason: Shortness of Breath Docusate Sodium (Colace) 100 mg PO BID [facility] Last Admin: 02/16/18 23:22 Dose: 100 mg Enoxaparin Sodium (Lovenox) 40 mg SC DAILY [facility] Last Admin: 02/16/18 23:23 Dose: 40 mg Estrogens Conjugated (Premarin) 0.625 mg PO DAILY [facility] Furosemide (Lasix) 20 mg PO BID [facility] Last Admin: 02/16/18 23:23 Dose: 20 mg Lorazepam (Ativan) 2 mg PO Q8H PRN PRN Reason: anxiety Last Admin: 02/17/18 03:44 Dose: 2 mg Metformin HCl (Glucophage) 500 mg PO DAILY [facility] Oxycodone HCl (Oxycontin Extended Release Tab) 40 mg PO TID [facility] Oxycodone HCl (Oxycodone Immediate Release Tab) 15 mg PO Q4H PRN PRN Reason: Pain, moderate (4-7) Last Admin: 02/17/18 04:30 Dose: 15 mg Pantoprazole Sodium (Protonix Ec Tab) 40 mg PO BID [facility] Last Admin: 02/16/18 23:26 Dose: 40 mg Pregabalin (Lyrica) 150 mg PO BID [facility] Spironolactone (Aldactone) 25 mg PO DAILY [facility] - Labs Labs: 02/16/18 15:36 02/16/18 15:36 PT 11.6 SECONDS (9.7-12.2) 02/16/18 15:36 INR 1.1 02/16/18 15:36 APTT 61 SECONDS (21-34) H 02/16/18 15:36 - Constitutional Appears: Non-toxic, No Acute Distress - Head Exam Head Exam: ATRAUMATIC, NORMAL INSPECTION, NORMOCEPHALIC - Eye Exam Eye Exam: EOMI, Normal appearance Pupil Exam: NORMAL ACCOMODATION - ENT Exam ENT Exam: Mucous Membranes Moist - Neck Exam Neck Exam: Full ROM - Respiratory Exam Respiratory Exam: Clear to Ausculation Bilateral, NORMAL BREATHING PATTERN - Cardiovascular Exam Cardiovascular Exam: REGULAR RHYTHM, +S1, +S2 - GI/Abdominal Exam GI & Abdominal Exam: Soft, Normal Bowel Sounds. absent: Guarding, Rigid, Tenderness - Extremities Exam Extremities Exam: Normal Inspection - Back Exam Back Exam: NORMAL INSPECTION - Neurological Exam Neurological Exam: Alert, Awake, Oriented x3 - Psychiatric Exam Psychiatric exam: Normal Affect, Normal Mood - Skin Skin Exam: Dry, Normal Color, Warm Assessment and Plan - Assessment and Plan (Free Text) Assessment: A/P: Patient is a 62 year old female with past medical history of COPD, DM, Hypothyroidism, Diastolic CHF, mitral valve prolapse presented to the ED for chest pain. Chest Pain r/o ACS -Stable, afebrile -Monitor on telemetry -EKG showed sinus bradycardia, 48 bpm -Troponins negative x 3 -Echo ordered, f/u preliminary read -Last echo 07/2017 showed LVEF 65-70% with diastolic dysfunction Diastolic Congestive Heart Failure/History of MVP -CXR showed right basal subsegmental atelectasis, mild cardiomegaly, mild pulmonary venous congestion (see full report) -Echo ordered, f/u preliminary read -Continue Lasix 20mg PO BID, Aldactone 25mg PO daily -Daily weights, strict IOs -Patient had rheumatic fever as a child Elevated D Dimer -D dimer on admission 277 -CTA was negative for pulmonary embolism History of Diabetes Mellitus/Peripheral Neuropathy -Continue Metoformin 500mg PO daily -Accuchecks ACHS -Continue Lyrica History of COPD -Well controlled -Duonebs Q6H prn shortness of breath History of Hypothyroidism -Patient not on thyroid medication -F/U TSH and Free T4 levels Complex Regional Pain Syndrome I -Continue Oxycontin 40mg PO Q8H -Continue oxycodone 15mg PO Q4H Constipation -Continue Colace 100mg PO BID GI/DVT ppx: -Protonix 40mg PO BID -Lovenox 40mg SC daily DISPO: Patient is medically cleared for discharge home after echocardiogram. Will follow up official echocardiogram report outpatient. Patient to follow up with Dr Weldon and senior biostatistician within 1 week. If having any worsening symptoms , return to nearest ED. Plan discussed with Dr Shiraz Rendon DO PGY-2
[2018-02-17 07:31] VITALS: TEMP 98.1
[2018-02-17] MEDS: Enoxaparin 40 mg Syringe SC SCH (09:20)
[2018-02-17] MEDS: Pantoprazole 40 mg EC Tab PO SCH (09:21)
[2018-02-17] MEDS: oxyCODONE 40 mg ER Tab (oxyCONTIN) PO SCH ×2 (09:22→14:05)
--- NOTE | 2018-02-17 11:43 | CARD ---
APPROVED REPORT Date of service: 02/16/2018 EKG Measurement Heart [id number] <Conclusion> Sinus bradycardia Moderate voltage criteria for LVH, may be normal variant Borderline ECG
[2018-02-17 12:02] LABS: ALB/GLOB RATIO 1.2 (1.0-2.1); ALBUMIN 3.7 g/dL (3.5-5.0); ALT/SGPT 33 U/L (9-52); AST/SGOT 30 U/L (14-36); BLOOD UREA NITROGEN 11 mg/dL (7-17); GFR AFRICAN-AMERICAN > 60; GFR NON-AFRICAN AMERICAN > 60
[2018-02-17 16:06] VITALS: BP 150/87; PULSE 75; O2SAT 97
== END 2018-02-17 16:10 | disposition home or self-care (01) ==
LOC: C.ER 14:12 → C.9E 20:28 → C.6T 21:09
PROVIDERS: ADMIT Internal Medicine Pulmonary Disease; ATTEND Internal Medicine Pulmonary Disease
DX: R00.1 Bradycardia, unspecified (principal); I11.0 Hypertensive heart disease with heart failure; I50.30 Unspecified diastolic (congestive) heart failure; J44.9 Chronic obstructive pulmonary disease, unspecified; I34.1 Nonrheumatic mitral (valve) prolapse; E11.42 Type 2 diabetes mellitus with diabetic polyneuropathy; E03.9 Hypothyroidism, unspecified; G90.50 Complex regional pain syndrome I, unspecified; K59.00 Constipation, unspecified
CPT/HCPCS: 36415; 71045; 71275; 80053; 82948; 83690; 83735; 83880; 84100; 84443; 84484; 85025; 85378; 85610; 85730; 93005; 93306; 99285; G0378; J1642; J1650; Q9967

== ENCOUNTER 2018-03-08 14:55 | Inpatient (IN) | payer MEDICARE, OTHER ==
[2018-03-08 14:55] VITALS: BMI 40.6
[2018-03-08 15:17] VITALS: RESP 20
[2018-03-08 16:02] LABS: EOS # 0.1 K/uL (0.0-0.7); EOS % 0.9 % (0.0-4.0); HEMOGLOBIN 11.4 g/dL (11.0-16.0); LYMPH # 2.5 K/uL (1.0-4.3); MEAN CELL VOLUME 77.5 fL (81.0-99.0); MONO # 0.7 K/uL (0.0-0.8); NRBC % 0.1 % (0.0-2.0)
[2018-03-08 16:07] LABS: BASO # 0.1 K/uL (0.0-0.2); BASO % 0.6 % (0.0-2.0); LYMPH % 28.2 % (20.0-40.0); MEAN CORPUSCULAR HEMOGLOBIN 25.9 pg (27.0-31.0); MEAN CORPUSCULAR HGB CONC 33.4 g/dL (33.0-37.0); MEAN PLATELET VOLUME 8.5 fL (7.2-11.7); MONO % 7.9 % (0.0-10.0); NEUT # 5.5 K/uL (1.8-7.0); NEUT % 62.4 % (50.0-75.0); RBC 4.42 Mil/uL (3.80-5.20); RED CELL DISTRIBUTION WIDTH 16.4 % (11.5-14.5); WHITE BLOOD COUNT 8.8 K/uL (4.8-10.8)
[2018-03-08 16:11] LABS: INR 1.1; PROTHROMBIN TIME 12.2 SECONDS (9.7-12.2)
--- NOTE | 2018-03-08 16:17 | C.PDOC ---
History Of Present Illness Patient BIBA for evaluation of B/L foot pain R>L. Patient states she has h/o chronic B/L foot pain, is supposed to have surgery on her feet by Dr. Simi Rios tomorrow. Patient was supposed to have preop studies done today, but states she tripped over her O2 wire and fell, hitting her right foot on the floor. She denies head injury, LOC, chest pain, SOB, abdominal pain, nausea/vomiting. PMD Dr. Weldon Podiatry Dr. Simi Rios - [facility] Time Seen by Provider: 03/08/18 15:10 Chief Complaint (Nursing): Trauma History Per: Patient, EMS History/Exam Limitations: no limitations Onset/Duration Of Symptoms: Other (chronic B/L foot pain worse today after fall) Injury Occurred (Timing): Just Before Arrival Severity: Moderate Past Medical History Reviewed: Historical Data, Nursing Documentation, Vital Signs Vital Signs: Last Vital Signs Temp 98.1 F 03/10/18 07:58 Pulse 69 03/10/18 07:58 Resp 20 03/10/18 07:58 BP 151/71 H 03/10/18 10:05 Pulse Ox 96 03/10/18 07:58 - Medical History PMH: Anxiety, Arthritis, Asthma, Back Problems, Bronchitis, CAD, CHF, COPD, Depression, Diabetes, Fractures (DISPLACED METATarSAL FRACTURE 2ND LEFT), Gall Bladder Disease (Gallstone), GERD, Hiatal Hernia, HTN, Hypercholesterolemia, Hypothyroidism, Mitral Valve Prolapse, Peripheral Edema, Pulmonary Embolism - [facility] Procedures EXCISION OF LEFT METATARSAL, OPEN APPROACH (07/20/17) FLUOROSCOPY OF SUP VENA CAVA USING L OSM CONTRAST, GUIDANCE (10/13/15) INCIS W REM OF FORIEGN BODY OR DEV FROM SKIN & SUBCUT TISSUE (10/22/14) INFLUENZA VACCINATION (09/19/14) INSERTION OF INFUSION DEV INTO SUP VENA CAVA, PERC APPROACH (10/13/15) INSERTION OF TOTALLY IMPLANTABLE VASC ACCESS DEVIC (10/22/14) INSERTION OF VAD INTO CHEST SUBCU/FASCIA, OPEN APPROACH (10/13/15) NEBULIZER THERAPY (11/05/13) NON-INVASIVE MECHANICAL VENTILATION (06/04/12) OCCUPATIONAL THERAPY (09/19/14) OTH & OPEN REP OTH HERNIA OF ANTER ABD WALL W GRF OR PROSTH (05/28/13) PHYSICAL THERAPY NEC (09/19/14) REMOVAL OF VAD FROM TRUNK SUBCU/FASCIA, OPEN APPROACH (10/13/15) REPAIR CHEST SKIN, EXTERNAL APPROACH (10/13/15) REPLACE OF R TOE PHALANX JT WITH SYNTH SUB, OPEN APPROACH (07/20/17) THORAX SFT TISS XRAY NEC (03/19/13) Family History: States: No Known Family Hx - Social History Hx Tobacco Use: No Hx Alcohol Use: No Hx Substance Use: No - Immunization History Hx Tetanus Toxoid Vaccination: No Hx Influenza Vaccination: Yes Hx Pneumococcal Vaccination: Yes Review Of Systems Constitutional: Negative for: Fever, Chills Cardiovascular: Negative for: Chest Pain, Palpitations Respiratory: Negative for: Cough, Shortness of Breath Gastrointestinal: Negative for: Nausea, Vomiting, Abdominal Pain Musculoskeletal: Positive for: Foot Pain (B/L foot pain R>L) Neurological: Negative for: Weakness, Numbness, Headache, Dizziness Physical Exam - Physical Exam Appears: Well, Non-toxic, No Acute Distress, In Acute Distress Skin: Normal Color, Warm, Dry, No Rash Oral Mucosa: Moist Cardiovascular: Rhythm Regular (bradycardic ) Respiratory: Normal Breath Sounds, No Rales, No Rhonchi, No Wheezing Gastrointestinal/Abdominal: Normal Exam, Bowel Sounds, Soft, No Tenderness Extremity: Tenderness (right foot TTP at second digit, no deformities, no erythema or swelling , left foot chronic deformity without swelling/erythema), Capillary Refill (< 2 sec all digits ) Pulses: Left Dorsalis Pedis: Normal, Right Dorsalis Pedis: Normal Neurological/Psych: Oriented x3, Normal Sensation ED Course And Treatment - Laboratory Results Result Diagrams: 03/10/18 07:09 03/10/18 07:09 ECG: Interpreted By Me, Viewed By Me (Sinus bradycardia 50 bpm, left axis deviation, no acute ST/T wave changes) ECG Interpretation: Abnormal O2 Sat by Pulse Oximetry: 98 (RA) Pulse Ox Interpretation: Normal - Other Rad FOOT XRAYS B/L X-Ray: Viewed By Me, Read By Radiologist (Accession No. : [id number]) Interpretation: Accession No. : [id number]. Patient Name / ID : YOLANDA FONTENOT / [id number]. Exam Date : 03/08/2018 16:04:17 ( Approved ). Study Comment : Sex / Age : F / 62Y. Creator : Nella Perkins RT. Dictator : Andrés Douglas MD. Cp Bleacher Operator : Certified Public Accountant : Andrés Douglas MD. Approver2 : Report Date : 03/08/2018 16:35:11. My Comment : . Date of service: 03/08/2018. PROCEDURE: Bilateral Feet Radiographs. HISTORY: b/l foot pain, preio. COMPARISON: None. FINDINGS: BONES: Right Foot: No fracture. Plantar calcaneal spur. Left Foot: Osteotomy distal aspect 2nd through 5th metatarsal go. No acute fracture. Severe pes planus. Plantar calcaneal spur. No osseous erosion or periosteal reaction appreciated. . JOINTS : Right Foot: Normal. No osteoarthritis. Left Foot: There is deformity of the midfoot at the talocalcaneal and talonavicular articulations. SOFT TISSUES: Right Foot: Normal. Left Foot: Normal. OTHER FINDINGS: None. IMPRESSION: Multiple osteotomies 2nd through 5th left metatarsals. Severe pes planus of the left foot. Midfoot deformity at talocalcaneal and talonavicular articulations. Rule out neuropathic arthritis of left foot. CXR X-Ray: Viewed By Me, Read By Radiologist Interpretation: Accession No. : [id number]. Patient Name / ID : YOLANDA FONTENOT / [id number]. Exam Date : 03/08/2018 16:04:02 ( Approved ). Study Comment : Sex / Age : F / 62Y. Creator : Nella Perkins. Dictator : Andrés Douglas MD. Cp Bleacher Operator : Certified Public Accountant : Andrés Douglas MD. Approver2 : Report Date : 03/08/2018 16:35:11. My Comment : . Date of service: 03/08/2018. PROCEDURE: CHEST RADIOGRAPH, 1 VIEW. HISTORY: preop. COMPARISON: None available. FINDINGS: LUNGS: New right basilar opacity. Rule out pneumonia. This may be technical due to breast shadow. Nevertheless, followup is advised. No other abnormal opacity. PLEURA: No pneumothorax or pleural fluid seen. CARDIOVASCULAR: Normal heart size. Right central venous infusion port. OSSEOUS STRUCTURES: No significant abnormalities. VISUALIZED UPPER ABDOMEN: Normal. OTHER FINDINGS: None. IMPRESSION: New right basilar pulmonary opacity. Rule out pneumonia. Follow-up advised. Progress Note: Blood work, CXR, EKG, Xrays of foot ordered and reviewed. Patient given IV toradol for pain. Patient continued to c/o foot pain - PO Percocet given, however patient refused Percocet. CXR read (+) for possible right sided infiltrate as per radiology, however patient has no cough, fever, white count. Discussed patient with podiatry resident, they will see patient on consult for Dr. Rios, for OR tomorrow. - Physician Consult Information Physician Contacted: Artis Weldon Outcome Of Conversation: Discussed patient with PMD, agrees with admission for B /L chronic foot pain R>L, for OR in the AM, recurrent falls. Disposition - Disposition Disposition: HOSPITALIZED Disposition Time: 17:13 Condition: STABLE - Clinical Impression Clinical Impression: Chronic foot pain, Recurrent falls, Preop examination
[2018-03-08] MEDS ORDERED: Oxycodone/Acetaminophen 5/325 mg Tab PO STA (16:48)
--- NOTE | 2018-03-08 16:54 | RAD ---
Date of service: 03/08/2018 PROCEDURE: Bilateral Feet Radiographs. HISTORY: b/l foot pain, preio COMPARISON: None. FINDINGS: BONES: Right Foot: No fracture. Plantar calcaneal spur. Left Foot: Osteotomy distal aspect 2nd through 5th metatarsal go. No acute fracture. Severe pes planus. Plantar calcaneal spur. No osseous erosion or periosteal reaction appreciated. . JOINTS: Right Foot: Normal. No osteoarthritis. Left Foot: There is deformity of the midfoot at the talocalcaneal and talonavicular articulations. SOFT TISSUES: Right Foot: Normal. Left Foot: Normal. OTHER FINDINGS: None. IMPRESSION: Multiple osteotomies 2nd through 5th left metatarsals. Severe pes planus of the left foot. Midfoot deformity at talocalcaneal and talonavicular articulations. Rule out neuropathic arthritis of left foot.
[2018-03-08] MEDS ORDERED: Oxycodone/Acetaminophen 5/325 mg Tab ONE (16:55)
--- NOTE | 2018-03-08 16:55 | RAD ---
Date of service: 03/08/2018 PROCEDURE: CHEST RADIOGRAPH, 1 VIEW HISTORY: preop COMPARISON: None available. FINDINGS: LUNGS: New right basilar opacity. Rule out pneumonia. This may be technical due to breast shadow. Nevertheless, followup is advised. No other abnormal opacity. PLEURA: No pneumothorax or pleural fluid seen. CARDIOVASCULAR: Normal heart size. Right central venous infusion port. OSSEOUS STRUCTURES: No significant abnormalities. VISUALIZED UPPER ABDOMEN: Normal. OTHER FINDINGS: None. IMPRESSION: New right basilar pulmonary opacity. Rule out pneumonia. Follow-up advised.
[2018-03-08 16:59] LABS: ALB/GLOB RATIO 1.2 (1.0-2.1); BLOOD UREA NITROGEN 13 mg/dL (7-17); CALCIUM 10.3 mg/dl (8.6-10.4); GFR AFRICAN-AMERICAN > 60; GFR NON-AFRICAN AMERICAN > 60
[2018-03-08 17:00] LABS: ALT/SGPT 26 U/L (9-52); AST/SGOT 20 U/L (14-36)
[2018-03-08] MEDS ORDERED: Albuterol-Ipratrop 3 mg / 0.5 (3 ml) UD INH PRN (22:19)
[2018-03-08] MEDS ORDERED: POTASSIUM CHLORIDE 40 MEQ PO SCH (22:30)
[2018-03-08] MEDS: oxyCODONE 5 mg Immediate Release Tab PO PRN (22:54)
[2018-03-09] MEDS: oxyCODONE 40 mg ER Tab (oxyCONTIN) PO PRN ×2 (02:06→10:16)
[2018-03-09] MEDS: oxyCODONE 5 mg Immediate Release Tab PO PRN ×4 (05:21→20:35)
--- NOTE | 2018-03-09 07:26 | CP.PCM.PN ---
Subjective - Date & Time of Evaluation Date of Evaluation: 03/09/18 Time of Evaluation: 07:00 - Subjective Subjective: CC: foot pain HPI: Patient is a 62 year old F with PMHx of diastolic CHF, reflex sympathetic dystrophy, DMII, bradycardia, rheumatic fever, MVP, hypothyroidism, asthma, HLD , charcot foot, abdominal hernia who presented for bilateral foot pain. Patient was dropped out of a wheelchair 9 months ago and had many broken bones in her left foot. Patient has been following up with Dr. Rios for surgical intervention. Today patient is still in a lot of pain. Patient denies any chest pain, shortness of breath, abdominal pain, nausea, vomiting, constipation, or diarrhea. PMHx: diastolic CHF, reflex sympathetic dystrophy, DMII, bradycardia, rheumatic fever, MVP, hypothyroidism, asthma, HLD, charcot foot, abdominal hernia Psurg: r bunionectomy 1990, r foot neuroma removal 1994, b/l foot surgery 2016, hiatal hernia surgery 2001, hysterectomy 2002 Social: denies alcohol, drugs, tobacco use Famhx: mom: heart dx, stents; maternal aunts: stents; maternal grandfather: [place] at 52 Dad: Lung cancer at 71 Objective - Vital Signs/Intake and Output Vital Signs (last 24 hours): Temp Pulse Resp BP Pulse Ox 98.4 F 61 20 144/83 99 03/08/18 23:32 03/08/18 23:32 03/08/18 23:32 03/08/18 23:32 03/08/18 23:32 Intake and Output: 03/09/18 03/09/18 06:59 18:59 Intake Total 440 Balance 440 - Medications Medications: Current Medications Albuterol/Ipratropium (Duoneb 3 Mg/0.5 Mg (3 Ml) Ud) 3 ml INH RQ6 PRN PRN Reason: Shortness of Breath Docusate Sodium (Colace) 100 mg PO BID [facility] Estrogens Conjugated (Premarin) 0.625 mg PO DAILY [facility] Fluoxetine HCl (Prozac) 20 mg PO Q8H [facility] Last Admin: 03/09/18 05:39 Dose: 20 mg Furosemide (Lasix) 20 mg PO BID [facility] Home Med (Patient's Own Medication) 1 tab PO BID [facility] Home Med (Patient's Own Medication) 1 tab PO TID [facility] Lorazepam (Ativan) 2 mg PO Q8H PRN PRN Reason: anxiety Last Admin: 03/09/18 02:06 Dose: 2 mg Metformin HCl (Glucophage) 500 mg PO DAILY [facility] Oxycodone HCl (Oxycodone Immediate Release Tab) 15 mg PO Q4H PRN PRN Reason: Pain, moderate (4-7) Last Admin: 03/09/18 05:21 Dose: 15 mg Oxycodone HCl (Oxycontin Extended Release Tab) 40 mg PO Q8H PRN PRN Reason: Pain, severe (8-10) Last Admin: 03/09/18 02:06 Dose: 40 mg Pantoprazole Sodium (Protonix Ec Tab) 40 mg PO BID [facility] Potassium Chloride (K-Dur 20 Meq Er Tab) 20 meq PO DAILY [facility] Pregabalin (Lyrica) 150 mg PO BID [facility] Spironolactone (Aldactone) 25 mg PO DAILY [facility] - Labs Labs: 03/08/18 15:57 03/08/18 15:57 PT 12.2 SECONDS (9.7-12.2) 03/08/18 15:57 INR 1.1 03/08/18 15:57 APTT 59 SECONDS (21-34) H 03/08/18 15:57 - Constitutional Appears: Non-toxic, No Acute Distress - Head Exam Head Exam: ATRAUMATIC, NORMAL INSPECTION, NORMOCEPHALIC - Eye Exam Eye Exam: EOMI, Normal appearance - ENT Exam ENT Exam: Mucous Membranes Moist - Respiratory Exam Respiratory Exam: Clear to Ausculation Bilateral, NORMAL BREATHING PATTERN. absent: Rales, Rhonchi, Wheezes, Respiratory Distress, Stridor - Cardiovascular Exam Cardiovascular Exam: REGULAR RHYTHM, RRR, +S1, +S2 - GI/Abdominal Exam GI & Abdominal Exam: Soft, Normal Bowel Sounds. absent: Tenderness - Extremities Exam Extremities Exam: Full ROM, Normal Inspection. absent: Pedal Edema, Tenderness - Back Exam Back Exam: NORMAL INSPECTION - Neurological Exam Neurological Exam: Alert, Awake, Oriented x3 - Psychiatric Exam Psychiatric exam: Normal Affect, Normal Mood - Skin Skin Exam: Intact, Normal Color, Warm Assessment and Plan - Assessment and Plan (Free Text) Assessment: Pulmonary Venous Congestion Cxray (03/08/18): new right basilar pulmonary opacity, r/o pneumonia Cxray (03/09/18): mild cardiomegaly and pulmonary venous congestion, right basilar atelectasis f/u mycoplasma, strep pneumo, legionella Lower Extremity Pain Foot xray: multiple osteotomies 2nd through 5th left metatarsals. Severe pes planus of the left foot. Midfoot deformity at talocalcaneal and talonavicular articulations. LE u/s: no evidence of hemodynamically significant arterial insufficiency in the left lower lobe Dr. Rios on consult, help appreciated possible surgery on 03/11/[address] Viera consulted for cardiac clearance prior to surgery Lasix 20mg po BID Aldactone 25mg po daily Kdur 20meq po daily Reflex Sympathetic Dystrophy Oxycodone 15mg q4h Oxycontin 40mg po q8h Lyrica 300mg po HS Lyrica 150mg po at 6am and 12pm Tizanidine 4mg TID Docusate 100mg po BID Amitiza 24mcg po BID Depression Prozac 20mg po q8h Ativan 2mg po q8h prn HLD f/u lipid panel f/u HgA1c Hypothyroidism patient says she is on Synthroid, but not seen on medication list from pharmacy will call pharmacy to follow up f/u TSH, free T4 Prophylaxis Protonix 40mg po BID SCDs Plan as per Dr. Bobby
[2018-03-09] MEDS: TIZANIDINE 4MG PO SCH ×4 (08:43→18:36)
--- NOTE | 2018-03-09 09:59 | CP.PCM.CON ---
History of Present Illness - History of Present Illness History of Present Illness: Podiatry Consult Note - Dr. Rios 62 y/o female with PMHx of NIDDM, HTN, HLD and mitral valve prolapse seen at bedside with attending Dr. Rios for bilateral diffuse LE pain and right 2nd digit pain secondary to fall. Pt is well known to Dr. Rios's service and was sent for pre-operative clearance prior to possible surgical intervention for hammertoes and bunion deformities of bilateral feet. Pt states she has chronic ongoing pain and discomfort to both legs and feet. States she has pain whenever she walks. Says the pain is the worst in her toes as they curve downwards. States she was being transported yesterday on the way to her pre-op clearance appointment and the transporters dropped her, causing her right foot 2nd toe to dislocate and hurt more. Denies any other new pedal complaints. Denies F/C/N/V/ CP/SOB PSHx: cardiac cath, hiatal hernia repair, right foot surgery, eye surgery All: sulfa SocHx: denies EtOH, cigarette or drug use Review of Systems - Review of Systems All systems: reviewed and no additional remarkable complaints except (per HPI) Past Patient History - Infectious Disease Hx of Infectious Diseases: None - Tetanus Immunizations Tetanus Immunization: Unknown - Past Medical History & Family History Past Medical History?: Yes - Past Social History Smoking Status: Never Smoked - CARDIAC Hx Congestive Heart Failure: Yes Hx Hypercholesterolemia: Yes Hx Hypertension: Yes Hx Mitral Valve Prolapse: Yes Hx Peripheral Edema: Yes - PULMONARY Hx Asthma: Yes Hx Bronchitis: Yes Hx Chronic Obstructive Pulmonary Disease (COPD): Yes Hx Pulmonary Embolism: Yes - NEUROLOGICAL Hx Neurological Disorder: Yes Other/Comment: Reflex Sympathetic Dystrophy - HEENT Hx HEENT Problems: Yes Hx Cataracts: Yes - RENAL Hx Chronic Kidney Disease: No - ENDOCRINE/METABOLIC Hx Hypothyroidism: Yes - HEMATOLOGICAL/ONCOLOGICAL Hx Blood Disorders: Yes Hx Blood Transfusions: Yes - INTEGUMENTARY Hx Dermatological Problems: Yes Hx Cellulitis: Yes - MUSCULOSKELETAL/RHEUMATOLOGICAL Hx Falls: Yes - GASTROINTESTINAL Hx Gall Bladder Disease: Yes (Gallstone) - GENITOURINARY/GYNECOLOGICAL Hx Genitourinary Disorders: No - PSYCHIATRIC Hx Substance Use: No - SURGICAL HISTORY Hx Surgeries: Yes Hx Cardiac Catheterization: Yes (X6) Hx Eye Surgery: Yes (CATARACT SX BOTH W/LENS) Hx Vascular Access Device: Yes (Port A Cath) Other/Comment: Hiatus Hernia repair, DIMPLE, Buniectomy R foot, operation L foot ( type unknown). - ANESTHESIA Hx Anesthesia: Yes Hx Anesthesia Reactions: No Hx Malignant Hyperthermia: No Meds Home Medications: Home Medication List Medication Instructions Recorded Confirmed Type Levothyroxine [Synthroid] 100 mcg PO DAILY@0630 tab 03/10/18 Rx Allergies/Adverse Reactions: Allergies Allergy/AdvReac Type Severity Reaction Status Date / Time Sulfa (Sulfonamide Allergy Intermediate ANAPHYLAXIS Verified 03/08/18 15:17 Antibiotics) - Medications Medications: Current Medications Albuterol/Ipratropium (Duoneb 3 Mg/0.5 Mg (3 Ml) Ud) 3 ml INH RQ6 PRN PRN Reason: Shortness of Breath Docusate Sodium (Colace) 100 mg PO BID [facility] Estrogens Conjugated (Premarin) 0.625 mg PO DAILY [facility] Fluoxetine HCl (Prozac) 20 mg PO Q8H [facility] Last Admin: 03/09/18 05:39 Dose: 20 mg Furosemide (Lasix) 20 mg PO BID [facility] Home Med (Patient's Own Medication) 1 tab PO BID [facility] Home Med (Patient's Own Medication) 1 tab PO TID [facility] Last Admin: 03/09/18 09:27 Dose: Not Given Lorazepam (Ativan) 2 mg PO Q8H PRN PRN Reason: anxiety Last Admin: 03/09/18 02:06 Dose: 2 mg Metformin HCl (Glucophage) 500 mg PO DAILY [facility] Oxycodone HCl (Oxycodone Immediate Release Tab) 15 mg PO Q4H PRN PRN Reason: Pain, moderate (4-7) Last Admin: 03/09/18 09:24 Dose: 15 mg Oxycodone HCl (Oxycontin Extended Release Tab) 40 mg PO Q8H PRN PRN Reason: Pain, severe (8-10) Last Admin: 03/09/18 02:06 Dose: 40 mg Pantoprazole Sodium (Protonix Ec Tab) 40 mg PO BID [facility] Potassium Chloride (K-Dur 20 Meq Er Tab) 20 meq PO DAILY [facility] Pregabalin (Lyrica) 150 mg PO BID [facility] Spironolactone (Aldactone) 25 mg PO DAILY [facility] Physical Exam - Constitutional Appears: Well, Non-toxic, No Acute Distress - Extremities Exam Additional comments: Lower extremity focused exam: Vasc: DP/PT pulses palpable 1/4. Temperature gradient warm to cool. CFT < 3 sec to all digits Neuro: Hyperesthesia and allodynia noted to bilateral LE distal to level of ankle Derm: No open lesions, no erythema, no interdigital maceration, no ecchymosis Ortho: Diffuse pain noted to bilateral LE, increased at level of dorsum of feet and digits. Increased tenderness noted to right foot 2nd digit with dorsal dislocation noted at right 2nd MPJ. Hallux abductovalgus deformity noted B/L. Flexible hammertoe deformity noted to bilateral 2nd and 3rd digits Results - Vital Signs Recent Vital Signs: Last Vital Signs Temp 98.7 F 03/09/18 07:34 Pulse 60 03/09/18 07:34 Resp 20 03/09/18 07:34 BP 148/92 H 03/09/18 07:34 Pulse Ox 99 03/09/18 07:34 - Labs Result Diagrams: 03/10/18 07:09 03/10/18 07:09 Labs: Laboratory Results - last 24 hr 03/08/18 03/08/18 03/08/18 15:57 15:57 15:57 WBC 8.8 RBC 4.42 Hgb 11.4 Hct 34.2 MCV 77.5 L MCH 25.9 L MCHC 33.4 RDW 16.4 H Plt Count 297 MPV 8.5 Neut % (Auto) 62.4 Lymph % (Auto) 28.2 [place] % (Auto) 7.9 Eos % (Auto) 0.9 Baso % (Auto) 0.6 Neut # (Auto) 5.5 Lymph # (Auto) 2.5 [place] # (Auto) 0.7 Eos # (Auto) 0.1 Baso # (Auto) 0.1 PT 12.2 INR 1.1 APTT 59 H Sodium 141 Potassium 3.9 Chloride 102 Carbon Dioxide 30 Anion Gap 13 BUN 13 Creatinine 0.6 L Est GFR ( Amer) > 60 Est GFR (Non-Af Amer) > 60 POC Glucose (mg/dL) Random Glucose 106 H Calcium 10.3 Total Bilirubin 0.4 AST 20 ALT 26 Alkaline Phosphatase 101 Total Protein 7.3 Albumin 4.0 Globulin 3.3 Albumin/Globulin Ratio 1.2 Blood Type Antibody Screen 03/08/18 03/08/18 03/09/18 15:57 21:22 07:07 WBC RBC Hgb Hct MCV MCH MCHC RDW Plt Count MPV Neut % (Auto) Lymph % (Auto) [place] % (Auto) Eos % (Auto) Baso % (Auto) Neut # (Auto) Lymph # (Auto) [place] # (Auto) Eos # (Auto) Baso # (Auto) PT INR APTT Sodium Potassium Chloride Carbon Dioxide Anion Gap BUN Creatinine Est GFR ( Amer) Est GFR (Non-Af Amer) POC Glucose (mg/dL) 104 89 Random Glucose Calcium Total Bilirubin AST ALT Alkaline Phosphatase Total Protein Albumin Globulin Albumin/Globulin Ratio Blood Type O POSITIVE Antibody Screen Negative Assessment & Plan - Assessment and Plan (Free Text) Assessment: 62 y/o female with 1) bilateral 2nd and 3rd digit hammertoe deformities with dorsally dislocated 2nd MPJ and 2) bilateral painful hallux valgus deformity Plan: Pt seen and evaluated with attending Dr. Rios X-rays negative for any acute fractures or dislocations EKG,CXR, pre-operative bloodwork in chart Rx arterial duplex to assess blood flow prior to surgical intervention Medical and cardiac clearance requested and appreciated at this time Pt to go to surgery for bilateral bunion and hammertoe repair as outpatient Compression dressings applied to bilateral LE Pt stable for discharge from podiatry standpoint, will be seen as outpatient in same day surgery, likely Tuesday 03/13
[2018-03-09] MEDS ORDERED: Home Med 1 UNIT (Lubiprostone [Amitiza] 24 MCG) PO SCH (10:00)
[2018-03-09] MEDS ORDERED: TIZANIDINE HCL PO SCH (10:00)
[2018-03-09] MEDS: Pantoprazole 40 mg EC Tab PO SCH ×2 (10:17→18:31)
[2018-03-09] MEDS: Potassium Chloride 20 mEq ER Tab PO SCH (10:33)
[2018-03-09] MEDS: AMITIZA 24 MG PO SCH ×2 (10:33→18:36)
[2018-03-09 11:12] LABS: BASO # 0.1 K/uL (0.0-0.2); BASO % 0.7 % (0.0-2.0); EOS # 0.1 K/uL (0.0-0.7); EOS % 0.7 % (0.0-4.0); HEMOGLOBIN 11.8 g/dL (11.0-16.0); LYMPH # 2.2 K/uL (1.0-4.3); LYMPH % 20.5 % (20.0-40.0); MEAN CELL VOLUME 78.4 fL (81.0-99.0); MEAN CORPUSCULAR HGB CONC 33.1 g/dL (33.0-37.0); MEAN PLATELET VOLUME 9.1 fL (7.2-11.7); MONO # 0.6 K/uL (0.0-0.8); MONO % 5.7 % (0.0-10.0); NEUT # 7.9 K/uL (1.8-7.0); NEUT % 72.4 % (50.0-75.0); NRBC % 0.1 % (0.0-2.0); RBC 4.53 Mil/uL (3.80-5.20); RED CELL DISTRIBUTION WIDTH 16.4 % (11.5-14.5); WHITE BLOOD COUNT 10.9 K/uL (4.8-10.8)
--- NOTE | 2018-03-09 11:43 | RAD ---
HISTORY: COMPARISON: 03/08/2018. TECHNIQUE: Chest PA and lateral FINDINGS: LINES AND TUBES: The right subclavian line terminates in the SVC. LUNG AND PLEURA: The lungs are well inflated. There is mild right basilar atelectasis. There is mild pulmonary venous congestion. No pleural effusion or pneumothorax. HEART AND MEDIASTINUM: There is mild cardiomegaly. The hilar and mediastinal contours are within normal limits. SKELETAL STRUCTURES: The bony structures are within normal limits for the patient's age. VISUALIZED UPPER ABDOMEN: Normal. OTHER FINDINGS: None. IMPRESSION: Mild cardiomegaly and pulmonary venous congestion. Right basilar atelectasis.
[2018-03-09 11:52] LABS: ALB/GLOB RATIO 1.3 (1.0-2.1); ALBUMIN 4.2 g/dL (3.5-5.0); ALT/SGPT 25 U/L (9-52); AST/SGOT 28 U/L (14-36); BLOOD UREA NITROGEN 13 mg/dL (7-17); CALCIUM 10.4 mg/dl (8.6-10.4); GFR AFRICAN-AMERICAN > 60; GFR NON-AFRICAN AMERICAN > 60
--- NOTE | 2018-03-09 13:44 | VASCLAB ---
Date of service: 03/09/2018 STUDY DESCRIPTION: HISTORY: Pain in limb PRIORS: 07/22/2017, normal. TECHNIQUE: Pulse volume recording waveforms and segmental pressures of bilateral lower extremities at multiple levels were obtained. Ankle Brachial Indices (ABIs) were calculated. Report prepared by Carlos Enrique Villanueva, EJ, RVT RIGHT LOWER EXTREMITY: * Brachial artery: Pressure - 107 mmHg. * Low thigh: Pressure - mmHg: Ratio - PVR waveform: Pulsatile * Calf: Pressure - mmHg: Ratio - PVR waveform: Pulsatile * Posterior tibial Artery: Pressure - 139 mmHg: Ratio - 1.24 PVR waveform: Pulsatile * Dorsalis pedis Artery: Pressure - 142 mmHg: Ratio - 1.27 PVR waveform: Pulsatile Ankle brachial index (MEGAN): 1.27 LEFT LOWER EXTREMITY: * Brachial artery: Pressure - 112 mmHg. * Low thigh: Pressure - mmHg: Ratio - PVR waveform: Pulsatile * Calf: Pressure - mmHg: Ratio - PVR waveform: Pulsatile * Posterior tibial Artery: Pressure - 152 mmHg: Ratio - 1.36 PVR waveform: Pulsatile * Dorsalis pedis Artery: Pressure - 143 mmHg: Ratio - 1.28 PVR waveform: Pulsatile Ankle brachial index (MEGAN): 1.36 OTHER FINDINGS: IMPRESSION: Right: There was no evidence of hemodynamically significant arterial insufficiency in the right lower extremity. Left: There was no evidence of hemodynamically significant arterial insufficiency in the left lower extremity.
--- NOTE | 2018-03-09 20:06 | CP.PCM.CON ---
History of Present Illness - History of Present Illness History of Present Illness: I was asked to see patient by Dr Weldon. Patient is a 62 year old female with PMH HTN, hyperchoelsterolemia who presents with erin and lex. She will require surgery. She denies chest pain or dyspnea. She denies palpitations. Review of Systems - Constitutional Constitutional: absent: As Per HPI, Anorexia, Chills, Daytime Sleepiness, Excessive Sweating, Fatigue, Fever, Frequent Falls, Headache, Increased Appetite , Lethargy, Malaise, Night Sweats, Snoring, Sleep Apnea, Weight Gain, Weight Loss, Weakness, Other - EENT Eyes: absent: As Per HPI, Blind Spots, Blurred Vision, Change in Vision, Decreased Night Vision, Diplopia, Discharge, Dry Eye, Exophthalmos, Floaters, Irritation, Itchy Eyes, Loss of Peripheral Vision, Pain, Photophobia, Requires Corrective Lenses, Sees Flashes, Spots in Vision, Tunnel Vision, Other Visual Disturbances, Loss of Vision, Other Ears: absent: As Per HPI, Decreased Hearing, Ear Discharge, Ear Pain, Tinnitus, Abnormal Hearing, Disequilibrium, Dizziness, Other Nose/Mouth/Throat: absent: As Per HPI, Epistaxis, Nasal Congestion, Nasal Discharge, Nasal Obstruction, Nasal Trauma, Nose Pain, Post Nasal Drip, Sinus Pain, Sinus Pressure, Bleeding Gums, Change in Voice, Dental Pain, Dry Mouth, Dysphagia, Halitosis, Hoarsness, Lip Swelling, Mouth Lesions, Mouth Pain, Odynophagia, Sore Throat, Throat Swelling, Tongue Swelling, Facial Pain, Neck Pain, Neck Mass, Other - Cardiovascular Cardiovascular: absent: As Per HPI, Acrocyanosis, Chest Pain, Chest Pain at Rest , Chest Pain with Activity, Claudication, Diaphoresis, Dyspnea, Dyspnea on Exertion, Edema, Irregular Heart Rhythm, Pain Radiating to Arm/Neck/Jaw, Leg Edema, Leg Ulcers, Lightheadedness, Orthopnea, Palpitations, Paroxysmal Nocturnal Dyspnea, Pedal Edema, Radiating Pain, Rapid Heart Rate, Slow Heart Rate, Syncope, Other - Respiratory Respiratory: absent: As Per HPI, Cough, Dyspnea, Hemoptysis, Dyspnea on Exertion , Wheezing, Snoring, Stridor, Pain on Inspiration, Chest Congestion, Excessive Mucous Production, Change in Mucous Color, Pain with Coughing, Other - Gastrointestinal Gastrointestinal: absent: As Per HPI, Abdominal Pain, Belching, Bloating, Change in Bowel Habits, Change in Stool Character, Coffee Ground Emesis, Constipation, Cramping, Diarrhea, Dyspepsia, Dysphagia, Early Satiety, Excessive Flatus, Fecal Incontinence, Heartburn, Hematemesis, Hematochezia, Loose Stools, Melena, Nausea, Odynophagia, Temesmus, Vomiting, Other - Genitourinary Genitourinary: absent: As Per HPI, Change in Urinary Stream, Difficulty Urinating, Dysuria, Flank Pain, Hematuria, Pyuria, Nocturia, Urinary Incontinence, Urinary Frequency, Urinary Hesitance, Urinary Urgency, Voiding Freq/Small Amts, Freq UTI, Hx Renal/Bladder Calculi, Hx /Renal Surgery, Bladder Distension, Other - Musculoskeletal Musculoskeletal: absent: As Per HPI, Abnormal Gait, Arthralgias, Atrophy, Back Pain, Deformity, Joint Swelling, Limited Range of Motion, Loss of Height, Muscle Cramps, Muscle Weakness, Myalgias, Neck Pain, Numbness, Radiating Pain into Limb, Stiffness, Tingling, Other - Integumentary Integumentary: absent: As Per HPI, Acne, Alopecia, Bleeding Lesions, Change in Hair, Change in Nails, Change in Pigmentation, Changing Lesions, Dry Skin, Erythema, Furuncle, Hirsutism, Lesions, New Lesions, Non-Healing Lesions, Photosensitivity, Pruritus, Rash, Skin Pain, Skin Ulcer, Sores, Striae, Swelling , Unusual Bruising, Wounds, Jaundice, Other - Neurological Neurological: absent: As Per HPI, Abnormal Gait, Abnormal Hearing, Abnormal Movements, Abnormal Speech, Behavioral Changes, Burning Sensations, Confusion, Convulsions, Disequilibrium, Dizziness, Numbness, Focal Weakness, Frequent Falls , Headaches, Lack of Coordination, Loss of Vision, Memory Loss, Paresthesias, Radicular Pain, Restless Legs, Sensory Deficit, Syncope, Tingling, Tremor, Vertigo, Weakness, Other Visual Disturbances, Other - Psychiatric Psychiatric: absent: As Per HPI, Abnormal Sleep Pattern, Anhedonia, Anxiety, Auditory Hallucinations, Behavioral Changes, Change in Appetite, Change in Libido, Confusion, Depression, Difficulty Concentrating, Hallucinations, Homicidal Ideation, Hopelessness, Irritability, Memory Loss, Mood Swings, Panic Attacks, Paranoia, Suicidal Ideation, Visual Hallucinations, Tactile Hallucinations, Other - Endocrine Endocrine: absent: As Per HPI, Change in Body Appearance, Change in Libido, Cold Intolorance, Deepening of Voice, Excessive Sweating, Fatigue, Flushing, Heat Intolorance, Increase in Ring/Shoe/Hat Size, Palpitations, Polydipsia, Polyphagia, Polyuria, Other - Hematologic/Lymphatic Hematologic: absent: As Per HPI, Easy Bleeding, Easy Bruising, Lymphadenopathy, Other Past Patient History - Infectious Disease Hx of Infectious Diseases: None - Tetanus Immunizations Tetanus Immunization: Unknown - Past Medical History & Family History Past Medical History?: Yes - Past Social History Smoking Status: Never Smoked - CARDIAC Hx Congestive Heart Failure: Yes Hx Hypercholesterolemia: Yes Hx Hypertension: Yes - PULMONARY Hx Chronic Obstructive Pulmonary Disease (COPD): Yes - NEUROLOGICAL Hx Neurological Disorder: Yes Other/Comment: Reflex Sympathetic Dystrophy - HEENT Hx HEENT Problems: Yes Hx Cataracts: Yes - RENAL Hx Chronic Kidney Disease: No - ENDOCRINE/METABOLIC Hx Hypothyroidism: Yes - HEMATOLOGICAL/ONCOLOGICAL Hx Blood Disorders: Yes Hx Blood Transfusions: Yes - INTEGUMENTARY Hx Dermatological Problems: Yes Hx Cellulitis: Yes - MUSCULOSKELETAL/RHEUMATOLOGICAL Hx Falls: Yes - GASTROINTESTINAL Hx Gall Bladder Disease: Yes (Gallstone) - GENITOURINARY/GYNECOLOGICAL Hx Genitourinary Disorders: No - PSYCHIATRIC Hx Substance Use: No - SURGICAL HISTORY Hx Surgeries: Yes Hx Cardiac Catheterization: Yes (X6) Hx Eye Surgery: Yes (CATARACT SX BOTH W/LENS) Hx Vascular Access Device: Yes (Port A Cath) Other/Comment: Hiatus Hernia repair, DIMPLE, Buniectomy R foot, operation L foot ( type unknown). - ANESTHESIA Hx Anesthesia: Yes Hx Anesthesia Reactions: No Hx Malignant Hyperthermia: No Meds Allergies/Adverse Reactions: Allergies Allergy/AdvReac Type Severity Reaction Status Date / Time Sulfa (Sulfonamide Allergy Intermediate ANAPHYLAXIS Verified 03/08/18 15:17 Antibiotics) - Medications Medications: Current Medications Albuterol/Ipratropium (Duoneb 3 Mg/0.5 Mg (3 Ml) Ud) 3 ml INH RQ6 PRN PRN Reason: Shortness of Breath Docusate Sodium (Colace) 100 mg PO BID [facility] Last Admin: 03/09/18 18:30 Dose: 100 mg Estrogens Conjugated (Premarin) 0.625 mg PO DAILY [facility] Last Admin: 03/09/18 10:32 Dose: 0.625 mg Fluoxetine HCl (Prozac) 20 mg PO Q8H [facility] Last Admin: 03/09/18 13:32 Dose: 20 mg Furosemide (Lasix) 20 mg PO BID [facility] Last Admin: 03/09/18 18:31 Dose: 20 mg Heparin Sodium (Porcine) (Heparin) 5,000 units SC Q12 [facility] Home Med (Patient's Own Medication) 1 tab PO BID [facility] Last Admin: 03/09/18 18:36 Dose: 1 tab Home Med (Patient's Own Medication) 1 tab PO TID [facility] Last Admin: 03/09/18 18:36 Dose: 1 tab Lorazepam (Ativan) 2 mg PO Q8H PRN PRN Reason: anxiety Last Admin: 03/09/18 02:06 Dose: 2 mg Metformin HCl (Glucophage) 500 mg PO DAILY [facility] Oxycodone HCl (Oxycodone Immediate Release Tab) 15 mg PO Q4H PRN PRN Reason: Pain, moderate (4-7) Last Admin: 03/09/18 16:13 Dose: 15 mg Oxycodone HCl (Oxycontin Extended Release Tab) 40 mg PO Q8H PRN PRN Reason: Pain, severe (8-10) Last Admin: 03/09/18 10:16 Dose: 40 mg Pantoprazole Sodium (Protonix Ec Tab) 40 mg PO BID [facility] Last Admin: 03/09/18 18:31 Dose: 40 mg Potassium Chloride (K-Dur 20 Meq Er Tab) 20 meq PO DAILY [facility] Last Admin: 03/09/18 10:33 Dose: 20 meq Pregabalin (Lyrica) 300 mg PO [facility] Pregabalin (Lyrica) 150 mg PO BID [facility] Last Admin: 03/09/18 18:35 Dose: 150 mg Spironolactone (Aldactone) 25 mg PO DAILY [facility] Last Admin: 03/09/18 10:32 Dose: 25 mg Physical Exam - Constitutional Appears: Non-toxic - Head Exam Head Exam: NORMAL INSPECTION - Eye Exam Eye Exam: Normal appearance - ENT Exam ENT Exam: Mucous Membranes Moist - Neck Exam Neck exam: Positive for: Full Rom - Respiratory Exam Respiratory Exam: Decreased Breath Sounds - Cardiovascular Exam Cardiovascular Exam: REGULAR RHYTHM - GI/Abdominal Exam GI & Abdominal Exam: Normal Bowel Sounds - Rectal Exam Rectal Exam: Deferred - Extremities Exam Additional comments: bilateral feet deformites - Back Exam Back exam: NORMAL INSPECTION - Neurological Exam Neurological exam: Alert, Oriented x3 - Psychiatric Exam Psychiatric exam: Normal Affect - Skin Skin Exam: Normal Color Results - Vital Signs Recent Vital Signs: Last Vital Signs Temp 98.8 F 03/09/18 16:56 Pulse 70 03/09/18 16:56 Resp 20 03/09/18 16:56 BP 108/65 03/09/18 18:31 Pulse Ox 99 03/09/18 16:56 - Labs Result Diagrams: 03/09/18 10:58 03/09/18 10:58 Labs: Laboratory Results - last 24 hr 03/08/18 03/09/18 03/09/18 21:22 07:07 10:58 WBC 10.9 H RBC 4.53 Hgb 11.8 Hct 35.6 MCV 78.4 L MCH 26.0 L MCHC 33.1 RDW 16.4 H Plt Count 319 MPV 9.1 Neut % (Auto) 72.4 Lymph % (Auto) 20.5 [place] % (Auto) 5.7 Eos % (Auto) 0.7 Baso % (Auto) 0.7 Neut # (Auto) 7.9 H Lymph # (Auto) 2.2 [place] # (Auto) 0.6 Eos # (Auto) 0.1 Baso # (Auto) 0.1 Sodium Potassium Chloride Carbon Dioxide Anion Gap BUN Creatinine Est GFR ( Amer) Est GFR (Non-Af Amer) POC Glucose (mg/dL) 104 89 Random Glucose Calcium Phosphorus Magnesium Total Bilirubin AST ALT Alkaline Phosphatase Total Protein Albumin Globulin Albumin/Globulin Ratio 03/09/18 03/09/18 03/09/18 10:58 11:51 16:30 WBC RBC Hgb Hct MCV MCH MCHC RDW Plt Count MPV Neut % (Auto) Lymph % (Auto) [place] % (Auto) Eos % (Auto) Baso % (Auto) Neut # (Auto) Lymph # (Auto) [place] # (Auto) Eos # (Auto) Baso # (Auto) Sodium 141 Potassium 4.0 Chloride 100 Carbon Dioxide 28 Anion Gap 17 BUN 13 Creatinine 0.6 L Est GFR ( Amer) > 60 Est GFR (Non-Af Amer) > 60 POC Glucose (mg/dL) 105 118 H Random Glucose 143 H Calcium 10.4 Phosphorus 3.0 Magnesium 1.9 Total Bilirubin 0.3 AST 28 ALT 25 Alkaline Phosphatase 107 Total Protein 7.4 Albumin 4.2 Globulin 3.2 Albumin/Globulin Ratio 1.3 - EKG Data EKG Interpreted by: Myself EKG shows normal: Sinus rhythm Assessment & Plan (1) Hyperlipidemia Assessment and Plan: statin therapy Status: Chronic (2) Hypertension Assessment and Plan: will control blood pressure. there is no cardiovascular contrainidcation to the surgery. left ventricular function is nromal/ Status: Chronic Priority: Medium
[2018-03-09 22:02] LABS: LEGIONELLA AG URINE NEGATIVE (NEGATIVE)
[2018-03-10] MEDS: oxyCODONE 40 mg ER Tab (oxyCONTIN) PO PRN ×2 (01:35→11:47)
[2018-03-10] MEDS: oxyCODONE 5 mg Immediate Release Tab PO PRN ×2 (04:06→10:07)
[2018-03-10 07:25] LABS: BASO # 0.1 K/uL (0.0-0.2); BASO % 0.6 % (0.0-2.0); EOS # 0.1 K/uL (0.0-0.7); HEMOGLOBIN 11.1 g/dL (11.0-16.0); LYMPH # 2.7 K/uL (1.0-4.3); LYMPH % 29.5 % (20.0-40.0); MEAN CELL VOLUME 77.9 fL (81.0-99.0); MEAN CORPUSCULAR HEMOGLOBIN 25.9 pg (27.0-31.0); MEAN CORPUSCULAR HGB CONC 33.3 g/dL (33.0-37.0); MEAN PLATELET VOLUME 8.8 fL (7.2-11.7); MONO # 0.8 K/uL (0.0-0.8); MONO % 8.3 % (0.0-10.0); NEUT # 5.6 K/uL (1.8-7.0); NEUT % 60.6 % (50.0-75.0); NRBC % 0.1 % (0.0-2.0); RBC 4.29 Mil/uL (3.80-5.20); RED CELL DISTRIBUTION WIDTH 16.5 % (11.5-14.5); WHITE BLOOD COUNT 9.3 K/uL (4.8-10.8)
[2018-03-10 07:36] LABS: ALB/GLOB RATIO 1.3 (1.0-2.1); ALT/SGPT 23 U/L (9-52); AST/SGOT 18 U/L (14-36); BLOOD UREA NITROGEN 13 mg/dL (7-17); CALCIUM 10.5 mg/dl (8.6-10.4); GFR AFRICAN-AMERICAN > 60; GFR NON-AFRICAN AMERICAN > 60; HDL CHOLESTEROL 56 mg/dL (30-70)
[2018-03-10 07:50] LABS: LDL CHOLESTEROL 199 mg/dL (0-129)
[2018-03-10 08:03] VITALS: PULSE 69; TEMP 98.1
--- NOTE | 2018-03-10 09:12 | CP.PCM.PN ---
Subjective - Date & Time of Evaluation Date of Evaluation: 03/10/18 Time of Evaluation: 07:00 - Subjective Subjective: PGY2 Progress Note for Dr. Bobby Patient seen and examined at bedside. Patient says she is feeling a little better than yesterday. Patient denies any chest pain, shortness of breath, abdominal pain, nausea, vomiting, constipation, or diarrhea. Objective - Vital Signs/Intake and Output Vital Signs (last 24 hours): Temp Pulse Resp BP Pulse Ox 98.1 F 69 20 155/71 H 96 03/10/18 07:58 03/10/18 07:58 03/10/18 07:58 03/10/18 07:58 03/10/18 07:58 Intake and Output: 03/10/18 03/10/18 06:59 18:59 Intake Total 700 Balance 700 - Medications Medications: Current Medications Albuterol/Ipratropium (Duoneb 3 Mg/0.5 Mg (3 Ml) Ud) 3 ml INH RQ6 PRN PRN Reason: Shortness of Breath Docusate Sodium (Colace) 100 mg PO BID [facility] Last Admin: 03/09/18 18:30 Dose: 100 mg Estrogens Conjugated (Premarin) 0.625 mg PO DAILY [facility] Last Admin: 03/09/18 10:32 Dose: 0.625 mg Fluoxetine HCl (Prozac) 20 mg PO Q8H [facility] Last Admin: 03/10/18 06:29 Dose: 20 mg Furosemide (Lasix) 20 mg PO BID [facility] Last Admin: 03/09/18 18:31 Dose: 20 mg Heparin Sodium (Porcine) (Heparin) 5,000 units SC Q12 [facility] Last Admin: 03/09/18 22:22 Dose: 5,000 units Home Med (Patient's Own Medication) 1 tab PO BID [facility] Last Admin: 03/09/18 18:36 Dose: 1 tab Home Med (Patient's Own Medication) 1 tab PO TID [facility] Last Admin: 03/09/18 18:36 Dose: 1 tab Lorazepam (Ativan) 2 mg PO Q8H PRN PRN Reason: anxiety Last Admin: 03/10/18 00:10 Dose: 2 mg Metformin HCl (Glucophage) 500 mg PO DAILY [facility] Oxycodone HCl (Oxycodone Immediate Release Tab) 15 mg PO Q4H PRN PRN Reason: Pain, moderate (4-7) Last Admin: 03/10/18 04:06 Dose: 15 mg Oxycodone HCl (Oxycontin Extended Release Tab) 40 mg PO Q8H PRN PRN Reason: Pain, severe (8-10) Last Admin: 03/10/18 01:35 Dose: 40 mg Pantoprazole Sodium (Protonix Ec Tab) 40 mg PO BID [facility] Last Admin: 03/09/18 18:31 Dose: 40 mg Potassium Chloride (K-Dur 20 Meq Er Tab) 20 meq PO DAILY [facility] Last Admin: 03/09/18 10:33 Dose: 20 meq Pregabalin (Lyrica) 300 mg PO HS [facility] Last Admin: 03/09/18 22:20 Dose: 300 mg Pregabalin (Lyrica) 150 mg PO BID [facility] Last Admin: 03/09/18 18:35 Dose: 150 mg Spironolactone (Aldactone) 25 mg PO DAILY [facility] Last Admin: 03/09/18 10:32 Dose: 25 mg - Labs Labs: 03/10/18 07:09 03/10/18 07:09 PT 12.2 SECONDS (9.7-12.2) 03/08/18 15:57 INR 1.1 03/08/18 15:57 APTT 59 SECONDS (21-34) H 03/08/18 15:57 - Constitutional Appears: Non-toxic, No Acute Distress - Head Exam Head Exam: ATRAUMATIC, NORMAL INSPECTION, NORMOCEPHALIC - Eye Exam Eye Exam: EOMI, Normal appearance - ENT Exam ENT Exam: Mucous Membranes Moist - Respiratory Exam Respiratory Exam: Clear to Ausculation Bilateral, NORMAL BREATHING PATTERN - Cardiovascular Exam Cardiovascular Exam: REGULAR RHYTHM, RRR, +S1, +S2, Murmur - GI/Abdominal Exam GI & Abdominal Exam: Soft, Normal Bowel Sounds. absent: Tenderness Additional comments: abdominal hernia - Extremities Exam Extremities Exam: Tenderness. absent: Pedal Edema Additional comments: hammertoe deformity, L foot charcot foot, b/l foot tenderness - Back Exam Back Exam: NORMAL INSPECTION - Neurological Exam Neurological Exam: Alert, Awake, Oriented x3 - Psychiatric Exam Psychiatric exam: Normal Affect, Normal Mood - Skin Skin Exam: Intact, Normal Color, Warm Assessment and Plan - Assessment and Plan (Free Text) Assessment: Pulmonary Venous Congestion Cxray (03/08/18): new right basilar pulmonary opacity, r/o pneumonia Cxray (03/09/18): mild cardiomegaly and pulmonary venous congestion, right basilar atelectasis f/u mycoplasma, strep pneumo legionella: negative Bunion, Hammertoes, Dislocated 2nd MPJ Foot xray: multiple osteotomies 2nd through 5th left metatarsals. Severe pes planus of the left foot. Midfoot deformity at talocalcaneal and talonavicular articulations. LE u/s: no evidence of hemodynamically significant arterial insufficiency in the left lower lobe Dr. Rios on consult, help appreciated possible surgery on 03/11/[address] Viera consulted for cardiac clearance prior to surgery- no cardiovascular contraindication to surgery Lasix 20mg po BID Aldactone 25mg po daily Kdur 20meq po daily Reflex Sympathetic Dystrophy Oxycodone 15mg q4h Oxycontin 40mg po q8h Lyrica 300mg po HS Lyrica 150mg po at 6am and 12pm Tizanidine 4mg TID Docusate 100mg po BID Amitiza 24mcg po BID Depression Prozac 20mg po q8h Ativan 2mg po q8h prn HLD Crestor 10mg po HS Triglycerides 215 Cholesterol 308 LDL 199 HDL 56 Diabetes Mellitus II HgA1C: 10.5 metformin held due to possible surgery home medication Byetta 10mcg BID NF accuchecks ISS- low Hypothyroidism as per patient's pharmacy: Synthroid 100mcg daily TSH: .78 Free T4: 1.09 Prophylaxis Protonix 40mg po BID SCDs PT/OT patient to go to [facility] upon discharge
[2018-03-10] MEDS: AMITIZA 24 MG PO SCH (10:05)
[2018-03-10] MEDS: Potassium Chloride 20 mEq ER Tab PO SCH (10:06)
[2018-03-10] MEDS: Pantoprazole 40 mg EC Tab PO SCH (10:06)
[2018-03-10 10:12] VITALS: BP 151/71
[2018-03-10] MEDS ORDERED: Patient's Own Medication - Tablet/Capusle PO SCH (10:35)
[2018-03-10] MEDS: TIZANIDINE 4MG PO SCH (10:40)
[2018-03-10 10:44] LABS: N MENINGITIS ACY/W135 NEGATIVE (NEGATIVE); N MENINGITIS B/ECOLI K1 NEGATIVE (NEGATIVE); STREP PNEUMONIAE NEGATIVE (NEGATIVE); STREPTOCOCCUS B NEGATIVE (NEGATIVE)
[2018-03-10] MEDS ORDERED: (Novolin R) Insulin Human Regular 100 units/ml vial SC SCH (11:30)
[2018-03-10 14:26] LABS: INR 1.1; PROTHROMBIN TIME 11.8 SECONDS (9.7-12.2)
--- NOTE | 2018-03-10 15:48 | CP.PCM.DIS ---
Provider - Provider Date of Admission: 03/08/18 17:13 Attending physician: Artis Weldon MD Primary care physician: "Patient is a 62 year old F with PMHx of diastolic CHF, reflex sympathetic dystrophy, DMII, bradycardia, rheumatic fever, MVP, hypothyroidism, asthma, HLD , charcot foot, abdominal hernia who presented for bilateral foot pain. Patient was dropped out of a wheelchair 9 months ago and had many broken bones in her left foot. Patient has been following up with Dr. Rios for surgical intervention. Today patient is still in a lot of pain. Patient denies any chest pain, shortness of breath, abdominal pain, nausea, vomiting, constipation, or diarrhea." Patient had a foot xray which showed multiple osteotomies 2nd through 5th left metatarsals. Severe pes planus of the left foot. Midfoot deformity at talocalcaneal and talonavicular articulations. LE u/s showed no evidence of hemodynamically significant arterial insufficiency in the left lower lobe. For patient's diastolic CHF patient was continued on Lasix 20mg po BID, Aldactone 25mg po daily, Kdur 20meq po daily. Dr. Viera was consulted for cardiac clearance prior to surgery- no cardiovascular contraindication to surgery. Cxray was done which showed new right basilar pulmonary opacity, r/o pneumonia. Follow up chest rozina showed mild cardiomegaly and pulmonary venous congestion, right basilar atelectasis. For patient's RSD patient was continued on home medications Oxycodone 15mg q4h, Oxycontin 40mg po q8h, Lyrica 300mg po HS, Lyrica 150mg po at 6am and 12pm, Tizanidine 4mg TID, Docusate 100mg po BID, and Amitiza 24mcg po BID. For patient's depression patient was continued on Prozac 20mg po q8h and Ativan 2mg po q8h prn. Patient was placed on Crestor 10mg po HS for HLD. Lipid panel was: Triglycerides 215, Cholesterol 308, LDL 199, HDL 56. Patient's diabetes was managed with insulin sliding scale. HgA1c was 10.5. Patient's hypothyroidism was managed with home medication Synthroid 100mcg. TSH : .78 Free T4: 1.09 Patient was stable and determined to have the foot surgery done as an outpatient. Upon discharge pain was well managed. Consults: Dr. Rios (podiatry) Time Spent in preparation of Discharge (in minutes): 45 Hospital Course - Lab Results Lab Results: Most Recent Lab Values WBC 9.3 K/uL (4.8-10.8) 03/10/18 07:09 RBC 4.29 Mil/uL (3.80-5.20) 03/10/18 07:09 Hgb 11.1 g/dL (11.0-16.0) 03/10/18 07:09 Hct 33.4 % (34.0-47.0) L 03/10/18 07:09 MCV 77.9 fL (81.0-99.0) L 03/10/18 07:09 MCH 25.9 pg (27.0-31.0) L 03/10/18 07:09 MCHC 33.3 g/dL (33.0-37.0) 03/10/18 07:09 RDW 16.5 % (11.5-14.5) H 03/10/18 07:09 Plt Count 287 K/uL (130-400) 03/10/18 07:09 MPV 8.8 fL (7.2-11.7) 03/10/18 07:09 Neut % (Auto) 60.6 % (50.0-75.0) 03/10/18 07:09 Lymph % (Auto) 29.5 % (20.0-40.0) 03/10/18 07:09 Twiggs % (Auto) 8.3 % (0.0-10.0) 03/10/18 07:09 Eos % (Auto) 1.0 % (0.0-4.0) 03/10/18 07:09 Baso % (Auto) 0.6 % (0.0-2.0) 03/10/18 07:09 Neut # (Auto) 5.6 K/uL (1.8-7.0) 03/10/18 07:09 Lymph # (Auto) 2.7 K/uL (1.0-4.3) 03/10/18 07:09 Twiggs # (Auto) 0.8 K/uL (0.0-0.8) 03/10/18 07:09 Eos # (Auto) 0.1 K/uL (0.0-0.7) 03/10/18 07:09 Baso # (Auto) 0.1 K/uL (0.0-0.2) 03/10/18 07:09 PT 11.8 SECONDS (9.7-12.2) 03/10/18 14:13 INR 1.1 03/10/18 14:13 APTT 38 SECONDS (21-34) H D 03/10/18 14:13 Sodium 142 mmol/L (132-148) 03/10/18 07:09 Potassium 3.7 mmol/L (3.6-5.2) 03/10/18 07:09 Chloride 103 mmol/L (98-107) 03/10/18 07:09 Carbon Dioxide 28 mmol/L (22-30) 03/10/18 07:09 Anion Gap 15 (10-20) 03/10/18 07:09 BUN 13 mg/dL (7-17) 03/10/18 07:09 Creatinine 0.6 mg/dL (0.7-1.2) L 03/10/18 07:09 Est GFR ( Amer) > 60 03/10/18 07:09 Est GFR (Non-Af Amer) > 60 03/10/18 07:09 POC Glucose (mg/dL) 128 mg/dL (65-110) H 03/10/18 11:01 Random Glucose 98 mg/dL (65-105) 03/10/18 07:09 Hemoglobin A1c 5.9 % (4.2-6.5) 03/10/18 07:09 Calcium 10.5 mg/dl (8.6-10.4) H 03/10/18 07:09 Phosphorus 2.7 mg/dL (2.5-4.5) 03/10/18 07:09 Magnesium 1.9 mg/dL (1.6-2.3) 03/10/18 07:09 Total Bilirubin 0.4 mg/dL (0.2-1.3) 03/10/18 07:09 AST 18 U/L (14-36) 03/10/18 07:09 ALT 23 U/L (9-52) 03/10/18 07:09 Alkaline Phosphatase 109 U/L (38-126) 03/10/18 07:09 Total Protein 7.2 g/dL (6.3-8.3) 03/10/18 07:09 Albumin 4.0 g/dL (3.5-5.0) 03/10/18 07:09 Globulin 3.2 gm/dL (2.2-3.9) 03/10/18 07:09 Albumin/Globulin Ratio 1.3 (1.0-2.1) 03/10/18 07:09 Triglycerides 215 mg/dL (0-149) H D 03/10/18 07:09 Cholesterol 308 mg/dL (0-199) H 03/10/18 07:09 LDL Cholesterol Direct 199 mg/dL (0-129) H 03/10/18 07:09 HDL Cholesterol 56 mg/dL (30-70) 03/10/18 07:09 Free T4 1.09 ng/dL (0.78-2.19) 03/10/18 07:09 TSH 3rd Generation 0.78 mIU/L (0.46-4.68) 03/10/18 07:09 H.influenzae Type B Ag Negative (NEGATIVE) 03/09/18 21:32 Ur L.pneumophila Ag Negative (NEGATIVE) 03/09/18 21:32 N.meningitidis ACY/W135 Negative (NEGATIVE) 03/09/18 21:32 N.meningi B/E.coli K1 Ag Negative (NEGATIVE) 03/09/18 21:32 Group B Strep Antigen Negative (NEGATIVE) 03/09/18 21:32 S. pneumoniae Antigen Negative (NEGATIVE) 03/09/18 21:32 Blood Type O POSITIVE 03/08/18 15:57 Antibody Screen Negative 03/08/18 15:57 Discharge Exam - Additional Findings Additional findings: - Constitutional Appears: Non-toxic, No Acute Distress - Head Exam Head Exam: ATRAUMATIC, NORMAL INSPECTION, NORMOCEPHALIC - Eye Exam Eye Exam: EOMI, Normal appearance - ENT Exam ENT Exam: Mucous Membranes Moist - Respiratory Exam Respiratory Exam: Clear to Ausculation Bilateral, NORMAL BREATHING PATTERN - Cardiovascular Exam Cardiovascular Exam: REGULAR RHYTHM, RRR, +S1, +S2, Murmur - GI/Abdominal Exam GI & Abdominal Exam: Soft, Normal Bowel Sounds. absent: Tenderness Additional comments: abdominal hernia - Extremities Exam Extremities Exam: Tenderness. absent: Pedal Edema Additional comments: hammertoe deformity, L foot charcot foot, b/l foot tenderness - Back Exam Back Exam: NORMAL INSPECTION - Neurological Exam Neurological Exam: Alert, Awake, Oriented x3 - Psychiatric Exam Psychiatric exam: Normal Affect, Normal Mood - Skin Skin Exam: Intact, Normal Color, Warm Discharge Plan - Follow Up Plan Condition: GOOD Disposition: HOME/ ROUTINE Instructions: Heart Failure, Adult (DC), High Blood Pressure (DC), Coronary Heart Disease (DC) Additional Instructions: Patient stable for discharge as per Dr. Bobby and Dr. Rios. Patient to continue all home medications. Patient scheduled to have same day surgery on 03/13/18 at [facility], [place]. Patient to follow up with Dr. Weldon within 2 weeks. Patient to return to Emergency Room if symptoms return. Patient explained instructions who understands and agrees. Referrals: Artis Weldon MD [Staff Provider] - Teo Rios DPM [Staff Provider] -
[2018-03-11] MEDS ORDERED: Levothyroxine 100 MCG TAB PO SCH (06:30)
[2018-03-13 06:35] VITALS: O2SAT 98
--- NOTE | 2018-03-13 21:26 | CARD ---
APPROVED REPORT EKG Measurement Heart [id number] <Conclusion> Sinus bradycardia Moderate voltage criteria for LVH, may be normal variant Borderline ECG
== END 2018-03-10 16:05 | disposition home or self-care (01) | DRG 74 ==
LOC: C.ER 14:55 → C.9E 17:13 → C.3T 19:15
PROVIDERS: ADMIT Internal Medicine Pulmonary Disease; ATTEND Internal Medicine Pulmonary Disease
DX: G90.523 Complex regional pain syndrome I of lower limb, bilateral (principal); I50.30 Unspecified diastolic (congestive) heart failure; M20.42 Other hammer toe(s) (acquired), left foot; M20.5X1 Other deformities of toe(s) (acquired), right foot; M20.41 Other hammer toe(s) (acquired), right foot; M20.5X2 Other deformities of toe(s) (acquired), left foot; W01.0XXA Fall on same level from slipping, tripping and stumbling without subsequent striking against object, initial encounter; Z91.81 History of falling; E78.00 Pure hypercholesterolemia, unspecified; E03.9 Hypothyroidism, unspecified; F32.9 Major depressive disorder, single episode, unspecified; I11.0 Hypertensive heart disease with heart failure; I25.10 Atherosclerotic heart disease of native coronary artery without angina pectoris; J44.9 Chronic obstructive pulmonary disease, unspecified; I34.1 Nonrheumatic mitral (valve) prolapse; K21.9 Gastro-esophageal reflux disease without esophagitis; E11.610 Type 2 diabetes mellitus with diabetic neuropathic arthropathy; Z79.4 Long term (current) use of insulin

== ENCOUNTER 2018-03-13 05:38 | Inpatient (IN) | payer MEDICARE, OTHER ==
[2018-03-13 05:57] VITALS: BMI 38.7
[2018-03-13 06:48] LABS: INR 1.1
[2018-03-13] MEDS ORDERED: Lidocaine 2% MPF (5 ml) Inj ONE (07:37)
[2018-03-13] MEDS ORDERED: Bupivacaine 0.25% 20 ML INJ IJ ONE ×3 (07:37→10:50)
[2018-03-13] MEDS ORDERED: Midazolam 2 MG/2 ML VIAL ONE ×3 (08:16→09:50)
[2018-03-13] MEDS ORDERED: Propofol 10 mg/ml Inj (20 ML) ONE ×2 (08:16→08:46)
[2018-03-13] MEDS ORDERED: ceFAZolin IV 2 gm in Dextrose 2 GM/50 ML BAG IVPB ONE (08:26)
[2018-03-13] MEDS ORDERED: Morphine 4 MG/ML VIAL ONE ×2 (08:37→09:46)
[2018-03-13] MEDS ORDERED: Propofol 10 mg/ml 1,000 MG/100 ML VIAL ONE (08:49)
[2018-03-13] MEDS ORDERED: KETAMINE HCL 50 MG/ML SYRINGE ONE (09:12)
--- NOTE | 2018-03-13 10:37 | PCM.SURG1 ---
Surgeon's Initial Post Op Note - Surgeon's Notes Surgeon: Dr. Rios Spindle Repairer: Ryan Knowles PGY2, Ryan Eaton PGY2 Type of Anesthesia: IV Sedation, Local (20cc 1:1 mixture 2% lidocaine plain & 0.25% marcaine plain; 10cc 0.25% marcaine plain) Anesthesia Administered By: Dr. Delaney Pre-Operative Diagnosis: 1) Left foot HAV. 2) Left foot 2nd digit HT. 3) Right foot 2nd MPJ dislocation Operative Findings: See operative report. Materials: 0.62 k-wire, 0.45 k-wire x2, 3-0 vicryl, 4-0 vicryl, 3-0 nylon. Injectables: 10cc 0.25% marcaine plain Post-Operative Diagnosis: Same as above Operation Performed: 1) Left foot Medina arthroplasty. 2) Left foot 2nd digit PIPJ arthroplasty. 3) Left foot 2nd digit flexor tenotomy. 4) Right foot 2nd digit capsulotomy. 5) Right foot 2nd digit extensor tenotomy Specimen/Specimens Removed: 1) Left foot hallucal proximal phalanx. 2) Left foot 2nd proximal phalanx Estimated Blood Loss: EBL {In ML}: 1 Blood Products Given: N/A Drains Used: No Drains Post-Op Condition: Good Date of Surgery/Procedure: 03/13/18 Time of Surgery/Procedure: 10:40
[2018-03-13] MEDS: HYDROmorphone 0.5 mg/0.5 ml ISec IVP PRN ×3 (10:43→11:38)
--- NOTE | 2018-03-13 11:21 | PCM.ANESB2 ---
Popliteal Nerve Block - Popliteal Nerve Block Date of Procedure: 03/13/18 Anesthesiologist: Elaina Pre-Procedure Diagnosis: Right 2nd digit Hammertoe, CRPS Post-Procedure Diagnosis: Right 2nd digit Hammertoe, CRPS Procedure Performed: Popliteal Nerve Block Right - Procedure Popliteal Nerve Block: This procedure was explained to the patient that it is for post-operative pain management. Consent was obtained after a thorough discussion with the patient regarding the benefits and possible complications of local anesthetic block of the sciatic nerve at the popliteal level. The patient was brought to the operating room and standard monitors are applied. Time-out was held with the circulating nurse to confirm the correct surgery and the appropriate block. After applying oxygen by nasal cannula and administering IV Sedation, patient's operative leg was gently raised and supported and the groove in between the biceps femoris and vastus lateralis muscles was carefully palpated. The skin approximately 8cm above the popliteal crease was then marked. The ultrasound transducer was then applied to the posterior thigh approximately 8cm above the popliteal crease in the transverse plane and the sciatic nerve before its division was visualized lateral to the popliteal artery and in between the bicep femoris and semimembranosus/semitendinosus muscles. After identification, the lateral portion of the thigh was prepped with Betadine solution three times and Lidocaine 1% was injected subcutaneously for topical anesthesia. At this point, a # 21 gauge Stimuplex insulated 4 inch needle was inserted into pre-marked area and advanced in a perpendicular direction. The needle was inserted above the ultrasound transducer in-plane towards the sciatic nerve in a [id number] direction. Needle advancement was performed carefully under direct ultrasound visualization. Nerve stimulator was used and dorsiflexion of the right foot was elicited at a current of 1 MA. After repeated negative aspiration, 20 cc of 0.25 % bupivicaine was injected. Under ultrasound guidance the local anesthetics were observed surrounding sciatic nerve . The needle was removed intact and sterile dressing was applied. The patient tolerated the popliteal nerve block well with stable vital signs.
[2018-03-13] MEDS ORDERED: Oxycodone/Acetaminophen 5/325 mg Tab PO PRN ×2 (12:00)
--- NOTE | 2018-03-13 15:20 | CP.PCM.HP ---
History of Present Illness - History of Present Illness History of Present Illness: CC: post foot surgery Patient is a 62 year old F with PMHx of diastolic CHF, reflex sympathetic dystrophy, DMII, bradycardia, rheumatic fever, MVP, hypothyroidism, asthma, HLD , charcot foot, ventral hernia who presents for bilateral foot pain. Patient was dropped out of a wheelchair 9 months ago and had many broken bones in her left foot. Patient has been following up with Dr. Rios for surgical intervention. Today patient is post op after 1) Left foot Medina arthroplasty. 2) Left foot 2nd digit PIPJ arthroplasty. 3) Left foot 2nd digit flexor tenotomy. 4) Right foot 2nd digit capsulotomy. 5) Right foot 2nd digit extensor tenotomy Patient has a lot of foot pain and rates it 9/10. Patient denies any chest pain , shortness of breath, abdominal pain, nausea, vomiting, constipation, or diarrhea. Patient was able to tolerate her lunch and is urinating normally. PMHx: diastolic CHF, reflex sympathetic dystrophy, DMII, bradycardia, rheumatic fever, MVP, hypothyroidism, asthma, HLD, charcot foot, ventral hernia Psurg: r bunionectomy 1990, r foot neuroma removal 1994, b/l foot surgery 2016, hiatal hernia surgery 2001, hysterectomy 2002 Social: denies alcohol, drugs, tobacco use Famhx: mom: heart dx, stents; maternal aunts: stents; maternal grandfather: [place] at 52 Dad: Lung cancer at 71 Present on Admission - Present on Admission Any Indicators Present on Admission: No History of DVT/PE: No History of Uncontrolled Diabetes: Yes Urinary Catheter: No Decubitus Ulcer Present: No Review of Systems - Constitutional Constitutional: absent: Anorexia, Chills, Fever - EENT Eyes: absent: Blurred Vision Nose/Mouth/Throat: absent: Nasal Congestion, Sore Throat - Cardiovascular Cardiovascular: absent: Chest Pain, Dyspnea - Respiratory Respiratory: absent: Cough, Chest Congestion - Gastrointestinal Gastrointestinal: absent: Abdominal Pain, Constipation, Diarrhea, Nausea, Vomiting - Genitourinary Genitourinary: absent: Difficulty Urinating, Dysuria - Musculoskeletal Additional comments: foot pain - Integumentary Integumentary: absent: Rash Past Patient History - Infectious Disease Hx of Infectious Diseases: None - Tetanus Immunizations Tetanus Immunization: Unknown - Past Medical History & Family History Past Medical History?: Yes - Past Social History Smoking Status: Never Smoked - CARDIAC Hx Cardiac Disorders: Yes Hx Angina: Yes Hx Circulatory Problems: Yes Hx Congestive Heart Failure: Yes Hx Hypercholesterolemia: Yes Hx Hypertension: Yes Hx Hypotension: Yes Hx Mitral Valve Prolapse: Yes Hx Peripheral Edema: Yes Other/Comment: Restrictive cardiomyopathy. HX: MITRAL VALVE DSEASE - PULMONARY Hx Respiratory Disorders: Yes Hx Asthma: Yes Hx Bronchitis: Yes Hx Chronic Obstructive Pulmonary Disease (COPD): Yes Hx Pulmonary Embolism: Yes Other/Comment: oxygen dependet @ 4L continuosly. - NEUROLOGICAL Hx Neurological Disorder: Yes Other/Comment: Reflex Sympathetic Dystrophy - HEENT Hx HEENT Problems: Yes Hx Cataracts: Yes - ENDOCRINE/METABOLIC Hx Endocrine Disorders: Yes Hx Diabetes Mellitus Type 2: Yes Hx Hypothyroidism: Yes - HEMATOLOGICAL/ONCOLOGICAL Hx Blood Disorders: Yes Hx Blood Transfusions: Yes Hx Blood Transfusion Reaction: No - INTEGUMENTARY Hx Dermatological Problems: Yes Hx Cellulitis: Yes - MUSCULOSKELETAL/RHEUMATOLOGICAL Hx Musculoskeletal Disorders: Yes Hx Arthritis: Yes Hx Back Pain: Yes Hx Falls: Yes Hx Fractures: Yes (DISPLACED METATarSAL FRACTURE 2ND LEFT) Hx Osteomyelitis: Yes (right foot, third toe) Hx Spinal Stenosis: Yes Hx Unsteady Gait: Yes Other/Comment: RSD,CERVICAL AND EPIDURAL INJECTIONS - GASTROINTESTINAL Hx Gastrointestinal Disorders: Yes Hx Gall Bladder Disease: Yes (Gallstone) Hx Gastroesophageal Reflux: Yes Other/Comment: abdominal hernia - PSYCHIATRIC Hx Psychophysiologic Disorder: Yes Hx Anxiety: Yes Hx Depression: Yes Hx Substance Use: No - SURGICAL HISTORY Hx Surgeries: Yes Hx Cardiac Catheterization: Yes (X6) Hx Eye Surgery: Yes (CATARACT SX BOTH W/LENS) Hx Herniorrhaphy: Yes (Umbilical Hernia repair) Hx Hysterectomy: Yes Hx Musculoskeletal Surgery: Yes (rt. fot surgery) Hx Vascular Access Device: Yes (Port A Cath) Other/Comment: Hiatus Hernia repair, DIMPLE, Buniectomy R foot, operation L foot ( type unknown). - ANESTHESIA Hx Anesthesia: Yes Hx Anesthesia Reactions: No Hx Malignant Hyperthermia: No Meds Allergies/Adverse Reactions: Allergies Allergy/AdvReac Type Severity Reaction Status Date / Time Sulfa (Sulfonamide Allergy Intermediate ANAPHYLAXIS Verified 03/08/18 15:17 Antibiotics) Physical Exam - Constitutional Appears: Non-toxic, No Acute Distress - Head Exam Head Exam: ATRAUMATIC, NORMAL INSPECTION, NORMOCEPHALIC - Eye Exam Eye Exam: EOMI, Normal appearance - ENT Exam ENT Exam: Mucous Membranes Moist - Respiratory Exam Respiratory Exam: Clear to Auscultation Bilateral, NORMAL BREATHING PATTERN - Cardiovascular Exam Cardiovascular Exam: REGULAR RHYTHM, RRR, +S1, +S2, Systolic Murmur - GI/Abdominal Exam GI & Abdominal Exam: Normal Bowel Sounds, Soft. absent: Tenderness Additional comments: large ventral hernia - Extremities Exam Extremities exam: Positive for: normal inspection, tenderness. Negative for: pedal edema Additional comments: b/l feet wrapped in c/d/i dressing - Back Exam Back exam: NORMAL INSPECTION - Neurological Exam Neurological exam: Alert, Oriented x3 - Psychiatric Exam Psychiatric exam: Normal Affect, Normal Mood - Skin Skin Exam: Normal Color, Warm Additional comments: b/l feet wrapped in c/d/i dressing post op Results - Vital Signs Recent Vital Signs: Last Vital Signs Temp 97.2 F L 03/13/18 12:00 Pulse 66 03/13/18 12:00 Resp 16 03/13/18 12:00 BP 138/55 L 03/13/18 12:00 Pulse Ox 100 03/13/18 12:00 - Labs Labs: Laboratory Results - last 24 hr 03/13/18 03/13/18 03/13/18 06:42 06:50 11:52 PT 12.0 INR 1.1 APTT 37 H POC Glucose (mg/dL) 89 83 Assessment & Plan - Assessment and Plan (Free Text) Assessment: Post OP day #0 s/p bilateral foot surgeries 1) Left foot Medina arthroplasty. 2) Left foot 2nd digit PIPJ arthroplasty. 3 ) Left foot 2nd digit flexor tenotomy. 4) Right foot 2nd digit capsulotomy. 5 ) Right foot 2nd digit extensor tenotomy Dr Rios consulted, help appreciated Oxycodone 15mg q4h prn Oxycontin 40mg po q8h Diastolic CHF Lasix 20mg po BID Aldactone 25mg po daily Kdur 20meq po daily Reflex Sympathetic Dystrophy Oxycodone 15mg q4h prn Oxycontin 40mg po q8h Lyrica 300mg po HS Lyrica 150mg po at 6am and 12pm Tizanidine 4mg TID Docusate 100mg po BID Amitiza 24mcg po BID Depression Prozac 20mg po q8h Ativan 2mg po q8h prn HLD Crestor 10mg po HS Triglycerides 215 Cholesterol 308 LDL 199 HDL 56 Diabetes Mellitus II HgA1C: 10.5 metformin held due to surgery home medication Byetta 10mcg BID NF accuchecks ISS- low hypoglycemia protocol Hypothyroidism Synthroid 100mcg daily TSH: .78 Free T4: 1.09 Prophylaxis Protonix 40mg po BID PT/OT patient to go to [facility] upon discharge Discussed with Dr. Esteves
[2018-03-13] MEDS ORDERED: oxyCODONE 40 mg ER Tab (oxyCONTIN) PO SCH (16:00)
[2018-03-13 16:23] VITALS: RESP 20
[2018-03-13] MEDS ORDERED: Glucagon Recombinant 1 mg Inj IM PRN (16:24)
[2018-03-13] MEDS ORDERED: Dextrose 50% SYRINGE Inj (50 ml) IV PRN (16:24)
--- NOTE | 2018-03-13 16:48 | RAD ---
Date of service: 03/13/2018 PROCEDURE: Bilateral Feet Radiographs. HISTORY: s/p bilateral foot surgery COMPARISON: Preoperative examination 03/08/2018 FINDINGS: BONES: Right Foot: Marcelina wires identified 2nd digit and 2nd metatarsal Status post placement of Marcelina wires 2nd and 1st digit. Postoperative changes related to osteotomies also identified. JOINTS: Right Foot: Pes planus deformity. Left Foot: Symmetrical pes planus deformity. SOFT TISSUES: Right Foot: Normal. Left Foot: Normal. OTHER FINDINGS: Symmetrical plantar calcaneal spurs. IMPRESSION: Satisfactory postoperative status
[2018-03-13] MEDS: oxyCODONE 40 mg ER Tab (oxyCONTIN) PO SCH (17:42)
[2018-03-13] MEDS: (Novolin R) Insulin Human Regular 100 units/ml vial SC SCH ×2 (17:53→22:12)
[2018-03-13] MEDS ORDERED: Home Med 1 UNIT (Lubiprostone [Amitiza] 24 MCG) PO SCH (18:00)
[2018-03-13] MEDS: oxyCODONE 5 mg Immediate Release Tab PO PRN ×2 (19:37→23:54)
[2018-03-13] MEDS: Pantoprazole 40 mg EC Tab PO SCH (22:11)
[2018-03-14] MEDS: oxyCODONE 40 mg ER Tab (oxyCONTIN) PO SCH ×3 (02:08→17:27)
[2018-03-14] MEDS: oxyCODONE 5 mg Immediate Release Tab PO PRN ×3 (04:53→19:49)
[2018-03-14] MEDS: Levothyroxine 100 MCG TAB PO SCH (06:21)
[2018-03-14] MEDS: (Novolin R) Insulin Human Regular 100 units/ml vial SC SCH ×4 (07:48→21:36)
[2018-03-14 08:41] LABS: BASO % 0.4 % (0.0-2.0); EOS # 0.1 K/uL (0.0-0.7); EOS % 1.2 % (0.0-4.0); HEMOGLOBIN 11.6 g/dL (11.0-16.0); LYMPH # 2.6 K/uL (1.0-4.3); LYMPH % 26.2 % (20.0-40.0); MEAN CELL VOLUME 78.7 fL (81.0-99.0); MEAN CORPUSCULAR HEMOGLOBIN 26.4 pg (27.0-31.0); MEAN CORPUSCULAR HGB CONC 33.6 g/dL (33.0-37.0); MEAN PLATELET VOLUME 9.2 fL (7.2-11.7); MONO # 0.8 K/uL (0.0-0.8); MONO % 8.3 % (0.0-10.0); NEUT # 6.2 K/uL (1.8-7.0); NEUT % 63.9 % (50.0-75.0); RBC 4.4 Mil/uL (3.80-5.20); RED CELL DISTRIBUTION WIDTH 15.9 % (11.5-14.5); WHITE BLOOD COUNT 9.8 K/uL (4.8-10.8)
[2018-03-14 09:08] LABS: BLOOD UREA NITROGEN 15 mg/dL (7-17); GFR AFRICAN-AMERICAN > 60; GFR NON-AFRICAN AMERICAN > 60
[2018-03-14 09:09] LABS: ALB/GLOB RATIO 1.2 (1.0-2.1); ALT/SGPT 19 U/L (9-52); AST/SGOT 22 U/L (14-36); CALCIUM 10.2 mg/dl (8.6-10.4)
[2018-03-14] MEDS: Pantoprazole 40 mg EC Tab PO SCH ×2 (09:10→17:30)
--- NOTE | 2018-03-14 10:36 | CP.PCM.PN ---
Subjective - Date & Time of Evaluation Date of Evaluation: 03/14/18 Time of Evaluation: 10:45 - Subjective Subjective: PGY 3 Medicine Resident- Dr. Weldon's service Patient seen and examined in no acute distress. Patient s/p Left Arthroplasty and Right Capsulotomy and Tenotomy. Patient seen ambulating with the assistance of physical therapist. Patient requested to be discharged back to her home following workup in-house. Patient denies significant complaints at this time. Objective - Vital Signs/Intake and Output Vital Signs (last 24 hours): Temp Pulse Resp BP Pulse Ox 98.1 F 67 20 131/70 96 03/14/18 07:00 03/14/18 07:00 03/14/18 07:00 03/14/18 07:00 03/14/18 07:00 Intake and Output: 03/14/18 03/14/18 06:59 18:59 Intake Total 300 Balance 300 - Medications Medications: Current Medications Acetaminophen (Tylenol 325mg Tab) 650 mg PO Q6 PRN PRN Reason: Pain, Mild (1-3) Dextrose (Dextrose 50% Inj) 0 ml IV STAT PRN; Protocol PRN Reason: Hypoglycemia Protocol Dextrose (Glutose 15) 0 gm PO ONCE PRN; Protocol PRN Reason: Hypoglycemia Protocol Docusate Sodium (Colace) 100 mg PO BID REPLACED BY [facility] Last Admin: 03/14/18 09:10 Dose: 100 mg Fluoxetine HCl (Prozac) 20 mg PO Q8H REPLACED BY [facility] Last Admin: 03/14/18 07:03 Dose: 20 mg Glucagon (Glucagen Diagnostic Kit) 0 mg IM STAT PRN; Protocol PRN Reason: Hypoglycemia Protocol Home Med (Lubiprostone [Amitiza]) 24 mcg PO BID REPLACED BY [facility] Home Med (Tizanidine Hcl [Zanaflex]) 4 mg PO TID REPLACED BY [facility] Dextrose (Dextrose 5% In Water 1000 Ml) 1,000 mls @ 0 mls/hr IV .Q0M PRN; Protocol; Per Protocol PRN Reason: Hypoglycemia Protocol Insulin Human Regular (Novolin R) 0 unit SC ACHS REPLACED BY [facility] PRN Reason: Protocol Last Admin: 03/14/18 07:48 Dose: Not Given Levothyroxine Sodium (Synthroid) 100 mcg PO DAILY@0630 REPLACED BY [facility] Last Admin: 03/14/18 06:21 Dose: 100 mcg Lorazepam (Ativan) 2 mg PO Q8H PRN PRN Reason: anxiety Last Admin: 03/14/18 02:45 Dose: 2 mg Oxycodone HCl (Oxycodone Immediate Release Tab) 15 mg PO Q4H PRN PRN Reason: Pain, moderate (4-7) Last Admin: 03/14/18 04:53 Dose: 15 mg Oxycodone HCl (Oxycontin Extended Release Tab) 40 mg PO Q8H REPLACED BY [facility] Last Admin: 03/14/18 09:50 Dose: 40 mg Pantoprazole Sodium (Protonix Ec Tab) 40 mg PO BID REPLACED BY [facility] Last Admin: 03/14/18 09:10 Dose: 40 mg Pregabalin (Lyrica) 300 mg PO HS REPLACED BY [facility] Last Admin: 03/13/18 22:10 Dose: 300 mg Pregabalin (Lyrica) 150 mg PO BID REPLACED BY [facility] Last Admin: 03/14/18 10:35 Dose: Not Given Spironolactone (Aldactone) 25 mg PO DAILY REPLACED BY [facility] Last Admin: 03/14/18 09:09 Dose: 25 mg - Labs Labs: 03/14/18 08:27 03/14/18 08:27 PT 12.0 SECONDS (9.7-12.2) 03/13/18 06:50 INR 1.1 03/13/18 06:50 APTT 37 SECONDS (21-34) H 03/13/18 06:50 - Constitutional Appears: Non-toxic, No Acute Distress - Head Exam Head Exam: ATRAUMATIC, NORMAL INSPECTION - Eye Exam Eye Exam: EOMI, PERRL Pupil Exam: NORMAL ACCOMODATION - ENT Exam ENT Exam: Mucous Membranes Moist - Neck Exam Neck Exam: Full ROM - Respiratory Exam Respiratory Exam: NORMAL BREATHING PATTERN - GI/Abdominal Exam GI & Abdominal Exam: Soft - Extremities Exam Extremities Exam: Full ROM, Normal Capillary Refill - Back Exam Back Exam: Full ROM, NORMAL INSPECTION - Neurological Exam Neurological Exam: Alert, Awake, Oriented x3 - Psychiatric Exam Psychiatric exam: Normal Affect, Normal Mood - Skin Skin Exam: Dry, Warm Assessment and Plan - Assessment and Plan (Free Text) Assessment: Post OP day #1 s/p Left Arthroplasty and Right Capsulotomy and Tenotomy 1) Left foot Medina arthroplasty. 2) Left foot 2nd digit PIPJ arthroplasty. 3 ) Left foot 2nd digit flexor tenotomy. 4) Right foot 2nd digit capsulotomy. 5 ) Right foot 2nd digit extensor tenotomy Dr Rios consulted. F/U recommendations Oxycodone 15mg q4h prn Oxycontin 40mg po q8h Physical Therapy on board- Recommendations for TCU at this time. Will have PT reassess to see if home therapy is a possibility. Diastolic CHF Echo from 02/17 EF 76.1%. Normal LV wall function and systolic function with LVEF of 65-70% Aldactone 25mg po daily Reflex Sympathetic Dystrophy Oxycodone 15mg q4h prn Oxycontin 40mg po q8h Lyrica 300mg po HS Lyrica 150mg po at 6am and 12pm Tizanidine 4mg TID Docusate 100mg po BID Amitiza 24mcg po BID ( Home Medication) Depression Prozac 20mg po q8h Ativan 2mg po q8h prn HLD Crestor 10mg po HS Triglycerides 215 Cholesterol 308 LDL 199 HDL 56 Diabetes Mellitus II HgA1C: 10.5 metformin held due to surgery home medication Byetta 10mcg BID NF accuchecks ISS-increased to high dosing hypoglycemia protocol Hypothyroidism Synthroid 100mcg daily TSH: .78 Free T4: 1.09 Prophylaxis Protonix 40mg po BID Heparin SC Q12 restarted Ambulate as tolerated Discussed with attending physician. Management and planning per Dr. Weldon
[2018-03-15] MEDS: oxyCODONE 40 mg ER Tab (oxyCONTIN) PO SCH ×2 (01:27→09:07)
[2018-03-15] MEDS: oxyCODONE 5 mg Immediate Release Tab PO PRN ×3 (02:42→14:36)
[2018-03-15] MEDS: Levothyroxine 100 MCG TAB PO SCH (07:05)
[2018-03-15] MEDS: (Novolin R) Insulin Human Regular 100 units/ml vial SC SCH ×2 (07:53→11:45)
--- NOTE | 2018-03-15 08:01 | CP.PCM.PN ---
Subjective - Date & Time of Evaluation Date of Evaluation: 03/15/18 (\) Time of Evaluation: 07:40 - Subjective Subjective: PGY 3 Med Note- Dr. Weldon's service Patient seen and examined in no acute distress. Patient sleeping in bed. Per nursing, patient has been requesting increased medication dosing. On later evaluation, patient awake and looking forward to going home. Patient states that she would rather be in her own comfortable setting. She has some foot pain though she states that it is tolerable. Objective - Vital Signs/Intake and Output Vital Signs (last 24 hours): Temp Pulse Resp BP Pulse Ox 97.8 F 61 20 135/85 99 03/15/18 07:41 03/15/18 07:41 03/15/18 07:41 03/15/18 07:41 03/15/18 07:41 Intake and Output: 03/15/18 03/15/18 06:59 18:59 Intake Total 300 Balance 300 - Medications Medications: Current Medications Acetaminophen (Tylenol 325mg Tab) 650 mg PO Q6 PRN PRN Reason: Pain, Mild (1-3) Last Admin: 03/15/18 01:45 Dose: 650 mg Dextrose (Dextrose 50% Inj) 0 ml IV STAT PRN; Protocol PRN Reason: Hypoglycemia Protocol Dextrose (Glutose 15) 0 gm PO ONCE PRN; Protocol PRN Reason: Hypoglycemia Protocol Docusate Sodium (Colace) 100 mg PO BID COUNTS INCLUDE 234 BEDS AT THE [facility] Last Admin: 03/14/18 17:27 Dose: 100 mg Fluoxetine HCl (Prozac) 20 mg PO Q8H COUNTS INCLUDE 234 BEDS AT THE [facility] Last Admin: 03/15/18 07:05 Dose: 20 mg Glucagon (Glucagen Diagnostic Kit) 0 mg IM STAT PRN; Protocol PRN Reason: Hypoglycemia Protocol Heparin Sodium (Porcine) (Heparin) 5,000 units SC Q12 COUNTS INCLUDE 234 BEDS AT THE [facility] Last Admin: 03/14/18 22:08 Dose: 5,000 units Dextrose (Dextrose 5% In Water 1000 Ml) 1,000 mls @ 0 mls/hr IV .Q0M PRN; Protocol; Per Protocol PRN Reason: Hypoglycemia Protocol Insulin Human Regular (Novolin R) 0 unit SC ACHS COUNTS INCLUDE 234 BEDS AT THE [facility] PRN Reason: Protocol Last Admin: 03/15/18 07:53 Dose: Not Given Levothyroxine Sodium (Synthroid) 100 mcg PO DAILY@0630 COUNTS INCLUDE 234 BEDS AT THE [facility] Last Admin: 03/15/18 07:05 Dose: 100 mcg Lorazepam (Ativan) 2 mg PO Q8H PRN PRN Reason: anxiety Last Admin: 03/15/18 07:15 Dose: 2 mg Oxycodone HCl (Oxycodone Immediate Release Tab) 15 mg PO Q4H PRN PRN Reason: Pain, moderate (4-7) Last Admin: 03/15/18 02:42 Dose: 15 mg Oxycodone HCl (Oxycontin Extended Release Tab) 40 mg PO Q8H COUNTS INCLUDE 234 BEDS AT THE [facility] Last Admin: 03/15/18 01:27 Dose: 40 mg Pantoprazole Sodium (Protonix Ec Tab) 40 mg PO BID COUNTS INCLUDE 234 BEDS AT THE [facility] Last Admin: 03/14/18 17:30 Dose: 40 mg Pregabalin (Lyrica) 300 mg PO HS COUNTS INCLUDE 234 BEDS AT THE [facility] Last Admin: 03/14/18 22:09 Dose: 300 mg Pregabalin (Lyrica) 150 mg PO BID COUNTS INCLUDE 234 BEDS AT THE [facility] Last Admin: 03/14/18 17:28 Dose: 150 mg Spironolactone (Aldactone) 25 mg PO DAILY COUNTS INCLUDE 234 BEDS AT THE [facility] Last Admin: 03/14/18 09:09 Dose: 25 mg - Labs Labs: 03/14/18 08:27 03/14/18 08:27 PT 12.0 SECONDS (9.7-12.2) 03/13/18 06:50 INR 1.1 03/13/18 06:50 APTT 37 SECONDS (21-34) H 03/13/18 06:50 - Constitutional Appears: Non-toxic, No Acute Distress - Head Exam Head Exam: ATRAUMATIC, NORMAL INSPECTION - Eye Exam Eye Exam: EOMI, Normal appearance - ENT Exam ENT Exam: Mucous Membranes Moist - Neck Exam Neck Exam: Full ROM - Respiratory Exam Respiratory Exam: NORMAL BREATHING PATTERN - Cardiovascular Exam Cardiovascular Exam: +S1, +S2 - GI/Abdominal Exam GI & Abdominal Exam: Soft, Normal Bowel Sounds - Extremities Exam Extremities Exam: Normal Capillary Refill Additional comments: bilateral feet in dressing bandages - Back Exam Back Exam: NORMAL INSPECTION - Neurological Exam Neurological Exam: Alert, Awake, Oriented x3 - Psychiatric Exam Psychiatric exam: Normal Affect, Normal Mood Assessment and Plan - Assessment and Plan (Free Text) Assessment: Post OP day #1 s/p Left Arthroplasty and Right Capsulotomy and Tenotomy 1) Left foot Medina arthroplasty. 2) Left foot 2nd digit PIPJ arthroplasty. 3 ) Left foot 2nd digit flexor tenotomy. 4) Right foot 2nd digit capsulotomy. 5 ) Right foot 2nd digit extensor tenotomy Dr Rios consulted. F/U recommendations Oxycodone 15mg q4h prn Oxycontin 40mg po q8h Physical Therapy on board- Recommendations to go to TCU, but patient wants to go home. Will be receiving visiting home services. Diastolic CHF Echo from 02/17 EF 76.1%. Normal LV wall function and systolic function with LVEF of 65-70% Aldactone 25mg po daily Reflex Sympathetic Dystrophy Oxycodone 15mg q4h prn Oxycontin 40mg po q8h Lyrica 300mg po HS Lyrica 150mg po at 6am and 12pm Tizanidine 4mg TID Docusate 100mg po BID Amitiza 24mcg po BID ( Home Medication) Depression Prozac 20mg po q8h Ativan 2mg po q8h prn HLD Crestor 10mg po HS Triglycerides 215 Cholesterol 308 LDL 199 HDL 56 Diabetes Mellitus II HgA1C: 10.5 metformin held due to surgery Home medication Byetta 10mcg BID NF ccuchecks ISS-increased to high dosing hypoglycemia protocol Hypothyroidism Synthroid 100mcg daily TSH: .78 Free T4: 1.09 Prophylaxis Protonix 40mg po BID Heparin SC Q12 restarted Ambulate as tolerated DC Instructions Patient is medically stable for discharge home. Patient to follow up with Dr. Weldon within one week. Patient to follow up with Dr. Rios within a week for follow up management. Patient should not remove dressings until follow up podiatry visit. Patient to resume home meds and follow up with Pain management doctor. Patient to be provided with a prescription for home physical therapy as well as visiting nurse services. If symptoms return, go to the emergency room. Instructions explained to patient who is aware. Discussed with attending physician. Management and planning per Dr. Weldon.
[2018-03-15] MEDS: Pantoprazole 40 mg EC Tab PO SCH (09:07)
[2018-03-15 16:14] VITALS: BP 139/83; PULSE 73; TEMP 98.4; O2SAT 97
--- NOTE | 2018-03-18 06:33 | OP ---
Copied To: Kate Knowles DPM Attending MD: Teo Rios DPM PROCEDURE DATE: 03/13/2018 PREOPERATIVE DIAGNOSES: 1. Left foot hallux valgus. 2. Left foot second digit hammertoe. 3. Right foot second metatarsophalangeal joint dislocation. NAME OF PROCEDURES: 1. Left foot hallux first metatarsophalangeal joint arthroplasty. 2. Left foot second digit proximal interphalangeal joint arthroplasty. 3. Left foot second digit flexor tenotomy. 4. Right foot second digit metatarsophalangeal joint capsulotomy. 5. Right foot second digit extensor tenotomy. SURGEON: Teo Rios DPM ASSISTANTS: Kate Knowles DPM, PGY-2 and Mario Eaton DPM, PGY-2. ANESTHESIOLOGIST: Roney Delaney DO ANESTHESIA: IV sedation plus local. INDICATIONS: The patient is a 62-year-old female with the above diagnoses. The patient has exhausted conservative treatment at this time and now requests surgical intervention. The patient signed the consent after careful explanation of risks, benefits, complications and alternatives for the surgical procedure. No guarantees were given or implied. N.p.o. status was confirmed prior to taking the patient to the operating room. PREPARATION: The patient was brought into the operating room and placed on the operating room table in a supine position. Two well-padded pneumatic ankle tourniquets were placed on the patient's ankle in the supramalleolar position. After induction of IV sedation, the patient received a total of 20 mL of a 1:1 mixture of 2% lidocaine plain and 0.25% Marcaine plain in toto in a local block fashion to the left foot fourth metatarsal phalangeal joint and second toe as well as the right foot second toe. Once local anesthesia was achieved, both feet were then prepped and draped in the usual sterile manner. An Esmarch was utilized to exsanguinate the patient's left foot, and the pneumatic ankle tourniquet was inflated to 250 mmHg at the time the procedure began. PROCEDURE #1: Left foot hallux first metatarsophalangeal joint arthroplasty. Attention was then directed to the dorsomedial aspect of the patient's first metatarsophalangeal joint at the left foot. At this time, an approximately 6-cm linear longitudinal incision was made medial and parallel extensor hallucis longus involving the contour of the deformity. The incision was deepened to the subcutaneous tissues with care being taken to identify and retract all vital and neurovascular structures. All bleeders were cauterized and ligated as necessary. At this time, linear periosteal and capsular incisions were made overlying the first metatarsophalangeal joint. The periosteal and capsular structures were then carefully dissected free of their osseous attachments and reflected medially and laterally. Thus exposing the head of the metatarsal as well as the base of the proximal phalanx to the operative field. Next utilizing a sagittal bone saw, the dorsal and medial prominences were resected and passed from the operative field. Attention was then directed to the base of the proximal phalanx at the hallux. At this time, approximately one third of the proximal aspect of the proximal phalanx was resected using a sagittal bone saw. The wound was then flushed with copious amounts of sterile normal saline. Next, a 0.062-inch K wire was driven through the remaining aspect of the proximal phalanx exiting the distal aspect of the digit. The K-wire was then retrograded proximally through the first metatarsal head and neck. Assessment of the deformity at this time was done under fluoroscopic guidance and noted to be excellent. The wound was then flushed with copious amounts of sterile normal saline. The periosteum and capsule structures were reapproximated and coapted using 2-0 Vicryl sutures. Subcuticular tissues were reapproximated and coapted using 4-0 Vicryl sutures, and skin was reapproximated and coapted with 3-0 nylon sutures. PROCEDURE #2: Left foot second digit proximal interphalangeal joint arthroplasty. At this time, attention was directed to the dorsal aspect of the left foot proximal interphalangeal joint of the second digit. A 3-cm linear longitudinal incision was made at the level of the proximal interphalangeal joint extending down to the level of the tendon. At this time, a sterile 15-blade was used to perform a transverse extensor tenotomy. Care was taken to identify and retract all vital and neurovascular structures. At this time, the proximal phalanx was freed of all of its vascular and ligamentous attachments both medially and laterally at the level of the proximal interphalangeal joint. Next using the sagittal saw, the head of the proximal phalanx of the left foot second digit was then resected and passed from the operative field. A 0.045-inch K wire was then driven through the medial and distal phalanges exiting the foot. At this point, 0.045-inch K wire was then retrograded proximally into the remainder of the proximal phalanx. Correction was best under fluoroscopic guidance and noted to be excellent. The wound was then flushed with copious amounts of sterile normal saline. The extensor tendon at this time was then repaired with 3-0 Vicryl sutures. The skin was then reapproximated with 3-0 nylon sutures. PROCEDURE #3: Left foot second digit flexor tenotomy. At this time, attention was then directed to the dorsal aspect of the left foot second metatarsophalangeal joint. It was noted to be contracted in the plantar direction. A 2-cm linear longitudinal incision was made at the level of the left foot second metatarsophalangeal joint. At this time, the second metatarsophalangeal joint was distracted allowing us to identify the deep flexor tendon. At this time, a flexor tenotomy was performed. Correction of the contraction at the left foot metatarsophalangeal joint was noted at this time. The wound was flushed with sterile normal saline. Deep tissues were reapproximated with 4-0 Vicryl and skin was reapproximated with 3-0 . PROCEDURE #4: Right foot second digit capsulotomy. Attention was then directed to the right foot at this time. The ankle tourniquet noted to the left ankle was deflated at this time. An Esmarch was then used to exsanguinate the right foot, and pneumatic ankle tourniquet was inflated to 250 mmHg. We then directed our attention to the right foot second metatarsophalangeal joint. It was noted that the second toe was dorsally dislocated. At this time, a 2-cm linear longitudinal incision was made at the level of the second MPJ. At this time, a sterile 15-blade was utilized to perform a transverse capsulotomy at the level of the MPJ. Care was taken to identify and retract all vital and neurovascular structures. All medial and lateral ligamentous structures were left in place to allow for transverse stability of the digit and metatarsal. Upon completion of the capsulotomy, the digit dorsal dislocation was noted to improve. PROCEDURE #5: Right foot second digit extensor tenotomy. At this time, we then directed our attention to the dorsal extensor tendon noted at the right foot second metatarsophalangeal joint, which was noted to be sore and providing a dorsal force at the level of the MPJ. At this time, a sterile #15-blade was utilized to perform a transverse extensor tenotomy at the level of the second metatarsophalangeal joint. Upon completion of this procedure, it is of note that the second digit reduced to its anatomic correct position. The wound was then flushed with sterile saline. Deep tissues were reapproximated with 3-0 Vicryl, and skin reapproximated with 3-0 nylon. At this time, all surgical wounds were dressed with Xeroform, dry sterile dressing and an Juan bandage to bilateral feet. The attending was present during the entirety of this case. POSTOPERATIVE CONDITION: The patient tolerated the anesthesia and procedure well and was escorted to the recovery room and vital signs stable and neurovascular status intact to bilateral lower extremities. The patient will follow up with Dr. Rios within one week of surgery. Michaelle Knowles DPM Teo Rios DPM
== END 2018-03-15 16:30 | disposition home or self-care (01) | DRG 41 ==
LOC: C.SDS 05:38 → C.9S 10:42 → C.6T 12:01
PROVIDERS: ADMIT Internal Medicine Pulmonary Disease; ATTEND Internal Medicine Pulmonary Disease
PROC: 0QBR0ZZ Excision of Left Toe Phalanx, Open Approach (ICD-10-PCS; 2018-03-13)
PROC: 0L8V0ZZ Division of Right Foot Tendon, Open Approach (ICD-10-PCS; principal; 2018-03-13 07:30)
DX: E11.610 Type 2 diabetes mellitus with diabetic neuropathic arthropathy (principal); I50.32 Chronic diastolic (congestive) heart failure; I42.5 Other restrictive cardiomyopathy; G90.50 Complex regional pain syndrome I, unspecified; M20.41 Other hammer toe(s) (acquired), right foot; M20.42 Other hammer toe(s) (acquired), left foot; M20.12 Hallux valgus (acquired), left foot; E78.5 Hyperlipidemia, unspecified; F32.9 Major depressive disorder, single episode, unspecified; E03.9 Hypothyroidism, unspecified; I11.0 Hypertensive heart disease with heart failure; I34.1 Nonrheumatic mitral (valve) prolapse; J44.9 Chronic obstructive pulmonary disease, unspecified; M14.679 Charcot's joint, unspecified ankle and foot; Z86.711 Personal history of pulmonary embolism; K21.9 Gastro-esophageal reflux disease without esophagitis

== ENCOUNTER 2018-09-08 13:54 | Outpatient (CLI) | payer MEDICARE, OTHER | END 2018-09-08 13:55 | disposition home or self-care (01) | LOC: C.RADH 13:54 ==

== ENCOUNTER 2018-09-27 12:48 | Outpatient (CLI) | payer MEDICARE, OTHER | END 2018-09-27 12:49 | disposition home or self-care (01) | LOC: C.RADH 12:48 | DX: G89.21 Chronic pain due to trauma (principal) ==

== ENCOUNTER 2018-10-04 11:18 | Inpatient (IN) | payer MEDICARE, OTHER ==
[2018-10-04 11:18] VITALS: BMI 38.7
--- NOTE | 2018-10-04 11:39 | C.PDOC ---
History Of Present Illness REFERRED DR ADAMSON FOR R FOOT SURGERY.PS SAW DR ADAMSON 10/03, WAS ADVISED TO COME TO ER TODAY. NO FEVER. PENDING REVISION Right foot 2nd digit capsulotomy, Right foot 2nd digit extensor tenotomy. Patient notes that she has new onset of ulceration and redness to tip of right 3rd toe for the past 1 week. PMHx of diastolic CHF, reflex sympathetic dystrophy, DMII, bradycardia, rheumatic fever, MVP, hypothyroidism, asthma, HLD, charcot foot, ventral hernia, CHRONIC FOOT PAIN EXAM NAD EXT REMAINDER NEG MDM PER RX FROM DR ADAMSON PT TO BE ADMITTED TO PMD, PREOP. Time Seen by Provider: 10/04/18 11:21 History Per: Patient History/Exam Limitations: no limitations Onset/Duration Of Symptoms: Days Current Symptoms Are (Timing): Still Present Severity: Moderate Past Medical History Reviewed: Historical Data, Nursing Documentation, Vital Signs Vital Signs: Last Vital Signs Temp 97.7 F 10/04/18 11:23 Pulse 62 10/04/18 11:23 Resp 20 10/04/18 11:23 BP 113/74 10/04/18 11:23 Pulse Ox 98 10/04/18 11:23 - Medical History PMH: Anxiety, Arthritis, Asthma, Back Problems, Bronchitis, CAD, CHF, COPD, Depression, Diabetes, Fractures (DISPLACED METATarSAL FRACTURE 2ND LEFT), Gall Bladder Disease (Gallstone), GERD, Hiatal Hernia, HTN, Hypercholesterolemia, Hypothyroidism, Mitral Valve Prolapse, Peripheral Edema, Pulmonary Embolism Other Surgeries: Hx of surgeries - [facility] Procedures DIVISION OF RIGHT FOOT TENDON, OPEN APPROACH (03/13/18) EXCISION OF LEFT METATARSAL, OPEN APPROACH (07/20/17) EXCISION OF LEFT TOE PHALANX, OPEN APPROACH (03/13/18) FLUOROSCOPY OF SUP VENA CAVA USING L OSM CONTRAST, GUIDANCE (10/13/15) INCIS W REM OF FORIEGN BODY OR DEV FROM SKIN & SUBCUT TISSUE (10/22/14) INFLUENZA VACCINATION (09/19/14) INSERTION OF INFUSION DEV INTO SUP VENA CAVA, PERC APPROACH (10/13/15) INSERTION OF TOTALLY IMPLANTABLE VASC ACCESS DEVIC (10/22/14) INSERTION OF VAD INTO CHEST SUBCU/FASCIA, OPEN APPROACH (10/13/15) NEBULIZER THERAPY (11/05/13) NON-INVASIVE MECHANICAL VENTILATION (06/04/12) OCCUPATIONAL THERAPY (09/19/14) OTH & OPEN REP OTH HERNIA OF ANTER ABD WALL W GRF OR PROSTH (05/28/13) PHYSICAL THERAPY NEC (09/19/14) REMOVAL OF VAD FROM TRUNK SUBCU/FASCIA, OPEN APPROACH (10/13/15) REPAIR CHEST SKIN, EXTERNAL APPROACH (10/13/15) REPLACE OF R TOE PHALANX JT WITH SYNTH SUB, OPEN APPROACH (07/20/17) THORAX SFT TISS XRAY NEC (03/19/13) Family History: States: No Known Family Hx - Social History Hx Tobacco Use: No Hx Alcohol Use: No Hx Substance Use: No - Immunization History Hx Tetanus Toxoid Vaccination: No Hx Influenza Vaccination: Yes Hx Pneumococcal Vaccination: Yes Review Of Systems Except As Marked, All Systems Reviewed And Found Negative. Constitutional: Negative for: Fever, Chills Musculoskeletal: Positive for: Foot Pain (right foot pain) Physical Exam - Physical Exam Appears: No Acute Distress Skin: Normal Color, Warm, Dry, Other (ulceration to tip of right 3rd toe with some local erythema) Head: Atraumatic, Normacephalic Eye(s): bilateral: Normal Inspection Extremity: Normal ROM, Other (post op scars to distal dorsal right foot, hammertoe to right 2nd toe) Neurological/Psych: Oriented x3, Normal Speech ED Course And Treatment O2 Sat by Pulse Oximetry: 98 (RA) Pulse Ox Interpretation: Normal Progress - Re-Evaluation Re-evaluation Note: 10/04/18 11:38 D/W DR BENAVIDEZ WILL ADMIT 10/04/18 11:56 CASE D/W POD RES. - Data Reviewed Data Reviewed: Lab, Diagnostic imaging, EKG, Old records Medical Decision Making Medical Decision Making: PER RX FROM DR ADAMSON PT TO BE ADMITTED TO PMD, PREOP. Disposition Counseled Patient/Family Regarding: Studies Performed, Diagnosis - Disposition Disposition: HOSPITALIZED Disposition Time: 11:38 Condition: STABLE - POA Present On Arrival: Poor Glycemic Control - Clinical Impression Clinical Impression: Osteomyelitis of foot, Metatarsal fracture - Scribe Statement The provider has reviewed the documentation as recorded by the [facility] Provider Attestation: All medical record entries made by the [facility] were at my direction and personally dictated by me. I have reviewed the chart and agree that the record accurately reflects my personal performance of the history, physical exam, medical decision making, and the department course for this patient. I have also personally directed, reviewed, and agree with the discharge instructions and disposition.
--- NOTE | 2018-10-04 11:49 | CP.PCM.CON ---
History of Present Illness - History of Present Illness History of Present Illness: Podiatry Consult Note - Dr. Rios 63 year old female patient seen and evaluated in ED - sent by Dr. Rios for admission for IV abx with possible surgery. Patient states approximately 3 days ago she first noticed her right 3rd digit becoming red and swollen along with associated pain radiating up to her ankle. Patient states she saw Dr. Rios last week and took XR due to a suspicion of developing a bone infection; states since the XR was taken she noticed worsening redness and swelling surrounding the 3rd toe. Patient also complains of pain along the 2nd digit and states her 2nd digit is now vanna upwards since surgery last March 2018. Patient offers no other pedal complaints at this time. Denies n/v/f/d/c/sob/carr/cp. PSHx: cardiac cath, hiatal hernia repair, right foot surgery, eye surgery All: sulfa SocHx: denies EtOH, cigarette or drug use Review of Systems - Review of Systems All systems: reviewed and no additional remarkable complaints except (as per HPI) Past Patient History - Infectious Disease Hx of Infectious Diseases: None - Tetanus Immunizations Tetanus Immunization: Unknown - Past Medical History & Family History Past Medical History?: Yes - Past Social History Smoking Status: Never Smoked - CARDIAC Hx Congestive Heart Failure: Yes Hx Hypercholesterolemia: Yes Hx Hypertension: Yes Hx Mitral Valve Prolapse: Yes Hx Peripheral Edema: Yes - PULMONARY Hx Asthma: Yes Hx Bronchitis: Yes Hx Chronic Obstructive Pulmonary Disease (COPD): Yes Hx Pulmonary Embolism: Yes - NEUROLOGICAL Hx Neurological Disorder: Yes Other/Comment: Reflex Sympathetic Dystrophy-Hx of Rheumatic fever. - HEENT Hx HEENT Problems: Yes Hx Cataracts: Yes - ENDOCRINE/METABOLIC Hx Diabetes Mellitus Type 2: Yes Hx Hypothyroidism: Yes - HEMATOLOGICAL/ONCOLOGICAL Hx Blood Disorders: Yes Hx Blood Transfusions: Yes Hx Blood Transfusion Reaction: No - INTEGUMENTARY Hx Dermatological Problems: Yes Hx Cellulitis: Yes - MUSCULOSKELETAL/RHEUMATOLOGICAL Hx Arthritis: Yes Hx Fractures: Yes (DISPLACED METATarSAL FRACTURE 2ND LEFT) Hx Osteomyelitis: Yes (to right foot) - GASTROINTESTINAL Hx Gall Bladder Disease: Yes (Gallstone) - PSYCHIATRIC Hx Anxiety: Yes Hx Depression: Yes Hx Substance Use: No - SURGICAL HISTORY Hx Surgeries: Yes Hx Cardiac Catheterization: Yes (X6) Hx Eye Surgery: Yes (CATARACT SX BOTH W/LENS) Hx Herniorrhaphy: Yes (Umbilical Hernia repair) Hx Hysterectomy: Yes Hx Musculoskeletal Surgery: Yes (rt. fot surgery) Hx Vascular Access Device: Yes (Port A Cath) Other/Comment: Hiatus Hernia repair, DIMPLE, Buniectomy R foot, operation L foot (type unknown). - ANESTHESIA Hx Anesthesia: Yes Hx Anesthesia Reactions: No Hx Malignant Hyperthermia: No Meds Allergies/Adverse Reactions: Allergies Allergy/AdvReac Type Severity Reaction Status Date / Time Sulfa (Sulfonamide Allergy Intermediate ANAPHYLAXIS Verified 10/04/18 11:49 Antibiotics) Physical Exam - Constitutional Appears: Non-toxic, No Acute Distress - Extremities Exam Additional comments: Lower extremity focused exam: Vasc: DP/PT pulses palpable 1/4. Temperature gradient warm to cool. CFT < 3 sec to all digits. Nonpitting edema noted to right 3rd digit. Neuro: Light touch and protective sensation diminished bilaterally Derm: Ulceration noted to distal tuft of right 3rd digit measuring approximately 0.5 x 0.3 x 0.1 - ulcer noted to have a 100% granular/epithelializing base and hyperkeratotic rim; right nail 3 missing with surrounding lysis of outer layer of skin; periwound erythema present. Ortho: Pain on palpation noted to right 3rd digit. Flexible dorsal contracture of right 2nd digit. - Neurological Exam Neurological exam: Alert, Oriented x3 - Psychiatric Exam Psychiatric exam: Normal Affect, Normal Mood Results - Vital Signs Recent Vital Signs: Last Vital Signs Temp 97.7 F 10/04/18 11:23 Pulse 62 10/04/18 11:23 Resp 20 10/04/18 11:23 BP 113/74 10/04/18 11:23 Pulse Ox 98 10/04/18 11:41 - Labs Result Diagrams: 10/04/18 12:29 10/04/18 12:29 Assessment & Plan - Assessment and Plan (Free Text) Assessment: 63F with right 3rd digit ulceration, cellulitis and underlying osteomyelitis of distal phalanx Plan: Patient seen and evaluated alongside attending, Dr. Rios Afebrile, WBC 7.0 Right foot XR ordered, f/u report ID, Dr. Purcell, consulted Optifoam applied to ulcer site Patient scheduled for OR Tuesday, 10/06 @ 07:30 partial amputation right 3rd digit -pre-operative clearance requested Patient to be admitted under Dr. Weldon's service Podiatry will continue to follow while in house
[2018-10-04 12:34] LABS: BASO # 0.1 K/uL (0.0-0.2); EOS # 0.1 K/uL (0.0-0.7); EOS % 1.9 % (0.0-4.0); HEMOGLOBIN 10.2 g/dL (11.0-16.0); LYMPH # 2.3 K/uL (1.0-4.3); LYMPH % 32.1 % (20.0-40.0); MEAN CORPUSCULAR HEMOGLOBIN 23.9 pg (27.0-31.0); MEAN CORPUSCULAR HGB CONC 31.9 g/dL (33.0-37.0); MEAN PLATELET VOLUME 8.9 fL (7.2-11.7); MONO # 0.8 K/uL (0.0-0.8); MONO % 10.7 % (0.0-10.0); NEUT # 3.8 K/uL (1.8-7.0); NEUT % 54.3 % (50.0-75.0); RBC 4.28 Mil/uL (3.80-5.20); RED CELL DISTRIBUTION WIDTH 15.8 % (11.5-14.5)
[2018-10-04 12:45] LABS: MEAN CELL VOLUME 74.8 fL (81.0-99.0)
[2018-10-04 12:47] LABS: ALB/GLOB RATIO 1.3 (1.0-2.1); ALBUMIN 3.8 g/dL (3.5-5.0); ALT/SGPT 20 U/L (9-52); AST/SGOT 34 U/L (14-36); BLOOD UREA NITROGEN 12 mg/dL (7-17); CALCIUM 9.4 mg/dl (8.6-10.4); GFR NON-AFRICAN AMERICAN > 60
[2018-10-04 13:01] LABS: PROTHROMBIN TIME 10.9 SECONDS (9.7-12.2)
--- NOTE | 2018-10-04 13:52 | RAD ---
Date of service: 10/04/2018 PROCEDURE: CHEST RADIOGRAPH, 1 VIEW HISTORY: Pre Op COMPARISON: 03/08/2018 FINDINGS: Right-sided central venous line terminates at the cavoatrial junction LUNGS: There is moderate pulmonary venous congestion. No focal consolidation. PLEURA: No pneumothorax or pleural effusion. CARDIOVASCULAR: Persistent mild cardiomegaly. There are aortic atherosclerotic calcifications present. OSSEOUS STRUCTURES: Within normal limits for the patient's age. VISUALIZED UPPER ABDOMEN: Normal. OTHER FINDINGS: None. IMPRESSION: No active pulmonary disease. Persistent mild cardiomegaly and pulmonary venous congestion.
--- NOTE | 2018-10-04 15:55 | CP.PCM.PN ---
Subjective - Date & Time of Evaluation Date of Evaluation: 10/04/18 Time of Evaluation: 15:50 - Subjective Subjective: 63 year old female with a past medical history of hypertension, chf, cad, diabetes mellitus, rheumatic fever, and paraesophageal hernia presents to the hospital for per Dr. Rios for pre-operative clearance for foot surgery. Patient was seen yesterday in Dr. Rios's office and was told to come to the emergency room today. Patient has slight right foot pain that she describes as throbbing in nature without any radiation. She rates the pain a 3/10 in severity. Patient denies any chest pain, shortness of breath, fevers, chills, nausea, vomiting, headaches, dizziness, syncopal episodes, or any other complaints. Medical history: chf, cad, diabetes mellitus, rheumatic fever, paraesophageal hernia, hypertension Medications: Uses [facility] in [place]. Had list faxed to hospital and placed in binder. Allergies: Sulfa Surgical history: Foot surgery, 6 cardiac catherizations, Abdominal surgery Social history: Denies alcohol or tobacco use. Denies illit drugs. Lives alone. Son in 30's from Down syndrome complications. Objective - Vital Signs/Intake and Output Vital Signs (last 24 hours): Temp Pulse Resp BP Pulse Ox 98.1 F 78 16 113/75 100 10/04/18 13:23 10/04/18 13:23 10/04/18 13:23 10/04/18 13:23 10/04/18 13:23 - Labs Labs: 10/04/18 12:29 10/04/18 12:29 PT 10.9 SECONDS (9.7-12.2) 10/04/18 12:29 INR 1.0 10/04/18 12:29 APTT 26 SECONDS (21-34) 10/04/18 12:29 - Head Exam Head Exam: ATRAUMATIC, NORMAL INSPECTION - Eye Exam Eye Exam: EOMI, Normal appearance, PERRL Pupil Exam: NORMAL ACCOMODATION - ENT Exam ENT Exam: Mucous Membranes Moist, Normal Oropharynx - Respiratory Exam Respiratory Exam: Clear to Ausculation Bilateral, NORMAL BREATHING PATTERN. absent: Prolonged Expiratory Phase, Respiratory Distress - Cardiovascular Exam Cardiovascular Exam: REGULAR RHYTHM, +S1, +S2. absent: Gallop, Rubs - GI/Abdominal Exam GI & Abdominal Exam: Soft, Normal Bowel Sounds. absent: Hyperactive Bowel Sounds - Extremities Exam Extremities Exam: Pedal Edema - Back Exam Back Exam: NORMAL INSPECTION. absent: CVA tenderness (R) - Neurological Exam Neurological Exam: Alert, Awake, Oriented x3 - Psychiatric Exam Psychiatric exam: Normal Affect, Normal Mood. absent: Depressed - Skin Skin Exam: Dry, Intact Assessment and Plan - Assessment and Plan (Free Text) Assessment: 63 year old female with a past medical history of hypertension, chf, cad, diabetes mellitus, rheumatic fever, and paraesophageal hernia presents to the hospital for per Dr. Rios for pre-operative clearance for foot surgery. Plan: 1.Revision of foot surgery -Podiatry consulted--->Help appreciated :Patient expected to go to O.R. Tuesday for revision surgery -Cardiology consulted---> Help appreciated for cardiac clearance 2.DM -Hold home medications -ISS -Carb consistent diet 3.Hypothyrodism -Continue Levothyroxine 100mcg PO Daily 4.Hypercholesterolemia -Continue Rosuvastatin 40mg PO HS 5.Neuropathy -Continue 150mg PO BID ZAY 6.Diastolic CHF Lasix 20mg po BID Aldactone 25mg po daily 7.COPD -Continue Breo-Ellipta 1 puff INH RQD 8. Hypokalemia K-->3.5 on admission Repleted. Will monitor with serial CMP's 9. Reflex Sympathetic Dystrophy Oxycodone 15mg q4h Oxycontin 40mg po q8h ppx -Heparin -Protonix Dispo: Patient expected to have revision surgery on her right foot per Dr. Teixeira. All management per Dr. Weldon. Sunny Montalvo, PGY-2
[2018-10-04] MEDS ORDERED: Potassium Chloride 20 mEq/15 ml LIQ UD PO ONE (16:11)
--- NOTE | 2018-10-04 16:17 | RAD ---
Date of service: 10/04/2018 PROCEDURE: Right Foot Radiographs. HISTORY: PRE OP COMPARISON: Comparison made with prior radiographs of the right ankle and right foot 09/27/2018.. There also FINDINGS: BONES: No evidence of acute displaced fracture nor dislocation. Apparent destructive changes-osteomyelitis distal tuft of the distal phalanx 2nd toe with surrounding soft tissue swelling. The osseous structures otherwise appear intact. Appears to be postoperative changes of the distal aspect proximal phalanx 2nd toe Note again made of a plantar surface calcaneal enthesophyte.. JOINTS: There is a mild to moderate hallux valgus deformity with slight overgrowth of the head of the 1st metatarsal and mild DJD 1st MTP joint. SOFT TISSUES: Normal. OTHER FINDINGS: None. IMPRESSION: Apparent destructive changes-osteomyelitis distal tuft of the distal phalanx 2nd toe with surrounding soft tissue swelling. The osseous structures otherwise appear intact. Appears to be postoperative changes of the distal aspect proximal phalanx 2nd toe
[2018-10-04] MEDS ORDERED: Albuterol-Ipratrop 3 mg / 0.5 (3 ml) UD INH PRN (16:50)
[2018-10-04] MEDS ORDERED: Glucagon Recombinant 1 mg Inj IM PRN (16:51)
[2018-10-04] MEDS ORDERED: Dextrose 50% SYRINGE Inj (50 ml) IV PRN (16:51)
[2018-10-04] MEDS: oxyCODONE 40 mg ER Tab (oxyCONTIN) PO SCH ×2 (17:16→21:40)
[2018-10-04] MEDS: Pantoprazole 40 mg EC Tab PO SCH (17:19)
[2018-10-04] MEDS: oxyCODONE 10 mg Immediate Release Tab PO PRN ×2 (19:08→23:20)
[2018-10-04] MEDS: (Novolin R) Insulin Human Regular 100 units/ml vial SC SCH (21:13)
[2018-10-05] MEDS: oxyCODONE 40 mg ER Tab (oxyCONTIN) PO SCH ×2 (05:35→13:15)
[2018-10-05] MEDS: Levothyroxine 100 MCG TAB PO SCH (05:35)
--- NOTE | 2018-10-05 07:26 | CP.PCM.PN ---
Subjective - Date & Time of Evaluation Date of Evaluation: 10/05/18 Time of Evaluation: 06:52 - Subjective Subjective: Progress note for Dr. Weldon Patient was seen and examined at bedside in no acute distress. Patient complains of chronic whole body pain and pain in her right foot. She otherwise has no complaints and denies chest pain, dyspnea, palpitations, n/v, diarrhea, constipation, and dysuria. Objective - Vital Signs/Intake and Output Vital Signs (last 24 hours): Temp Pulse Resp BP Pulse Ox 98.3 F 71 20 134/81 97 10/04/18 23:25 10/04/18 23:25 10/04/18 23:25 10/04/18 23:25 10/04/18 23:25 - Medications Medications: Current Medications Albuterol/Ipratropium (Duoneb 3 Mg/0.5 Mg (3 Ml) Ud) 3 ml INH RQ4 PRN PRN Reason: Shortness of Breath Dextrose (Dextrose 50% Inj) 0 ml IV STAT PRN; Protocol PRN Reason: Hypoglycemia Protocol Dextrose (Glutose 15) 0 gm PO ONCE PRN; Protocol PRN Reason: Hypoglycemia Protocol Docusate Sodium (Colace) 100 mg PO DAILY [facility] Last Admin: 10/04/18 17:20 Dose: 100 mg Fluticasone/Vilanterol (Breo Ellipta 100-25 Mcg Inh) 1 puff INH RQD [facility] Furosemide (Lasix) 20 mg PO DAILY [facility] Last Admin: 10/04/18 17:19 Dose: 20 mg Glucagon (Glucagen Diagnostic Kit) 0 mg IM STAT PRN; Protocol PRN Reason: Hypoglycemia Protocol Heparin Sodium (Porcine) (Heparin) 5,000 units SC Q12 [facility] Last Admin: 10/04/18 21:40 Dose: 5,000 units Dextrose (Dextrose 5% In Water 1000 Ml) 1,000 mls @ 0 mls/hr IV .Q0M PRN; Protocol PRN Reason: Hypoglycemia Protocol Insulin Human Regular (Novolin R) 0 unit SC ACHS [facility]; Protocol Last Admin: 10/04/18 21:13 Dose: Not Given Levothyroxine Sodium (Synthroid) 100 mcg PO DAILY@0630 [facility] Last Admin: 10/05/18 05:35 Dose: 100 mcg Lorazepam (Ativan) 2 mg PO DAILY [facility] Oxycodone HCl (Oxycontin Extended Release Tab) 40 mg PO Q8 [facility] Last Admin: 10/05/18 05:35 Dose: 40 mg Oxycodone HCl (Oxycodone Immediate Release Tab) 15 mg PO Q4 PRN PRN Reason: Pain, severe (8-10) Last Admin: 10/04/18 23:20 Dose: 15 mg Pantoprazole Sodium (Protonix Ec Tab) 40 mg PO DAILY [facility] Last Admin: 10/04/18 17:19 Dose: 40 mg Pregabalin (Lyrica) 150 mg PO BID [facility] Last Admin: 10/04/18 18:13 Dose: 150 mg Rosuvastatin Calcium (Crestor) 40 mg PO HS [facility] Last Admin: 10/04/18 21:45 Dose: 40 mg Spironolactone (Aldactone) 25 mg PO DAILY [facility] Last Admin: 10/04/18 17:21 Dose: 25 mg - Labs Labs: 10/04/18 12:29 10/04/18 12:29 PT 10.9 SECONDS (9.7-12.2) 10/04/18 12:29 INR 1.0 10/04/18 12:29 APTT 26 SECONDS (21-34) 10/04/18 12:29 - Constitutional Appears: No Acute Distress - Head Exam Head Exam: ATRAUMATIC - Eye Exam Eye Exam: EOMI - ENT Exam ENT Exam: Mucous Membranes Moist - Respiratory Exam Respiratory Exam: Clear to Ausculation Bilateral, NORMAL BREATHING PATTERN. absent: Rhonchi, Wheezes, Respiratory Distress - Cardiovascular Exam Cardiovascular Exam: REGULAR RHYTHM, +S1, +S2 - GI/Abdominal Exam GI & Abdominal Exam: Soft, Normal Bowel Sounds. absent: Distended, Firm, Tenderness - Extremities Exam Extremities Exam: Tenderness (right 3rd digit, ulceration and erythema). absent: Pedal Edema - Neurological Exam Neurological Exam: Alert, Awake, Oriented x3 - Psychiatric Exam Psychiatric exam: Normal Affect, Normal Mood - Skin Skin Exam: Dry, Warm Assessment and Plan - Assessment and Plan (Free Text) Plan: 63 year old female with a past medical history of hypertension, chf, cad, diabetes mellitus, rheumatic fever, and paraesophageal hernia presents to the hospital for per Dr. Rios for pre-operative clearance for foot surgery. Plan: Right foot, 3rd digit cellulitis - r/o osteomyelitis - Podiatry consulted; Help appreciated * Patient expected to go to O.R. Tuesday for revision surgery * NPO@mn, heparin held, next day PT/INR - Cardiology consulted, Dr. Viera; Help appreciated for cardiac clearance - ID consulted, Dr. Purcell; help appreciated - Foot Xray: apparent destructive changes-osteomyelitis distal tuft of the distal phalanx 2nd toe with surrounding soft tissue swelling; osseus structures otherwise appear intact; appears to be postoperative changes of the distal aspect proximal phalanx 2nd toe. - Patient has a revised cardiac risk index of 3 points/class IV risk and has a 15% risk of major cardiac event. Patient must be cleared by therapist physical prior to surgery. *Patient scheduled for OR Tuesday, 10/06 @ 07:30 partial amputation right 3rd digit and 2nd MPJ skin plasty DM - Hold home medications - ISS - Carb consistent diet - Accuchecks and hypoglycemia protocol - A1c (03/2018): 5.9 Hypothyrodism - Continue Levothyroxine 100mcg PO Daily Hypercholesterolemia - Continue Rosuvastatin 40mg PO HS - Lipid panel (03/2018): TG 215, Chol 308, LDL 199, HDL 56 Neuropathy - Continue Lyrica 150mg PO BID ZAY Diastolic CHF - Lasix 20mg po BID - Aldactone 25mg po daily - Echo (02/2018): normal size LA, LV, RA, RV; normal LV wall motion and systolic function w/LVEF 65-70%; mild concentric LVH; LV diastolic dysfunction grade I; sclerotic trileaflet aortic valved with trace AI; MAC, Trace MR; sclerotic aorti c root; no pericardial effusion COPD - Continue Breo-Ellipta 1 puff INH RQD - Duonebs prn - CXR: no active disease; persistent mild cardiomegaly and pulm venous congestion Hypokalemia - K: 3.5 on admission - Repleted. Will monitor with serial CMP's Reflex Sympathetic Dystrophy - Continue home medications: Oxycodone 15mg q4h prn, Oxycontin 40mg po q8h, Tizanidine 4mg po tid Prophylaxis - Heparin 5000sc Q12h- held for operation - Protonix 40mg PO daily Dispo: Patient scheduled for OR Tuesday, 10/06 @ 07:30 partial amputation right 3rd digit and 2nd MPJ skin plasty Case discussed with and patient seen with Dr. Weldon. Cynthia Olmstead, PGY2
[2018-10-05] MEDS: (Novolin R) Insulin Human Regular 100 units/ml vial SC SCH ×4 (07:41→21:58)
[2018-10-05] MEDS ORDERED: oxyCODONE 5 mg Immediate Release Tab PO PRN (08:15)
[2018-10-05] MEDS: Fluticasone-Vilanterol 100/25mcg Diskus INH SCH (10:37)
--- NOTE | 2018-10-05 10:38 | CP.PCM.PN ---
Subjective - Date & Time of Evaluation Date of Evaluation: 10/05/18 Time of Evaluation: 10:38 - Subjective Subjective: Podiatry Progress Note - Dr. Rios 63 year old female patient seen and evaluated this AM for right 3rd digit cellulitis + underlying OM. Patient resting comfortably, NAD. Patient offers no new lower extremity complaints. Patient aware she is scheduled for surgery tomorrow partial 3rd digit amputation right foot and skin plasty 2nd MPJ, pending medical/cardiac clearance. Denies n/v/d/f/c/sob. Objective - Vital Signs/Intake and Output Vital Signs (last 24 hours): Temp Pulse Resp BP Pulse Ox 97.8 F 73 20 126/81 97 10/05/18 07:00 10/05/18 07:00 10/05/18 07:00 10/05/18 07:00 10/05/18 07:00 - Medications Medications: Current Medications Albuterol/Ipratropium (Duoneb 3 Mg/0.5 Mg (3 Ml) Ud) 3 ml INH RQ4 PRN PRN Reason: Shortness of Breath Dextrose (Dextrose 50% Inj) 0 ml IV STAT PRN; Protocol PRN Reason: Hypoglycemia Protocol Dextrose (Glutose 15) 0 gm PO ONCE PRN; Protocol PRN Reason: Hypoglycemia Protocol Docusate Sodium (Colace) 100 mg PO DAILY [facility] Last Admin: 10/04/18 17:20 Dose: 100 mg Fluticasone/Vilanterol (Breo Ellipta 100-25 Mcg Inh) 1 puff INH RQD [facility] Last Admin: 10/05/18 10:37 Dose: Not Given Furosemide (Lasix) 20 mg PO DAILY [facility] Last Admin: 10/04/18 17:19 Dose: 20 mg Glucagon (Glucagen Diagnostic Kit) 0 mg IM STAT PRN; Protocol PRN Reason: Hypoglycemia Protocol Heparin Sodium (Porcine) (Heparin) 5,000 units SC Q12 [facility] Last Admin: 10/04/18 21:40 Dose: 5,000 units Dextrose (Dextrose 5% In Water 1000 Ml) 1,000 mls @ 0 mls/hr IV .Q0M PRN; Protocol PRN Reason: Hypoglycemia Protocol Insulin Human Regular (Novolin R) 0 unit SC ACHS [facility]; Protocol Last Admin: 10/05/18 07:41 Dose: Not Given Levothyroxine Sodium (Synthroid) 100 mcg PO DAILY@0630 [facility] Last Admin: 10/05/18 05:35 Dose: 100 mcg Lorazepam (Ativan) 2 mg PO DAILY [facility] Oxycodone HCl (Oxycontin Extended Release Tab) 40 mg PO Q8 [facility] Last Admin: 10/05/18 05:35 Dose: 40 mg Oxycodone HCl (Oxycodone Immediate Release Tab) 15 mg PO Q4 PRN PRN Reason: Pain, severe (8-10) Last Admin: 10/05/18 08:13 Dose: 15 mg Pantoprazole Sodium (Protonix Ec Tab) 40 mg PO DAILY [facility] Last Admin: 10/04/18 17:19 Dose: 40 mg Pregabalin (Lyrica) 150 mg PO BID [facility] Last Admin: 10/04/18 18:13 Dose: 150 mg Rosuvastatin Calcium (Crestor) 40 mg PO HS [facility] Last Admin: 10/04/18 21:45 Dose: 40 mg Spironolactone (Aldactone) 25 mg PO DAILY [facility] Last Admin: 10/04/18 17:21 Dose: 25 mg - Labs Labs: 10/04/18 12:29 10/04/18 12:29 PT 10.9 SECONDS (9.7-12.2) 10/04/18 12:29 INR 1.0 10/04/18 12:29 APTT 26 SECONDS (21-34) 10/04/18 12:29 - Constitutional Appears: Non-toxic, No Acute Distress - Extremities Exam Additional comments: Lower extremity focused exam: Vasc: DP/PT pulses palpable 1/4. Temperature gradient warm to cool. CFT < 3 sec to all digits. Nonpitting edema noted to right 3rd digit. Neuro: Light touch and protective sensation diminished bilaterally Derm: Ulceration noted to distal tuft of right 3rd digit measuring approximately 0.5 x 0.3 x 0.1 - ulcer noted to have a 100% granular/epithelializing base and hyperkeratotic rim; right nail 3 missing with surrounding lysis of outer layer of skin; periwound erythema present. Ortho: Pain on palpation noted to right 3rd digit. Flexible dorsal contracture of right 2nd digit. - Neurological Exam Neurological Exam: Alert, Awake, Oriented x3 - Psychiatric Exam Psychiatric exam: Normal Affect, Normal Mood Assessment and Plan - Assessment and Plan (Free Text) Assessment: 63F with right 3rd digit ulceration, cellulitis and underlying osteomyelitis of distal phalanx Plan: Patient seen and evaluated alongside attending, Dr. Rios Afebrile, WBC 8.7 Right foot XR reveals destructive changes in distal phalanx of third digit suspicious of osteomyelitis ID consulted, awaiting recs Bandage applied to ulcer site Patient scheduled for OR tomorrow Tuesday, 10/06 @ 07:30 partial amputation right 3rd digit and 2nd MPJ skin plasty -medical and cardiac clearance requested -NPO @ mn, heparin held, next day PT/INR Podiatry will continue to follow
[2018-10-05] MEDS: Pantoprazole 40 mg EC Tab PO SCH (10:52)
[2018-10-05 11:21] LABS: BASO % 0.3 % (0.0-2.0); EOS % 0.1 % (0.0-4.0); HEMOGLOBIN 11.3 g/dL (11.0-16.0); LYMPH # 1.2 K/uL (1.0-4.3); LYMPH % 14.2 % (20.0-40.0); MEAN CELL VOLUME 75.6 fL (81.0-99.0); MEAN CORPUSCULAR HGB CONC 31.8 g/dL (33.0-37.0); MONO # 0.4 K/uL (0.0-0.8); MONO % 5.1 % (0.0-10.0); NEUT % 80.3 % (50.0-75.0); RBC 4.69 Mil/uL (3.80-5.20); RED CELL DISTRIBUTION WIDTH 15.7 % (11.5-14.5); WHITE BLOOD COUNT 8.7 K/uL (4.8-10.8)
[2018-10-05 11:31] LABS: ALB/GLOB RATIO 1.3 (1.0-2.1); ALBUMIN 4.1 g/dL (3.5-5.0); ALT/SGPT 21 U/L (9-52); AST/SGOT 28 U/L (14-36); BLOOD UREA NITROGEN 10 mg/dL (7-17); CALCIUM 10.1 mg/dl (8.6-10.4); GFR NON-AFRICAN AMERICAN > 60
[2018-10-05] MEDS ORDERED: OXYCODONE HCL 15 MG PO PRN (11:46)
[2018-10-05] MEDS ORDERED: TIZANIDINE HCL 8 MG PO SCH (14:00)
[2018-10-05 15:37] LABS: SQUAMOUS EPITHIAL 3 /hpf (0-5); URINE BACTERIA RARE (<OCC); URINE BILIRUBIN NEGATIVE (NEGATIVE); URINE BLOOD NEGATIVE (NEGATIVE); URINE CLARITY Hazy (Clear); URINE COLOR Yellow (YELLOW); URINE GLUCOSE (UA) NORMAL (Normal); URINE LEUKOCYTE ESTERASE NEG Leu/uL (Negative); URINE PROTEIN 2+ mg/dL (NEGATIVE); URINE UROBILINOGEN NORMAL mg/dL (0.2-1.0)
--- NOTE | 2018-10-05 19:38 | CP.PCM.CON ---
Past Patient History - Infectious Disease Hx of Infectious Diseases: None - Tetanus Immunizations Tetanus Immunization: Unknown - Past Medical History & Family History Past Medical History?: Yes - Past Social History Smoking Status: Never Smoked - CARDIAC Hx Congestive Heart Failure: Yes Hx Hypercholesterolemia: Yes Hx Hypertension: Yes Hx Mitral Valve Prolapse: Yes Hx Peripheral Edema: Yes - PULMONARY Hx Asthma: Yes Hx Bronchitis: Yes Hx Chronic Obstructive Pulmonary Disease (COPD): Yes Hx Pulmonary Embolism: Yes - NEUROLOGICAL Hx Neurological Disorder: Yes Other/Comment: Reflex Sympathetic Dystrophy-Hx of Rheumatic fever. - HEENT Hx HEENT Problems: Yes Hx Cataracts: Yes - ENDOCRINE/METABOLIC Hx Diabetes Mellitus Type 2: Yes Hx Hypothyroidism: Yes - HEMATOLOGICAL/ONCOLOGICAL Hx Blood Disorders: Yes Hx Blood Transfusions: Yes Hx Blood Transfusion Reaction: No - INTEGUMENTARY Hx Dermatological Problems: Yes Hx Cellulitis: Yes - MUSCULOSKELETAL/RHEUMATOLOGICAL Hx Arthritis: Yes Hx Fractures: Yes (DISPLACED METATarSAL FRACTURE 2ND LEFT) Hx Osteomyelitis: Yes (to right foot) - GASTROINTESTINAL Hx Gall Bladder Disease: Yes (Gallstone) - PSYCHIATRIC Hx Anxiety: Yes Hx Depression: Yes Hx Substance Use: No - SURGICAL HISTORY Hx Surgeries: Yes Hx Cardiac Catheterization: Yes (X6) Hx Eye Surgery: Yes (CATARACT SX BOTH W/LENS) Hx Herniorrhaphy: Yes (Umbilical Hernia repair) Hx Hysterectomy: Yes Hx Musculoskeletal Surgery: Yes (rt. fot surgery) Hx Vascular Access Device: Yes (Port A Cath) Other/Comment: Hiatus Hernia repair, DIMPLE, Buniectomy R foot, operation L foot (type unknown). - ANESTHESIA Hx Anesthesia: Yes Hx Anesthesia Reactions: No Hx Malignant Hyperthermia: No Meds Allergies/Adverse Reactions: Allergies Allergy/AdvReac Type Severity Reaction Status Date / Time Sulfa (Sulfonamide Allergy Intermediate ANAPHYLAXIS Verified 10/04/18 11:49 Antibiotics) - Medications Medications: Current Medications Albuterol/Ipratropium (Duoneb 3 Mg/0.5 Mg (3 Ml) Ud) 3 ml INH RQ4 PRN PRN Reason: Shortness of Breath Dextrose (Dextrose 50% Inj) 0 ml IV STAT PRN; Protocol PRN Reason: Hypoglycemia Protocol Dextrose (Glutose 15) 0 gm PO ONCE PRN; Protocol PRN Reason: Hypoglycemia Protocol Docusate Sodium (Colace) 100 mg PO DAILY [facility] Last Admin: 10/05/18 10:52 Dose: 100 mg Fluticasone/Vilanterol (Breo Ellipta 100-25 Mcg Inh) 1 puff INH RQD [facility] Last Admin: 10/05/18 10:37 Dose: Not Given Furosemide (Lasix) 20 mg PO DAILY [facility] Last Admin: 10/05/18 10:52 Dose: 20 mg Glucagon (Glucagen Diagnostic Kit) 0 mg IM STAT PRN; Protocol PRN Reason: Hypoglycemia Protocol Heparin Sodium (Porcine) (Heparin) 5,000 units SC Q12 [facility] Last Admin: 10/05/18 10:52 Dose: 5,000 units Dextrose (Dextrose 5% In Water 1000 Ml) 1,000 mls @ 0 mls/hr IV .Q0M PRN; Protocol PRN Reason: Hypoglycemia Protocol Insulin Human Regular (Novolin R) 0 unit SC ACHS [facility]; Protocol Last Admin: 10/05/18 17:00 Dose: Not Given Levothyroxine Sodium (Synthroid) 100 mcg PO DAILY@0630 [facility] Last Admin: 10/05/18 05:35 Dose: 100 mcg Lorazepam (Ativan) 2 mg PO TID [facility] Last Admin: 10/05/18 17:59 Dose: 2 mg Oxycodone HCl (Oxycodone Immediate Release Tab) 15 mg PO Q4H PRN PRN Reason: Pain, moderate (4-7) Oxycodone HCl (Oxycontin Extended Release Tab) 40 mg PO Q8 PRN PRN Reason: Pain, severe (8-10) Pantoprazole Sodium (Protonix Ec Tab) 40 mg PO DAILY [facility] Last Admin: 10/05/18 10:52 Dose: 40 mg Pregabalin (Lyrica) 150 mg PO BID [facility] Last Admin: 10/05/18 17:59 Dose: 150 mg Rosuvastatin Calcium (Crestor) 40 mg PO HS [facility] Last Admin: 10/04/18 21:45 Dose: 40 mg Spironolactone (Aldactone) 25 mg PO DAILY [facility] Last Admin: 10/05/18 10:52 Dose: 25 mg Results - Vital Signs Recent Vital Signs: Last Vital Signs Temp 97.8 F 10/05/18 16:00 Pulse 82 10/05/18 16:00 Resp 20 10/05/18 16:00 BP 140/78 10/05/18 16:00 Pulse Ox 97 10/05/18 16:00 - Labs Result Diagrams: 10/05/18 11:13 10/05/18 11:13 Labs: Laboratory Results - last 24 hr 10/04/18 10/05/18 10/05/18 21:09 06:06 11:13 WBC 8.7 RBC 4.69 Hgb 11.3 Hct 35.4 MCV 75.6 L MCH 24.0 L MCHC 31.8 L RDW 15.7 H Plt Count 242 MPV 9.0 Neut % (Auto) 80.3 H Lymph % (Auto) 14.2 L [place] % (Auto) 5.1 Eos % (Auto) 0.1 Baso % (Auto) 0.3 Neut # (Auto) 7.0 Lymph # (Auto) 1.2 [place] # (Auto) 0.4 Eos # (Auto) 0.0 Baso # (Auto) 0.0 Sodium Potassium Chloride Carbon Dioxide Anion Gap BUN Creatinine Est GFR ( Amer) Est GFR (Non-Af Amer) POC Glucose (mg/dL) 115 H 106 Random Glucose Calcium Total Bilirubin AST ALT Alkaline Phosphatase Total Protein Albumin Globulin Albumin/Globulin Ratio Urine Color Urine Clarity Urine pH Ur Specific [place] Urine Protein Urine Glucose (UA) Urine Ketones Urine Blood Urine Nitrate Urine Bilirubin Urine Urobilinogen Ur Leukocyte Esterase Urine WBC (Auto) Urine RBC (Auto) Ur Squamous Epith Cells Urine Bacteria 10/05/18 10/05/18 10/05/18 11:13 11:23 15:03 WBC RBC Hgb Hct MCV MCH MCHC RDW Plt Count MPV Neut % (Auto) Lymph % (Auto) [place] % (Auto) Eos % (Auto) Baso % (Auto) Neut # (Auto) Lymph # (Auto) [place] # (Auto) Eos # (Auto) Baso # (Auto) Sodium 136 Potassium 3.9 Chloride 102 Carbon Dioxide 26 Anion Gap 12 BUN 10 Creatinine 0.5 L Est GFR ( Amer) > 60 Est GFR (Non-Af Amer) > 60 POC Glucose (mg/dL) 149 H Random Glucose 134 H D Calcium 10.1 Total Bilirubin 0.3 AST 28 ALT 21 Alkaline Phosphatase 109 Total Protein 7.2 Albumin 4.1 Globulin 3.1 Albumin/Globulin Ratio 1.3 Urine Color Yellow Urine Clarity Hazy Urine pH 8.0 Ur Specific [place] 1.015 Urine Protein 2+ H Urine Glucose (UA) Normal Urine Ketones Negative Urine Blood Negative Urine Nitrate Negative Urine Bilirubin Negative Urine Urobilinogen Normal Ur Leukocyte Esterase Neg Urine WBC (Auto) 2 Urine RBC (Auto) 2 Ur Squamous Epith Cells 3 Urine Bacteria Rare 10/05/18 16:40 WBC RBC Hgb Hct MCV MCH MCHC RDW Plt Count MPV Neut % (Auto) Lymph % (Auto) [place] % (Auto) Eos % (Auto) Baso % (Auto) Neut # (Auto) Lymph # (Auto) [place] # (Auto) Eos # (Auto) Baso # (Auto) Sodium Potassium Chloride Carbon Dioxide Anion Gap BUN Creatinine Est GFR ( Amer) Est GFR (Non-Af Amer) POC Glucose (mg/dL) 119 H Random Glucose Calcium Total Bilirubin AST ALT Alkaline Phosphatase Total Protein Albumin Globulin Albumin/Globulin Ratio Urine Color Urine Clarity Urine pH Ur Specific [place] Urine Protein Urine Glucose (UA) Urine Ketones Urine Blood Urine Nitrate Urine Bilirubin Urine Urobilinogen Ur Leukocyte Esterase Urine WBC (Auto) Urine RBC (Auto) Ur Squamous Epith Cells Urine Bacteria
--- NOTE | 2018-10-05 19:38 | CP.PCM.CON ---
History of Present Illness - History of Present Illness History of Present Illness: patient seen/examined. schjeduled for partial digit amputation. Normal left ventricular function on echocardiogram February 2018 EKG no evidence of myocardial ischemia. No cardiac contraindication to the planned surgery Past Patient History - Infectious Disease Hx of Infectious Diseases: None - Tetanus Immunizations Tetanus Immunization: Unknown - Past Medical History & Family History Past Medical History?: Yes - Past Social History Smoking Status: Never Smoked - CARDIAC Hx Congestive Heart Failure: Yes Hx Hypercholesterolemia: Yes Hx Hypertension: Yes Hx Mitral Valve Prolapse: Yes Hx Peripheral Edema: Yes - PULMONARY Hx Asthma: Yes Hx Bronchitis: Yes Hx Chronic Obstructive Pulmonary Disease (COPD): Yes Hx Pulmonary Embolism: Yes - NEUROLOGICAL Hx Neurological Disorder: Yes Other/Comment: Reflex Sympathetic Dystrophy-Hx of Rheumatic fever. - HEENT Hx HEENT Problems: Yes Hx Cataracts: Yes - ENDOCRINE/METABOLIC Hx Diabetes Mellitus Type 2: Yes Hx Hypothyroidism: Yes - HEMATOLOGICAL/ONCOLOGICAL Hx Blood Disorders: Yes Hx Blood Transfusions: Yes Hx Blood Transfusion Reaction: No - INTEGUMENTARY Hx Dermatological Problems: Yes Hx Cellulitis: Yes - MUSCULOSKELETAL/RHEUMATOLOGICAL Hx Arthritis: Yes Hx Fractures: Yes (DISPLACED METATarSAL FRACTURE 2ND LEFT) Hx Osteomyelitis: Yes (to right foot) - GASTROINTESTINAL Hx Gall Bladder Disease: Yes (Gallstone) - PSYCHIATRIC Hx Anxiety: Yes Hx Depression: Yes Hx Substance Use: No - SURGICAL HISTORY Hx Surgeries: Yes Hx Cardiac Catheterization: Yes (X6) Hx Eye Surgery: Yes (CATARACT SX BOTH W/LENS) Hx Herniorrhaphy: Yes (Umbilical Hernia repair) Hx Hysterectomy: Yes Hx Musculoskeletal Surgery: Yes (rt. fot surgery) Hx Vascular Access Device: Yes (Port A Cath) Other/Comment: Hiatus Hernia repair, DIMPLE, Buniectomy R foot, operation L foot (type unknown). - ANESTHESIA Hx Anesthesia: Yes Hx Anesthesia Reactions: No Hx Malignant Hyperthermia: No Meds Allergies/Adverse Reactions: Allergies Allergy/AdvReac Type Severity Reaction Status Date / Time Sulfa (Sulfonamide Allergy Intermediate ANAPHYLAXIS Verified 10/04/18 11:49 Antibiotics) - Medications Medications: Current Medications Albuterol/Ipratropium (Duoneb 3 Mg/0.5 Mg (3 Ml) Ud) 3 ml INH RQ4 PRN PRN Reason: Shortness of Breath Dextrose (Dextrose 50% Inj) 0 ml IV STAT PRN; Protocol PRN Reason: Hypoglycemia Protocol Dextrose (Glutose 15) 0 gm PO ONCE PRN; Protocol PRN Reason: Hypoglycemia Protocol Docusate Sodium (Colace) 100 mg PO DAILY [facility] Last Admin: 10/05/18 10:52 Dose: 100 mg Fluticasone/Vilanterol (Breo Ellipta 100-25 Mcg Inh) 1 puff INH RQD [facility] Last Admin: 10/05/18 10:37 Dose: Not Given Furosemide (Lasix) 20 mg PO DAILY [facility] Last Admin: 10/05/18 10:52 Dose: 20 mg Glucagon (Glucagen Diagnostic Kit) 0 mg IM STAT PRN; Protocol PRN Reason: Hypoglycemia Protocol Heparin Sodium (Porcine) (Heparin) 5,000 units SC Q12 [facility] Last Admin: 10/05/18 10:52 Dose: 5,000 units Dextrose (Dextrose 5% In Water 1000 Ml) 1,000 mls @ 0 mls/hr IV .Q0M PRN; Protocol PRN Reason: Hypoglycemia Protocol Insulin Human Regular (Novolin R) 0 unit SC ACHS [facility]; Protocol Last Admin: 10/05/18 17:00 Dose: Not Given Levothyroxine Sodium (Synthroid) 100 mcg PO DAILY@0630 [facility] Last Admin: 10/05/18 05:35 Dose: 100 mcg Lorazepam (Ativan) 2 mg PO TID [facility] Last Admin: 10/05/18 17:59 Dose: 2 mg Oxycodone HCl (Oxycodone Immediate Release Tab) 15 mg PO Q4H PRN PRN Reason: Pain, moderate (4-7) Oxycodone HCl (Oxycontin Extended Release Tab) 40 mg PO Q8 PRN PRN Reason: Pain, severe (8-10) Pantoprazole Sodium (Protonix Ec Tab) 40 mg PO DAILY [facility] Last Admin: 10/05/18 10:52 Dose: 40 mg Pregabalin (Lyrica) 150 mg PO BID [facility] Last Admin: 10/05/18 17:59 Dose: 150 mg Rosuvastatin Calcium (Crestor) 40 mg PO HS [facility] Last Admin: 10/04/18 21:45 Dose: 40 mg Spironolactone (Aldactone) 25 mg PO DAILY [facility] Last Admin: 10/05/18 10:52 Dose: 25 mg Results - Vital Signs Recent Vital Signs: Last Vital Signs Temp 97.8 F 10/05/18 16:00 Pulse 82 0228/19 16:00 Resp 20 10/05/18 16:00 BP 140/78 10/05/18 16:00 Pulse Ox 97 10/05/18 16:00 - Labs Result Diagrams: 10/05/18 11:13 10/05/18 11:13 Labs: Laboratory Results - last 24 hr 10/04/18 10/05/18 10/05/18 21:09 06:06 11:13 WBC 8.7 RBC 4.69 Hgb 11.3 Hct 35.4 MCV 75.6 L MCH 24.0 L MCHC 31.8 L RDW 15.7 H Plt Count 242 MPV 9.0 Neut % (Auto) 80.3 H Lymph % (Auto) 14.2 L [place] % (Auto) 5.1 Eos % (Auto) 0.1 Baso % (Auto) 0.3 Neut # (Auto) 7.0 Lymph # (Auto) 1.2 [place] # (Auto) 0.4 Eos # (Auto) 0.0 Baso # (Auto) 0.0 Sodium Potassium Chloride Carbon Dioxide Anion Gap BUN Creatinine Est GFR ( Amer) Est GFR (Non-Af Amer) POC Glucose (mg/dL) 115 H 106 Random Glucose Calcium Total Bilirubin AST ALT Alkaline Phosphatase Total Protein Albumin Globulin Albumin/Globulin Ratio Urine Color Urine Clarity Urine pH Ur Specific [place] Urine Protein Urine Glucose (UA) Urine Ketones Urine Blood Urine Nitrate Urine Bilirubin Urine Urobilinogen Ur Leukocyte Esterase Urine WBC (Auto) Urine RBC (Auto) Ur Squamous Epith Cells Urine Bacteria 10/05/18 10/05/18 10/05/18 11:13 11:23 15:03 WBC RBC Hgb Hct MCV MCH MCHC RDW Plt Count MPV Neut % (Auto) Lymph % (Auto) [place] % (Auto) Eos % (Auto) Baso % (Auto) Neut # (Auto) Lymph # (Auto) [place] # (Auto) Eos # (Auto) Baso # (Auto) Sodium 136 Potassium 3.9 Chloride 102 Carbon Dioxide 26 Anion Gap 12 BUN 10 Creatinine 0.5 L Est GFR ( Amer) > 60 Est GFR (Non-Af Amer) > 60 POC Glucose (mg/dL) 149 H Random Glucose 134 H D Calcium 10.1 Total Bilirubin 0.3 AST 28 ALT 21 Alkaline Phosphatase 109 Total Protein 7.2 Albumin 4.1 Globulin 3.1 Albumin/Globulin Ratio 1.3 Urine Color Yellow Urine Clarity Hazy Urine pH 8.0 Ur Specific [place] 1.015 Urine Protein 2+ H Urine Glucose (UA) Normal Urine Ketones Negative Urine Blood Negative Urine Nitrate Negative Urine Bilirubin Negative Urine Urobilinogen Normal Ur Leukocyte Esterase Neg Urine WBC (Auto) 2 Urine RBC (Auto) 2 Ur Squamous Epith Cells 3 Urine Bacteria Rare 10/05/18 16:40 WBC RBC Hgb Hct MCV MCH MCHC RDW Plt Count MPV Neut % (Auto) Lymph % (Auto) [place] % (Auto) Eos % (Auto) Baso % (Auto) Neut # (Auto) Lymph # (Auto) [place] # (Auto) Eos # (Auto) Baso # (Auto) Sodium Potassium Chloride Carbon Dioxide Anion Gap BUN Creatinine Est GFR ( Amer) Est GFR (Non-Af Amer) POC Glucose (mg/dL) 119 H Random Glucose Calcium Total Bilirubin AST ALT Alkaline Phosphatase Total Protein Albumin Globulin Albumin/Globulin Ratio Urine Color Urine Clarity Urine pH Ur Specific [place] Urine Protein Urine Glucose (UA) Urine Ketones Urine Blood Urine Nitrate Urine Bilirubin Urine Urobilinogen Ur Leukocyte Esterase Urine WBC (Auto) Urine RBC (Auto) Ur Squamous Epith Cells Urine Bacteria
--- NOTE | 2018-10-05 20:01 | CP.PCM.CON ---
History of Present Illness - History of Present Illness History of Present Illness: 63 year old female patient states she saw Dr. Rios last week and took XR due to a suspicion of developing a bone infection; states since the XR was taken she noticed worsening redness and swelling surrounding the 3rd toe. Referred for ID janet Has OM right 3rd digit For OR in am OR cultures to be taken IV rx ordered PSHx: cardiac cath, hiatal hernia repair, right foot surgery, eye surgery All: sulfa SocHx: denies EtOH, cigarette or drug use Review of Systems - Review of Systems All systems: reviewed and no additional remarkable complaints except - Constitutional Constitutional: As Per HPI, Fever - EENT Eyes: absent: As Per HPI, Blind Spots, Blurred Vision, Change in Vision, Decreased Night Vision, Diplopia, Discharge, Dry Eye, Exophthalmos, Floaters, Irritation, Itchy Eyes, Loss of Peripheral Vision, Pain, Photophobia, Requires Corrective Lenses, Sees Flashes, Spots in Vision, Tunnel Vision, Other Visual Disturbances, Loss of Vision, Other Ears: absent: As Per HPI, Decreased Hearing, Ear Discharge, Ear Pain, Tinnitus, Abnormal Hearing, Disequilibrium, Dizziness, Other Nose/Mouth/Throat: absent: As Per HPI, Epistaxis, Nasal Congestion, Nasal Discharge, Nasal Obstruction, Nasal Trauma, Nose Pain, Post Nasal Drip, Sinus Pain, Sinus Pressure, Bleeding Gums, Change in Voice, Dental Pain, Dry Mouth, Dysphagia, Halitosis, Hoarsness, Lip Swelling, Mouth Lesions, Mouth Pain, Odynophagia, Sore Throat, Throat Swelling, Tongue Swelling, Facial Pain, Neck Pain, Neck Mass, Other - Breasts Breasts: absent: As Per HPI, Change in Shape, Mass, Pain, Nipple Discharge, Nipple Inversion, Skin Changes, Swelling, Other - Cardiovascular Cardiovascular: absent: As Per HPI, Acrocyanosis, Chest Pain, Chest Pain at Rest, Chest Pain with Activity, Claudication, Diaphoresis, Dyspnea, Dyspnea on Exertion, Edema, Irregular Heart Rhythm, Pain Radiating to Arm/Neck/Jaw, Leg Edema, Leg Ulcers, Lightheadedness, Orthopnea, Palpitations, Paroxysmal Nocturnal Dyspnea, Pedal Edema, Radiating Pain, Rapid Heart Rate, Slow Heart Rate, Syncope, Other - Respiratory Respiratory: As Per HPI - Gastrointestinal Gastrointestinal: absent: As Per HPI, Abdominal Pain, Belching, Bloating, Change in Bowel Habits, Change in Stool Character, Coffee Ground Emesis, Constipation, Cramping, Diarrhea, Dyspepsia, Dysphagia, Early Satiety, Excessive Flatus, Fecal Incontinence, Heartburn, Hematemesis, Hematochezia, Loose Stools, Melena, Nausea, Odynophagia, Temesmus, Vomiting, Other - Genitourinary Genitourinary: absent: As Per HPI, Change in Urinary Stream, Difficulty Urinating, Dysuria, Flank Pain, Hematuria, Pyuria, Nocturia, Urinary Incontinence, Urinary Frequency, Urinary Hesitance, Urinary Urgency, Voiding Freq/Small Amts, Freq UTI, Hx Renal/Bladder Calculi, Hx /Renal Surgery, Bladder Distension, Other - Reproductive: Female Reproductive:Female: absent: As Per HPI, Amenorrhea, Amenorrhea/ Control, Currently Menstual, Cycle <21 Days, Cycle >35 Days, Cycle Variable, Menses 1-7 Days, Menses >/= 8 Days, Menses Variable, Cycle > 4 Weeks Between, No Menses for 6 Months, Heavy Menses, Light Menses, Normal Menses, Spotting Between Cycles, S/P Hysterectomy, Menopausal, Post Menopausal, Premenarche, Abnormal Vaginal Bleeding, Dysmenorrhea, Dyspareunia, Genital Lesions, Genital Pruritis, Pelvic Pain, Prolapse Symptoms, Sexual Dysfunction, Vaginal Discharge, Vaginal Dryness, Vaginal Odor, Vaginal Pruritis, Other - Menstruation Menstruation: absent: As Per HPI, Amenorrhea, Amenorrhea/ Control, Currently Menstual, Cycle <21 Days, Cycle >35 Days, Cycle Variable, Menses 1-7 Days, Menses >/= 8 Days, Menses Variable, Cycle > 4 Weeks Between, No Menses for 6 Months, Heavy Menses, Light Menses, Normal Menses, Spotting Between Cycles, S/P Hysterectomy, Menopausal, Post Menopausal, Premenarche, Abnormal Vaginal Bleeding, Dysmenorrhea, Other - Musculoskeletal Musculoskeletal: As Per HPI - Integumentary Integumentary: As Per HPI - Neurological Neurological: As Per HPI, Sensory Deficit - Psychiatric Psychiatric: absent: As Per HPI, Abnormal Sleep Pattern, Anhedonia, Anxiety, Auditory Hallucinations, Behavioral Changes, Change in Appetite, Change in Libido, Confusion, Depression, Difficulty Concentrating, Hallucinations, Homicidal Ideation, Hopelessness, Irritability, Memory Loss, Mood Swings, Panic Attacks, Paranoia, Suicidal Ideation, Visual Hallucinations, Tactile Hallucinations, Other - Endocrine Endocrine: As Per HPI - Hematologic/Lymphatic Hematologic: absent: As Per HPI, Easy Bleeding, Easy Bruising, Lymphadenopathy, Other Past Patient History - Infectious Disease Hx of Infectious Diseases: None - Tetanus Immunizations Tetanus Immunization: Unknown - Past Medical History & Family History Past Medical History?: Yes - Past Social History Smoking Status: Never Smoked - CARDIAC Hx Congestive Heart Failure: Yes Hx Hypercholesterolemia: Yes Hx Hypertension: Yes Hx Mitral Valve Prolapse: Yes Hx Peripheral Edema: Yes - PULMONARY Hx Asthma: Yes Hx Bronchitis: Yes Hx Chronic Obstructive Pulmonary Disease (COPD): Yes Hx Pulmonary Embolism: Yes - NEUROLOGICAL Hx Neurological Disorder: Yes Other/Comment: Reflex Sympathetic Dystrophy-Hx of Rheumatic fever. - HEENT Hx HEENT Problems: Yes Hx Cataracts: Yes - ENDOCRINE/METABOLIC Hx Diabetes Mellitus Type 2: Yes Hx Hypothyroidism: Yes - HEMATOLOGICAL/ONCOLOGICAL Hx Blood Disorders: Yes Hx Blood Transfusions: Yes Hx Blood Transfusion Reaction: No - INTEGUMENTARY Hx Dermatological Problems: Yes Hx Cellulitis: Yes - MUSCULOSKELETAL/RHEUMATOLOGICAL Hx Arthritis: Yes Hx Fractures: Yes (DISPLACED METATarSAL FRACTURE 2ND LEFT) Hx Osteomyelitis: Yes (to right foot) - GASTROINTESTINAL Hx Gall Bladder Disease: Yes (Gallstone) - PSYCHIATRIC Hx Anxiety: Yes Hx Depression: Yes Hx Substance Use: No - SURGICAL HISTORY Hx Surgeries: Yes Hx Cardiac Catheterization: Yes (X6) Hx Eye Surgery: Yes (CATARACT SX BOTH W/LENS) Hx Herniorrhaphy: Yes (Umbilical Hernia repair) Hx Hysterectomy: Yes Hx Musculoskeletal Surgery: Yes (rt. fot surgery) Hx Vascular Access Device: Yes (Port A Cath) Other/Comment: Hiatus Hernia repair, DIMPLE, Buniectomy R foot, operation L foot (type unknown). - ANESTHESIA Hx Anesthesia: Yes Hx Anesthesia Reactions: No Hx Malignant Hyperthermia: No Meds Allergies/Adverse Reactions: Allergies Allergy/AdvReac Type Severity Reaction Status Date / Time Sulfa (Sulfonamide Allergy Intermediate ANAPHYLAXIS Verified 10/04/18 11:49 Antibiotics) - Medications Medications: Current Medications Albuterol/Ipratropium (Duoneb 3 Mg/0.5 Mg (3 Ml) Ud) 3 ml INH RQ4 PRN PRN Reason: Shortness of Breath Dextrose (Dextrose 50% Inj) 0 ml IV STAT PRN; Protocol PRN Reason: Hypoglycemia Protocol Dextrose (Glutose 15) 0 gm PO ONCE PRN; Protocol PRN Reason: Hypoglycemia Protocol Docusate Sodium (Colace) 100 mg PO DAILY [facility] Last Admin: 10/05/18 10:52 Dose: 100 mg Fluticasone/Vilanterol (Breo Ellipta 100-25 Mcg Inh) 1 puff INH RQD [facility] Last Admin: 10/05/18 10:37 Dose: Not Given Furosemide (Lasix) 20 mg PO DAILY [facility] Last Admin: 10/05/18 10:52 Dose: 20 mg Glucagon (Glucagen Diagnostic Kit) 0 mg IM STAT PRN; Protocol PRN Reason: Hypoglycemia Protocol Heparin Sodium (Porcine) (Heparin) 5,000 units SC Q12 [facility] Last Admin: 10/05/18 10:52 Dose: 5,000 units Dextrose (Dextrose 5% In Water 1000 Ml) 1,000 mls @ 0 mls/hr IV .Q0M PRN; Protocol PRN Reason: Hypoglycemia Protocol Insulin Human Regular (Novolin R) 0 unit SC ACHS [facility]; Protocol Last Admin: 10/05/18 17:00 Dose: Not Given Levothyroxine Sodium (Synthroid) 100 mcg PO DAILY@0630 [facility] Last Admin: 10/05/18 05:35 Dose: 100 mcg Lorazepam (Ativan) 2 mg PO TID [facility] Last Admin: 10/05/18 17:59 Dose: 2 mg Oxycodone HCl (Oxycodone Immediate Release Tab) 15 mg PO Q4H PRN PRN Reason: Pain, moderate (4-7) Oxycodone HCl (Oxycontin Extended Release Tab) 40 mg PO Q8 PRN PRN Reason: Pain, severe (8-10) Pantoprazole Sodium (Protonix Ec Tab) 40 mg PO DAILY [facility] Last Admin: 10/05/18 10:52 Dose: 40 mg Pregabalin (Lyrica) 150 mg PO BID [facility] Last Admin: 10/05/18 17:59 Dose: 150 mg Rosuvastatin Calcium (Crestor) 40 mg PO HS [facility] Last Admin: 10/04/18 21:45 Dose: 40 mg Spironolactone (Aldactone) 25 mg PO DAILY [facility] Last Admin: 10/05/18 10:52 Dose: 25 mg Physical Exam - Constitutional Appears: Non-toxic, Chronically Ill - Head Exam Head Exam: NORMOCEPHALIC - Eye Exam Eye Exam: PERRL. absent: Scleral icterus Pupil Exam: NORMAL ACCOMODATION - ENT Exam ENT Exam: Mucous Membranes Dry, Normal External Ear Exam, Normal Oropharynx - Neck Exam Neck exam: Negative for: Lymphadenopathy - Respiratory Exam Respiratory Exam: Decreased Breath Sounds, Prolonged Expiratory Phase, Rhonchi - Cardiovascular Exam Cardiovascular Exam: REGULAR RHYTHM, +S1, +S2 - GI/Abdominal Exam GI & Abdominal Exam: Diminished Bowel Sounds, Soft. absent: Tenderness - Rectal Exam Rectal Exam: Deferred - Exam Exam: NORMAL INSPECTION - Extremities Exam Extremities exam: Positive for: pedal edema, tenderness, pedal pulses present. Negative for: calf tenderness Additional comments: infected toe right foot no pus - Back Exam Back exam: absent: CVA tenderness (L), CVA tenderness (R) - Neurological Exam Neurological exam: Alert, CN II-XII Intact, Oriented x3, Reflexes Normal - Psychiatric Exam Psychiatric exam: Depressed - Skin Skin Exam: Dry, Intact Results - Vital Signs Recent Vital Signs: Last Vital Signs Temp 97.8 F 10/05/18 16:00 Pulse 82 10/05/18 16:00 Resp 20 10/05/18 16:00 BP 140/78 10/05/18 16:00 Pulse Ox 97 10/05/18 16:00 - Labs Result Diagrams: 10/07/18 07:20 10/07/18 07:20 Labs: Laboratory Results - last 24 hr 10/04/18 10/05/18 10/05/18 21:09 06:06 11:13 WBC 8.7 RBC 4.69 Hgb 11.3 Hct 35.4 MCV 75.6 L MCH 24.0 L MCHC 31.8 L RDW 15.7 H Plt Count 242 MPV 9.0 Neut % (Auto) 80.3 H Lymph % (Auto) 14.2 L [place] % (Auto) 5.1 Eos % (Auto) 0.1 Baso % (Auto) 0.3 Neut # (Auto) 7.0 Lymph # (Auto) 1.2 [place] # (Auto) 0.4 Eos # (Auto) 0.0 Baso # (Auto) 0.0 Sodium Potassium Chloride Carbon Dioxide Anion Gap BUN Creatinine Est GFR ( Amer) Est GFR (Non-Af Amer) POC Glucose (mg/dL) 115 H 106 Random Glucose Calcium Total Bilirubin AST ALT Alkaline Phosphatase Total Protein Albumin Globulin Albumin/Globulin Ratio Urine Color Urine Clarity Urine pH Ur Specific [place] Urine Protein Urine Glucose (UA) Urine Ketones Urine Blood Urine Nitrate Urine Bilirubin Urine Urobilinogen Ur Leukocyte Esterase Urine WBC (Auto) Urine RBC (Auto) Ur Squamous Epith Cells Urine Bacteria 10/05/18 10/05/18 10/05/18 11:13 11:23 15:03 WBC RBC Hgb Hct MCV MCH MCHC RDW Plt Count MPV Neut % (Auto) Lymph % (Auto) [place] % (Auto) Eos % (Auto) Baso % (Auto) Neut # (Auto) Lymph # (Auto) [place] # (Auto) Eos # (Auto) Baso # (Auto) Sodium 136 Potassium 3.9 Chloride 102 Carbon Dioxide 26 Anion Gap 12 BUN 10 Creatinine 0.5 L Est GFR ( Amer) > 60 Est GFR (Non-Af Amer) > 60 POC Glucose (mg/dL) 149 H Random Glucose 134 H D Calcium 10.1 Total Bilirubin 0.3 AST 28 ALT 21 Alkaline Phosphatase 109 Total Protein 7.2 Albumin 4.1 Globulin 3.1 Albumin/Globulin Ratio 1.3 Urine Color Yellow Urine Clarity Hazy Urine pH 8.0 Ur Specific [place] 1.015 Urine Protein 2+ H Urine Glucose (UA) Normal Urine Ketones Negative Urine Blood Negative Urine Nitrate Negative Urine Bilirubin Negative Urine Urobilinogen Normal Ur Leukocyte Esterase Neg Urine WBC (Auto) 2 Urine RBC (Auto) 2 Ur Squamous Epith Cells 3 Urine Bacteria Rare 10/05/18 16:40 WBC RBC Hgb Hct MCV MCH MCHC RDW Plt Count MPV Neut % (Auto) Lymph % (Auto) [place] % (Auto) Eos % (Auto) Baso % (Auto) Neut # (Auto) Lymph # (Auto) [place] # (Auto) Eos # (Auto) Baso # (Auto) Sodium Potassium Chloride Carbon Dioxide Anion Gap BUN Creatinine Est GFR ( Amer) Est GFR (Non-Af Amer) POC Glucose (mg/dL) 119 H Random Glucose Calcium Total Bilirubin AST ALT Alkaline Phosphatase Total Protein Albumin Globulin Albumin/Globulin Ratio Urine Color Urine Clarity Urine pH Ur Specific [place] Urine Protein Urine Glucose (UA) Urine Ketones Urine Blood Urine Nitrate Urine Bilirubin Urine Urobilinogen Ur Leukocyte Esterase Urine WBC (Auto) Urine RBC (Auto) Ur Squamous Epith Cells Urine Bacteria Assessment & Plan (1) Metatarsal fracture Status: Acute (2) Osteomyelitis of foot Status: Acute (3) CHF (congestive heart failure) Status: Acute (4) 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
[2018-10-05] MEDS: oxyCODONE 5 mg Immediate Release Tab PO PRN (21:23)
[2018-10-05] MEDS: Vancomycin 1 gm/NS 200 ml 1 GM/200 ML BAG IVPB SCH (21:25)
[2018-10-06] MEDS: MELOXICAM 7.5 MG PO SCH ×3 (01:13→21:00)
[2018-10-06] MEDS: oxyCODONE 5 mg Immediate Release Tab PO PRN ×5 (01:37→21:45)
[2018-10-06 06:23] LABS: BASO # 0.1 K/uL (0.0-0.2); BASO % 0.6 % (0.0-2.0); EOS # 0.1 K/uL (0.0-0.7); EOS % 0.8 % (0.0-4.0); HEMOGLOBIN 11.5 g/dL (11.0-16.0); LYMPH # 2.6 K/uL (1.0-4.3); LYMPH % 23.7 % (20.0-40.0); MEAN CELL VOLUME 74.8 fL (81.0-99.0); MEAN CORPUSCULAR HEMOGLOBIN 23.9 pg (27.0-31.0); MEAN PLATELET VOLUME 9.1 fL (7.2-11.7); MONO # 0.9 K/uL (0.0-0.8); MONO % 8.1 % (0.0-10.0); NEUT # 7.5 K/uL (1.8-7.0); NEUT % 66.8 % (50.0-75.0); NRBC % 0.1 % (0.0-2.0); RBC 4.82 Mil/uL (3.80-5.20); RED CELL DISTRIBUTION WIDTH 15.9 % (11.5-14.5); WHITE BLOOD COUNT 11.2 K/uL (4.8-10.8)
[2018-10-06 06:36] LABS: INR 1.1; PROTHROMBIN TIME 11.6 SECONDS (9.7-12.2)
[2018-10-06 06:37] LABS: ALB/GLOB RATIO 1.4 (1.0-2.1); ALBUMIN 4.5 g/dL (3.5-5.0); ALT/SGPT 24 U/L (9-52); AST/SGOT 27 U/L (14-36); BLOOD UREA NITROGEN 12 mg/dL (7-17); CALCIUM 10.5 mg/dl (8.6-10.4); GFR NON-AFRICAN AMERICAN > 60
[2018-10-06] MEDS: Levothyroxine 100 MCG TAB PO SCH (06:40)
[2018-10-06] MEDS ORDERED: ceFAZolin 1 gm in NS 0 GM/0 ML BAG IVPB ONE (07:17)
[2018-10-06] MEDS ORDERED: Bupivacaine HCl 0.25% PF (10 ml) Inj ONE (07:17)
[2018-10-06] MEDS ORDERED: Lidocaine Hydrochloride 10 ML INJ ONE (07:17)
[2018-10-06] MEDS: (Novolin R) Insulin Human Regular 100 units/ml vial SC SCH ×4 (07:52→21:18)
--- NOTE | 2018-10-06 08:03 | CP.PCM.PN ---
Subjective - Date & Time of Evaluation Date of Evaluation: 10/06/18 Time of Evaluation: 08:00 - Subjective Subjective: Progress note for Dr. Weldon Patient was seen and examined at bedside in no acute distress. Patient is s/p right third digit removal of infected bone and v to y skin plasty of the second MPJ. Patient has no complaints and denies chest pain, abdominal pain, nausea, vomiting, fevers, headaches. Objective - Vital Signs/Intake and Output Vital Signs (last 24 hours): Temp Pulse Resp BP Pulse Ox 98.0 F 78 20 121/77 97 10/05/18 23:21 10/05/18 23:21 10/05/18 23:21 10/05/18 23:21 10/05/18 23:21 - Medications Medications: Current Medications Albuterol/Ipratropium (Duoneb 3 Mg/0.5 Mg (3 Ml) Ud) 3 ml INH RQ4 PRN PRN Reason: Shortness of Breath Dextrose (Dextrose 50% Inj) 0 ml IV STAT PRN; Protocol PRN Reason: Hypoglycemia Protocol Dextrose (Glutose 15) 0 gm PO ONCE PRN; Protocol PRN Reason: Hypoglycemia Protocol Docusate Sodium (Colace) 100 mg PO DAILY [facility] Last Admin: 10/05/18 10:52 Dose: 100 mg Fluticasone/Vilanterol (Breo Ellipta 100-25 Mcg Inh) 1 puff INH RQD [facility] Last Admin: 10/05/18 10:37 Dose: Not Given Furosemide (Lasix) 20 mg PO DAILY [facility] Last Admin: 10/05/18 10:52 Dose: 20 mg Glucagon (Glucagen Diagnostic Kit) 0 mg IM STAT PRN; Protocol PRN Reason: Hypoglycemia Protocol Heparin Sodium (Porcine) (Heparin) 5,000 units SC Q12 [facility] Last Admin: 10/05/18 21:11 Dose: Not Given Home Med (Patient's Own Medication) 7.5 tab PO DAILY [facility] Last Admin: 10/06/18 01:13 Dose: 7.5 tab Dextrose (Dextrose 5% In Water 1000 Ml) 1,000 mls @ 0 mls/hr IV .Q0M PRN; Protocol PRN Reason: Hypoglycemia Protocol Vancomycin/Sodium Chloride (Vancomycin 1 Gm/Ns 200 Ml) 1 gm in 200 mls @ 166.6 mls/hr IVPB Q12H [facility]; Protocol Stop: 10/10/18 21:01 Last Admin: 10/05/18 21:25 Dose: 166.6 mls/hr Insulin Human Regular (Novolin R) 0 unit SC [facility]; Protocol Last Admin: 10/06/18 07:52 Dose: Not Given Levothyroxine Sodium (Synthroid) 100 mcg PO DAILY@0630 [facility] Last Admin: 10/06/18 06:40 Dose: 100 mcg Lorazepam (Ativan) 2 mg PO TID [facility] Last Admin: 10/05/18 17:59 Dose: 2 mg Oxycodone HCl (Oxycodone Immediate Release Tab) 15 mg PO Q4H PRN PRN Reason: Pain, moderate (4-7) Last Admin: 10/06/18 06:40 Dose: 15 mg Oxycodone HCl (Oxycontin Extended Release Tab) 40 mg PO Q8 PRN PRN Reason: Pain, severe (8-10) Pantoprazole Sodium (Protonix Ec Tab) 40 mg PO DAILY [facility] Last Admin: 10/05/18 10:52 Dose: 40 mg Pregabalin (Lyrica) 150 mg PO BID [facility] Last Admin: 10/05/18 17:59 Dose: 150 mg Rosuvastatin Calcium (Crestor) 40 mg PO HS [facility] Last Admin: 10/05/18 21:22 Dose: 40 mg Spironolactone (Aldactone) 25 mg PO DAILY [facility] Last Admin: 10/05/18 10:52 Dose: 25 mg - Labs Labs: 10/06/18 06:16 10/06/18 06:16 PT 11.6 SECONDS (9.7-12.2) 10/06/18 06:16 INR 1.1 10/06/18 06:16 APTT 30 SECONDS (21-34) 10/06/18 06:16 - Additional Findings Additional findings: - Constitutional Appears: No Acute Distress - Head Exam Head Exam: ATRAUMATIC - Eye Exam Eye Exam: EOMI - ENT Exam ENT Exam: Mucous Membranes Moist - Respiratory Exam Respiratory Exam: Clear to Ausculation Bilateral, NORMAL BREATHING PATTERN. absent: Rhonchi, Wheezes, Respiratory Distress - Cardiovascular Exam Cardiovascular Exam: REGULAR RHYTHM, +S1, +S2 - GI/Abdominal Exam GI & Abdominal Exam: Soft, Normal Bowel Sounds. absent: Distended, Firm, Tenderness - Extremities Exam Extremities Exam: s/p right third digit removal of infected bone and v to y skin plasty of the second MPJ. absent: Pedal Edema - Neurological Exam Neurological Exam: Alert, Awake, Oriented x3 - Psychiatric Exam Psychiatric exam: Normal Affect, Normal Mood - Skin Skin Exam: Dry, Warm Assessment and Plan - Assessment and Plan (Free Text) Plan: 63 year old female with a past medical history of hypertension, chf, cad, diabetes mellitus, rheumatic fever, and paraesophageal hernia presents to the hospital for per Dr. Rios for pre-operative clearance for foot surgery. Plan: Right foot, 3rd digit cellulitis and osteomyelitis - Podiatry consulted; Help appreciated - Cardiology consulted, Dr. Viera; Help appreciated for cardiac clearance * Per cigar head stringer: Normal left ventricular function on echocardiogram February 2018; EKG no evidence of myocardial ischemia. No cardiac contraindication to the planned surgery - ID consulted, Dr. Purcell; help appreciated - Foot Xray: apparent destructive changes-osteomyelitis distal tuft of the distal phalanx 2nd toe with surrounding soft tissue swelling; osseus structures otherwise appear intact; appears to be postoperative changes of the distal aspect proximal phalanx 2nd toe. - Patient has a revised cardiac risk index of 3 points/class IV risk and has a 15% risk of major cardiac event. Patient must be cleared by cigar head stringer prior to surgery. - Medication: * Vancomycin 1gm IV Q12h (active since 10/05/18) * additional pain management per podiatry *s/p right third digit removal of infected bone and v to y skin plasty of the second MPJ with Dr. Rios on 10/06/18. Culture of the toe + MRSA DM - Hold home medications - ISS - Carb consistent diet - Accuchecks and hypoglycemia protocol - A1c (03/2018): 5.9 Hypothyrodism - Continue Levothyroxine 100mcg PO Daily Hypercholesterolemia - Continue Rosuvastatin 40mg PO HS - Lipid panel (03/2018): TG 215, Chol 308, LDL 199, HDL 56 Neuropathy - Continue Lyrica 150mg PO BID [facility] Diastolic CHF - Lasix 20mg po BID - Aldactone 25mg po daily - Echo (02/2018): normal size LA, LV, RA, RV; normal LV wall motion and systolic function w/LVEF 65-70%; mild concentric LVH; LV diastolic dysfunction grade I; sclerotic trileaflet aortic valved with trace AI; MAC, Trace MR; sclerotic aortic root; no pericardial effusion COPD - Continue Breo-Ellipta 1 puff INH RQD - Duonebs prn - CXR: no active disease; persistent mild cardiomegaly and pulm venous congestion Hypokalemia - K: 3.5 on admission - Repleted. Will monitor with serial CMP's Reflex Sympathetic Dystrophy - Continue home medications: Oxycodone 15mg q4h prn, Oxycontin 40mg po q8h, Tizanidine 4mg po tid, Meloxicam 7.5mg PO daily Prophylaxis - Heparin 5000sc Q12h- held for operation - Protonix 40mg PO daily Case discussed with and patient seen with Dr. Weldon. Cynthia Olmstead, PGY2
[2018-10-06] MEDS ORDERED: Midazolam 2 MG/2 ML VIAL ONE (08:05)
[2018-10-06] MEDS ORDERED: Propofol 10 mg/ml Inj (20 ML) ONE ×2 (08:05→08:40)
[2018-10-06] MEDS: Fluticasone-Vilanterol 100/25mcg Diskus INH SCH (08:46)
[2018-10-06] MEDS ORDERED: HYDROmorphone 0.5 mg/0.5 ml ISec ONE (09:32)
[2018-10-06] MEDS: HYDROmorphone 0.5 mg/0.5 ml ISec IVP PRN ×3 (09:35→09:57)
[2018-10-06] MEDS ORDERED: Oxycodone/Acetaminophen 5/325 mg Tab PO PRN ×2 (09:35→09:57)
--- NOTE | 2018-10-06 09:46 | PCM.SURG1 ---
Surgeon's Initial Post Op Note - Surgeon's Notes Surgeon: Dr. Teo Rios [employer] Pipe Covering Supervisor: Leigh Ann Isidro PGY1, Mario Eaton PGY2 Type of Anesthesia: IV Sedation Anesthesia Administered By: Dr. Guzmán Pre-Operative Diagnosis: right foot third digit distal phalanx with osteomyelitis and contracture of second digit Operative Findings: see dictation. materials: 4-0 nylon, 4-0 prolene. Post-Operative Diagnosis: same Operation Performed: right third digit removal of infected bone and v to y skin plasty of the second MPJ Specimen/Specimens Removed: pathology: third digit distal phalanx infected bone Estimated Blood Loss: EBL {In ML}: 5 Blood Products Given: N/A Drains Used: No Drains Post-Op Condition: Good Date of Surgery/Procedure: 10/06/18 Time of Surgery/Procedure: 09:44
[2018-10-06] MEDS: Pantoprazole 40 mg EC Tab PO SCH ×2 (09:47→12:13)
[2018-10-06] MEDS: Vancomycin 1 gm/NS 200 ml 1 GM/200 ML BAG IVPB SCH ×2 (09:48→21:32)
[2018-10-06] MEDS: oxyCODONE 40 mg ER Tab (oxyCONTIN) PO PRN (13:15)
--- NOTE | 2018-10-06 14:54 | RAD ---
Date of service: 10/06/2018 PROCEDURE: Right Foot Radiographs. HISTORY: stretcher COMPARISON: Right foot x-rays 10/04/2018 FINDINGS: Limited exam due to overlying dressing. BONES: No fracture identified. Plantar calcaneal spur noted. Again seen are postsurgical changes distal aspect of the 2nd proximal phalanx. JOINTS: No dislocation seen mild hallux valgus. Mild valgus deformity of the 3rd and 4th MTP joints. SOFT TISSUES: Unremarkable OTHER FINDINGS: None. IMPRESSION: Limited exam due to overlying dressing. Degenerative changes as above.
--- NOTE | 2018-10-06 19:21 | CP.PCM.PN ---
Subjective - Date & Time of Evaluation Date of Evaluation: 10/06/18 Time of Evaluation: 08:00 - Subjective Subjective: s/p OR for right foot third digit distal phalanx with osteomyelitis and contracture of second digit Objective - Vital Signs/Intake and Output Vital Signs (last 24 hours): Temp Pulse Resp BP Pulse Ox 98.5 F 94 H 20 123/67 97 10/06/18 15:10 10/06/18 15:10 10/06/18 15:10 10/06/18 15:10 10/06/18 15:10 Intake and Output: 10/06/18 10/07/18 18:59 06:59 Intake Total 410 Balance 410 - Medications Medications: Current Medications Acetaminophen (Tylenol 325mg Tab) 650 mg PO Q6 PRN PRN Reason: Pain, Mild (1-3) Albuterol/Ipratropium (Duoneb 3 Mg/0.5 Mg (3 Ml) Ud) 3 ml INH RQ4 PRN PRN Reason: Shortness of Breath Dextrose (Dextrose 50% Inj) 0 ml IV STAT PRN; Protocol PRN Reason: Hypoglycemia Protocol Dextrose (Glutose 15) 0 gm PO ONCE PRN; Protocol PRN Reason: Hypoglycemia Protocol Docusate Sodium (Colace) 100 mg PO DAILY [facility] Last Admin: 10/06/18 12:13 Dose: 100 mg Fluticasone/Vilanterol (Breo Ellipta 100-25 Mcg Inh) 1 puff INH RQD [facility] Last Admin: 10/06/18 08:46 Dose: Not Given Furosemide (Lasix) 20 mg PO DAILY [facility] Last Admin: 10/06/18 12:16 Dose: 20 mg Glucagon (Glucagen Diagnostic Kit) 0 mg IM STAT PRN; Protocol PRN Reason: Hypoglycemia Protocol Heparin Sodium (Porcine) (Heparin) 5,000 units SC Q12 [facility] Last Admin: 10/05/18 21:11 Dose: Not Given Home Med (Patient's Own Medication) 7.5 tab PO DAILY [facility] Last Admin: 10/06/18 09:47 Dose: Not Given Dextrose (Dextrose 5% In Water 1000 Ml) 1,000 mls @ 0 mls/hr IV .Q0M PRN; Protocol PRN Reason: Hypoglycemia Protocol Vancomycin/Sodium Chloride (Vancomycin 1 Gm/Ns 200 Ml) 1 gm in 200 mls @ 166.6 mls/hr IVPB Q12H [facility]; Protocol Stop: 10/10/18 21:01 Last Admin: 10/06/18 09:48 Dose: Not Given Insulin Human Regular (Novolin R) 0 unit SC ACHS [facility]; Protocol Last Admin: 10/06/18 17:30 Dose: Not Given Levothyroxine Sodium (Synthroid) 100 mcg PO DAILY@0630 [facility] Last Admin: 10/06/18 06:40 Dose: 100 mcg Lorazepam (Ativan) 2 mg PO TID [facility] Last Admin: 10/06/18 17:31 Dose: 2 mg Oxycodone HCl (Oxycodone Immediate Release Tab) 15 mg PO Q4H PRN PRN Reason: Pain, moderate (4-7) Last Admin: 10/06/18 17:31 Dose: 15 mg Oxycodone HCl (Oxycontin Extended Release Tab) 40 mg PO Q8 PRN PRN Reason: Pain, severe (8-10) Last Admin: 10/06/18 13:15 Dose: 40 mg Oxycodone/Acetaminophen (Percocet 5/325 Mg Tab) 1 tab PO Q6H PRN PRN Reason: Pain, moderate (4-7) Stop: 10/09/18 09:58 Oxycodone/Acetaminophen (Percocet 5/325 Mg Tab) 2 tab PO Q6H PRN PRN Reason: Pain, severe (8-10) Stop: 10/09/18 09:36 Pantoprazole Sodium (Protonix Ec Tab) 40 mg PO DAILY [facility] Last Admin: 10/06/18 12:13 Dose: 40 mg Pregabalin (Lyrica) 150 mg PO BID [facility] Last Admin: 10/06/18 17:33 Dose: 150 mg Rosuvastatin Calcium (Crestor) 40 mg PO HS [facility] Last Admin: 10/05/18 21:22 Dose: 40 mg Spironolactone (Aldactone) 25 mg PO DAILY [facility] Last Admin: 10/06/18 12:13 Dose: 25 mg - Labs Labs: 10/06/18 06:16 10/06/18 06:16 PT 11.6 SECONDS (9.7-12.2) 10/06/18 06:16 INR 1.1 10/06/18 06:16 APTT 30 SECONDS (21-34) 10/06/18 06:16 - Constitutional Appears: Non-toxic, No Acute Distress, Chronically Ill - Head Exam Head Exam: ATRAUMATIC, NORMAL INSPECTION, NORMOCEPHALIC - Eye Exam Eye Exam: EOMI, Normal appearance, PERRL Pupil Exam: NORMAL ACCOMODATION, PERRL - ENT Exam ENT Exam: Mucous Membranes Moist, Normal Exam - Neck Exam Neck Exam: Full ROM, Normal Inspection. absent: Lymphadenopathy - Respiratory Exam Respiratory Exam: Clear to Ausculation Bilateral, NORMAL BREATHING PATTERN - Cardiovascular Exam Cardiovascular Exam: REGULAR RHYTHM, +S1, +S2. absent: Murmur - GI/Abdominal Exam GI & Abdominal Exam: Soft, Normal Bowel Sounds. absent: Tenderness - Rectal Exam Rectal Exam: Deferred - Exam Exam: NORMAL INSPECTION - Extremities Exam Extremities Exam: Full ROM, Normal Capillary Refill, Normal Inspection. absent: Joint Swelling, Pedal Edema - Back Exam Back Exam: NORMAL INSPECTION - Neurological Exam Neurological Exam: Alert, Awake, CN II-XII Intact, Normal Gait, Oriented x3 - Psychiatric Exam Psychiatric exam: Normal Affect, Normal Mood - Skin Skin Exam: Dry, Intact, Normal Color, Warm Assessment and Plan (1) Osteomyelitis of foot Status: Acute - Assessment and Plan (Free Text) Assessment: MRSA + on cuulture cont IV antibiotics and wound care
[2018-10-07] MEDS: oxyCODONE 40 mg ER Tab (oxyCONTIN) PO PRN ×3 (00:08→22:57)
[2018-10-07] MEDS: oxyCODONE 5 mg Immediate Release Tab PO PRN ×3 (03:07→17:07)
[2018-10-07] MEDS: Levothyroxine 100 MCG TAB PO SCH (06:43)
[2018-10-07] MEDS: (Novolin R) Insulin Human Regular 100 units/ml vial SC SCH ×4 (07:17→21:12)
[2018-10-07 07:28] LABS: BASO # 0.1 K/uL (0.0-0.2); BASO % 0.6 % (0.0-2.0); EOS # 0.1 K/uL (0.0-0.7); EOS % 1.8 % (0.0-4.0); HEMOGLOBIN 11.1 g/dL (11.0-16.0); LYMPH # 2.2 K/uL (1.0-4.3); LYMPH % 28.1 % (20.0-40.0); MEAN CELL VOLUME 76.1 fL (81.0-99.0); MEAN CORPUSCULAR HEMOGLOBIN 24.2 pg (27.0-31.0); MEAN CORPUSCULAR HGB CONC 31.8 g/dL (33.0-37.0); MEAN PLATELET VOLUME 8.8 fL (7.2-11.7); MONO # 0.8 K/uL (0.0-0.8); MONO % 10.5 % (0.0-10.0); NEUT # 4.6 K/uL (1.8-7.0); RBC 4.57 Mil/uL (3.80-5.20); RED CELL DISTRIBUTION WIDTH 16.1 % (11.5-14.5); WHITE BLOOD COUNT 7.8 K/uL (4.8-10.8)
[2018-10-07 07:46] LABS: ALB/GLOB RATIO 1.3 (1.0-2.1); ALBUMIN 3.8 g/dL (3.5-5.0); ALT/SGPT 16 U/L (9-52); AST/SGOT 24 U/L (14-36); BLOOD UREA NITROGEN 11 mg/dL (7-17); CALCIUM 9.7 mg/dl (8.6-10.4); GFR NON-AFRICAN AMERICAN > 60
[2018-10-07] MEDS: Vancomycin 1 gm/NS 200 ml 1 GM/200 ML BAG IVPB SCH ×2 (08:13→21:09)
[2018-10-07 08:35] VITALS: RESP 20
[2018-10-07] MEDS: Pantoprazole 40 mg EC Tab PO SCH (09:08)
[2018-10-07] MEDS: MELOXICAM 7.5 MG PO SCH ×2 (09:09→21:11)
--- NOTE | 2018-10-07 09:30 | CP.PCM.PN ---
Subjective - Date & Time of Evaluation Date of Evaluation: 10/07/18 Time of Evaluation: 09:29 - Subjective Subjective: Podiatry Progress Note: Dr. Rios 63 year old female patient, seen and evaluated this morning POD#1 right 3rd digit amputation with skin plasty of the 2nd MPJ. Patient resting comfortably in bed and in NAD. No acute events overnight noted. Denies nausea/vomiting/fever/shortness of breath/chest pain. Objective - Vital Signs/Intake and Output Vital Signs (last 24 hours): Temp Pulse Resp BP Pulse Ox 97.9 F 80 20 128/82 96 10/07/18 08:34 10/07/18 08:34 10/07/18 08:34 10/07/18 09:08 10/07/18 08:34 Intake and Output: 10/07/18 10/07/18 06:59 18:59 Intake Total 250 200 Balance 250 200 - Medications Medications: Current Medications Acetaminophen (Tylenol 325mg Tab) 650 mg PO Q6 PRN PRN Reason: Pain, Mild (1-3) Albuterol/Ipratropium (Duoneb 3 Mg/0.5 Mg (3 Ml) Ud) 3 ml INH RQ4 PRN PRN Reason: Shortness of Breath Dextrose (Dextrose 50% Inj) 0 ml IV STAT PRN; Protocol PRN Reason: Hypoglycemia Protocol Dextrose (Glutose 15) 0 gm PO ONCE PRN; Protocol PRN Reason: Hypoglycemia Protocol Docusate Sodium (Colace) 100 mg PO DAILY [facility] Last Admin: 10/07/18 09:08 Dose: 100 mg Fluticasone/Vilanterol (Breo Ellipta 100-25 Mcg Inh) 1 puff INH RQD [facility] Last Admin: 10/06/18 08:46 Dose: Not Given Furosemide (Lasix) 20 mg PO DAILY [facility] Last Admin: 10/07/18 09:08 Dose: 20 mg Glucagon (Glucagen Diagnostic Kit) 0 mg IM STAT PRN; Protocol PRN Reason: Hypoglycemia Protocol Heparin Sodium (Porcine) (Heparin) 5,000 units SC Q12 [facility] Last Admin: 10/05/18 21:11 Dose: Not Given Home Med (Patient's Own Medication) 7.5 tab PO BID [facility] Last Admin: 10/07/18 09:09 Dose: 7.5 tab Dextrose (Dextrose 5% In Water 1000 Ml) 1,000 mls @ 0 mls/hr IV .Q0M PRN; Pro tocol PRN Reason: Hypoglycemia Protocol Vancomycin/Sodium Chloride (Vancomycin 1 Gm/Ns 200 Ml) 1 gm in 200 mls @ 166.6 mls/hr IVPB Q12H [facility]; Protocol Stop: 10/10/18 21:01 Last Admin: 10/07/18 08:13 Dose: 166.6 mls/hr Insulin Human Regular (Novolin R) 0 unit SC ACHS [facility]; Protocol Last Admin: 10/07/18 07:17 Dose: Not Given Levothyroxine Sodium (Synthroid) 100 mcg PO DAILY@0630 [facility] Last Admin: 10/07/18 06:43 Dose: 100 mcg Lorazepam (Ativan) 2 mg PO TID [facility] Last Admin: 10/07/18 09:08 Dose: 2 mg Oxycodone HCl (Oxycodone Immediate Release Tab) 15 mg PO Q4H PRN PRN Reason: Pain, moderate (4-7) Last Admin: 10/07/18 06:39 Dose: 15 mg Oxycodone HCl (Oxycontin Extended Release Tab) 40 mg PO Q8 PRN PRN Reason: Pain, severe (8-10) Last Admin: 10/07/18 08:21 Dose: 40 mg Oxycodone/Acetaminophen (Percocet 5/325 Mg Tab) 1 tab PO Q6H PRN PRN Reason: Pain, moderate (4-7) Stop: 10/09/18 09:58 Oxycodone/Acetaminophen (Percocet 5/325 Mg Tab) 2 tab PO Q6H PRN PRN Reason: Pain, severe (8-10) Stop: 10/09/18 09:36 Pantoprazole Sodium (Protonix Ec Tab) 40 mg PO DAILY [facility] Last Admin: 10/07/18 09:08 Dose: 40 mg Pregabalin (Lyrica) 150 mg PO BID [facility] Last Admin: 10/07/18 09:07 Dose: 150 mg Rosuvastatin Calcium (Crestor) 40 mg PO HS [facility] Last Admin: 10/06/18 21:31 Dose: 40 mg Spironolactone (Aldactone) 25 mg PO DAILY [facility] Last Admin: 10/07/18 09:08 Dose: 25 mg - Labs Labs: 10/07/18 07:20 10/07/18 07:20 PT 11.6 SECONDS (9.7-12.2) 10/06/18 06:16 INR 1.1 10/06/18 06:16 APTT 30 SECONDS (21-34) 10/06/18 06:16 - Constitutional Appears: Non-toxic, No Acute Distress - Head Exam Head Exam: ATRAUMATIC, NORMOCEPHALIC - Extremities Exam Additional comments: Lower extremity focused exam: Vasc: DP/PT pulses palpable 1/4. Temperature gradient warm to cool. CFT < 3 sec to all digits. Non-pitting edema noted to right 3rd digit. Neuro: Light touch and protective sensation diminished bilaterally Derm: Surgical incision site skin well coapted, sutures intact, no evidence of dehiscence at this time, no purulence, no drainage, no clinical signs of infection appreciated. No erythema or cellulitic changes Ortho: Pain on palpation noted to right 3rd digit. Flexible dorsal contracture of right 2nd digit. - Neurological Exam Neurological Exam: Alert, Awake Assessment and Plan - Assessment and Plan (Free Text) Assessment: 63 year old female patient POD#1 right 3rd digit amputation with skin plasty of the 2nd MPJ. Plan: Patient seen and evaluated alongside attending, Dr. Rios Afebrile, WBC 7.8 ID consulted, continue IV Vanco Wound cx (10/04): MRSA Surgical site stable at this time Plan for home with IV abx Local wound care: Betadine, xeroform, DSD Will continue to follow while in house Upon d/c patient to follow with Dr. Rios as outpatient for continued care
[2018-10-07] MEDS: Fluticasone-Vilanterol 100/25mcg Diskus INH SCH (11:43)
[2018-10-08] MEDS: oxyCODONE 5 mg Immediate Release Tab PO PRN ×3 (00:35→22:45)
[2018-10-08] MEDS: Levothyroxine 100 MCG TAB PO SCH (06:20)
[2018-10-08] MEDS: (Novolin R) Insulin Human Regular 100 units/ml vial SC SCH ×4 (07:42→21:27)
[2018-10-08] MEDS: Fluticasone-Vilanterol 100/25mcg Diskus INH SCH (08:07)
[2018-10-08] MEDS: Vancomycin 1 gm/NS 200 ml 1 GM/200 ML BAG IVPB SCH ×2 (08:26→21:26)
[2018-10-08] MEDS: Pantoprazole 40 mg EC Tab PO SCH (09:10)
[2018-10-08] MEDS: MELOXICAM 7.5 MG PO SCH ×2 (09:10→21:27)
--- NOTE | 2018-10-08 14:45 | CP.PCM.PN ---
Subjective - Date & Time of Evaluation Date of Evaluation: 10/08/18 Time of Evaluation: 10:00 - Subjective Subjective: day 3 post op afeb nad Objective - Vital Signs/Intake and Output Vital Signs (last 24 hours): Temp Pulse Resp BP Pulse Ox 97.6 F 81 20 125/69 97 10/08/18 09:00 10/08/18 09:00 10/08/18 09:00 10/08/18 09:12 10/08/18 09:00 Intake and Output: 10/08/18 10/08/18 06:59 18:59 Intake Total 600 Balance 600 - Medications Medications: Current Medications Acetaminophen (Tylenol 325mg Tab) 650 mg PO Q6 PRN PRN Reason: Pain, Mild (1-3) Last Admin: 10/07/18 18:15 Dose: 650 mg Albuterol/Ipratropium (Duoneb 3 Mg/0.5 Mg (3 Ml) Ud) 3 ml INH RQ4 PRN PRN Reason: Shortness of Breath Dextrose (Dextrose 50% Inj) 0 ml IV STAT PRN; Protocol PRN Reason: Hypoglycemia Protocol Dextrose (Glutose 15) 0 gm PO ONCE PRN; Protocol PRN Reason: Hypoglycemia Protocol Docusate Sodium (Colace) 100 mg PO DAILY [facility] Last Admin: 10/08/18 09:11 Dose: 100 mg Fluticasone/Vilanterol (Breo Ellipta 100-25 Mcg Inh) 1 puff INH RQD [facility] Last Admin: 10/08/18 08:07 Dose: Not Given Furosemide (Lasix) 20 mg PO DAILY [facility] Last Admin: 10/08/18 09:12 Dose: 20 mg Glucagon (Glucagen Diagnostic Kit) 0 mg IM STAT PRN; Protocol PRN Reason: Hypoglycemia Protocol Heparin Sodium (Porcine) (Heparin) 5,000 units SC Q12 [facility] Last Admin: 10/05/18 21:11 Dose: Not Given Home Med (Patient's Own Medication) 7.5 tab PO BID [facility] Last Admin: 10/08/18 09:10 Dose: 7.5 tab Vancomycin/Sodium Chloride (Vancomycin 1 Gm/Ns 200 Ml) 1 gm in 200 mls @ 166.6 mls/hr IVPB Q12H [facility]; Protocol Stop: 10/10/18 21:01 Last Admin: 10/08/18 08:26 Dose: 166.6 mls/hr Insulin Human Regular (Novolin R) 0 unit SC ACHS [facility]; Protocol Last Admin: 10/08/18 11:55 Dose: Not Given Levothyroxine Sodium (Synthroid) 100 mcg PO DAILY@0630 [facility] Last Admin: 10/08/18 06:20 Dose: 100 mcg Lorazepam (Ativan) 2 mg PO TID [facility] Last Admin: 10/08/18 13:13 Dose: 2 mg Oxycodone HCl (Oxycodone Immediate Release Tab) 15 mg PO Q4H PRN PRN Reason: Pain, moderate (4-7) Last Admin: 10/08/18 04:55 Dose: 15 mg Oxycodone HCl (Oxycontin Extended Release Tab) 40 mg PO Q8 PRN PRN Reason: Pain, severe (8-10) Last Admin: 10/07/18 22:57 Dose: 40 mg Oxycodone/Acetaminophen (Percocet 5/325 Mg Tab) 1 tab PO Q6H PRN PRN Reason: Pain, moderate (4-7) Stop: 10/09/18 09:58 Oxycodone/Acetaminophen (Percocet 5/325 Mg Tab) 2 tab PO Q6H PRN PRN Reason: Pain, severe (8-10) Stop: 10/09/18 09:36 Pantoprazole Sodium (Protonix Ec Tab) 40 mg PO DAILY [facility] Last Admin: 10/08/18 09:10 Dose: 40 mg Pregabalin (Lyrica) 150 mg PO BID [facility] Last Admin: 10/08/18 09:10 Dose: 150 mg Rosuvastatin Calcium (Crestor) 40 mg PO HS [facility] Last Admin: 10/07/18 21:12 Dose: 40 mg Spironolactone (Aldactone) 25 mg PO DAILY [facility] Last Admin: 10/08/18 09:11 Dose: 25 mg - Labs Labs: 10/07/18 07:20 10/07/18 07:20 PT 11.6 SECONDS (9.7-12.2) 10/06/18 06:16 INR 1.1 10/06/18 06:16 APTT 30 SECONDS (21-34) 10/06/18 06:16 - Constitutional Appears: Non-toxic, Chronically Ill - Head Exam Head Exam: NORMOCEPHALIC - Eye Exam Eye Exam: absent: Scleral icterus - ENT Exam ENT Exam: Mucous Membranes Dry - Neck Exam Neck Exam: absent: Lymphadenopathy - Respiratory Exam Respiratory Exam: Decreased Breath Sounds - Cardiovascular Exam Cardiovascular Exam: REGULAR RHYTHM - GI/Abdominal Exam GI & Abdominal Exam: Distended, Soft - Rectal Exam Rectal Exam: Deferred - Exam Exam: NORMAL INSPECTION - Extremities Exam Extremities Exam: Pedal Edema - Back Exam Back Exam: absent: CVA tenderness (L), CVA tenderness (R) Assessment and Plan (1) Osteomyelitis of foot Status: Acute - Assessment and Plan (Free Text) Assessment: cont iv rx and wound care
[2018-10-08] MEDS: oxyCODONE 40 mg ER Tab (oxyCONTIN) PO PRN ×2 (15:19→23:48)
[2018-10-09] MEDS: oxyCODONE 5 mg Immediate Release Tab PO PRN ×2 (03:51→22:15)
[2018-10-09] MEDS: Levothyroxine 100 MCG TAB PO SCH (06:02)
--- NOTE | 2018-10-09 06:33 | OP ---
PROCEDURE DATE: 10/06/2018 SURGEON: Teo Rios DPM ASSISTANTS: Leigh Ann Isidro and Mario Eaton DPM ANESTHESIA ADMINISTERED BY: Love Sarmiento MD TYPE OF ANESTHESIA: IV sedation with local anesthesia. PREOPERATIVE DIAGNOSES: Right foot third digit ulceration with osteomyelitis of the distal phalanx and contracture of the second digit on the right foot. POSTOPERATIVE DIAGNOSES: Right foot third digit ulceration with osteomyelitis of the distal phalanx and contracture of the second digit on the right foot. NAME OF PROCEDURES: 1. V-Y skin plasty of the second metatarsophalangeal joint and capsulotomy. 2. Right foot resection of infected bone from distal phalanx of the third digit. INDICATIONS: The patient is a 63-year-old female with the above diagnoses. The patient has exhausted all conservative treatments at this time and now requires surgical intervention. The patient signed the consent after careful explanation of risks, benefits, complications, and alternatives for the surgical procedures. No guarantees were given nor implied. N.p.o. status was confirmed prior to taking the patient to the OR. PREPARATION: The patient was brought into the operating room and placed on the operating room table in a supine position. A time-out was performed for identification of the correct patient and procedure. The patient received a total of 20 mL of 1:1 mixture of 2% lidocaine plain and 0.5% Marcaine plain in a local block type fashion to the second and third digit on the right side. The right foot was then prepped and draped in a normal sterile manner, and the procedure began. A well-padded tourniquet was utilized during the procedure at 250 mmHg. DESCRIPTION OF PROCEDURE: PROCEDURE #1: Contracture of the second digit at the level of second MPJ was noted dorsally. A V-shaped incision was made, confirming the apex of the V was at the site of contraction. An incision was then deepened into the subcutaneous tissue. Care was taken to identify and retract all vital neurovascular structures. All bleeders were cauterized and ligated as necessary. At this time, linear capsulotomy was performed over the dorsal aspect of the metatarsophalangeal joint. The correction of the deformity was noted to be excellent. Using a 4-0 Prolene, the V-incision was then sutured close in a Y-shaped. The second toe was splinted using a Betadine-soaked gauze. PROCEDURE #2: Attention was directed to the distal aspect of the right third digit where an ulceration was noted, measuring approximately 0.4 cm x 0.3 cm. No malodor was noted. No probe to bone. No tracking or tunneling was noted. No erythema appreciated. Semi-elliptical incision was made surrounding the ulceration with the use of #15 blade. Incision was then extended down through the subcutaneous layer down to the level of bone. Using a #15 blade, soft tissue surrounding the bone was freed up dorsally and plantarly. At this point, the distal phalanx of the third digit was noted to be soft and viable. A sagittal saw was then utilized to resect the soft infected partial distal phalanx. Using a pickup to stabilize the third distal phalanx, the distal phalanx was then freed from its surrounding tissue in remote. All bone was then sent to pathology. The site was copiously irrigated with normal sterile saline. 4-0 nylon was utilized to reapproximate the skin together. All sites were dressed with Xeroform, gauze, DSD, and Juan bandage. POSTOPERATIVE CONDITION: The patient tolerated the local anesthesia and procedure well and was escorted to the recovery room neurovascular intact to the right foot and vital signs stable. The patient still remains weightbearing as tolerated to the heel at this time. The patient will remain in-house, and Podiatry will continue to follow. Upon discharge, the patient is to follow up with Dr. Vasquez in her office within a week of discharge. Leigh Ann Isidro Teo Rios DPM JUAN
[2018-10-09] MEDS: Fluticasone-Vilanterol 100/25mcg Diskus INH SCH (07:45)
[2018-10-09] MEDS: (Novolin R) Insulin Human Regular 100 units/ml vial SC SCH ×4 (07:51→21:18)
--- NOTE | 2018-10-09 08:06 | CP.PCM.PN ---
Subjective - Date & Time of Evaluation Date of Evaluation: 10/09/18 Time of Evaluation: 08:05 - Subjective Subjective: PGY-2 Progress Note: Dr. Weldon's Service Patient seen and examined at bedside. Per nursing no acute events occurred overnight . Patient denies any chest pain, shortness of breath, fevers, chills, headaches, dizziness, or any other complaints. Objective - Vital Signs/Intake and Output Vital Signs (last 24 hours): Temp Pulse Resp BP Pulse Ox 98.3 F 83 20 123/87 99 10/09/18 08:01 10/09/18 08:01 10/09/18 08:01 10/09/18 08:01 10/09/18 08:01 Intake and Output: 10/09/18 10/09/18 06:59 18:59 Intake Total 200 Balance 200 - Medications Medications: Current Medications Acetaminophen (Tylenol 325mg Tab) 650 mg PO Q6 PRN PRN Reason: Pain, Mild (1-3) Last Admin: 10/07/18 18:15 Dose: 650 mg Albuterol/Ipratropium (Duoneb 3 Mg/0.5 Mg (3 Ml) Ud) 3 ml INH RQ4 PRN PRN Reason: Shortness of Breath Dextrose (Dextrose 50% Inj) 0 ml IV STAT PRN; Protocol PRN Reason: Hypoglycemia Protocol Dextrose (Glutose 15) 0 gm PO ONCE PRN; Protocol PRN Reason: Hypoglycemia Protocol Docusate Sodium (Colace) 100 mg PO DAILY [facility] Last Admin: 10/08/18 09:11 Dose: 100 mg Fluticasone/Vilanterol (Breo Ellipta 100-25 Mcg Inh) 1 puff INH RQD [facility] Last Admin: 10/08/18 08:07 Dose: Not Given Furosemide (Lasix) 20 mg PO DAILY [facility] Last Admin: 10/08/18 09:12 Dose: 20 mg Glucagon (Glucagen Diagnostic Kit) 0 mg IM STAT PRN; Protocol PRN Reason: Hypoglycemia Protocol Heparin Sodium (Porcine) (Heparin) 5,000 units SC Q12 [facility] Last Admin: 10/05/18 21:11 Dose: Not Given Home Med (Patient's Own Medication) 7.5 tab PO BID [facility] Last Admin: 10/08/18 21:27 Dose: Not Given Vancomycin/Sodium Chloride (Vancomycin 1 Gm/Ns 200 Ml) 1 gm in 200 mls @ 166.6 mls/hr IVPB Q12H [facility]; Protocol Stop: 10/10/18 21:01 Last Admin: 10/08/18 21:26 Dose: 166.6 mls/hr Insulin Human Regular (Novolin R) 0 unit SC ACHS [facility]; Protocol Last Admin: 10/09/18 07:51 Dose: Not Given Levothyroxine Sodium (Synthroid) 100 mcg PO DAILY@0630 [facility] Last Admin: 10/09/18 06:02 Dose: 100 mcg Lorazepam (Ativan) 2 mg PO TID [facility] Last Admin: 10/08/18 21:25 Dose: 2 mg Oxycodone HCl (Oxycodone Immediate Release Tab) 15 mg PO Q4H PRN PRN Reason: Pain, moderate (4-7) Last Admin: 10/09/18 03:51 Dose: 15 mg Oxycodone HCl (Oxycontin Extended Release Tab) 40 mg PO Q8 PRN PRN Reason: Pain, severe (8-10) Last Admin: 10/08/18 23:48 Dose: 40 mg Pantoprazole Sodium (Protonix Ec Tab) 40 mg PO DAILY [facility] Last Admin: 10/08/18 09:10 Dose: 40 mg Pregabalin (Lyrica) 150 mg PO BID [facility] Last Admin: 10/08/18 17:17 Dose: 150 mg Rosuvastatin Calcium (Crestor) 40 mg PO HS [facility] Last Admin: 10/08/18 21:25 Dose: 40 mg Spironolactone (Aldactone) 25 mg PO DAILY [facility] Last Admin: 10/08/18 09:11 Dose: 25 mg - Labs Labs: 10/07/18 07:20 10/07/18 07:20 PT 11.6 SECONDS (9.7-12.2) 10/06/18 06:16 INR 1.1 10/06/18 06:16 APTT 30 SECONDS (21-34) 10/06/18 06:16 - Head Exam Head Exam: ATRAUMATIC, NORMAL INSPECTION - Eye Exam Eye Exam: EOMI, Normal appearance, PERRL Pupil Exam: NORMAL ACCOMODATION - ENT Exam ENT Exam: Mucous Membranes Moist, Normal Oropharynx - Cardiovascular Exam Cardiovascular Exam: REGULAR RHYTHM, +S1, +S2 - GI/Abdominal Exam GI & Abdominal Exam: Soft, Normal Bowel Sounds. absent: Hyperactive Bowel Sounds - Neurological Exam Neurological Exam: Alert, Awake, Oriented x3 - Psychiatric Exam Psychiatric exam: Normal Affect, Normal Mood. absent: Depressed - Skin Skin Exam: Dry, Intact Assessment and Plan - Assessment and Plan (Free Text) Assessment: 63 year old female with a past medical history of hypertension, chf, cad, diabetes mellitus, rheumatic fever, and paraesophageal hernia presents to the hospital for per Dr. Rios for pre-operative clearance for foot surgery. Plan: Right foot, 3rd digit cellulitis and osteomyelitis - Podiatry consulted; Help appreciated - Cardiology consulted, Dr. Viera; Help appreciated for cardiac clearance * Per dog catcher: Normal left ventricular function on echocardiogram February 2018; EKG no evidence of myocardial ischemia. No cardiac contraindication to the planned surgery - ID consulted, Dr. Purcell; help appreciated - Foot Xray: apparent destructive changes-osteomyelitis distal tuft of the distal phalanx 2nd toe with surrounding soft tissue swelling; osseus structures otherwise appear intact; appears to be postoperative changes of the distal aspect proximal phalanx 2nd toe. - Patient has a revised cardiac risk index of 3 points/class IV risk and has a 15% risk of major cardiac event. Patient must be cleared by dog catcher prior to surgery. - Medication: * Vancomycin 1gm IV Q12h (active since 10/05/18) * additional pain management per podiatry *s/p right third digit removal of infected bone and v to y skin plasty of the second MPJ with Dr. Rios on 10/06/18. Culture of the toe + MRSA DM - Hold home medications - ISS - Carb consistent diet - Accuchecks and hypoglycemia protocol - A1c (03/2018): 5.9 Hypothyrodism - Continue Levothyroxine 100mcg PO Daily Hypercholesterolemia - Continue Rosuvastatin 40mg PO HS - Lipid panel (03/2018): TG 215, Chol 308, LDL 199, HDL 56 Neuropathy - Continue Lyrica 150mg PO BID [facility] Diastolic CHF - Lasix 20mg po BID - Aldactone 25mg po daily - Echo (02/2018): normal size LA, LV, RA, RV; normal LV wall motion and systolic function w/LVEF 65-70%; mild concentric LVH; LV diastolic dysfunction grade I; sclerotic trileaflet aortic valved with trace AI; MAC, Trace MR; sclerotic aortic root; no pericardial effusion COPD - Continue Breo-Ellipta 1 puff INH RQD - Duonebs prn - CXR: no active disease; persistent mild cardiomegaly and pulm venous congestion Hypokalemia - K: 3.5 on admission - Repleted. Will monitor with serial CMP's Reflex Sympathetic Dystrophy - Continue home medications: Oxycodone 15mg q4h prn, Oxycontin 40mg po q8h, Tizanidine 4mg po tid, Meloxicam 7.5mg PO daily Prophylaxis - Heparin 5000sc Q12h- held for operation - Protonix 40mg PO daily Discharge Instructions: 1.F/u with PMD within 5 days of discharge. 2.F/u with Podiatry within 5 days of discharge. 3.Return to hospital for any new or worsening symptoms. Medications: 1.Zyvox 600mg PO Q12 , #20, No refills. 2. Aldactone 25mg PO Daily, #30, No refills. Case discussed with and patient seen with Dr. Weldon. Sunny Montalvo, PGY-2
[2018-10-09] MEDS: oxyCODONE 40 mg ER Tab (oxyCONTIN) PO PRN (08:15)
[2018-10-09] MEDS: Vancomycin 1 gm/NS 200 ml 1 GM/200 ML BAG IVPB SCH ×2 (09:20→21:00)
[2018-10-09] MEDS: Pantoprazole 40 mg EC Tab PO SCH (09:21)
[2018-10-09] MEDS: MELOXICAM 7.5 MG PO SCH ×2 (10:34→18:01)
--- NOTE | 2018-10-09 11:03 | CP.PCM.PN ---
Subjective - Date & Time of Evaluation Date of Evaluation: 10/09/18 Time of Evaluation: 11:00 - Subjective Subjective: Podiatry Progress Note: Dr. Rios 63F seen and evaluated at bedside 3 days s/p partial right third digit amputation with skin plasty of the second digit. Patient is AAO x 3 and NAD, resting comfortably in bed. Denies any acute overnight events or new pedal complaints. States that pain is well controlled at this time. Denies any recent N/V/F/C/CP/SOB/D Objective - Vital Signs/Intake and Output Vital Signs (last 24 hours): Temp Pulse Resp BP Pulse Ox 98.3 F 83 20 123/87 99 10/09/18 08:01 10/09/18 08:01 10/09/18 08:01 10/09/18 09:20 10/09/18 08:01 Intake and Output: 10/09/18 10/09/18 06:59 18:59 Intake Total 200 Balance 200 - Medications Medications: Current Medications Acetaminophen (Tylenol 325mg Tab) 650 mg PO Q6 PRN PRN Reason: Pain, Mild (1-3) Last Admin: 10/07/18 18:15 Dose: 650 mg Albuterol/Ipratropium (Duoneb 3 Mg/0.5 Mg (3 Ml) Ud) 3 ml INH RQ4 PRN PRN Reason: Shortness of Breath Dextrose (Dextrose 50% Inj) 0 ml IV STAT PRN; Protocol PRN Reason: Hypoglycemia Protocol Dextrose (Glutose 15) 0 gm PO ONCE PRN; Protocol PRN Reason: Hypoglycemia Protocol Docusate Sodium (Colace) 100 mg PO DAILY [facility] Last Admin: 10/09/18 09:20 Dose: 100 mg Fluticasone/Vilanterol (Breo Ellipta 100-25 Mcg Inh) 1 puff INH RQD [facility] Last Admin: 10/09/18 07:45 Dose: Not Given Furosemide (Lasix) 20 mg PO DAILY [facility] Last Admin: 10/09/18 09:20 Dose: 20 mg Glucagon (Glucagen Diagnostic Kit) 0 mg IM STAT PRN; Protocol PRN Reason: Hypoglycemia Protocol Heparin Sodium (Porcine) (Heparin) 5,000 units SC Q12 [facility] Last Admin: 10/05/18 21:11 Dose: Not Given Home Med (Patient's Own Medication) 7.5 tab PO BID [facility] Last Admin: 10/09/18 10:34 Dose: Not Given Vancomycin/Sodium Chloride (Vancomycin 1 Gm/Ns 200 Ml) 1 gm in 200 mls @ 166.6 mls/hr IVPB Q12H [facility]; Protocol Stop: 10/10/18 21:01 Last Admin: 10/09/18 09:20 Dose: 166.6 mls/hr Insulin Human Regular (Novolin R) 0 unit SC ACHS [facility]; Protocol Last Admin: 10/09/18 07:51 Dose: Not Given Levothyroxine Sodium (Synthroid) 100 mcg PO DAILY@0630 [facility] Last Admin: 10/09/18 06:02 Dose: 100 mcg Lorazepam (Ativan) 2 mg PO TID [facility] Last Admin: 10/09/18 09:21 Dose: 2 mg Oxycodone HCl (Oxycodone Immediate Release Tab) 15 mg PO Q4H PRN PRN Reason: Pain, moderate (4-7) Last Admin: 10/09/18 03:51 Dose: 15 mg Oxycodone HCl (Oxycontin Extended Release Tab) 40 mg PO Q8 PRN PRN Reason: Pain, severe (8-10) Last Admin: 10/09/18 08:15 Dose: 40 mg Pantoprazole Sodium (Protonix Ec Tab) 40 mg PO DAILY [facility] Last Admin: 10/09/18 09:21 Dose: 40 mg Pregabalin (Lyrica) 150 mg PO BID [facility] Last Admin: 10/09/18 09:21 Dose: 150 mg Rosuvastatin Calcium (Crestor) 40 mg PO HS [facility] Last Admin: 10/08/18 21:25 Dose: 40 mg Spironolactone (Aldactone) 25 mg PO DAILY [facility] Last Admin: 10/09/18 09:21 Dose: 25 mg - Labs Labs: 10/07/18 07:20 10/07/18 07:20 PT 11.6 SECONDS (9.7-12.2) 10/06/18 06:16 INR 1.1 10/06/18 06:16 APTT 30 SECONDS (21-34) 10/06/18 06:16 - Constitutional Appears: Well, Non-toxic, No Acute Distress - Extremities Exam Additional comments: Right lower extremity focused exam: Vasc: DP/PT pulses palpable 1/4. Temperature gradient warm to cool from proximal to distal. CFT < 3 sec to all digits. Non-pitting edema noted to right 3rd digit consistent with normal postoperative changes. Neuro: Light touch and protective sensation diminished bilaterally Derm: Surgical incision site skin well coapted, sutures intact, no evidence of dehiscence at this time, no purulence, no drainage, no clinical signs of infection appreciated. No erythema or cellulitic changes. Dusky appearance noted at distal tip of right third toe Ortho: Pain on palpation noted to right 3rd digit. Flexible dorsal contracture of right 2nd digit. - Neurological Exam Neurological Exam: Alert, Awake, Oriented x3 - Psychiatric Exam Psychiatric exam: Normal Affect, Normal Mood Assessment and Plan - Assessment and Plan (Free Text) Assessment: 63F seen and evaluated at bedside 3 days s/p partial right third digit amputation with skin plasty of the second digit Plan: Patient seen and evaluated Plan discussed with Dr. Rios Continue abx per ID Continue pain management per primary team Wound dressed with xeroform, DSD to third digit and Betadine, DSD to second digit No plan for further surgical intervention at this time Podiatry will continue to follow while patient in house
--- NOTE | 2018-10-09 18:34 | CP.PCM.PN ---
Subjective - Date & Time of Evaluation Date of Evaluation: 10/09/18 Time of Evaluation: 09:00 - Subjective Subjective: discussed on rounds improving Objective - Vital Signs/Intake and Output Vital Signs (last 24 hours): Temp Pulse Resp BP Pulse Ox 98.4 F 86 20 103/62 96 10/09/18 16:00 10/09/18 16:00 10/09/18 16:00 10/09/18 16:00 10/09/18 16:00 Intake and Output: 10/09/18 10/09/18 06:59 18:59 Intake Total 200 Balance 200 - Medications Medications: Current Medications Acetaminophen (Tylenol 325mg Tab) 650 mg PO Q6 PRN PRN Reason: Pain, Mild (1-3) Last Admin: 10/09/18 16:33 Dose: 650 mg Albuterol/Ipratropium (Duoneb 3 Mg/0.5 Mg (3 Ml) Ud) 3 ml INH RQ4 PRN PRN Reason: Shortness of Breath Dextrose (Dextrose 50% Inj) 0 ml IV STAT PRN; Protocol PRN Reason: Hypoglycemia Protocol Dextrose (Glutose 15) 0 gm PO ONCE PRN; Protocol PRN Reason: Hypoglycemia Protocol Docusate Sodium (Colace) 100 mg PO DAILY [facility] Last Admin: 10/09/18 09:20 Dose: 100 mg Fluticasone/Vilanterol (Breo Ellipta 100-25 Mcg Inh) 1 puff INH RQD [facility] Last Admin: 10/09/18 07:45 Dose: Not Given Furosemide (Lasix) 20 mg PO DAILY [facility] Last Admin: 10/09/18 09:20 Dose: 20 mg Glucagon (Glucagen Diagnostic Kit) 0 mg IM STAT PRN; Protocol PRN Reason: Hypoglycemia Protocol Heparin Sodium (Porcine) (Heparin) 5,000 units SC Q12 [facility] Last Admin: 10/05/18 21:11 Dose: Not Given Home Med (Patient's Own Medication) 7.5 tab PO BID [facility] Last Admin: 10/09/18 18:01 Dose: Not Given Vancomycin/Sodium Chloride (Vancomycin 1 Gm/Ns 200 Ml) 1 gm in 200 mls @ 166.6 mls/hr IVPB Q12H [facility]; Protocol Stop: 10/10/18 21:01 Last Admin: 10/09/18 09:20 Dose: 166.6 mls/hr Insulin Human Regular (Novolin R) 0 unit SC ACHS [facility]; Protocol Last Admin: 10/09/18 17:26 Dose: Not Given Levothyroxine Sodium (Synthroid) 100 mcg PO DAILY@0630 [facility] Last Admin: 10/09/18 06:02 Dose: 100 mcg Lorazepam (Ativan) 2 mg PO TID [facility] Last Admin: 10/09/18 17:59 Dose: 2 mg Oxycodone HCl (Oxycodone Immediate Release Tab) 15 mg PO Q4H PRN PRN Reason: Pain, moderate (4-7) Last Admin: 10/09/18 03:51 Dose: 15 mg Oxycodone HCl (Oxycontin Extended Release Tab) 40 mg PO Q8 PRN PRN Reason: Pain, severe (8-10) Last Admin: 10/09/18 08:15 Dose: 40 mg Pantoprazole Sodium (Protonix Ec Tab) 40 mg PO DAILY [facility] Last Admin: 10/09/18 09:21 Dose: 40 mg Pregabalin (Lyrica) 150 mg PO BID [facility] Last Admin: 10/09/18 17:59 Dose: 150 mg Rosuvastatin Calcium (Crestor) 40 mg PO HS [facility] Last Admin: 10/08/18 21:25 Dose: 40 mg Spironolactone (Aldactone) 25 mg PO DAILY [facility] Last Admin: 10/09/18 09:21 Dose: 25 mg - Labs Labs: 10/07/18 07:20 10/07/18 07:20 PT 11.6 SECONDS (9.7-12.2) 10/06/18 06:16 INR 1.1 10/06/18 06:16 APTT 30 SECONDS (21-34) 10/06/18 06:16 - Constitutional Appears: Well - Head Exam Head Exam: ATRAUMATIC, NORMAL INSPECTION, NORMOCEPHALIC - Eye Exam Eye Exam: EOMI, Normal appearance, PERRL Pupil Exam: NORMAL ACCOMODATION, PERRL - ENT Exam ENT Exam: Mucous Membranes Moist, Normal Exam - Neck Exam Neck Exam: Full ROM, Normal Inspection. absent: Lymphadenopathy - Respiratory Exam Respiratory Exam: Clear to Ausculation Bilateral, NORMAL BREATHING PATTERN - Cardiovascular Exam Cardiovascular Exam: REGULAR RHYTHM, +S1, +S2. absent: Murmur - GI/Abdominal Exam GI & Abdominal Exam: Soft, Normal Bowel Sounds. absent: Tenderness - Rectal Exam Rectal Exam: Deferred - Exam Exam: NORMAL INSPECTION - Extremities Exam Extremities Exam: Full ROM, Normal Capillary Refill, Normal Inspection. 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
--- NOTE | 2018-10-09 22:33 | CARD ---
APPROVED REPORT Date of service: 10/05/2018 EKG Measurement Heart [id number] <Conclusion> Normal sinus rhythm Normal ECG
[2018-10-10 01:33] VITALS: O2SAT 98
[2018-10-10] MEDS: Levothyroxine 100 MCG TAB PO SCH (05:45)
[2018-10-10] MEDS: oxyCODONE 40 mg ER Tab (oxyCONTIN) PO PRN (05:45)
[2018-10-10] MEDS: (Novolin R) Insulin Human Regular 100 units/ml vial SC SCH (07:11)
[2018-10-10 08:00] VITALS: PULSE 79; TEMP 97.9
[2018-10-10] MEDS: Fluticasone-Vilanterol 100/25mcg Diskus INH SCH (08:03)
[2018-10-10] MEDS: Vancomycin 1 gm/NS 200 ml 1 GM/200 ML BAG IVPB SCH (08:04)
[2018-10-10] MEDS: Pantoprazole 40 mg EC Tab PO SCH (09:28)
[2018-10-10] MEDS: MELOXICAM 7.5 MG PO SCH (09:29)
[2018-10-10 09:32] VITALS: BP 135/85
--- NOTE | 2018-10-10 12:44 | CP.PCM.PN ---
Subjective - Date & Time of Evaluation Date of Evaluation: 10/10/18 Time of Evaluation: 12:42 - Subjective Subjective: Podiatry Progress Note: Dr. Rios 63F seen and evaluated at bedside 4 days s/p partial right third digit amputation with skin plasty of the second digit. Patient is AAO x 3 and NAD, resting comfortably in bed. Denies any acute overnight events or new pedal complaints. States that pain is well controlled at this time. Denies any recent N/V/F/C/CP/SOB/D. States that she has been ambulating with minimal pain in a surgical shoe Objective - Vital Signs/Intake and Output Vital Signs (last 24 hours): Temp Pulse Resp BP Pulse Ox 97.9 F 79 20 135/85 98 10/10/18 07:00 10/10/18 07:00 10/10/18 07:00 10/10/18 09:28 10/10/18 07:00 Intake and Output: 10/10/18 10/10/18 06:59 18:59 Intake Total 200 Balance 200 - Labs Labs: 10/07/18 07:20 10/07/18 07:20 PT 11.6 SECONDS (9.7-12.2) 10/06/18 06:16 INR 1.1 10/06/18 06:16 APTT 30 SECONDS (21-34) 10/06/18 06:16 - Constitutional Appears: Well, Non-toxic, No Acute Distress - Extremities Exam Additional comments: Right lower extremity focused exam: Vasc: DP/PT pulses palpable 1/4. Temperature gradient warm to cool from proximal to distal. CFT < 3 sec to all digits. Non-pitting edema noted to right 3rd digit consistent with normal postoperative changes improved since yesterday Neuro: Light touch and protective sensation diminished bilaterally Derm: Surgical incision site skin well coapted, sutures intact, no evidence of dehiscence at this time, no purulence, no drainage, no clinical signs of infection appreciated. No erythema or cellulitic changes. Dusky appearance noted at distal tip of right third toe improved since yesterday Ortho: Pain on palpation noted to right 3rd digit. Flexible dorsal contracture of right 2nd digit. - Neurological Exam Neurological Exam: Alert, Awake, Oriented x3 - Psychiatric Exam Psychiatric exam: Normal Affect, Normal Mood Assessment and Plan - Assessment and Plan (Free Text) Assessment: 63F seen and evaluated at bedside 4 days s/p partial right third digit amputation with skin plasty of the second digit Plan: Patient seen and evaluated Plan discussed with Dr. Rios Continue abx per ID Continue pain management per primary team Wound dressed with xeroform, DSD to third digit and Betadine, DSD to second digit No plan for further surgical intervention at this time Podiatry will continue to follow while patient in house Patient to follow up with Dr. Rios upon discharge
--- NOTE | 2018-10-13 07:18 | DS ---
The patient was admitted to the hospital with diabetic foot infection. The patient was started on IV antibiotics. Podiatry consult, debridement. The patient was discharged. Given IV antibiotics diabetic foot ____. Artis Weldon MD
== END 2018-10-10 10:50 | disposition home or self-care (01) | DRG 629 ==
LOC: C.ER 11:18 → C.9E 11:45 → C.6T 12:59 → C.3T 10-06 19:54
PROVIDERS: ADMIT Internal Medicine Pulmonary Disease; ATTEND Internal Medicine Pulmonary Disease
PROC: 0SNP0ZZ Release Right Toe Phalangeal Joint, Open Approach (ICD-10-PCS; 2018-10-06)
PROC: 0HQMXZZ Repair Right Foot Skin, External Approach (ICD-10-PCS; 2018-10-06)
PROC: 0QBQ0ZZ Excision of Right Toe Phalanx, Open Approach (ICD-10-PCS; principal; 2018-10-06 07:30)
DX: E11.621 Type 2 diabetes mellitus with foot ulcer (principal); M86.671 Other chronic osteomyelitis, right ankle and foot; E11.69 Type 2 diabetes mellitus with other specified complication; M24.574 Contracture, right foot; L97.519 Non-pressure chronic ulcer of other part of right foot with unspecified severity; E11.610 Type 2 diabetes mellitus with diabetic neuropathic arthropathy; I11.0 Hypertensive heart disease with heart failure; I50.32 Chronic diastolic (congestive) heart failure; G90.50 Complex regional pain syndrome I, unspecified; E03.9 Hypothyroidism, unspecified; J44.9 Chronic obstructive pulmonary disease, unspecified; I25.10 Atherosclerotic heart disease of native coronary artery without angina pectoris; I34.1 Nonrheumatic mitral (valve) prolapse; E78.5 Hyperlipidemia, unspecified; E78.00 Pure hypercholesterolemia, unspecified; K21.9 Gastro-esophageal reflux disease without esophagitis; K44.9 Diaphragmatic hernia without obstruction or gangrene; Z87.81 Personal history of (healed) traumatic fracture; Z86.711 Personal history of pulmonary embolism; Z86.19 Personal history of other infectious and parasitic diseases; Z90.710 Acquired absence of both cervix and uterus

== ENCOUNTER 2019-01-02 12:09 | Emergency (ER) | payer MEDICARE, OTHER ==
[2019-01-02 12:20] VITALS: BMI 47.4
--- NOTE | 2019-01-02 12:32 | C.PDOC ---
History Of Present Illness 63 year old female presents to ED with complaint of headache and pain to the bilateral feet and right knee s/p fall this morning. She states that she doesn't remember the events of the fall that well, but states that she got up and was using her cane. She states that she was going to the bathroom when she lost her occupational health nurse manager on her cane and became unsteady and fell. She is unsure if she hit her head or lost consciousness. Her home health aid found her at home, awake and acting normally, and helped her to get up and brought her to the ED. Patient states she took tylenol without relief. She has had multiple surgeries over the years to her bilateral feet. She denies that this is the worst headache of her life, chest pain, SOB, nausea, visual changes, increased weakness, numbness, or tingling. No other complaints at this time. Time Seen by Provider: 01/02/19 12:31 Chief Complaint (Nursing): Lower Extremity Problem/Injury History Per: Patient, Other (home health aid) History/Exam Limitations: no limitations Onset/Duration Of Symptoms: Hrs (7) Current Symptoms Are (Timing): Still Present - Knee Description Of Injury: Fell Alleviating Factor(s): denies: OTC Pain Medication - Ankle/Foot Description Of Injury: Fell Alleviating Factor(s): denies: OTC Pain Medication Past Medical History Reviewed: Historical Data, Nursing Documentation, Vital Signs Vital Signs: Last Vital Signs Temp 98.3 F 01/02/19 12:20 Pulse 71 01/02/19 12:20 Resp 18 01/02/19 12:20 BP 120/66 01/02/19 12:20 Pulse Ox 98 01/02/19 12:20 Primary Care Provider: Artis Weldon - Medical History PMH: Anxiety, Arthritis, Asthma, Back Problems, Bronchitis, CAD, CHF, COPD, Depression, Diabetes, Fractures (DISPLACED METATarSAL FRACTURE 2ND LEFT), Gall Bladder Disease (Gallstone), GERD, Hiatal Hernia, HTN, Hypercholesterolemia, Hypothyroidism, Mitral Valve Prolapse, Peripheral Edema, Pulmonary Embolism - [facility] Procedures DIVISION OF RIGHT FOOT TENDON, OPEN APPROACH (03/13/18) EXCISION OF LEFT METATARSAL, OPEN APPROACH (07/20/17) EXCISION OF LEFT TOE PHALANX, OPEN APPROACH (03/13/18) EXCISION OF RIGHT TOE PHALANX, OPEN APPROACH (10/04/18) FLUOROSCOPY OF SUP VENA CAVA USING L OSM CONTRAST, GUIDANCE (10/13/15) INCIS W REM OF FORIEGN BODY OR DEV FROM SKIN & SUBCUT TISSUE (10/22/14) INFLUENZA VACCINATION (09/19/14) INSERTION OF INFUSION DEV INTO SUP VENA CAVA, PERC APPROACH (10/13/15) INSERTION OF TOTALLY IMPLANTABLE VASC ACCESS DEVIC (10/22/14) INSERTION OF VAD INTO CHEST SUBCU/FASCIA, OPEN APPROACH (10/13/15) NEBULIZER THERAPY (11/05/13) NON-INVASIVE MECHANICAL VENTILATION (06/04/12) OCCUPATIONAL THERAPY (09/19/14) OTH & OPEN REP OTH HERNIA OF ANTER ABD WALL W GRF OR PROSTH (05/28/13) PHYSICAL THERAPY NEC (09/19/14) RELEASE RIGHT TOE PHALANGEAL JOINT, OPEN APPROACH (10/04/18) REMOVAL OF VAD FROM TRUNK SUBCU/FASCIA, OPEN APPROACH (10/13/15) REPAIR CHEST SKIN, EXTERNAL APPROACH (10/13/15) REPAIR RIGHT FOOT SKIN, EXTERNAL APPROACH (10/04/18) REPLACE OF R TOE PHALANX JT WITH SYNTH SUB, OPEN APPROACH (07/20/17) THORAX SFT TISS XRAY NEC (03/19/13) Family History: States: Unknown Family Hx - Social History Hx Tobacco Use: No Hx Alcohol Use: No Hx Substance Use: No - Immunization History Hx Tetanus Toxoid Vaccination: No Hx Influenza Vaccination: Yes Hx Pneumococcal Vaccination: Yes Review Of Systems Except As Marked, All Systems Reviewed And Found Negative. Constitutional: Negative for: Fever, Chills, Weight loss Respiratory: Negative for: SOB with Excertion Gastrointestinal: Negative for: Abdominal Pain, Diarrhea, Constipation Genitourinary: Negative for: Dysuria Musculoskeletal: Positive for: Leg Pain (right knee), Foot Pain (bilateral) Neurological: Positive for: Headache. Negative for: Confusion, Altered Mental Status Physical Exam - Physical Exam Appears: Well, Non-toxic, No Acute Distress Skin: Normal Color, Warm, Dry Head: Atraumatic, Normacephalic Eye(s): bilateral: Normal Inspection Oral Mucosa: Moist Neck: Normal ROM, No Decreased ROM, No Midline Cervical Tenderness, Supple Chest: Symmetrical, No Deformity Cardiovascular: Rhythm Regular, No Murmur Respiratory: No Accessory Muscle Use, No Rales, No Rhonchi, No Wheezing Gastrointestinal/Abdominal: Soft, No Tenderness Back: No Vertebral Tenderness, No Decreased ROM, No Paraspinal Tenderness Extremity: Normal ROM (right knee and bilateral ankles.), Tenderness (diffuse, to the bilateral feet; ankles non-tender bilaterally; medial aspect of the right knee; left knee normal), Capillary Refill (<2 seconds), Swelling (to the dorsum of the feet bilaterally), Other (2+ pedal pulses bilaterally; well-healed surgical scars to the metatarsels bilaterally; equal length) Pulses: Left Dorsalis Pedis: Normal, Right Dorsalis Pedis: Normal Neurological/Psych: Oriented x3, Normal Speech, Normal Cognition, Normal Cranial Nerves, No Cerebellar Signs, Normal Motor, Normal Sensation Gait: With Assistance ED Course And Treatment O2 Sat by Pulse Oximetry: 98 (NC) Pulse Ox Interpretation: Normal - Other Rad XRAY BILATERAL FEET X-Ray: Interpreted by Me, Viewed By Me Interpretation: No fracture or dislocation, s/p surgical removal of some of the metatarsals. XRAY RIGHT KNEE X-Ray: Interpreted by Me, Viewed By Me Interpretation: No fracture or dislocation. - CT Scan/US CT HEAD Other Rad Studies (CT/US): Read By Radiologist, Radiology Report Reviewed CT/US Interpretation: Accession No. : [id number]. Patient Name / ID : YOLANDA FONTENOT / [id number]. Exam Date : 01/02/2019 14:01:56 ( Approved ). Study Comment : Sex / Age : F / 63Y. Creator : Ernestina Turner MD. Dictator : Ernestina Turner MD. Construction Checker : Appraiser Personal Property : Ernestina Turner MD. Approver2 : Report Date : 01/02/2019 14:21:17. My Comment : . Date of service: 01/02/2019. PROCEDURE: CT HEAD WITHOUT CONTRAST. HISTORY: Fall, head injury. COMPARISON: 09/08/2018. TECHNIQUE: Axial computed tomography images were obtained through the head/brain without intravenous contrast. Radiation dose: Total exam DLP = 1114.42 mGy-cm. This CT exam was performed using one or more of the following dose reduction techniques: Automated exposure control, adjustment of the mA and/or kV according to patient size, and/or use of iterative reconstruction technique. FINDINGS: HEMORRHAGE: No intracranial hemorrhage. BRAIN: Blakely-white matter differentiation is preserved. There is no mass, mass effect or abnormal extra- axial fluid collection. There is no territorial infarction. The midline sagittal structures are normal. VENTRICLES: There is mild age-related global parenchymal volume loss and proportionate enlargement of the ventricles and cortical sulci. CALVARIUM: There is no calvarial fracture or extracranial soft tissue swelling. PARANASAL SINUSES: There is mild polypoid mucosal thickening in the visualized right maxillary sinus and in the right ethmoid air cells. The remaining paranasal sinuses are predominantly clear. MASTOID AIR CELLS: Predominantly clear. OTHER FINDINGS: None. IMPRESSION: No acute intracranial abnormality. Mild age-related global parenchymal volume loss. Mild chronic right maxillary and right ethmoid sinusitis. Medical Decision Making Medical Decision Making: Impression: 63 year old female presents to ED with complaint of headache and pain to the bilateral feet and right knee s/p fall this morning. Initial Plan: Right Knee x-ray Bilateral Foot X-ray Head CT w/o contrast 1446 01/02/19 Patient reevaluated and updated on all CT and xray findings. No fracture or ICH. Juan wrap applied by ED staff to the right knee. Advised to follow-up with her private beater and pulper feeder, PMD and orthopedist. Instructed on RICE method of treatment. Has walker at home and multiple canes. Has medication to take at home for her discomfort. Has home health aide with her at bedside. Disposition Counseled Patient/Family Regarding: Studies Performed, Diagnosis, Need For Followup - Disposition Referrals: Viviane Weldon MD [Medical Doctor] - Teo Rios DPM [Staff Provider] - Ej Valdez III, MD [Staff Provider] - Disposition: HOME/ ROUTINE Disposition Time: 14:48 Condition: GOOD Additional Instructions: Wear juan wrap. Ice and elevate your legs. Follow-up with your PMD, beater and pulper feeder and orthopedist. Return if symptoms worsen or persist. Instructions: Knee Sprain (DC), Minor Head Injury (DC), Foot Sprain (DC) Forms: [facility] ([place]), General Discharge Instructions - Clinical Impression Clinical Impression: Foot sprain, Knee sprain, Head injury - PA / PIPELINE EXECUTIVE / Resident Statement MD/DO has reviewed & agrees with the documentation as recorded. (Yusra Rushing) - Scribe Statement The provider has reviewed the documentation as recorded by the Scribe (Yusra Rushing) All medical record entries made by the Scribe were at my direction and personally dictated by me. I have reviewed the chart and agree that the record accurately reflects my personal performance of the history, physical exam, medical decision making, and the department course for this patient. I have also personally directed, reviewed, and agree with the discharge instructions and disposition.
--- NOTE | 2019-01-02 14:24 | CT ---
Date of service: 01/02/2019 PROCEDURE: CT HEAD WITHOUT CONTRAST. HISTORY: Fall, head injury COMPARISON: 09/08/2018. TECHNIQUE: Axial computed tomography images were obtained through the head/brain without intravenous contrast. Radiation dose: Total exam DLP = 1114.42 mGy-cm. This CT exam was performed using one or more of the following dose reduction techniques: Automated exposure control, adjustment of the mA and/or kV according to patient size, and/or use of iterative reconstruction technique. FINDINGS: HEMORRHAGE: No intracranial hemorrhage. BRAIN: Blakely-white matter differentiation is preserved. There is no mass, mass effect or abnormal extra-axial fluid collection. There is no territorial infarction. The midline sagittal structures are normal. VENTRICLES: There is mild age-related global parenchymal volume loss and proportionate enlargement of the ventricles and cortical sulci. CALVARIUM: There is no calvarial fracture or extracranial soft tissue swelling. PARANASAL SINUSES: There is mild polypoid mucosal thickening in the visualized right maxillary sinus and in the right ethmoid air cells. The remaining paranasal sinuses are predominantly clear. MASTOID AIR CELLS: Predominantly clear. OTHER FINDINGS: None. IMPRESSION: No acute intracranial abnormality. Mild age-related global parenchymal volume loss. Mild chronic right maxillary and right ethmoid sinusitis.
--- NOTE | 2019-01-02 14:28 | RAD ---
Date of service: 01/02/2019 PROCEDURE: Right Knee Radiographs. HISTORY: fall knee pain COMPARISON: None. TECHNIQUE: 2 views obtained. FINDINGS: BONES: Bone alignment and mineralization are normal. There is no acute displaced fracture or bone destruction. JOINTS: There is moderate tricompartmental degenerative osteoarthrosis with reduced joint spaces, marginal osteophytes and tibial spiking, worse in the lateral compartment. JOINT EFFUSION: There is a small suprapatellar joint effusion. OTHER FINDINGS: None. IMPRESSION: No acute displaced fracture or dislocation. Moderate tricompartmental degenerative osteoarthrosis, worse in the lateral compartment. Small suprapatellar joint effusion.
--- NOTE | 2019-01-02 14:37 | RAD ---
Date of service: 01/02/2019 PROCEDURE: Bilateral Feet Radiographs. HISTORY: fall injury COMPARISON: 09/27/2018 TECHNIQUE: 6 views obtained. FINDINGS: BONES: Right foot: There is severe bone demineralization. There is no acute displaced fracture or bone destruction. The distal phalanx of the 3rd toe is not visualized, finding could be related to acro-osteolysis os postsurgical change. There is also sclerosis and cortical irregularity in the distal aspect of the proximal phalanx of the 2nd toe with mild surrounding soft tissue swelling. Bone alignment is normal. Left foot: Again seen is partial resection of the 2nd, 3rd, 4th and 5th metatarsals. Bilateral plantar calcaneal spurs. JOINTS: Right Foot: Mild degenerative osteoarthrosis at the 1st MTP joint. Left Foot: There is 1st proximal phalanx osteotomy and degenerative osteoarthrosis at the 1st MTP joint. SOFT TISSUES: Right Foot: Normal. Left Foot: Normal. OTHER FINDINGS: None. IMPRESSION: 1. No acute displaced fracture or dislocation. 2. Sclerosis and cortical irregularity in the distal aspect of the proximal phalanx of the 2nd toe with surrounding soft tissue swelling, findings could be related to age-indeterminate osteomyelitis. Postsurgical change versus acro-osteolysis in the distal phalanx of the 3rd toe of the right foot. 3. Stable postsurgical changes in the left foot with osteotomy in the proximal phalanx with degenerative osteoarthrosis at the 1st MTP joint.
[2019-01-02 15:04] VITALS: BP 100/65; PULSE 82; RESP 20; TEMP 98.9
[2019-01-02 16:59] VITALS: O2SAT 98
== END 2019-01-02 15:03 | disposition home or self-care (01) ==
LOC: C.ER 12:09
DX: S09.90XA Unspecified injury of head, initial encounter (principal); S93.609A Unspecified sprain of unspecified foot, initial encounter; S83.90XA Sprain of unspecified site of unspecified knee, initial encounter; W19.XXXA Unspecified fall, initial encounter; E11.9 Type 2 diabetes mellitus without complications; E78.00 Pure hypercholesterolemia, unspecified; E03.9 Hypothyroidism, unspecified; I25.10 Atherosclerotic heart disease of native coronary artery without angina pectoris; I50.9 Heart failure, unspecified; I10 Essential (primary) hypertension; J44.9 Chronic obstructive pulmonary disease, unspecified